=== PATIENT | female | born 1980 | race Caucasian/White ===

== ENCOUNTER 2016-10-08 21:29 | Emergency (ER) | payer BC ==
[~2016-10-08] VITALS: Ht 162.6 cm; Wt 142.9 kg
[~2016-10-08 21:29] MED LIST: ACET500C21 PO; ACHYD1T PO; ALPR.25T PO; AMIT10TA6 PO; AZIL1TAB2 PO; CEFD300C3 PO; CEPH500C PO; CLON0.253 PO; CLON0.5T60 PO; DCS100C PO; DIAZ5TAB PO; DULO60CA6 PO; ESCT10T PO; ESTR1TAB24 PO; ESTR42.52 VG; FRSM20T PO; FURO-124 PO; HCT25T PO; HYDR-3720 PO; HYDR-3730 PO; IBP800T PO; IBUP-30 PO; ISOM1CAP PO; KCL20TCR PO; LISI-552 PO; LISI10TA PO; LISI1TAB6 PO; LISI40TA PO; LORA1TAB PO; METH36TA4 PO; METO-270 PO; MTP100TCR PO; MTP25TSR PO; MTP50T PO; NAPR-243 PO; NITR-65 PO; NORT10CA PO; OMEP20CA12 PO; ONDA8TAB13 PO; ONDA8TAB9 PO; OXYC-197 PO; OXYC-202 PO; PHEN100T17 PO; PHEN100T26 PO; POTA20PA11 PO; PROP80TA3 PO; PRX20T PO; TIZA2CAP9 PO; VENL150C PO; VERA120T84 PO; ZLP10T PO; ZLP5T PO; ZONI100C11 PO
[2016-10-08] MEDS ORDERED: ACET500C21 PO (21:45)
[2016-10-08] MEDS ORDERED: OMEP40CA36 PO (21:45)
[2016-10-08] MEDS ORDERED: IBUP-1780 PO (21:45)
[2016-10-08] MEDS ORDERED: TOPI100T PO (21:45)
[2016-10-08] MEDS ORDERED: BUPR1FIL3 SL (21:45)
[2016-10-08 22:11] LABS: BASOPHILS % (AUTO) 1 % (0-10); EOSINOPHILS # (AUTO) 0.1 10^3/uL (0.0-0.3); EOSINOPHILS % (AUTO) 2 % (0-10); LYMPHOCYTES # (AUTO) 3.9 X 10^3 (1.0-4.0); LYMPHOCYTES % (AUTO) 53 % (12-44); MEAN CORPUSCULAR HEMOGLOBIN 30 PG (25-34); MEAN CORPUSCULAR HGB CONC 33 G/DL (32-36); MEAN CORPUSCULAR VOLUME 90 FL (80-99); MONOCYTES # (AUTO) 0.9 X 10^3 (0.0-1.0); MONOCYTES % (AUTO) 12 % (0-12); NEUTROPHILS # (AUTO) 2.5 X 10^3 (1.8-7.8); NEUTROPHILS % (AUTO) 33 % (42-75); PLATELET COUNT 351 10^3/uL (130-400); RED BLOOD COUNT 4.47 10^6/uL (4.35-5.85); RED CELL DISTRIBUTION WIDTH 13.5 % (10.0-14.5); WHITE BLOOD COUNT 7.4 10^3/uL (4.3-11.0)
[2016-10-08 22:14] LABS: INR 1.1 (0.8-1.4); PROTHROMBIN TIME PATIENT 13.7 SEC (12.2-14.7)
[2016-10-08 22:23] LABS: ALANINE AMINOTRANSFERASE 56 U/L (0-55); ALBUMIN 4.4 G/DL (3.2-4.5); ASPARTATE AMINO TRANSFERASE 38 U/L (5-34); BILIRUBIN,TOTAL 0.5 MG/DL (0.1-1.0); BLOOD UREA NITROGEN 10 MG/DL (7-18); BUN/CREATININE RATIO 11; CALCIUM 9.6 MG/DL (8.5-10.1); CARBON DIOXIDE 24 MMOL/L (21-32); CREATINE KINASE 394 U/L (29-168); CREATININE SERUM 0.93 MG/DL (0.60-1.30); GFR ESTIMATED > 60; GLUCOSE 116 MG/DL (70-105)
[2016-10-08 22:30] LABS: TROPONIN I < 0.30 NG/ML (<0.30)
[2016-10-08] MEDS ORDERED: methylPREDNISolone 125 MG (Solu-MEDROL) VIAL ONE (23:19)
[2016-10-08] MEDS ORDERED: cefTRIAXone 1 GM (ROCEPHIN) VIAL ONE (23:20)
[2016-10-08] MEDS ORDERED: BENZONATATE 100 MG (TESSALON) CAPSULE PO ONE (23:20)
--- NOTE | 2016-10-08 23:46 | ED General ---
General Chief Complaint: Neurological Problems Stated Complaint: LEFT SIDE NUMBNESS/BENIGN BRAIN TUMOR Nursing Triage Note: pt c/o right face numbness starting at 1000 today. she reports she saw dr chopra at [facility] today at 1600. no changes made by her pcp. she reports she feels swelling in her mouth et face, as if she has had dental work done. also c/o throat tightness. cough x 3 weeks. 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 reports posterior head pressure similar to symptoms before shunt placement. Nursing Sepsis Screen: No Definite Risk Source of Information: Patient, Old Records History of Present Illness Time Seen by Provider: 22:00 Initial Comments PT WITH MULTIPLE COMPLAINTS PT C/O PRODUCTIVE COUGH WITH GREEN SPUTUM X 3 -4 WEEKS TONIGHT SHE BECAME SHORT OF BREATH WHILE TAKING A SHOWER NO FEVER/SWEATS/CHILLS C/O FEELING VERY TIRED TONIGHT WHEN SHE WAS EATING A BURGER, HER THROAT FELT TIGHT AND SHE HAD TROUBLE SWALLOWING--NO SYMPTOMS WHEN SHE IS RESTING AND RELAXED AND NOT COUGHING --ABLE TO SWALLOW WATER WITHOUT DIFFICULTY, AND NO SYMPTOMS NOW. CHEST HURTS TO COUGH OR BREATHE HAS HISTORY OF FREQUENT BRONCHITIS / PNEUMONIA, PER PT PT WAS SEEN AT [facility] 2-3 WEEKS AGO AND GIVEN RX FOR AUGMENTIN, AND SYMPTOMS IMPROVED SOME, THEN RETURNED AND HAVE GOTTEN WORSE HAS NOT TAKEN ANYTHING FOR SYMPTOMS STATES YESTERDAY SHE HAD TO LEAVE WORK EARLY BECAUSE SHE "FELT BAD"--TIRED, HEADACHE--"JUST DIDN'T FEEL GOOD" PT ALSO STATES THAT AT 10 AM TODAY THE RIGHT SIDE OF HER FACE AND LIPS STARTED "FEELING FUNNY" --TINGLY, NUMB--"LIKE WHEN YOU HAVE DENTAL WORK" NO FACIAL DROOP NO NUMBNESS/TINGLING OR WEAKNESS ANYWHERE ELSE NO FACIAL PAIN NO DENTAL PAIN NO VISION CHANGES NO HEADACHE AT THIS TIME NO DIZZINESS NO NAUSEA/VOMITING STATES SHE HAS HISTORY OF PSEUDOTUMOR CEREBRI AND HAD A COST CONTROL SPECIALIST SHUNT PLACED 01/2016 AT STATES THESE SYMPTOMS ARE SIMILAR TO THOSE THAT SHE HAD BEFORE SHUNT WAS PLACED PT ALSO STATES SHE FEELS VERY ANXIOUS PCP: DR. CHOPRA AT [facility] Allergies and Home Medications Allergies Coded Allergies: promethazine (Verified Allergy, Mild, 01/28/16) Home Medications Acetazolamide 500 Mg Capsule.er, 1,000 MG PO DAILY, (Reported) Azithromycin 500 Mg Tablet, 500 MG PO DAILY, #5 FOR INFECTION Prescribed by: JOSE CARLOS NAYLOR on 10/08/168 Benzonatate 100 Mg Capsule, 1-2 TAB PO TID, #30 Prescribed by: JOSE CARLOS NAYLOR on 10/08/168 Buprenorphine HCl/Naloxone HCl 1 Each Film, 2 EACH SL DAILY, (Reported) Cefdinir 300 Mg Capsule, 300 MG PO BID, #20 Prescribed by: JOSE CARLOS NAYLOR on 10/08/168 Duloxetine HCl 60 Mg Capsule.dr, 60 MG PO BID, (Reported) Ibuprofen 800 Mg Tablet, 800 MG PO Q6H PRN for PAIN, (Reported) Lisinopril 40 Mg Tablet, 40 MG PO DAILY, (Reported) Methylprednisolone 4 Mg Tab.ds.pk, 4 MG PO UD, #1 Prescribed by: JOSE CARLOS NAYLOR on 10/08/162347 Omeprazole 40 Mg Capsule.dr, 40 MG PO DAILY, (Reported) Propranolol HCl 80 Mg Tablet, 80 MG PO BID, (Reported) Topiramate 100 Mg Tablet, 100 MG PO BID, (Reported) Constitutional: see HPI, No chills, No diaphoresis, No dizziness, No fever, malaise EENTM: see HPI, No blurred vision, No dental problems, No double vision, No ear discharge, No ear pain, No epistaxis, No eye pain, No hearing loss, No hoarseness, No mouth pain, No mouth swelling, No nose congestion, No nose pain, No throat pain, No throat swelling, No vision loss Respiratory: see HPI, cough, dyspnea on exertion, phlegm, short of breath, No wheezing Cardiovascular: see HPI, chest pain, edema, No palpitations, No syncope, No vascular heart diseas Gastrointestinal: see HPI, No abdominal pain, No diarrhea, No loss of appetite , No nausea, No vomiting Genitourinary: no symptoms reported : No (HYST) Musculoskeletal: no symptoms reported, No back pain, No neck pain Skin: no symptoms reported Psychiatric/Neurological: See HPI, Anxiety, Headache, Numbness, Paresthesia, Denies Seizure, Tingling, Denies Tremors, Denies Weakness Hematologic/Lymphatic: No Symptoms Reported Immunological/Allergic: no symptoms reported Past Sgbjpey-Vlbpjt-Vvlatg Hx Patient Social History Alcohol Use: Denies Use Recreational Drug Use: Yes (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) Smoking Status: Never a Smoker Recent Foreign Travel: No Contact w/Someone Who Travel: No Recent Infectious Disease Expo: No Recent Hopitalizations: No Immunizations Up To Date Tetanus Booster (TDap): Less than 5yrs PED Vaccines UTD: No Date of Influenza Vaccine: Feb 16, 2012 Surgeries HX Surgeries: Yes (COST CONTROL SPECIALIST shunt 01/2016, total hysterectomy 2005 with bladder tie up, A AND P REPAIR -12; EGD WITH LAP KATHE) Surgeries: Bladder Surgery, Gallbladder, Hysterectomy, Neurological, Oophorectomy Respiratory Hx Respiratory Disorders: Yes Respiratory Disorders: Asthma, Pneumonia, Chronic Bronchitis Cardiovascular Hx Cardiac Disorders: Yes Cardiac Disorders: Hypertension Neurological Hx Neurological Disorders: Yes (PSEUDO CEREBRI TUMOR, COST CONTROL SPECIALIST shunt 01/2016) Neurological Disorders: Headaches /Migraines Reproductive System Hx Reproductive Disorders: No 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 Genitourinary Hx Genitourinary Disorders: No Gastrointestinal Hx Gastrointestinal Disorders: Yes Gastrointestinal Disorders: Gastroesophageal Reflux, Esophagitis Musculoskeletal Hx Musculoskeletal Disorders: No Endocrine Hx Endocrine Disorders: No (MORBID OBESITY) HEENT HX ENT Disorders: No Cancer Hx Cancer: No Psychosocial Hx 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) Behavioral Health Disorders: Anxiety Integumentary HX Skin/Integumentary Disorder: No Blood Transfusions Hx Blood Disorders: No Adverse Reaction to a Blood Tr: No Family Medical History Significant Family History: No Pertinent Family Hx Family Medial History: Abdominal aortic aneurysm 03 FATHER Family history: Allergy 03 FATHER Family history: Arthritis 03 MOTHER 09 SISTER Family history: Hypertension 03 FATHER Physical Exam Vital Signs Vital Sign - Last 12Hours 10/08/16 10/09/16 21:37 00:05 Temp 100.3 Pulse 89 Resp 20 B/P (MAP) 151/107 Pulse Ox 98 Capillary Refill : Less Than 3 Seconds General Appearance: No Apparent Distress, WD/WN, Obese, Other (DOES NOT APPEAR TO BE IN ANY DISCOMFORT. OCCASIONAL HARSH COUGH) HEENT: PERRL/EOMI Neck: Full Range of Motion, Normal Inspection, Non Tender, Supple, No Carotid Bruit, No JVD Respiratory: Normal Breath Sounds, No Accessory Muscle Use, No Respiratory Distress Cardiovascular: Regular Rate, Rhythm, No JVD, No Murmur, Normal Peripheral Pulses Gastrointestinal: Normal Bowel Sounds, No Organomegaly, No Pulsatile Mass, Non Tender, Soft Back: Normal Inspection, No CVA Tenderness, No Vertebral Tenderness Extremity: Normal Capillary Refill, Normal Range of Motion, Non Tender, No Calf Tenderness, Pedal Edema (1+ BILATERALLY) Neurologic/Psychiatric: Alert, Oriented x3, Normal Mood/Affect, nut cracker II-XII Norm as Tested, No Abnormal Cerebellar Tests, No Abnormal Gait, No Aphasia, No EOM Palsy, No Facial Droop, No Motor Weakness, Other (SUBJECTIVE PARESTHESIAS TO RIGHT SIDE OF FACE INCLUDING FOREHEAD, BUT DOES HAVE SENSATION TO LIGHT TOUCH. ) Skin: Normal Color, Warm/Dry Focused Exam Lactic Acid Level Progress/Results/Core Measures Results/Orders Lab Results Laboratory Tests Test 10/08/16 21:50 10/08/16 22:00 10/08/16 22:15 10/08/16 22:59 Range/Units White Blood Count 7.4 4.3-11.0 10^3/uL Red Blood Count 4.47 4.35-5.85 10^6/uL Hemoglobin 13.3 11.5-16.0 G/DL Hematocrit 40 35-52 % Mean Corpuscular Volume 90 80-99 FL Mean Corpuscular Hemoglobin 30 25-34 PG Mean Corpuscular Hemoglobin Concent 33 32-36 G/DL Red Cell Distribution Width 13.5 10.0-14.5 % Platelet Count 351 130-400 10^3/uL Mean Platelet Volume 10.0 7.4-10.4 FL Neutrophils (%) (Auto) 33 L 42-75 % Lymphocytes (%) (Auto) 53 H 12-44 % Monocytes (%) (Auto) 12 0-12 % Eosinophils (%) (Auto) 2 0-10 % Basophils (%) (Auto) 1 0-10 % Neutrophils # (Auto) 2.5 1.8-7.8 X 10^3 Lymphocytes # (Auto) 3.9 1.0-4.0 X 10^3 Monocytes # (Auto) 0.9 0.0-1.0 X 10^3 Eosinophils # (Auto) 0.1 0.0-0.3 10^3/uL Basophils # (Auto) 0.0 0.0-0.1 10^3/uL Prothrombin Time 13.7 12.2-14.7 SEC INR Comment 1.1 0.8-1.4 Activated Partial Thromboplast Time 29 24-35 SEC Sodium Level 143 135-145 MMOL/L Potassium Level 3.7 3.6-5.0 MMOL/L Chloride Level 109 H 98-107 MMOL/L Carbon Dioxide Level 24 21-32 MMOL/L Anion Gap 10 5-14 MMOL/L Blood Urea Nitrogen 10 7-18 MG/DL Creatinine 0.93 0.60-1.30 MG/DL Estimat Glomerular Filtration Rate > 60 BUN/Creatinine Ratio 11 Glucose Level 116 H 70-105 MG/DL Calcium Level 9.6 8.5-10.1 MG/DL Magnesium Level 2.2 1.8-2.4 MG/DL Total Bilirubin 0.5 0.1-1.0 MG/DL Aspartate Amino Transf (AST/SGOT) 38 H 5-34 U/L Alanine Aminotransferase (ALT/SGPT) 56 H 0-55 U/L Alkaline Phosphatase 122 40-136 U/L Total Creatine Kinase 394 H 29-168 U/L Creatine Kinase MB 4.9 <6.6 NG/ML Troponin I < 0.30 <0.30 NG/ML Albumin 4.4 3.2-4.5 G/DL Serum Alcohol < 10 <10 MG/DL Lactic Acid Level 1.08 0.50-2.00 MMOL/L Urine Color YELLOW Urine Clarity CLEAR Urine pH 6 5-9 Urine Specific [place] 1.020 1.016-1.022 Urine Protein 2+ H NEGATIVE Urine Glucose (UA) NEGATIVE NEGATIVE Urine Ketones NEGATIVE NEGATIVE Urine Nitrite NEGATIVE NEGATIVE Urine Bilirubin NEGATIVE NEGATIVE Urine Urobilinogen 1 NORMAL MG/DL Urine Leukocyte Esterase 1+ H NEGATIVE Urine RBC (Auto) NEGATIVE NEGATIVE Urine RBC RARE /HPF Urine WBC 0-2 /HPF Urine Squamous Epithelial Cells 2-5 /HPF Urine Crystals NONE /LPF Urine Bacteria TRACE /HPF Urine Casts NONE /LPF Urine Mucus NEGATIVE /LPF Urine Culture Indicated NO Urine Opiates Screen NEGATIVE NEGATIVE Urine Oxycodone Screen NEGATIVE NEGATIVE Urine Methadone Screen NEGATIVE NEGATIVE Urine Propoxyphene Screen NEGATIVE NEGATIVE Urine Barbiturates Screen NEGATIVE NEGATIVE Ur Tricyclic Antidepressants Screen NEGATIVE NEGATIVE Urine Phencyclidine Screen NEGATIVE NEGATIVE Urine Amphetamines Screen NEGATIVE NEGATIVE Urine Methamphetamines Screen NEGATIVE NEGATIVE Urine Benzodiazepines Screen NEGATIVE NEGATIVE Urine Cocaine Screen NEGATIVE NEGATIVE Urine Cannabinoids Screen NEGATIVE NEGATIVE My Orders Orders - DAYDAYJOSE CARLOS K DO Saline Lock/Iv-Start (10/08/16 22:03) Ekg Tracing (10/08/16 22:03) Monitor-Rhythm Ecg Trace Only (10/08/16 22:03) Ct Head Wo-R/O Stroke (10/08/16 22:03) Cbc With Automated Diff (10/08/16 22:03) Comprehensive Metabolic Panel (10/08/16 22:03) Creatine Kinase (10/08/16 22:03) Creatine Kinase Mb (10/08/16 22:03) Magnesium (10/08/16 22:03) Protime With Inr (10/08/16 22:03) Partial Thromboplastin Time (10/08/16 22:03) Troponin I (10/08/16 22:03) Chest Pa/Lat (2 View) (10/08/16 22:03) Lactic Acid Analyzer (10/08/16 22:03) Blood Culture (10/08/16 22:03) Alcohol (10/08/16 22:16) Drug Screen Stat (Urine) (10/08/16 22:16) Ua Culture If Indicated (10/08/16 22:16) Methylprednisolone Sod Succ (Solu-Medrol (10/08/16 23:19) Ceftriaxone Injection (Rocephin Injectio (10/08/16 23:20) Benzonatate Capsule (Tessalon Perles) (10/08/16 23:20) Medications Given in ED Current Medications Medications Dose Ordered Sig/Kelly Route Start Time Stop Time Status Last Admin Dose Admin Benzonatate 100 mg STK-MED ONCE PO 10/08/16 23:20 10/08/16 23:25 DC 10/08/16 23:28 100 MG Ceftriaxone Sodium 1,000 mg STK-MED ONCE .ROUTE 10/08/16 23:20 10/08/16 23:25 DC 10/08/16 23:28 1,000 MG Methylprednisolone Sodium Succinate 125 mg STK-MED ONCE .ROUTE 10/08/16 23:19 10/08/16 23:25 DC 10/08/16 23:27 125 MG Vital Signs/I&O Vital Sign - Last 12Hours 10/08/16 10/09/16 10/09/16 21:37 00:05 00:05 Temp 100.3 99.7 Pulse 89 74 74 Resp 20 16 16 B/P (MAP) 151/107 113/75 Pulse Ox 98 Blood Pressure Mean: 122 Progress Note : Progress Note UNEVENTFUL ER STAY PER [facility], PT HAS RECEIVED MULTIPLE RX'S FOR PAIN MEDICATIONS FROM MULTIPLE PROVIDERS AND HAD FILLED AT MULTIPLE PHARMACIES, SINCE JULY --ALL WHILE CONTINUING TO FILL RX'S FOR SUBOXONE 09/04/16 FILLED RX FOR SUBOXONE #[address] BARBA, FILLED AT [facility] ALSO ON 09/04/16 FILLED RX FOR TRAMADOL #[address] BARBA [address] [facility] ALSO ON FILLED RX FOR TYLENOL # 3 FOR #[address] PALACIO [facility], FILLED AT [facility] ON 09/01/16 FILLED RX FOR SUBOXONE #[address] BARBA, FILLED AT [facility] 08/25/16 FILLED HYDROCODONE #[address] PALACIO, FILLED AT [facility] 08/20/16 FILLED TYLENOL #3 FOR #[address] PALACIO, FILLED AT [facility] 08/13/16 FILLED TRAMADOL #[address] BARBA, FILLED AT [facility] 08/07/16 FILLED SUBOXONE #[address] BARBA, FILLED AT [facility] 08/04/16 FILLED SUBOXONE #[address] BARBA, FILLED AT [facility] ECG Initial ECG Impression Time: 22:29 Initial ECG Rate: 79 Initial ECG Rhythm: Normal Sinus Initial ECG Impression: Normal Initial ECG Comparisson: Unchanged Diagnostic Imaging Comments CXR--NO ACUTE PROCESS, PENDING RADIOLOGIST REVIEW CT HEAD--NO ACUTE PROCESS, COST CONTROL SPECIALIST SHUNT IN PLACE AND APPEARS TO BE FUNCTIONING--NO HYDROCEPHALUS--PER [employer] RADIOLOGIST VIA PHONE AT [phone] AND VIA FAX AT [phone] Reviewed: Reviewed by Me Departure Impression Impression: Primary Impression: Acute bronchitis Additional Impression: RIGHT FACIAL PARESTHESIAS Disposition: 01 HOME, SELF-CARE Condition: Stable Departure-Patient Inst. Referrals: JESSE CHOPRA MD (PCP/Family) Primary Care Physician Patient Instructions: Acute Bronchitis, Adult (DC), Paresthesias (DC) Add. Discharge Instructions: TYLENOL AND MOTRIN NEEDED FOR PAIN OR FEVER ROBITUSSIN DM FOR COUGH LOTS OF CLEAR LIQUIDS FOLLOW UP WITH YOUR DR IN 2-3 DAYS IF NO BETTER, OR SOONER IF WORSE All discharge instructions reviewed with patient and/or family. Voiced understanding. Scripts Azithromycin (Zithromax) 500 Mg Tablet 500 MG PO DAILY, #5 TAB FOR INFECTION Prov: JOSE CARLOS NAYLOR DO 10/08/16 Benzonatate (Tessalon Perle) 100 Mg Capsule 1-2 TAB PO TID for Cough, #30 CAP Prov: JOSE CARLOS NAYLOR DO 10/08/16 Methylprednisolone (Medrol) 4 Mg Tab.ds.pk 4 MG PO UD, #1 PKG Prov: JOSE CARLOS NAYLOR DO 10/08/16 Cefdinir (Cefdinir) 300 Mg Capsule 300 MG PO BID for FOR INFECTION, #20 CAP Prov: JOSE CARLOS NAYLOR DO 10/08/16 JOSE CARLOS NAYLOR DO October 08, 2016 23:46
[2016-10-08] MEDS ORDERED: AZIT500T PO (23:48)
[2016-10-08] MEDS ORDERED: BENZ-13 PO (23:48)
[2016-10-08] MEDS ORDERED: METH4TAB PO (23:48)
[2016-10-08] MEDS ORDERED: CEFD300C3 PO (23:48)
[2016-10-08 23:59] LABS: PH,URINE 6 (5-9)
[2016-10-09] LABS: BILIRUBIN,URINE NEGATIVE (NEGATIVE); KETONES,URINE NEGATIVE (NEGATIVE); LEUKOCYTE ESTERASE ,URINE 1+ (NEGATIVE); NITRITE,URINE NEGATIVE (NEGATIVE); PROTEIN,URINE 2+ (NEGATIVE); UROBILINOGEN,URINE 1 MG/DL (NORMAL); WBC,URINE 0-2 /HPF
[2016-10-09 00:02] LABS: ANION GAP 10 MMOL/L (5-14); CHLORIDE 109 MMOL/L (98-107); MAGNESIUM 2.2 MG/DL (1.8-2.4); POTASSIUM 3.7 MMOL/L (3.6-5.0); SODIUM 143 MMOL/L (135-145)
[2016-10-09 00:05] VITALS: BP 113/75
[2016-10-09 03:19] LABS: TOTAL PROTEIN 6.9 G/DL (6.4-8.2)
--- NOTE | 2016-10-09 07:39 | Diagnostic Imaging Report ---
INDICATION: Left-sided numbness, history of shunt. COMPARISON: 03/08/2016. FINDINGS: Right frontal shunt tubing with tip at the midline unchanged. There is no dilatation of the ventricles. Asymmetric lateral ventricular caliber right smaller than left is an unchanged finding from prior. The midline structures did not appear displaced and there are no abnormal extra-axial fluid collections. No findings of focal or generalized edema. No sulcal effacement. No mass or mass effect. No intracerebral hemorrhage. IMPRESSION: Shunt tube unchanged. No hydrocephalus, edema or hemorrhage. Agree with preliminary. Dictated by: Dictated on workstation # [id number]
--- NOTE | 2016-10-09 08:02 | Diagnostic Imaging Report ---
INDICATION: Cough and congestion. COMPARISON: 04/15/2016. FINDINGS: Lungs are clear. The heart and vessels are normal. There is no effusion or pneumothorax. IMPRESSION: No acute appearing abnormality. Dictated by: Dictated on workstation # [id number]
== END 2016-10-09 00:05 | disposition home or self-care (01) ==
LOC: EDUNIT# 21:29 → ER 21:34
DX: J20.9 Acute bronchitis, unspecified (principal); R20.2 Paresthesia of skin; I10 Essential (primary) hypertension; E66.01 Morbid (severe) obesity due to excess calories; D33.2 Benign neoplasm of brain, unspecified; Z79.899 Other long term (current) drug therapy; Z98.2 Presence of cerebrospinal fluid drainage device
CPT/HCPCS: 36415; 70450; 71020; 80053; 80306; 80320; 81000; 82550; 82553; 83605; 83735; 84484; 85025; 85610; 85730; 87040; 93005; 93041

== ENCOUNTER → 2016-11-03 | Outpatient (CLI) | payer BC ==
[~2016-11-03] MED LIST changes: +AZIT500T PO; +BENZ-13 PO; +BUPR1FIL3 SL; +IBUP-1780 PO; +METH4TAB PO; +OMEP40CA36 PO; +TOPI100T PO
== END ==
LOC: CARD 14:00
PROVIDERS: ATTEND Internal Medicine Cardiovascular Disease
DX: I10 Essential (primary) hypertension (principal); R06.02 Shortness of breath; G93.2 Benign intracranial hypertension; R73.01 Impaired fasting glucose; E66.01 Morbid (severe) obesity due to excess calories

== ENCOUNTER → 2016-11-04 | Outpatient (CLI) | payer BC ==
[~2016-11-04] MED LIST changes: +CATHETER FLUSH 10 ML SYR IV PRN; +REGADENOSON 0.4 MG/5 ML SYR (LEXISCAN) IV ONE
[2016-11-04 13:44] VITALS: BP 135/88
--- NOTE | 2016-11-05 16:39 | STRESS TEST ---
DATE OF SERVICE: 11/04/2016 RESTING AND POST REGADENOSON TECHNETIUM-99M TETROFOSMIN SPECT CT IMAGING ORDERING PHYSICIAN: Dr. Carter. PRIMARY CARE PHYSICIAN: Dr. Boyce. CLINICAL DIAGNOSES: Shortness of breath, obesity, hypertension. Baseline images were carried out after injection of 10.48 mCi of technetium-99m tetrofosmin. This was followed by 0.4 mg regadenoson and 28.9 mCi of technetium-99m tetrofosmin. The electrocardiogram showed sinus rhythm throughout the study. The patient did not report symptoms. She tolerated the procedure well. Review of images at rest and following stress does not indicate any distinct perfusion defects consistent with significant myocardial ischemia or infarction. Gated images show normal global left ventricular systolic function with normal regional wall motion. Left ventricular ejection fraction is calculated to be 75%. Left ventricular end diastolic volume is 80 mL. TID is absent (0.99). CONCLUSIONS: 1. No evidence of any significant myocardial ischemia or infarction on this study. 2. Normal regional wall motion. 3. Normal global left ventricular systolic function with a calculated ejection fraction of 75%. 4. Normal left ventricular cavity size. Job ID: [id number] DocumentID: [id number] Dictated Date: 11/04/2016 18:21:11 Electronic Installer Date: 11/05/2016 01:06:10 Dictated By: JAZYLN CARTER MD, MA, FACP, FACC,
== END ==
LOC: CARD 11:25
PROVIDERS: ATTEND Internal Medicine Cardiovascular Disease
DX: I10 Essential (primary) hypertension (principal); G93.2 Benign intracranial hypertension; R06.02 Shortness of breath; R73.01 Impaired fasting glucose; E66.01 Morbid (severe) obesity due to excess calories
CPT/HCPCS: 78452; 93017

== ENCOUNTER 2016-12-02 22:47 | Observation (INO) | payer BC ==
[~2016-12-02] VITALS: Ht 162.6 cm; Wt 140.6 kg
[~2016-12-02 22:47] MED LIST changes: -CATHETER FLUSH 10 ML SYR IV PRN; -REGADENOSON 0.4 MG/5 ML SYR (LEXISCAN) IV ONE
[2016-12-02] MEDS ORDERED: CLIN300C11 PO (23:40)
[2016-12-02] MEDS ORDERED: NS IV 1000 ML 1,000 ML IV ONE (23:47)
--- NOTE | 2016-12-02 23:47 | ED Integumentary General ---
General Chief Complaint: Skin/Wound Problems Stated Complaint: STOMACH ABSCESS/FEVER Nursing Triage Note: Pt present with an abscess area on low abd that was opened by pt yesterday with purulent drainage and placed on Clindamycin at [facility]. Pt reveals a hollow cavity area on low abd. Pt began running temps 100.0-101.0 today. 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 She states this started last she had a red rash that looked like cellulitis and Thursday saw her doctor and was started on clindamycin 300 mg. She is taking the clindamycin but still having fevers with a MAXIMUM TEMPERATURE today of 102 Fahrenheit. She is not having any nausea but she feels very constipated and has felt weird gurgling sounds in her abdomen which she is not sure if it's from her bowels or from her shunt that was placed secondary her pseudotumor cerebri. She feels tired and weak with malaise. She has no shortness breath chest pain or diarrhea. Patient states that today the floor opened up and started draining yellow-white fluid. She had not been seen or had an I&D prior to today in the ER. Allergies and Home Medications Allergies Coded Allergies: promethazine (Verified Allergy, Mild, 01/28/16) Home Medications Buprenorphine HCl/Naloxone HCl 1 Each Film, 2 EACH SL DAILY, (Reported) Clindamycin HCl 300 Mg Capsule, 300 MG PO QID, #21 (Reported) Duloxetine HCl 60 Mg Capsule.dr, 60 MG PO BID, (Reported) Ibuprofen 800 Mg Tablet, 800 MG PO Q6H PRN for PAIN, (Reported) Lisinopril 40 Mg Tablet, 40 MG PO DAILY, (Reported) Omeprazole 40 Mg Capsule.dr, 40 MG PO DAILY, (Reported) Propranolol HCl 80 Mg Tablet, 80 MG PO BID, (Reported) Topiramate 100 Mg Tablet, 100 MG PO BID, (Reported) Constitutional: chills, fever, malaise Respiratory: No cough, No short of breath Cardiovascular: No chest pain, No edema Gastrointestinal: abdominal pain (suprapubic), No constipation, No diarrhea, nausea, No vomiting Genitourinary: No discharge, No dysuria : No (ovaries and uterus removed) Musculoskeletal: No back pain, No joint pain Skin: see HPI, rash Past Ifdrouy-Nqrafa-Zborca Hx Patient Social History Alcohol Use: Denies Use Recreational Drug Use: No Smoking Status: Never a Smoker 2nd Hand Smoke Exposure: No Recent Foreign Travel: No Contact w/Someone Who Travel: No Recent Infectious Disease Expo: No Recent Hopitalizations: No Immunizations Up To Date Tetanus Booster (TDap): Less than 5yrs PED Vaccines UTD: No Date of Influenza Vaccine: Feb 16, 2012 Seasonal Allergies Seasonal Allergies: No Surgeries HX Surgeries: Yes Surgeries: Bladder Surgery, Gallbladder, Hysterectomy, Neurological, Oophorectomy Respiratory Hx Respiratory Disorders: Yes Respiratory Disorders: Asthma, Pneumonia, Chronic Bronchitis Cardiovascular Hx Cardiac Disorders: Yes Cardiac Disorders: Hypertension Neurological Hx Neurological Disorders: Yes (PSEUDO CEREBRI TUMOR, 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) Neurological Disorders: Headaches /Migraines Reproductive System Hx Reproductive Disorders: No 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 Genitourinary Hx Genitourinary Disorders: No Gastrointestinal Hx Gastrointestinal Disorders: Yes Gastrointestinal Disorders: Gastroesophageal Reflux, Esophagitis Musculoskeletal Hx Musculoskeletal Disorders: No Endocrine Hx Endocrine Disorders: No (MORBID OBESITY) HEENT HX ENT Disorders: No Cancer Hx Cancer: No Psychosocial Hx 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) Behavioral Health Disorders: Anxiety Integumentary HX Skin/Integumentary Disorder: No Blood Transfusions Hx Blood Disorders: No Adverse Reaction to a Blood Tr: No Family Medical History Significant Family History: No Pertinent Family Hx Family Medial History: Abdominal aortic aneurysm 03 FATHER Family history: Allergy 03 FATHER Family history: Arthritis 03 MOTHER 09 SISTER Family history: Hypertension 03 FATHER Physical Exam Vital Signs Vital Sign - Last 12Hours 12/02/16 23:20 Temp 100.0 Pulse 72 Resp 20 B/P (MAP) 137/82 Pulse Ox 99 O2 Delivery Room Air Capillary Refill : Less Than 3 Seconds General Appearance: WD/WN, mild distress, obese Cardiovascular: normal peripheral pulses, regular rate, rhythm Respiratory: lungs clear, normal breath sounds Gastrointestinal: normal bowel sounds, soft, tenderness (over rash and poor on the suprapubic worsening of her abdomen and pannus) Extremities: non-tender, normal capillary refill Neurologic/Psychiatric: alert, oriented x 3 Skin: rash (erythematous rash approximately 1 foot wide by 8 inches tall suprapubic region. There is an open poor proximal a 1 cm diameter with necrotic tissue and purulence. Ultrasound bedside examination does not demonstrate any loculations or collections of fluid in the soft tissue under the skin. It does not drain any more purulence to expression.) Progress/Results/Core Measures Results/Orders Lab Results Laboratory Tests Test 12/02/16 23:55 12/03/16 00:25 Range/Units White Blood Count 6.4 4.3-11.0 10^3/uL Red Blood Count 4.40 4.35-5.85 10^6/uL Hemoglobin 13.1 11.5-16.0 G/DL Hematocrit 39 35-52 % Mean Corpuscular Volume 89 80-99 FL Mean Corpuscular Hemoglobin 30 25-34 PG Mean Corpuscular Hemoglobin Concent 34 32-36 G/DL Red Cell Distribution Width 12.7 10.0-14.5 % Platelet Count 275 130-400 10^3/uL Mean Platelet Volume 9.6 7.4-10.4 FL Neutrophils (%) (Auto) 45 42-75 % Lymphocytes (%) (Auto) 45 H 12-44 % Monocytes (%) (Auto) 7 0-12 % Eosinophils (%) (Auto) 2 0-10 % Basophils (%) (Auto) 0 0-10 % Neutrophils # (Auto) 2.9 1.8-7.8 X 10^3 Lymphocytes # (Auto) 2.9 1.0-4.0 X 10^3 Monocytes # (Auto) 0.5 0.0-1.0 X 10^3 Eosinophils # (Auto) 0.1 0.0-0.3 10^3/uL Basophils # (Auto) 0.0 0.0-0.1 10^3/uL Prothrombin Time 13.2 12.2-14.7 SEC INR Comment 1.0 0.8-1.4 Activated Partial Thromboplast Time 30 24-35 SEC Sodium Level 140 135-145 MMOL/L Potassium Level 3.8 3.6-5.0 MMOL/L Chloride Level 109 H 98-107 MMOL/L Carbon Dioxide Level 20 L 21-32 MMOL/L Anion Gap 11 5-14 MMOL/L Blood Urea Nitrogen 17 7-18 MG/DL Creatinine 0.95 0.60-1.30 MG/DL Estimat Glomerular Filtration Rate > 60 BUN/Creatinine Ratio 18 Glucose Level 98 70-105 MG/DL Lactic Acid Level 1.00 0.50-2.00 MMOL/L Calcium Level 9.1 8.5-10.1 MG/DL Total Bilirubin 0.5 0.1-1.0 MG/DL Aspartate Amino Transf (AST/SGOT) 26 5-34 U/L Alanine Aminotransferase (ALT/SGPT) 47 0-55 U/L Alkaline Phosphatase 106 40-136 U/L Total Protein 6.9 6.4-8.2 GM/DL Albumin 4.1 3.2-4.5 GM/DL Urine Color YELLOW Urine Clarity CLEAR Urine pH 6.5 5-9 Urine Specific [place] 1.020 1.016-1.022 Urine Protein 1+ H NEGATIVE Urine Glucose (UA) NEGATIVE NEGATIVE Urine Ketones 1+ H NEGATIVE Urine Nitrite NEGATIVE NEGATIVE Urine Bilirubin 1+ H NEGATIVE Urine Urobilinogen 4 H NORMAL MG/DL Urine Leukocyte Esterase 1+ H NEGATIVE Urine RBC (Auto) NEGATIVE NEGATIVE Urine RBC NONE /HPF Urine WBC RARE /HPF Urine Squamous Epithelial Cells 25-50 H /HPF Urine Crystals PRESENT H /LPF Urine Calcium Oxalate Crystals MODERATE H /LPF Urine Bacteria TRACE /HPF Urine Casts NONE /LPF Urine Mucus MODERATE H /LPF Urine Culture Indicated NO My Orders Orders - NAYA BRANTLEY Cbc With Automated Diff (12/02/16 23:47) Comprehensive Metabolic Panel (12/02/16 23:47) Lactic Acid Analyzer (12/02/16 23:47) Blood Culture (12/02/16 23:47) Sputum Culture (12/02/16 23:47) Ua Culture If Indicated (12/02/16 23:47) Protime With Inr (12/02/16 23:47) Partial Thromboplastin Time (12/02/16 23:47) O2 (12/02/16 23:47) Saline Lock/Iv-Start (12/02/16 23:47) Saline Lock/Iv-Start (12/02/16 23:47) Piperacillin Sodium/Tazobactam (Zosyn Vi (12/03/16 00:00) Vital Signs Adult Sepsis Patie Q1HR (12/02/16 23:47) Vancomycin Injection (Vancomycin Injecti (12/03/16 00:00) Remove Rings In Anticipation O (12/02/16 23:47) Saline Lock/Iv-Start (12/02/16 23:47) Ns Iv 1000 Ml (Sodium Chloride 0.9%) (12/02/16 23:47) Ct Abdomen/Pelvis Wo (12/03/16 00:08) Chest 1 View, Ap/Pa Only (12/03/16 00:08) Fentanyl Injection (Sublimaze Injection (12/03/16 00:30) Ondansetron Injection (Zofran Injectio (12/03/16 00:30) Medications Given in ED Current Medications Medications Dose Ordered Sig/Kelly Route Start Time Stop Time Status Last Admin Dose Admin Ondansetron HCl 4 mg ONCE ONCE IVP 12/03/16 00:30 12/03/16 00:31 DC 12/03/16 00:48 4 MG Piperacillin Sod/ Tazobactam Sod 4.5 gm/Sodium Chloride 100 ml @ 200 mls/hr ONCE ONCE IV 12/03/16 00:00 12/03/16 00:29 DC 12/03/16 00:47 200 MLS/HR Sodium Chloride 1,000 ml @ 0 mls/hr Q0M ONCE IV 12/02/16 23:47 12/02/16 23:50 DC 12/03/16 00:47 999 MLS/HR Vital Signs/I&O Vital Sign - Last 12Hours 12/02/16 12/03/16 23:20 00:48 Temp 100.0 100.0 Pulse 72 Resp 20 B/P (MAP) 137/82 Pulse Ox 99 O2 Delivery Room Air Blood Pressure Mean: 100 Progress Note : Time: 01:11 Progress Note Patient sitting IV pain meds and nausea meds to control her symptoms. She has cellulitis with at least some abscess that has opened and drained on its own. We have initiated IV antibiotics and will probably need to keep her overnight just observe her despite stable vitals. Having an abscess this close to an intra -abdominal peritoneal shunt is concerning enough that we should see some starting of resolution of the symptoms before we would let her go home Diagnostic Imaging Diagonstic Imaging: CT Plain Films/CT/US/NM/MRI: abdomen (pelvis without contrast) Comments Induration in the inferior anterior abdominal wall. No abnormal soft tissue gas. No discrete fluid collections. There is a peritoneal shunt catheter tip in the mid abdomen. No free intraperitoneal fluid or air. No bowel obstruction. Liver spleen pancreas and kidneys are unremarkable. Status post cholecystectomy. 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 Discussed the abscess and its findings and choice of antibiotics bank and Zosyn. Admitting doctor is okay with this and will accept her on observation status and see her in the morning. Impression Impression: Primary Impression: Abscess Additional Impression: Cellulitis Qualified Codes: L03.311 - Cellulitis of abdominal wall Disposition: ADMITTED INPATIENT (obs) Condition: Stable Decision to Admit Reason: Admit from ER (General) Decision to Admit/Date: Dec 03, 2016 Time/Decision to Admit Time: 01:17 Departure-Patient Inst. Referrals: JESSE CHOPRA MD (PCP/Family) Primary Care Physician Copy Copies To 1: TONEY BARBA TITUS J Dec 02, 2016 23:47
[2016-12-03] MEDS ORDERED: PIPERACILLIN SODIUM/TAZOBACTAM 4.5 GM in NS (IVPB) 100 ML IV ONE ×2
[2016-12-03] MEDS ORDERED: VANCOMYCIN INJECTION 1,000 MG in NS (IVPB) 250 ML IV ONE ×2
[2016-12-03 00:09] LABS: BASOPHILS % (AUTO) 0 % (0-10); EOSINOPHILS # (AUTO) 0.1 10^3/uL (0.0-0.3); EOSINOPHILS % (AUTO) 2 % (0-10); LYMPHOCYTES # (AUTO) 2.9 X 10^3 (1.0-4.0); LYMPHOCYTES % (AUTO) 45 % (12-44); MEAN CORPUSCULAR HEMOGLOBIN 30 PG (25-34); MEAN CORPUSCULAR HGB CONC 34 G/DL (32-36); MEAN CORPUSCULAR VOLUME 89 FL (80-99); MEAN PLATELET VOLUME 9.6 FL (7.4-10.4); MONOCYTES # (AUTO) 0.5 X 10^3 (0.0-1.0); MONOCYTES % (AUTO) 7 % (0-12); NEUTROPHILS # (AUTO) 2.9 X 10^3 (1.8-7.8); NEUTROPHILS % (AUTO) 45 % (42-75); PLATELET COUNT 275 10^3/uL (130-400); RED CELL DISTRIBUTION WIDTH 12.7 % (10.0-14.5); WHITE BLOOD COUNT 6.4 10^3/uL (4.3-11.0)
[2016-12-03 00:19] LABS: PROTHROMBIN TIME PATIENT 13.2 SEC (12.2-14.7)
[2016-12-03 00:27] LABS: ALANINE AMINOTRANSFERASE 47 U/L (0-55); ALBUMIN 4.1 GM/DL (3.2-4.5); ANION GAP 11 MMOL/L (5-14); ASPARTATE AMINO TRANSFERASE 26 U/L (5-34); BILIRUBIN,TOTAL 0.5 MG/DL (0.1-1.0); BLOOD UREA NITROGEN 17 MG/DL (7-18); BUN/CREATININE RATIO 18; CALCIUM 9.1 MG/DL (8.5-10.1); CARBON DIOXIDE 20 MMOL/L (21-32); CHLORIDE 109 MMOL/L (98-107); CREATININE SERUM 0.95 MG/DL (0.60-1.30); GFR ESTIMATED > 60; GLUCOSE 98 MG/DL (70-105); POTASSIUM 3.8 MMOL/L (3.6-5.0); SODIUM 140 MMOL/L (135-145); TOTAL PROTEIN 6.9 GM/DL (6.4-8.2)
[2016-12-03] MEDS ORDERED: fentaNYL INJECTION 100 MCG/2 ML AMP IVP STA (00:30)
[2016-12-03] MEDS ORDERED: ONDANSETRON 4 MG/2 ML (SDV) Z0FRAN IVP ONE ×2 (00:30→01:30)
[2016-12-03 00:43] LABS: KETONES,URINE 1+ (NEGATIVE); LEUKOCYTE ESTERASE ,URINE 1+ (NEGATIVE); NITRITE,URINE NEGATIVE (NEGATIVE); PH,URINE 6.5 (5-9); PROTEIN,URINE 1+ (NEGATIVE); UROBILINOGEN,URINE 4 MG/DL (NORMAL)
[2016-12-03 00:58] LABS: CALCIUM OXALATE CRYSTALS,UR MODERATE /LPF; SQUAMOUS EPITHELIAL CELL,UR 25-50 /HPF; WBC,URINE RARE /HPF
[2016-12-03 01:00] LABS: BILIRUBIN,URINE 1+ (NEGATIVE)
[2016-12-03] MEDS ORDERED: ACETAMINOPHEN 500 MG TAB (TYLENOL) PO ONE (01:30)
[2016-12-03] MEDS ORDERED: NS (IVPB) 250 ML ONE (03:03)
[2016-12-03] MEDS ORDERED: VANCOMYCIN 1000 MG/VIAL ONE (03:03)
[2016-12-03] MEDS ORDERED: ONDANSETRON 4 MG/2 ML (SDV) Z0FRAN ONE (03:34)
[2016-12-03] MEDS ORDERED: fentaNYL INJECTION 100 MCG/2 ML AMP ONE (03:34)
[2016-12-03] MEDS: fentaNYL INJECTION 100 MCG/2 ML AMP IV PRN ×2 (04:05→08:56)
[2016-12-03] MEDS: ONDANSETRON 4 MG/2 ML (SDV) Z0FRAN IV PRN ×2 (04:05→08:56)
[2016-12-03] MEDS ORDERED: VANCOMYCIN 1 GM/NS 250 ML IVPB IV ONE ×2 (04:15)
[2016-12-03 04:20] VITALS: BP 131/71
[2016-12-03 04:58] LABS: BASOPHILS % (AUTO) 0 % (0-10); EOSINOPHILS # (AUTO) 0.1 10^3/uL (0.0-0.3); EOSINOPHILS % (AUTO) 2 % (0-10); LYMPHOCYTES # (AUTO) 2.8 X 10^3 (1.0-4.0); LYMPHOCYTES % (AUTO) 49 % (12-44); MEAN CORPUSCULAR HEMOGLOBIN 30 PG (25-34); MEAN CORPUSCULAR HGB CONC 33 G/DL (32-36); MEAN CORPUSCULAR VOLUME 90 FL (80-99); MEAN PLATELET VOLUME 9.9 FL (7.4-10.4); MONOCYTES # (AUTO) 0.5 X 10^3 (0.0-1.0); MONOCYTES % (AUTO) 9 % (0-12); NEUTROPHILS # (AUTO) 2.3 X 10^3 (1.8-7.8); NEUTROPHILS % (AUTO) 40 % (42-75); PLATELET COUNT 255 10^3/uL (130-400); RED BLOOD COUNT 4.07 10^6/uL (4.35-5.85); RED CELL DISTRIBUTION WIDTH 12.6 % (10.0-14.5); WHITE BLOOD COUNT 5.7 10^3/uL (4.3-11.0)
[2016-12-03 05:18] LABS: ALANINE AMINOTRANSFERASE 45 U/L (0-55); ALBUMIN 3.7 GM/DL (3.2-4.5); ANION GAP 10 MMOL/L (5-14); ASPARTATE AMINO TRANSFERASE 26 U/L (5-34); BILIRUBIN,TOTAL 0.6 MG/DL (0.1-1.0); BLOOD UREA NITROGEN 17 MG/DL (7-18); BUN/CREATININE RATIO 20; CALCIUM 8.5 MG/DL (8.5-10.1); CARBON DIOXIDE 21 MMOL/L (21-32); CHLORIDE 110 MMOL/L (98-107); CREATININE SERUM 0.86 MG/DL (0.60-1.30); GFR ESTIMATED > 60; GLUCOSE 107 MG/DL (70-105); POTASSIUM 3.7 MMOL/L (3.6-5.0); SODIUM 141 MMOL/L (135-145); TOTAL PROTEIN 6.3 GM/DL (6.4-8.2)
[2016-12-03] MEDS: PIPERACILLIN/TAZOBACTAM 4.5 GM/NS100 ML IVPB IV SCH ×4 (05:39→13:40)
--- NOTE | 2016-12-03 06:33 | Diagnostic Imaging Report ---
PROCEDURE: CT abdomen and pelvis without contrast. TECHNIQUE: Multiple contiguous axial images were obtained through the abdomen and pelvis without the use of intravenous contrast. INDICATION: Abdominal wound. Exam compared to 04/25/2015. There is some mild subcutaneous infiltration of the fat eccentric to the right below the level of the umbilicus with overlying skin irregularity and skin thickening. Regional cellulitis could not be excluded. There is no abscess or drainable fluid collection and no soft tissue air. The abdominal wall itself appeared unremarkable. There is a peritoneal catheter present with no abdominal or pelvic free fluid or loculated collection. There is no free air. Unobstructed kidneys unremarkable. The gallbladder absent, mild hepatic steatosis suspected. Spleen, adrenals and pancreas unremarkable. There is no ileus or bowel obstruction. The appendix visualized and normal. There is no diverticulitis. No adnexal abnormality. The uterus appears absent. IMPRESSION: Mild subcutaneous induration and skin thickening infraumbilical may reflect regional cellulitis. However, no abscess or drainable fluid collection. Peritoneal catheter present without free fluid or loculated collection. Previous cholecystectomy which likely mild steatosis to the liver. No acute appearing intra-or retroperitoneal abnormality. Dictated by: Dictated on workstation # [id number]
--- NOTE | 2016-12-03 07:27 | Diagnostic Imaging Report ---
INDICATION: Abdominal wound COMPARISON: 10/08/2016 FINDINGS: Right IJ at the SVC stable. The lungs are clear. The heart and vascularity are normal. There is no effusion or pneumothorax. IMPRESSION: No acute appearing abnormality. Dictated by: Dictated on workstation # [id number]
[2016-12-03 08:00] VITALS: BP 96/69
[2016-12-03] MEDS ORDERED: VANCOMYCIN 2000 MG/NS 500 ML IVPB IV SCH ×2 (09:00)
[2016-12-03] MEDS ORDERED: MIRT30TA6 PO (09:07)
[2016-12-03] MEDS ORDERED: NAPR220T66 PO (09:07)
[2016-12-03] MEDS ORDERED: ISOM1CAP PO (09:07)
[2016-12-03] MEDS ORDERED: FLUT16SP22 NS (09:07)
[2016-12-03] MEDS ORDERED: BUPR1FIL3 SL (09:07)
[2016-12-03] MEDS ORDERED: KETOROLAC 30 MG/ML VIAL IVP PRN ×3 (11:30→17:30)
--- NOTE | 2016-12-03 11:51 | Short Stay Summary ---
HPI History of Present Illness: 36 yo F that presented to [facility] on thursday with cellulitis. She was started on Clindamycin at that time. Patient states that rash progressed and opened up last night and that is what brought her to the ER. She has a small amount of purulent drainage from wound. States that pain has been getting worse in the last 24 hrs. States that she had some fevers of 102 at home. + N w/o Vomiting. Never had anything like this in the past. Source: patient, RN/MD, old records Exam Limitations: no limitations Date seen by provider: Dec 03, 2016 Time Seen by Provider: 10:20 Attending Physician Amanda Hernandez MD PCP Jesse Chopra MD Consult Date of Admission Dec 03, 2016 at 01:30 Home Medications Home Medications Reviewed patient Home Medication Reconciliation Form Allergies Coded Allergies: promethazine (Verified Allergy, Mild, 01/28/16) GRC-Mhlgxz-Audnwh Hx Patient Social History Living Status: Lives at home Alcohol Use: Denies Use Recreational Drug Use: No Smoking Status: Never a Smoker 2nd Hand Smoke Exposure: No Recent Foreign Travel: No Contact w/other who traveled: No Recent Hopitalizations: No Recent Infectious Disease Expo: No Physical Abuse Screen: No Sexual Abuse: No Immunizations Up To Date Tetanus Booster (TDap): Less than 5yrs Date of Influenza Vaccine: Feb 16, 2012 Past Medical History HTN Migraines Fatty liver Surg: hysterectomy, bladder sling Family Medical History Significant Family History: No Pertinent Family Hx Family History: Abdominal aortic aneurysm 03 FATHER Family history: Allergy 03 FATHER Family history: Arthritis 03 MOTHER 09 SISTER Family history: Hypertension 03 FATHER Review of Systems ([facility]) Constitutional: fever, malaise EENTM: no symptoms reported, No blurred vision, No hearing loss, No vision loss Respiratory: no symptoms reported, No cough, No dyspnea on exertion, No hemoptysis, No short of breath Cardiovascular: no symptoms reported, No chest pain, No edema, No palpitations Gastrointestinal: abdominal pain (Pain at wound site), loss of appetite, nausea , No vomiting Genitourinary: no symptoms reported, No dysuria, No frequency, No hematuria : No Musculoskeletal: no symptoms reported, No back pain, No joint pain, No muscle pain Skin: other (wound inferior to umbilicus) Reviewed Test Results Reviewed Test Results Lab Laboratory Tests Test 12/02/16 23:55 12/03/16 00:25 12/03/16 04:20 Range/Units White Blood Count 6.4 5.7 4.3-11.0 10^3/uL Red Blood Count 4.40 4.07 L 4.35-5.85 10^6/uL Hemoglobin 13.1 12.1 11.5-16.0 G/DL Hematocrit 39 37 35-52 % Mean Corpuscular Volume 89 90 80-99 FL Mean Corpuscular Hemoglobin 30 30 25-34 PG Mean Corpuscular Hemoglobin Concent 34 33 32-36 G/DL Red Cell Distribution Width 12.7 12.6 10.0-14.5 % Platelet Count 275 255 130-400 10^3/uL Mean Platelet Volume 9.6 9.9 7.4-10.4 FL Neutrophils (%) (Auto) 45 40 L 42-75 % Lymphocytes (%) (Auto) 45 H 49 H 12-44 % Monocytes (%) (Auto) 7 9 0-12 % Eosinophils (%) (Auto) 2 2 0-10 % Basophils (%) (Auto) 0 0 0-10 % Neutrophils # (Auto) 2.9 2.3 1.8-7.8 X 10^3 Lymphocytes # (Auto) 2.9 2.8 1.0-4.0 X 10^3 Monocytes # (Auto) 0.5 0.5 0.0-1.0 X 10^3 Eosinophils # (Auto) 0.1 0.1 0.0-0.3 10^3/uL Basophils # (Auto) 0.0 0.0 0.0-0.1 10^3/uL Prothrombin Time 13.2 12.2-14.7 SEC INR Comment 1.0 0.8-1.4 Activated Partial Thromboplast Time 30 24-35 SEC Sodium Level 140 141 135-145 MMOL/L Potassium Level 3.8 3.7 3.6-5.0 MMOL/L Chloride Level 109 H 110 H 98-107 MMOL/L Carbon Dioxide Level 20 L 21 21-32 MMOL/L Anion Gap 11 10 5-14 MMOL/L Blood Urea Nitrogen 17 17 7-18 MG/DL Creatinine 0.95 0.86 0.60-1.30 MG/DL Estimat Glomerular Filtration Rate > 60 > 60 BUN/Creatinine Ratio 18 20 Glucose Level 98 107 H 70-105 MG/DL Lactic Acid Level 1.00 0.50-2.00 MMOL/L Calcium Level 9.1 8.5 8.5-10.1 MG/DL Total Bilirubin 0.5 0.6 0.1-1.0 MG/DL Aspartate Amino Transf (AST/SGOT) 26 26 5-34 U/L Alanine Aminotransferase (ALT/SGPT) 47 45 0-55 U/L Alkaline Phosphatase 106 95 40-136 U/L Total Protein 6.9 6.3 L 6.4-8.2 GM/DL Albumin 4.1 3.7 3.2-4.5 GM/DL Urine Color YELLOW Urine Clarity CLEAR Urine pH 6.5 5-9 Urine Specific [place] 1.020 1.016-1.022 Urine Protein 1+ H NEGATIVE Urine Glucose (UA) NEGATIVE NEGATIVE Urine Ketones 1+ H NEGATIVE Urine Nitrite NEGATIVE NEGATIVE Urine Bilirubin 1+ H NEGATIVE Urine Urobilinogen 4 H NORMAL MG/DL Urine Leukocyte Esterase 1+ H NEGATIVE Urine RBC (Auto) NEGATIVE NEGATIVE Urine RBC NONE /HPF Urine WBC RARE /HPF Urine Squamous Epithelial Cells 25-50 H /HPF Urine Crystals PRESENT H /LPF Urine Calcium Oxalate Crystals MODERATE H /LPF Urine Bacteria TRACE /HPF Urine Casts NONE /LPF Urine Mucus MODERATE H /LPF Urine Culture Indicated NO Radiology of Exam: 12/03/16 CT ABDOMEN/PELVIS WO PROCEDURE: CT abdomen and pelvis without contrast. TECHNIQUE: Multiple contiguous axial images were obtained through the abdomen and pelvis without the use of intravenous contrast. INDICATION: Abdominal wound. Exam compared to 04/25/2015. There is some mild subcutaneous infiltration of the fat eccentric to the right below the level of the umbilicus with overlying skin irregularity and skin thickening. Regional cellulitis could not be excluded. There is no abscess or drainable fluid collection and no soft tissue air. The abdominal wall itself appeared unremarkable. There is a peritoneal catheter present with no abdominal or pelvic free fluid or loculated collection. There is no free air. Unobstructed kidneys unremarkable. The gallbladder absent, mild hepatic steatosis suspected. Spleen, adrenals and pancreas unremarkable. There is no ileus or bowel obstruction. The appendix visualized and normal. There is no diverticulitis. No adnexal abnormality. The uterus appears absent. IMPRESSION: Mild subcutaneous induration and skin thickening infraumbilical may reflect regional cellulitis. However, no abscess or drainable fluid collection. Peritoneal catheter present without free fluid or loculated collection. Previous cholecystectomy which likely mild steatosis to the liver. No acute appearing intra-or retroperitoneal abnormality. Physical Exam-([facility]) Physical Exam Vital Signs VS - Last 72 Hours, by Label 12/02/16 12/03/16 12/03/16 12/03/16 23:20 00:48 02:25 02:25 Temp 100.0 100.0 99.0 99.0 Pulse 72 67 67 Resp 20 20 20 B/P (MAP) 137/82 114/72 Pulse Ox 99 97 97 O2 Delivery Room Air Room Air Room Air 12/03/16 12/03/16 12/03/16 12/03/16 03:25 04:20 08:00 09:10 Temp 96.5 96.9 Pulse 66 64 Resp 20 20 B/P (MAP) 131/71 96/69 Pulse Ox 97 98 O2 Delivery Room Air Room Air Room Air Room Air Capillary Refill : Less Than 3 Seconds General Appearance: WD/WN, no apparent distress HEENT: PERRL/EOMI Neck: non-tender, full range of motion, supple, normal inspection Respiratory: chest non-tender, lungs clear, normal breath sounds, no respiratory distress, no accessory muscle use Cardiovascular: normal peripheral pulses, regular rate, rhythm, no edema, no gallop, no JVD, no murmur Gastrointestinal: normal bowel sounds, non tender, soft, no organomegaly Extremities: normal range of motion, non-tender, normal inspection, no pedal edema, no calf tenderness, normal capillary refill Neurologic/Psychiatric: ore roaster II-XII nml as tested, no motor/sensory deficits, alert, normal mood/affect, oriented x 3 Skin: other (wound inferior to umbilicus that is open about 2 cm, cellulitis and induration present around wound) Lymphatic: no adenopathy Short Stay Diagnosis Discharge Diagnosis-Short Stay Admission Diagnosis Abscess with Cellulitis of abdominal Opioid addiction Final Discharge Diagnosis Abscess with Cellulitis of abdominal: Patient was started on IV antibiotics and cellulitis improved and receded from line drawn on abdomen. Will start on PO Bactrim at time of discharge. Dr Terry with wound care was consulted and will see patient in outpatient clinic. Opioid addiction: Spoke with PCP Dr Chopra and will start patient on tylenol and motrin for pain control as patient is on Suboxone Conclusion Plan See D/c Diag Patient will have close follow up at [facility] and wound care clinic Clinical Quality Measures DVT/VTE Risk/Contraindication: Risk Factor Score Per Nursin RFS Level Per Nursing on Admit: 3=High Copy Copies To 1: JESSE CHOPRA MD, HOLLY R MD Dec 03, 2016 11:51
[2016-12-03] MEDS ORDERED: SULF1TAB35 PO (11:55)
[2016-12-03 12:00] VITALS: BP 104/55
--- NOTE | 2016-12-03 12:02 | Discharge Instructions ---
Discharge Inst-[facility] Discharge Medications New, Converted or Re-Newed RX: Transmitted to Pharmacy Continued Medications: Buprenorphine HCl/Naloxone HCl (Suboxone 8 mg-2 mg Sl Film) 1 Each Film 2 FILM SL DAILY, FILM Duloxetine HCl (Cymbalta) 60 Mg Capsule.dr 60 MG PO BID, CAP Fluticasone Propionate (Fluticasone Propionate) 16 Gm [place].susp 1 SPRAY NS DAILY PRN for ALLERGIES, EA Isomethept/Dichlphn/Acetaminop (Fhecyfengd-Joqcfvbkap-Ypgprwte) 1 Each Capsule 1 CAP PO Q4H PRN for MIGRAINE, CAP Lisinopril (Lisinopril) 40 Mg Tablet 40 MG PO DAILY, TAB Mirtazapine (Mirtazapine) 30 Mg Tablet 30 MG PO HS PRN for SLEEP, TAB Naproxen Sodium (Aleve) 220 Mg Tablet 440 MG PO Q8H PRN for PAIN-MILD, TAB Omeprazole (Omeprazole) 40 Mg Capsule.dr 40 MG PO DAILY, CAP Propranolol HCl (Propranolol HCl) 80 Mg Tablet 80 MG PO TID, TAB Topiramate (Topamax) 100 Mg Tablet 100 MG PO BID, TAB Discontinued Medications: Clindamycin HCl (Clindamycin HCl) 300 Mg Capsule 300 MG PO Q8H for 7 Days, CAP 7 DAY THERAPY FILLED 12-01-16 Patient Instructions Goal/Follow Up Appt: ThursdayDecember 09 @ [address] Chopra Patient Instructions: - Make sure to keep wound clean with mild soap and water - Watch area for redness or increase in drainage - Warm compresses 2-3 times per day Return to The Hospital For: - Fever or chills - Unable to tolerate antibiotics - Chest pain - Shortness of breath Activity & Diet Discharge Diet: No Restrictions Activity as Tolerated: Yes Copy Copies To 1: JESSE CHOPRA MD, HOLLY R MD Dec 03, 2016 12:02
[2016-12-03] MEDS: KETOROLAC 30 MG/ML VIAL IVP PRN ×2 (13:23→18:33)
[2016-12-03 16:00] VITALS: BP 122/66
--- NOTE | 2016-12-03 18:11 | Wound Care Progress Note ---
Subjective Subjective Subjective/Events-last exam 36 year old female with furuncle of abdominal wall in a setting of status post ventriculoperitoneal shunt for hydrocephalus. Spontaneously drained. Improved on current antibiotic. Will follow closely as out-patient. Objective Exam Last Set of Vital Signs Vital Signs Date Time Temp Pulse Resp B/P (MAP) Pulse Ox O2 Delivery O2 Flow Rate FiO2 12/03/16 16:00 97.3 62 20 122/66 94 Room Air Capillary Refill : Less Than 3 Seconds Results Lab Laboratory Tests 12/02/16 23:55: White Blood Count 6.4, Red Blood Count 4.40, Hemoglobin 13.1, Hematocrit 39, Mean Corpuscular Volume 89, Mean Corpuscular Hemoglobin 30, Mean Corpuscular Hemoglobin Concent 34, Red Cell Distribution Width 12.7, Platelet Count 275, Mean Platelet Volume 9.6, Neutrophils (%) (Auto) 45, Lymphocytes (%) (Auto) 45H , Monocytes (%) (Auto) 7, Eosinophils (%) (Auto) 2, Basophils (%) (Auto) 0, Neutrophils # (Auto) 2.9, Lymphocytes # (Auto) 2.9, Monocytes # (Auto) 0.5, Eosinophils # (Auto) 0.1, Basophils # (Auto) 0.0, Prothrombin Time 13.2, INR Comment 1.0, Activated Partial Thromboplast Time 30, Sodium Level 140, Potassium Level 3.8, Chloride Level 109H, Carbon Dioxide Level 20L, Anion Gap 11 , Blood Urea Nitrogen 17, Creatinine 0.95, Estimat Glomerular Filtration Rate > 60, BUN/Creatinine Ratio 18, Glucose Level 98, Lactic Acid Level 1.00, Calcium Level 9.1, Total Bilirubin 0.5, Aspartate Amino Transf (AST/SGOT) 26, Alanine Aminotransferase (ALT/SGPT) 47, Alkaline Phosphatase 106, Total Protein 6.9, Albumin 4.1 12/03/16 00:25: Urine Color YELLOW, Urine Clarity CLEAR, Urine pH 6.5, Urine Specific [place] 1.020, Urine Protein 1+H, Urine Glucose (UA) NEGATIVE, Urine Ketones 1+H, Urine Nitrite NEGATIVE, Urine Bilirubin 1+H, Urine Urobilinogen 4H, Urine Leukocyte Esterase 1+H, Urine RBC (Auto) NEGATIVE, Urine RBC NONE, Urine WBC RARE, Urine Squamous Epithelial Cells 25-50H, Urine Crystals PRESENTH, Urine Calcium Oxalate Crystals MODERATEH, Urine Bacteria TRACE, Urine Casts NONE, Urine Mucus MODERATEH, Urine Culture Indicated NO 12/03/16 04:20: White Blood Count 5.7, Red Blood Count 4.07L, Hemoglobin 12.1, Hematocrit 37, Mean Corpuscular Volume 90, Mean Corpuscular Hemoglobin 30, Mean Corpuscular Hemoglobin Concent 33, Red Cell Distribution Width 12.6, Platelet Count 255, Mean Platelet Volume 9.9, Neutrophils (%) (Auto) 40L, Lymphocytes (%) (Auto) 49H , Monocytes (%) (Auto) 9, Eosinophils (%) (Auto) 2, Basophils (%) (Auto) 0, Neutrophils # (Auto) 2.3, Lymphocytes # (Auto) 2.8, Monocytes # (Auto) 0.5, Eosinophils # (Auto) 0.1, Basophils # (Auto) 0.0, Sodium Level 141, Potassium Level 3.7, Chloride Level 110H, Carbon Dioxide Level 21, Anion Gap 10, Blood Urea Nitrogen 17, Creatinine 0.86, Estimat Glomerular Filtration Rate > 60, BUN/ Creatinine Ratio 20, Glucose Level 107H, Calcium Level 8.5, Total Bilirubin 0.6 , Aspartate Amino Transf (AST/SGOT) 26, Alanine Aminotransferase (ALT/SGPT) 45, Alkaline Phosphatase 95, Total Protein 6.3L, Albumin 3.7 Microbiology 12/02/16 Blood Culture - Preliminary, Resulted No growth DWAINE CISNEROS MD Dec 03, 2016 18:11
[2016-12-03 18:35] VITALS: BP 122/66
[2016-12-04] MEDS ORDERED: TROUGH ORDER-PHARMACY XX NR (08:00)
== END 2016-12-03 11:55 | disposition home or self-care (01) ==
LOC: EDUNIT# 22:47 → ER 22:49 → UNDOADMOB 12-03 01:30 → 4TH 12-03 01:30 → UNDODISOB 12-03 18:35
PROVIDERS: ADMIT Family Medicine; ATTEND Family Medicine
DX: L02.211 Cutaneous abscess of abdominal wall (principal); L03.311 Cellulitis of abdominal wall; Z98.2 Presence of cerebrospinal fluid drainage device; I10 Essential (primary) hypertension; E66.01 Morbid (severe) obesity due to excess calories; Z79.899 Other long term (current) drug therapy; Z90.49 Acquired absence of other specified parts of digestive tract
CPT/HCPCS: 36415; 71010; 74176; 80053; 81000; 83605; 85025; 85610; 85730; 87040; 96361; 96365; 96375; 96376; G0378

== ENCOUNTER 2016-12-05 10:32 | Outpatient (RCR) | payer BC ==
[~2016-12-05 10:32] MED LIST changes: +CLIN300C11 PO; +FLUT16SP22 NS; +MIRT30TA6 PO; +NAPR220T66 PO; +SULF1TAB35 PO
== END 2016-12-15 16:00 | disposition home or self-care (01) ==
LOC: WOUNDCARE 10:32
PROVIDERS: ATTEND Surgery
DX: L02.211 Cutaneous abscess of abdominal wall (principal); L03.311 Cellulitis of abdominal wall; Z98.2 Presence of cerebrospinal fluid drainage device; I10 Essential (primary) hypertension; E66.01 Morbid (severe) obesity due to excess calories; Z79.899 Other long term (current) drug therapy; Z90.49 Acquired absence of other specified parts of digestive tract
CPT/HCPCS: 11042; 87070; 87075; 87077; 87186; 87205

== ENCOUNTER 2016-12-30 00:47 | Emergency (ER) | payer BC ==
[~2016-12-30] VITALS: Ht 162.6 cm; Wt 140.6 kg
--- OUTSIDE RECORDS SUMMARY | 2016-12-30 00:55 | XMS REPORT | Clinical Summary ---
Author Author [facility] Organization [facility] Address Unknown Phone Unavailable Care Team Providers Care House Builder Name Role Phone PCP Unavailable Source Comments Some departments are not documenting in the electronic medical record. If you do not see the information that you expected, contact Release of Information in the Health Information Management department at [phone] for further assistance in locating additional records.[facility] Allergies Active Allergy Reactions Severity Noted Date Comments Promethazine ITCHING, SEE COMMENTS Medium 08/07/2014 Muscle jerking and restlessness Current Medications Prescription Sig. Disp. Refills Start End Date Status Date methylphenidate CR Take 72 mg by mouth every Active (CONCERTA) 36 mg tablet morning diazePAM (VALIUM) 2 mg Take 4 mg by mouth twice Active tablet daily as needed. naproxen sodium(+) Take 2 Tabs by mouth Active (ALEVE) 220 mg tablet twice daily as needed. Take with food. omeprazole DR(+) Take 20 mg by mouth daily Active (PRILOSEC) 20 mg capsule as needed. nortriptyline (PAMELOR) Take 30 mg by mouth at Active 10 mg capsule bedtime daily. duloxetine DR (CYMBALTA) Take 60 mg by mouth at Active 60 mg capsule bedtime daily. senna/docusate Take 1 Tab by mouth twice 60 Tab 0 02/17/20 Active (SENOKOT-S) 8.6/50 mg daily. 16 tablet lisinopril (PRINIVIL, Take 40 mg by mouth Active ZESTRIL) 40 mg tablet daily. metoprolol XL (TOPROL XL) Take 25 mg by mouth Active 25 mg extended release daily. tablet cefdinir (OMNICEF) 300 mg Take 300 mg by mouth Active capsule every 12 hours. amoxicillin/K clavulanate Take 1 Tab by mouth every 28 Tab 0 03/25/20 Active (AUGMENTIN) 875/125 mg 12 hours. Take with food. 16 tablet propranolol (INDERAL) 40 Take 2 Tabs by mouth 120 Tab 3 09/11/19 Active mg tablet twice daily. 17 acetaZOLAMIDE (DIAMOX Take 1 Cap by mouth at 14 Cap 3 09/11/19 Active SEQUELS) 500 mg capsule bedtime daily. 17 Active Problems Problem Noted Date Pseudotumor cerebri 02/15/2016 IIH (idiopathic intracranial hypertension) 09/27/2014 Encounters Date Type Specialty Care Team Description 12/19/2016 Telephone Neurology Everett Shah MD Follow-up Phone Call 12/09/2016 Telephone Neurosurgery Indiana Neal MD Medical Question 10/30/2016 Telephone Neurology Everett Shah MD Paperwork 10/21/2016 Telephone Neurology Everett Shah MD Letter from Last 3 Months Family History Medical History Relation Name Comments Autoimmune Disease Brother Psoriasis Glaucoma Brother Autoimmune Disease Father Psoriasis Hypertension Father Stroke Maternal Grandfather Autoimmune Disease Maternal RA Grandmother Hypertension Mother Relation Name Status Comments Brother Father Maternal Grandfather Maternal Grandmother Mother Social History Tobacco Use Types Packs/Day Years Used Date Never Smoker Smokeless Tobacco: Never Used Alcohol Use Drinks/Week oz/Week Comments No 0 Standard 0.0 drinks or equivalent Sex Assigned at Date Recorded Not on file Last Filed Vital Signs Vital Sign Reading Time Taken Blood Pressure 124/85 03/25/2016 12:22 PM [employer] Pulse 80 03/25/2016 12:22 PM [employer] Temperature 36.9 C (98.4 F) 03/25/2016 12:22 PM [employer] Respiratory Rate 16 03/06/2016 10:19 AM CDT Oxygen Saturation 95% 02/17/2016 10:50 AM CDT Inhaled Oxygen - - Concentration Weight 133.8 kg (295 lb) 03/25/2016 12:22 PM [employer] Height 162.6 cm (5' 4") 03/25/2016 12:22 PM [employer] Body Mass Index 50.64 03/25/2016 12:22 PM [employer] Plan of Treatment Health Maintenance Due Date Last Done Comments PHYSICAL (COMPREHENSIVE) 1985 EXAM PERTUSSIS VACCINE 1989 TETANUS VACCINE 1995 CERVICAL CANCER SCREENING 2008 INFLUENZA VACCINE 01/16/2017 Implants Implanted Type Area Premium Card Cancellation Clerk Device Expiration Model / Identifier Date Serial / Lot Valve Shunt Certas Plus Siphonguard SAMMIE 07/15/2016 [id number] Inline Catheter / Implanted: Qty: 1 on 02/15/2016 by FREDA / Indiana Neal MD [id number] Results Not on filefrom Last 3 Months
--- OUTSIDE RECORDS SUMMARY | 2016-12-30 00:56 | XMS REPORT | Encounter Summary ---
Author Author [facility] Organization [facility] Address Unknown Phone Unavailable Care Team Providers Care Quantitative Associate Name Role Phone PCP Unavailable Reason for Visit * Reason Comments Medical Question Encounter Details Date Type Department Care Team Description 12/09/2016 Telephone [facility] Indiana Neal MD Medical Question Physicians - Neurosurgery [address] [place] [address] [place] [address] [address] [phone] [place] [address] [phone] Social History Tobacco Use Types Packs/Day Years Used Date Never Smoker Smokeless Tobacco: Never Used Alcohol Use Drinks/Week oz/Week Comments No 0 Standard 0.0 drinks or equivalent Sex Assigned at Date Recorded Not on file as of this encounter Functional Status Functional Status Response Date of Assessment Does the patient have a hearing impairment: No 03/06/2016 Does the patient have a visual impairment: Yes 03/06/2016 Does the patient have impaired ambulation: No 03/06/2016 Does the patient have an activity of daily living No 03/06/2016 (ADL) impairment: Does the patient have an instrumental activity of No 03/06/2016 daily living (IADL) impairment: Cognitive Status Response Date of Assessment Does the patient have a cognitive impairment: No 03/06/2016 as of this encounter Plan of Treatment Not on fileas of this encounter Visit Diagnoses Not on filein this encounter
--- OUTSIDE RECORDS SUMMARY | 2016-12-30 00:56 | XMS REPORT | Encounter Summary ---
Author Author [facility] Organization [facility] Address Unknown Phone Unavailable Care Team Providers Care Cornice Upholsterer Name Role Phone PCP Unavailable Reason for Visit * Reason Comments Follow-up Phone Call Encounter Details Date Type Department Care Team Description 12/19/2016 Telephone [facility] Everett Shah MD Follow- up Phone Call Physicians - Neurology [address] [facility] [address] [place] [address] [place], [place] [phone] Social History Tobacco Use Types Packs/Day Years [...]
--- OUTSIDE RECORDS SUMMARY | 2016-12-30 00:56 | XMS REPORT | Encounter Summary ---
Author Author [facility] Organization [facility] Address Unknown Phone Unavailable Care Team Providers Care Dog And Cat Food Cook Name Role Phone PCP Unavailable Reason for Visit * Reason Comments Letter Encounter Details Date Type Department Care Team Description 10/21/2016 Telephone [facility] Everett Shah MD Letter - Neurology [address] [place] [address] [place] [address] [phone] Social History Tobacco Use Types Packs/Day Years [...]
--- OUTSIDE RECORDS SUMMARY | 2016-12-30 00:56 | XMS REPORT | Encounter Summary ---
Author Author [facility] Organization [facility] Address Unknown Phone Unavailable Care Team Providers Care Inspector Water Pollution Control Name Role Phone PCP Unavailable Reason for Visit * Reason Comments Paperwork Encounter Details Date Type Department Care Team Description 10/30/2016 Telephone [facility] Everett Shah MD Paperwork - Neurology [address] [place] [address] [place] [address] [phone] Social History Tobacco Use Types Packs/Day Years [...]
[2016-12-30] MEDS ORDERED: NS IV 1000 ML 1,000 ML IV ONE (01:47)
[2016-12-30] MEDS ORDERED: CIPR500T4 (01:50)
--- NOTE | 2016-12-30 01:55 | ED GU-Female ---
General Chief Complaint: -Female Stated Complaint: POSS KIDNEY INFECTION,GOING ON 3 WKS Source: patient Exam Limitations: no limitations History of Present Illness Time seen by provider: 01:50 Initial Comments Patient presents to ER by private conveyance with a chief complaint of feeling like her urinary tract infection is not getting better she has had worsening abdominal pain and flank pain on the left side and a fever 102.8 which she took Tylenol thousand milligrams just prior to arrival to the ER. She says she has a history of multiple UTIs for which she is been followed by Dr. Quintana, urology, but has not come up with a solution for why she is having some urinary tract infections. She is been put on Macrobid prophylaxis in the past. More recently she said she has been treated with a 5 day course of Cipro which she was told the bug grew out of her urine culture I her primary care physician that it was sensitive. She says that she was still having pressure in her pelvis so she went back to her primary care physician and they put her on 10 more days of Cipro 500 mg twice a day. She is 8 days into that 10 day course and now having fevers, worsening pressure in her pelvis feels like her vagina is going to prolapse and left flank pain. She has a fever with nausea but no vomiting yet. She has no diarrhea however she has chronic constipation. She used to be on opiates years ago he cut she had pseudotumor cerebri with a EQUITY DIRECTOR shunt placed. She still has the shunt but is no longer on the opiates. Her last bowel movement was several days ago maybe a week or 2 she says. She has been using Pyridium for the past 2 weeks now. She does not feel that it has helped. Allergies and Home Medications Allergies Coded Allergies: promethazine (Verified Allergy, Mild, 01/28/16) Home Medications Buprenorphine HCl/Naloxone HCl 1 Each Film, 2 FILM SL DAILY, (Reported) Ciprofloxacin HCl 500 Mg Tablet, #20 (Reported) Duloxetine HCl 60 Mg Capsule.dr, 60 MG PO BID, (Reported) Fluticasone Propionate 16 [address]m [place].susp, 1 SPRAY NS DAILY PRN for ALLERGIES, ( Reported) Isomethept/Dichlphn/Acetaminop 1 Each Capsule, 1 CAP PO Q4H PRN for MIGRAINE, ( Reported) Lisinopril 40 Mg Tablet, 40 MG PO DAILY, (Reported) Mirtazapine 30 Mg Tablet, 30 MG PO HS PRN for SLEEP, (Reported) Naproxen Sodium 220 Mg Tablet, 440 MG PO Q8H PRN for PAIN-MILD, (Reported) Omeprazole 40 Mg Capsule.dr, 40 MG PO DAILY, (Reported) Propranolol HCl 80 Mg Tablet, 80 MG PO TID, (Reported) Topiramate 100 Mg Tablet, 100 MG PO BID, (Reported) Constitutional: see HPI, chills, No diaphoresis, fever (102.8 Fahrenheit), malaise EENTM: No ear discharge, No ear pain Respiratory: No cough, No short of breath Cardiovascular: No chest pain, No palpitations Gastrointestinal: see HPI (left flank pain), abdominal pain (suprapubic and left flank), constipation, No diarrhea, nausea, No vomiting Genitourinary: denies burning, denies discharge, dysuria : No (hysterectomy 4 years ago) Musculoskeletal: No back pain, No joint pain Skin: No pruritus, No rash Psychiatric/Neurological: Denies Headache, Denies Numbness, Denies Paresthesia Past Uujpukj-Lfftch-Tvwjlq Hx Patient Social History Alcohol Use: Denies Use Recreational Drug Use: No Smoking Status: Never a Smoker 2nd Hand Smoke Exposure: No Recent Foreign Travel: No Contact w/Someone Who Travel: No Recent Hopitalizations: No Immunizations Up To Date Tetanus Booster (TDap): Less than 5yrs PED Vaccines UTD: No Date of Influenza Vaccine: Feb 16, 2012 Seasonal Allergies Seasonal Allergies: No Surgeries HX Surgeries: Yes Surgeries: Bladder Surgery, Gallbladder, Hysterectomy, Neurological, Oophorectomy Respiratory Hx Respiratory Disorders: Yes Respiratory Disorders: Asthma, Pneumonia, Chronic Bronchitis Cardiovascular Hx Cardiac Disorders: Yes Cardiac Disorders: Hypertension Neurological Hx Neurological Disorders: Yes (PSEUDO CEREBRI TUMOR, EQUITY DIRECTOR shunt 01/2016) Neurological Disorders: Headaches /Migraines Reproductive System Hx Reproductive Disorders: No HEALTHCARE NETWORK CONSULTANT History: Hysterectomy Genitourinary Hx Genitourinary Disorders: No Gastrointestinal Hx Gastrointestinal Disorders: Yes Gastrointestinal Disorders: Gastroesophageal Reflux, Esophagitis Musculoskeletal Hx Musculoskeletal Disorders: No Endocrine Hx Endocrine Disorders: No (MORBID OBESITY) HEENT HX ENT Disorders: No Cancer Hx Cancer: No Psychosocial Hx 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) Behavioral Health Disorders: Anxiety Integumentary HX Skin/Integumentary Disorder: No Blood Transfusions Hx Blood Disorders: No Adverse Reaction to a Blood Tr: No Family Medical History Significant Family History: No Pertinent Family Hx Family Medial History: Abdominal aortic aneurysm 03 FATHER Family history: Allergy 03 FATHER Family history: Arthritis 03 MOTHER 09 SISTER Family history: Hypertension 03 FATHER Physical Exam Vital Signs Vital Sign - Last 12Hours 12/30/16 01:50 Temp 96.7 Pulse 85 Resp 16 B/P (MAP) 103/72 Pulse Ox 100 O2 Delivery Room Air Capillary Refill : Less than 3 seconds General Appearance: WD/WN, mild distress HEENT: PERRL/EOMI, pharynx normal Cardiovascular: normal peripheral pulses, regular rate, rhythm, no edema Respiratory: lungs clear, normal breath sounds Gastrointestinal: normal bowel sounds, soft, tenderness (suprapubic and left flank diffuse), other (corpulent) Back: normal inspection, No CVA tenderness (R), CVA tenderness (L) Extremities: non-tender, normal capillary refill Neurologic/Psychiatric: alert, oriented x 3 Skin: normal color, warm/dry Focused Exam Lactic Acid Level Laboratory Tests Test 12/30/16 02:00 Lactic Acid Level 0.89 MMOL/L (0.50-2.00) Progress/Results/Core Measures Results/Orders Lab Results Laboratory Tests Test 12/30/16 01:37 12/30/16 02:00 Range/Units Urine Color ORANGE Urine Clarity CLOUDY H Urine pH 5 5-9 Urine Specific [place] 1.030 H 1.016-1.022 Urine Protein 3+ H NEGATIVE Urine Glucose (UA) NEGATIVE NEGATIVE Urine Ketones NEGATIVE NEGATIVE Urine Nitrite POSITIVE H NEGATIVE Urine Bilirubin 3+ H NEGATIVE Urine Urobilinogen 4 H NORMAL MG/DL Urine Leukocyte Esterase NEGATIVE NEGATIVE Urine RBC (Auto) 1+ H NEGATIVE Urine RBC 2-5 H /HPF Urine WBC RARE /HPF Urine Squamous Epithelial Cells 25-50 H /HPF Urine Crystals PRESENT H /LPF Urine Calcium Oxalate Crystals LARGE H /LPF Urine Bacteria FEW H /HPF Urine Casts NONE /LPF Urine Mucus NEGATIVE /LPF Urine Culture Indicated YES Urine Opiates Screen POSITIVE H NEGATIVE Urine Oxycodone Screen NEGATIVE NEGATIVE Urine Methadone Screen NEGATIVE NEGATIVE Urine Propoxyphene Screen NEGATIVE NEGATIVE Urine Barbiturates Screen NEGATIVE NEGATIVE Ur Tricyclic Antidepressants Screen NEGATIVE NEGATIVE Urine Phencyclidine Screen NEGATIVE NEGATIVE Urine Amphetamines Screen NEGATIVE NEGATIVE Urine Methamphetamines Screen POSITIVE H NEGATIVE Urine Benzodiazepines Screen POSITIVE H NEGATIVE Urine Cocaine Screen NEGATIVE NEGATIVE Urine Cannabinoids Screen NEGATIVE NEGATIVE White Blood Count 7.9 4.3-11.0 10^3/uL Red Blood Count 4.50 4.35-5.85 10^6/uL Hemoglobin 13.3 11.5-16.0 G/DL Hematocrit 40 35-52 % Mean Corpuscular Volume 90 80-99 FL Mean Corpuscular Hemoglobin 30 25-34 PG Mean Corpuscular Hemoglobin Concent 33 32-36 G/DL Red Cell Distribution Width 12.9 10.0-14.5 % Platelet Count 319 130-400 10^3/uL Mean Platelet Volume 9.8 7.4-10.4 FL Neutrophils (%) (Auto) 33 L 42-75 % Lymphocytes (%) (Auto) 55 H 12-44 % Monocytes (%) (Auto) 10 0-12 % Eosinophils (%) (Auto) 2 0-10 % Basophils (%) (Auto) 0 0-10 % Neutrophils # (Auto) 2.6 1.8-7.8 X 10^3 Lymphocytes # (Auto) 4.4 H 1.0-4.0 X 10^3 Monocytes # (Auto) 0.8 0.0-1.0 X 10^3 Eosinophils # (Auto) 0.1 0.0-0.3 10^3/uL Basophils # (Auto) 0.0 0.0-0.1 10^3/uL Sodium Level 139 135-145 MMOL/L Potassium Level 4.7 3.6-5.0 MMOL/L Chloride Level 108 H 98-107 MMOL/L Carbon Dioxide Level 22 21-32 MMOL/L Anion Gap 9 5-14 MMOL/L Blood Urea Nitrogen 19 H 7-18 MG/DL Creatinine 1.64 H 0.60-1.30 MG/DL Estimat Glomerular Filtration Rate 35 BUN/Creatinine Ratio 12 Glucose Level 98 70-105 MG/DL Lactic Acid Level 0.89 0.50-2.00 MMOL/L Calcium Level 9.0 8.5-10.1 MG/DL Magnesium Level 2.1 1.8-2.4 MG/DL Total Bilirubin 0.4 0.1-1.0 MG/DL Aspartate Amino Transf (AST/SGOT) 21 5-34 U/L Alanine Aminotransferase (ALT/SGPT) 28 0-55 U/L Alkaline Phosphatase 102 40-136 U/L Total Protein 6.6 6.4-8.2 GM/DL Albumin 4.1 3.2-4.5 GM/DL My Orders Orders - NAYA BRANTLEY Cbc With Automated Diff (12/30/16 01:47) Comprehensive Metabolic Panel (12/30/16 01:47) Drug Screen Stat (Urine) (12/30/16 01:47) Lactic Acid Analyzer (12/30/16 01:47) Magnesium (12/30/16 01:47) Ua Culture If Indicated (12/30/16 01:47) Abdomen/Kub 1view (12/30/16 01:47) Saline Lock/Iv-Start (12/30/16 01:47) Ns Iv 1000 Ml (Sodium Chloride 0.9%) (12/30/16 01:47) Ondansetron Injection (Zofran Injectio (12/30/16 02:00) Ct Abd/Pelvis Wo(Kidney Stone) (12/30/16 01:56) Urine Culture (12/30/16 01:37) Rocephin 1 Gm Iv (1 X Dose) (12/30/16 03:30) Rx-Ondansetron Po (Rx-Zofran Po) (12/30/16 03:22) Medications Given in ED Current Medications Medications Dose Ordered Sig/Kelly Route Start Time Stop Time Status Last Admin Dose Admin Ondansetron HCl 4 mg ONCE ONCE IVP 12/30/16 02:00 12/30/16 02:01 DC 12/30/16 02:00 4 MG Sodium Chloride 1,000 ml @ 0 mls/hr Q0M ONCE IV 12/30/16 01:47 12/30/16 01:50 DC 12/30/16 02:00 0 MLS/HR Vital Signs/I&O Vital Sign - Last 12Hours 12/30/16 01:50 Temp 96.7 Pulse 85 Resp 16 B/P (MAP) 103/72 Pulse Ox 100 O2 Delivery Room Air Progress Note #1: Time: 01:54 Progress Note Was with a fever now she is with hypothermic presentation? She's been on extensive amount of antibiotics and still having symptoms of her UTI. Could be that her symptoms are brisk directed from another problem such as kidney stone, constipation, diverticulitis, pelvic organ prolapse, benign cysts etc. we'll go ahead and get some lab work to include a urine and lactate and get a CT of the abdomen. Progress Note #2: Time: 02:33 Progress Note She appears to have an acute kidney injury with a increase in her creatinine by 100% over her last 6 months lab values. Her BUN/creatinine ratio is 11. He is received a liter fluids here and is able to tolerate fluids. We'll give her Rocephin and another quarter liter and let her go home and drink as well as have some Zofran. We'll switch up the antibiotics based on the fact that she's been on Cipro now for nearly 2 weeks. Cipro is notoriously week against Escherichia coli and is possible that there was more than one bug that didn't necessarily grow out in the initial culture. Diagnostic Imaging Diagonstic Imaging: CT Plain Films/CT/US/NM/MRI: abdomen, pelvis (w/o) Reviewed: Reviewed Night Robbyk Study, Reviewed by Me Diagonstic Imaging: Xray Plain Films/CT/US/NM/MRI: abdomen Comments KUB shows a EQUITY DIRECTOR shunt in good position. Lazaro from a cholecystectomy. Lungs and heart without any acute processes. No soft tissue or osseous abnormalities acutely. Bowel gas pattern appears to be constipated. Reviewed: Reviewed by Me Departure Impression Impression: Primary Impression: Urinary tract infection Qualified Codes: N30.01 - Acute cystitis with hematuria Disposition: HOME, SELF-CARE Condition: Stable Departure-Patient Inst. Decision time for Depature: 03:25 Referrals: JESSE CHOPRA MD (PCP/Family) Primary Care Physician Patient Instructions: Urinary Tract Infection, Adult (DC) Add. Discharge Instructions: Drink lots of fluids and take the antibiotics as prescribed. You can discontinue taking the ciprofloxacin at this time. Take probiotics one capsule twice daily by mouth to prevent loose stools associated with all antibiotics. Follow-up in 2-3 days with your primary care physician to have them check on the results of the urine culture to make sure that the antibiotic choice is appropriate. Discontinue the use of Pyridium. You may return to the ER if you' re having intractable nausea vomiting, fevers above 102.5, malaise or worsening symptoms. Otherwise plan on following up with her primary care physician. All discharge instructions reviewed with patient and/or family. Voiced understanding. Scripts Ondansetron (Zofran Odt) 4 Mg Tab.rapdis 4 MG PO Q6H for 14 Days, #14 TAB 0 Refills Prov: NAYA BRANTLEY 12/30/16 Cephalexin (Keflex) 500 Mg Capsule 500 MG PO BID for 14 Days, #28 CAP 0 Refills Prov: NAYA BRANTLEY 12/30/16 Work/School Note: Work Release Form Date Seen in the Emergency Department: Dec 30, 2016 Return to Work: Dec 30, 2016 Restrictions: No Restrictions Copy Copies To 1: TONEY BARBA TITUS J Dec 30, 2016 01:55
[2016-12-30] MEDS ORDERED: ONDANSETRON 4 MG/2 ML (SDV) Z0FRAN IVP ONE (02:00)
[2016-12-30 02:08] LABS: BASOPHILS % (AUTO) 0 % (0-10); EOSINOPHILS # (AUTO) 0.1 10^3/uL (0.0-0.3); EOSINOPHILS % (AUTO) 2 % (0-10); LYMPHOCYTES # (AUTO) 4.4 X 10^3 (1.0-4.0); LYMPHOCYTES % (AUTO) 55 % (12-44); MEAN CORPUSCULAR HEMOGLOBIN 30 PG (25-34); MEAN CORPUSCULAR HGB CONC 33 G/DL (32-36); MEAN CORPUSCULAR VOLUME 90 FL (80-99); MEAN PLATELET VOLUME 9.8 FL (7.4-10.4); MONOCYTES # (AUTO) 0.8 X 10^3 (0.0-1.0); MONOCYTES % (AUTO) 10 % (0-12); NEUTROPHILS # (AUTO) 2.6 X 10^3 (1.8-7.8); NEUTROPHILS % (AUTO) 33 % (42-75); PLATELET COUNT 319 10^3/uL (130-400); RED CELL DISTRIBUTION WIDTH 12.9 % (10.0-14.5); WHITE BLOOD COUNT 7.9 10^3/uL (4.3-11.0)
[2016-12-30 02:28] LABS: ALBUMIN 4.1 GM/DL (3.2-4.5); BILIRUBIN,TOTAL 0.4 MG/DL (0.1-1.0); CREATININE SERUM 1.64 MG/DL (0.60-1.30); MAGNESIUM 2.1 MG/DL (1.8-2.4); POTASSIUM 4.7 MMOL/L (3.6-5.0); TOTAL PROTEIN 6.6 GM/DL (6.4-8.2)
[2016-12-30 02:41] LABS: KETONES,URINE NEGATIVE (NEGATIVE); LEUKOCYTE ESTERASE ,URINE NEGATIVE (NEGATIVE); NITRITE,URINE POSITIVE (NEGATIVE); PH,URINE 5 (5-9); PROTEIN,URINE 3+ (NEGATIVE); UROBILINOGEN,URINE 4 MG/DL (NORMAL)
[2016-12-30 02:43] LABS: CALCIUM OXALATE CRYSTALS,UR LARGE /LPF; SQUAMOUS EPITHELIAL CELL,UR 25-50 /HPF; WBC,URINE RARE /HPF
[2016-12-30 02:44] LABS: BILIRUBIN,URINE 3+ (NEGATIVE)
[2016-12-30] MEDS ORDERED: RX-ONDANSETRON 4 MG ODT (ZOFRAN) PPK #4 PO STA (03:22)
[2016-12-30] MEDS ORDERED: ONDA4TAB8 PO (03:29)
[2016-12-30] MEDS ORDERED: CEPH-507 PO (03:29)
[2016-12-30] MEDS ORDERED: cefTRIAXone INJECTION 1,000 MG in NS (IVPB) 50 ML IV ONE (03:30)
[2016-12-30 03:36] VITALS: BP 121/68
--- NOTE | 2016-12-30 08:16 | Diagnostic Imaging Report ---
PROCEDURE: CT urinary tract, rule out kidney stone. TECHNIQUE: Multiple contiguous axial images were obtained through the abdomen and pelvis without the use of intravenous contrast. INDICATION: Abdominal pain. CORRELATION STUDY: 12/03/2016. FINDINGS: LOWER THORAX: Clear. LIVER: Enlarged with likely at least mild severity hepatic steatosis. GALLBLADDER: Absent with clips in the gallbladder fossa. Biliary tree unremarkable. SPLEEN: Unremarkable. PANCREAS: Unremarkable. ADRENAL GLANDS: Unremarkable. KIDNEYS: Two small nonobstructing stones inferior pole left kidney measuring up to 3 mm. Right kidney as well as bilateral collecting systems unremarkable. ABDOMINAL AORTA: Unremarkable, nonaneurysmal. GASTROINTESTINAL TRACT: Mild severity fecal retention. Normal appendix. No obstruction. A few scattered mesenteric and central retroperitoneal lymph nodes. No abdominal ascites or free air. There is a shunt tubing coursing over the midline lower chest and entering into the mid abdominal peritoneal cavity. URINARY BLADDER: Decompressed. REPRODUCTIVE: Post hysterectomy changes. No significant free pelvic fluid or abnormal pelvic mass lesion. OSSEOUS STRUCTURES: Very mild leftward curvature lumbar spine. IMPRESSION: 1. Negative for acute abnormality of the abdomen or pelvis. 2. Hepatomegaly with likely some degree of hepatic steatosis. 3. Two nonobstructing left lower pole renal stones. Dictated by: Dictated on workstation # [id number]
--- NOTE | 2016-12-30 08:32 | Diagnostic Imaging Report ---
INDICATION: Abdominal pain FINDINGS: Catheter tubing is looped and projects over the mid upper abdomen. There is mildly elevated colonic stool load within the transverse and descending colon but no abnormal recto sigmoid stool and no air-containing dilated small bowel. No pneumatosis. Pelvic phleboliths noted. There are clips at the gallbladder fossa. IMPRESSION: Catheter tubing partially visualized. Mild mid colonic constipation, no alissa bowel obstruction or free air evident. Dictated by: Dictated on workstation # [id number]
== END 2016-12-30 03:35 | disposition home or self-care (01) ==
LOC: EDUNIT# 00:47 → ER 00:51
DX: N39.0 Urinary tract infection, site not specified (principal); J45.909 Unspecified asthma, uncomplicated; I10 Essential (primary) hypertension; G43.909 Migraine, unspecified, not intractable, without status migrainosus; K21.9 Gastro-esophageal reflux disease without esophagitis; E66.01 Morbid (severe) obesity due to excess calories; F41.9 Anxiety disorder, unspecified; F12.10 Cannabis abuse, uncomplicated; Z87.19 Personal history of other diseases of the digestive system; Z86.79 Personal history of other diseases of the circulatory system; Z98.2 Presence of cerebrospinal fluid drainage device; Z90.710 Acquired absence of both cervix and uterus; Z68.43 Body mass index [BMI] 50.0-59.9, adult
CPT/HCPCS: 36415; 74000; 74176; 80053; 80306; 81000; 83605; 83735; 85025; 87088; 96361; 96374; 96375

== ENCOUNTER 2018-07-10 22:24 | Emergency (ER) | payer BC ==
[~2018-07-10] VITALS: Ht 162.6 cm; Wt 140.6 kg
[~2018-07-10 22:24] MED LIST changes: -BENZ-13 PO; +BENZ100C18 PO; +CEPH-507 PO; +CIPR500T4; -METO-270 PO; +METO-387 PO; +ONDA4TAB8 PO; -OXYC-197 PO; -OXYC-202 PO; +OXYC1TAB12 PO; +OXYC1TAB87 PO
[2018-07-10] MEDS ORDERED: ASPIRIN 81 MG CHEW (CHILDREN'S ASA) PO ONE (22:45)
[2018-07-10] MEDS ORDERED: NITROGLYCERIN 0.4 MG SL TABS BTL 25'S SL PRN (22:45)
--- NOTE | 2018-07-10 22:45 | ED Chest Pain ---
General Source: patient, other Exam Limitations: no limitations History of Present Illness Date Seen by Provider: Jul 10, 2018 Time Seen by Provider: 22:30 Initial Comments Patient presents to ER by private conveyance with chief complaint of recent onset of chest pain tightness and pressure across the middle of her chest reading towards her left shoulder arm. No history of coronary disease or heart attacks or significant family coronary history. She does not smoke. She does have a history of fluid overload and pseudotumor cerebri. She was recent started by Dr. Carter outpatient on some Lasix because she had gained about 20 pounds in a couple weeks. No history of heart failure. She says she took the Lasix but it did not improve her symptoms this is the second day she has had it. 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 No nausea or sweats. She does have hypertension and hyperlipidemia. No thyroid or diabetes. Patient was seen by Dr. Carter because she was here in the ER a few weeks ago for SVT. At the time they started her on Cardizem 240 mg. In the past she's taken amlodipine and also does cause her to swell up again about 50 pounds of water weight. Allergies and Home Medications Allergies Coded Allergies: promethazine (Verified Allergy, Mild, 01/28/16) Home Medications Buprenorphine HCl/Naloxone HCl 1 Each Film, 2 FILM SL DAILY, (Reported) Cephalexin 500 Mg Capsule, 500 MG PO BID Prescribed by: NAYA BRANTLEY on 12/30/16 0329 Duloxetine HCl 60 Mg Capsule.dr, 60 MG PO BID, (Reported) Fluticasone Propionate 16 Gm [place].susp, 1 SPRAY NS DAILY PRN for ALLERGIES, ( Reported) Isomethept/Dichlphn/Acetaminop 1 Each Capsule, 1 CAP PO Q4H PRN for MIGRAINE, ( Reported) Lisinopril 40 Mg Tablet, 40 MG PO DAILY, (Reported) Mirtazapine 30 Mg Tablet, 30 MG PO HS PRN for SLEEP, (Reported) Naproxen Sodium 220 Mg Tablet, 440 MG PO Q8H PRN for PAIN-MILD, (Reported) Omeprazole 40 Mg Capsule.dr, 40 MG PO DAILY, (Reported) Ondansetron 4 Mg Tab.gabby, 4 MG PO Q6H Prescribed by: NAYA BRANTLEY on 12/30/16 0329 Propranolol HCl 80 Mg Tablet, 80 MG PO TID, (Reported) Topiramate 100 Mg Tablet, 100 MG PO BID, (Reported) Patient Home Medication List Home Medication List Reviewed: Yes Review of Systems Review of Systems Constitutional: No chills, No fever, No malaise EENTM: No Blurred Vision, No Double Vision Respiratory: Denies Cough; Shortness of Air; Denies Wheezing Cardiovascular: Chest Pain, Edema Gastrointestinal: Denies Abdomen Distended, Denies Abdominal Pain, Denies Nausea Genitourinary: Denies Burning, Denies Discharge Musculoskeletal: No back pain, No joint pain Past Rrjwwqm-Xasyyf-Mamjds Hx Patient Social History Alcohol Use: Denies Use Recreational Drug Use: No Smoking Status: Never a Smoker 2nd Hand Smoke Exposure: No Recent Foreign Travel: No Contact w/Someone Who Travel: No Recent Hopitalizations: No Immunizations Up To Date Tetanus Booster (TDap): Less than 5yrs PED Vaccines UTD: No Date of Influenza Vaccine: Feb 16, 2012 Seasonal Allergies Seasonal Allergies: No Past Medical History Surgeries: Yes (FIRMWARE ENGINEER shunt, total hysterectomy 2005 with bladder tie up, A AND P REPAIR 03-29) Bladder Surgery, Gallbladder, Hysterectomy, Neurological, Oophorectomy Respiratory: Yes Asthma, Pneumonia, Chronic Bronchitis Cardiac: Yes Hypertension Neurological: Yes (PSEUDO CEREBRI TUMOR, FIRMWARE ENGINEER shunt 01/2016) Headaches /Migraines Reproductive Disorders: No VAT SKIMMER History: Hysterectomy Genitourinary: No Gastrointestinal: Yes Gastroesophageal Reflux, Esophagitis Musculoskeletal: No Endocrine: No (MORBID OBESITY) HEENT: No Cancer: No Psychosocial: Yes (OPIATE AND BENZODIAZEPINE ABUSE) Anxiety Integumentary: No Blood Disorders: No Adverse Reaction/Blood Tranf: No Family Medical History Abdominal aortic aneurysm 03 FATHER Family history: Allergy 03 FATHER Family history: Arthritis 03 MOTHER 09 SISTER Family history: Hypertension 03 FATHER No Pertinent Family Hx Physical Exam Vital Signs Vital Signs - First Documented 07/10/18 22:25 Temp 98.6 Pulse 77 Resp 17 B/P (MAP) 149/95 (113) O2 Delivery Room Air Capillary Refill : Height, Weight, BMI Height: 5'4.00" Weight: 310lbs. 0.0oz. 140.167043bs; 53.2 BMI Method:Stated General Appearance: Anxious, Mild Distress, Obese HEENT: PERRL/EOMI, Normal ENT Inspection, Pharynx Normal, Moist Mucous Membranes Neck: Full Range of Motion, Normal Inspection, Non Tender, Supple Respiratory: No Accessory Muscle Use, No Respiratory Distress, Rales (faint, bibasilar), Other (left chest wall tenderness to palpation) Cardiovascular: Regular Rate, Rhythm, No Edema, Normal Peripheral Pulses Gastrointestinal: Normal Bowel Sounds, No Organomegaly, Non Tender, Soft Extremity: Normal Capillary Refill, Normal Range of Motion, No Calf Tenderness , Pedal Edema (2+ pitting edema bilateral lower extremity up to) Neurologic/Psychiatric: Alert, Oriented x3, No Motor/Sensory Deficits Skin: Normal Color, Warm/Dry Progress/Results/Core Measures Results/Orders Lab Results Laboratory Tests Test 07/10/18 22:42 07/11/18 00:43 Range/Units White Blood Count 6.8 4.3-11.0 10^3/uL Red Blood Count 4.33 L 4.35-5.85 10^6/uL Hemoglobin 13.1 11.5-16.0 G/DL Hematocrit 40 35-52 % Mean Corpuscular Volume 92 80-99 FL Mean Corpuscular Hemoglobin 30 25-34 PG Mean Corpuscular Hemoglobin Concent 33 32-36 G/DL Red Cell Distribution Width 12.7 10.0-14.5 % Platelet Count 279 130-400 10^3/uL Mean Platelet Volume 9.6 7.4-10.4 FL Neutrophils (%) (Auto) 46 42-75 % Lymphocytes (%) (Auto) 40 12-44 % Monocytes (%) (Auto) 11 0-12 % Eosinophils (%) (Auto) 3 0-10 % Basophils (%) (Auto) 0 0-10 % Neutrophils # (Auto) 3.1 1.8-7.8 X 10^3 Lymphocytes # (Auto) 2.7 1.0-4.0 X 10^3 Monocytes # (Auto) 0.7 0.0-1.0 X 10^3 Eosinophils # (Auto) 0.2 0.0-0.3 10^3/uL Basophils # (Auto) 0.0 0.0-0.1 10^3/uL Prothrombin Time 12.6 12.2-14.7 SEC INR Comment 0.9 0.8-1.4 Activated Partial Thromboplast Time 33 24-35 SEC Sodium Level 140 135-145 MMOL/L Potassium Level 4.3 3.6-5.0 MMOL/L Chloride Level 101 98-107 MMOL/L Carbon Dioxide Level 29 21-32 MMOL/L Anion Gap 10 5-14 MMOL/L Blood Urea Nitrogen 17 7-18 MG/DL Creatinine 1.07 0.60-1.30 MG/DL Estimat Glomerular Filtration Rate 57 BUN/Creatinine Ratio 16 Glucose Level 102 70-105 MG/DL Calcium Level 10.0 8.5-10.1 MG/DL Corrected Calcium 9.6 8.5-10.1 MG/DL Magnesium Level 2.7 H 1.8-2.4 MG/DL Total Bilirubin 0.4 0.1-1.0 MG/DL Aspartate Amino Transf (AST/SGOT) 24 5-34 U/L Alanine Aminotransferase (ALT/SGPT) 29 0-55 U/L Alkaline Phosphatase 75 40-136 U/L Myoglobin 31.4 10.0-92.0 NG/ML Troponin I < 0.028 < 0.028 <0.028 NG/ML B-Type Natriuretic Peptide 16.5 <100.0 PG/ML Total Protein 7.3 6.4-8.2 GM/DL Albumin 4.5 3.2-4.5 GM/DL My Orders Orders - NAYA BRANTLEY Continuous Ekg Monitoring (07/10/18 22:33) Ekg Tracing (07/10/18 22:33) Cbc With Automated Diff (07/10/18 22:39) Magnesium (07/10/18 22:39) Chest 1 View, Ap/Pa Only (07/10/18 22:39) Cardiac Profile 1 (07/10/18 22:39) Comprehensive Metabolic Panel (07/10/18 22:39) Myoglobin Serum (07/10/18 22:39) Protime With Inr (07/10/18 22:39) Partial Thromboplastin Time (07/10/18 22:39) O2 (07/10/18 22:39) Lipid Panel (07/11/18 06:00) Aspirin Chewable Tablet (Baby Aspirin Ch (07/10/18 22:45) Nitroglycerin 0.4 Mg Btl 25's (Nitrostat (07/10/18 22:45) Saline Lock/Iv-Start (07/10/18 22:39) BNP (07/10/18 22:39) Furosemide Injection (Lasix Injection) (07/11/18 00:00) Troponin I (07/11/18 00:45) Medications Given in ED Current Medications Medications Dose Ordered Sig/Kelly Route Start Time Stop Time Status Last Admin Dose Admin Aspirin 324 mg ONCE ONCE PO 07/10/18 22:45 07/10/18 22:46 DC 07/10/18 22:53 324 MG Furosemide 60 mg ONCE ONCE IVP 07/11/18 00:00 07/11/18 00:01 DC 07/11/18 00:09 60 MG Nitroglycerin 0.4 mg UD PRN SL 07/10/18 22:45 07/10/18 22:54 0.4 MG Vital Signs/I&O 07/10/18 07/10/18 22:25 22:25 Temp 98.6 Pulse 77 Resp 17 B/P (MAP) 149/95 (113) O2 Delivery Room Air Progress Progress Note #1: Time: 22:52 Progress Note Patient appears to be in fluid overload. Chest x-ray labs aspirin and nitroglycerin area blood pressures in the 140s systolic. IV Lasix would be indicated if her blood work and chest x-ray back up the hypothesis. Apparently this is happened before on calcium channel blockers. Dr. Carter, echocardiogram 2017 shows normal cavity and wall thickness size. EF of 60-65%. ED ACS -3 points. Low risk by the EDACS Score. If the patient also has: (1) EKG without new ischemic changes and (2) negative initial and 2-hour troponins, then this patient is safe for discharge to early outpatient follow-up investigation (or proceed to earlier inpatient testing). If EKG with ischemic changes or positive troponin, they are not low risk and require normal risk stratification. Progress Note #2: Time: 23:57 Progress Note Patient's clinical exam of increased edema related to a calcium channel deandre could just be a side effect. Could be causing some of her discomfort but there is no evidence of her being in heart failure. Since her oral Lasix is not helping was give her a single dose of IV Lasix repeat a troponin at 2 hours and then let her go home and follow up Thursday with primary care. We've encouraged her to discontinue the Cardizem unless she has racing heart rate. Initial ECG Impression Date: Jul 10, 2018 Initial ECG Impression Time: 22:28 Initial ECG Rate: 77 Initial ECG Rhythm: Normal Sinus Initial ECG Intervals: Normal Initial ECG Impression: Normal Comment No ST elevation or depression. Diagnostic Imaging Diagonstic Imaging: Xray Plain Films/CT/US/NM/MRI: chest (1v) Comments No acute cardiopulmonary process. Reviewed: Reviewed by Me Departure Impression Primary Impression: Chest pain Qualified Codes: R07.9 - Chest pain, unspecified Additional Impressions: Pedal edema Calcium channel deandre adverse reaction Qualified Codes: T46.1X5A - Adverse effect of calcium-channel blockers, initial encounter Disposition: 01 HOME, SELF-CARE Condition: Stable Departure-Patient Inst. Decision time for Depature: 01:59 Referrals: JESSE CHOPRA MD (PCP/Family) Primary Care Physician Patient Instructions: Chest Pain That Is Not Caused by the Heart (DC) Add. Discharge Instructions: Discontinue taking the Cardizem and follow-up with Dr. Cartre Thursday. If you start to have rapid heart rate you can take the Cardizem. Double up on your Lasix tomorrow. NAYA BRANTLEY Jul 10, 2018 22:45
[2018-07-10 22:52] LABS: BASOPHILS % (AUTO) 0 % (0-10); EOSINOPHILS # (AUTO) 0.2 10^3/uL (0.0-0.3); EOSINOPHILS % (AUTO) 3 % (0-10); HEMATOCRIT 40 % (35-52); HEMOGLOBIN 13.1 G/DL (11.5-16.0); LYMPHOCYTES # (AUTO) 2.7 X 10^3 (1.0-4.0); LYMPHOCYTES % (AUTO) 40 % (12-44); MEAN CORPUSCULAR HEMOGLOBIN 30 PG (25-34); MEAN CORPUSCULAR HGB CONC 33 G/DL (32-36); MEAN CORPUSCULAR VOLUME 92 FL (80-99); MEAN PLATELET VOLUME 9.6 FL (7.4-10.4); MONOCYTES # (AUTO) 0.7 X 10^3 (0.0-1.0); MONOCYTES % (AUTO) 11 % (0-12); NEUTROPHILS # (AUTO) 3.1 X 10^3 (1.8-7.8); NEUTROPHILS % (AUTO) 46 % (42-75); PLATELET COUNT 279 10^3/uL (130-400); RED CELL DISTRIBUTION WIDTH 12.7 % (10.0-14.5); WHITE BLOOD COUNT 6.8 10^3/uL (4.3-11.0)
[2018-07-10 23:02] LABS: INR 0.9 (0.8-1.4); PROTHROMBIN TIME PATIENT 12.6 SEC (12.2-14.7)
[2018-07-10 23:09] LABS: ALANINE AMINOTRANSFERASE 29 U/L (0-55); ALBUMIN 4.5 GM/DL (3.2-4.5); ALKALINE PHOSPHATASE 75 U/L (40-136); BILIRUBIN,TOTAL 0.4 MG/DL (0.1-1.0); BUN/CREATININE RATIO 16; CARBON DIOXIDE 29 MMOL/L (21-32); CHLORIDE 101 MMOL/L (98-107); CREATININE SERUM 1.07 MG/DL (0.60-1.30); GFR ESTIMATED 57; GLUCOSE 102 MG/DL (70-105); MAGNESIUM 2.7 MG/DL (1.8-2.4); POTASSIUM 4.3 MMOL/L (3.6-5.0); SODIUM 140 MMOL/L (135-145); TOTAL PROTEIN 7.3 GM/DL (6.4-8.2)
[2018-07-10 23:15] LABS: MYOGLOBIN SERUM 31.4 NG/ML (10.0-92.0)
[2018-07-11] MEDS ORDERED: FUROSEMIDE 40 MG/4 ML INJ (LASIX) IVP ONE
[2018-07-11 02:05] VITALS: BP 108/75
--- NOTE | 2018-07-11 06:40 | Diagnostic Imaging Report ---
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 Lungs are clear. The heart size is normal. There is no pneumothorax or effusion. No focal infiltrate. Osseous structures normal. IMPRESSION: No acute cardiopulmonary findings. Dictated by: Dictated on workstation # [id number]
== END 2018-07-11 02:07 | disposition home or self-care (01) ==
LOC: EDUNIT# 22:24 → ER 22:25
DX: R07.89 Other chest pain (principal); R60.0 Localized edema; T46.1X5A Adverse effect of calcium-channel blockers, initial encounter; J44.9 Chronic obstructive pulmonary disease, unspecified; G43.909 Migraine, unspecified, not intractable, without status migrainosus; K21.9 Gastro-esophageal reflux disease without esophagitis; I10 Essential (primary) hypertension; E66.01 Morbid (severe) obesity due to excess calories; F41.9 Anxiety disorder, unspecified; E78.5 Hyperlipidemia, unspecified; Z88.8 Allergy status to other drugs, medicaments and biological substances; Z87.19 Personal history of other diseases of the digestive system; Z79.51 Long term (current) use of inhaled steroids; Z68.43 Body mass index [BMI] 50.0-59.9, adult; Z90.710 Acquired absence of both cervix and uterus; Z98.890 Other specified postprocedural states; Z87.01 Personal history of pneumonia (recurrent)
CPT/HCPCS: 36415; 71045; 80053; 83735; 83874; 83880; 84484; 85025; 85610; 85730; 93005

== ENCOUNTER → 2018-10-18 | Outpatient (CLI) | payer BC ==
[~2018-10-18] MED LIST changes: +VERA120T10 PO; -VERA120T84 PO
[2018-10-18 09:58] LABS: BASOPHILS % (AUTO) 1 % (0-10); EOSINOPHILS # (AUTO) 0.1 10^3/uL (0.0-0.3); EOSINOPHILS % (AUTO) 2 % (0-10); HEMATOCRIT 40 % (35-52); HEMOGLOBIN 12.9 G/DL (11.5-16.0); LYMPHOCYTES # (AUTO) 2.9 X 10^3 (1.0-4.0); LYMPHOCYTES % (AUTO) 46 % (12-44); MEAN CORPUSCULAR HEMOGLOBIN 30 PG (25-34); MEAN CORPUSCULAR HGB CONC 33 G/DL (32-36); MEAN CORPUSCULAR VOLUME 93 FL (80-99); MEAN PLATELET VOLUME 10.3 FL (7.4-10.4); MONOCYTES # (AUTO) 0.8 X 10^3 (0.0-1.0); MONOCYTES % (AUTO) 13 % (0-12); NEUTROPHILS # (AUTO) 2.4 X 10^3 (1.8-7.8); NEUTROPHILS % (AUTO) 38 % (42-75); PLATELET COUNT 289 10^3/uL (130-400); RED CELL DISTRIBUTION WIDTH 13.5 % (10.0-14.5); WHITE BLOOD COUNT 6.3 10^3/uL (4.3-11.0)
[2018-10-18 10:24] LABS: ALANINE AMINOTRANSFERASE 39 U/L (0-55); ALBUMIN 4.4 GM/DL (3.2-4.5); ALKALINE PHOSPHATASE 77 U/L (40-136); BILIRUBIN,TOTAL 0.4 MG/DL (0.1-1.0); BUN/CREATININE RATIO 16; CALCIUM 9.7 MG/DL (8.5-10.1); CARBON DIOXIDE 23 MMOL/L (21-32); CHLORIDE 104 MMOL/L (98-107); CREATININE SERUM 0.86 MG/DL (0.60-1.30); GFR ESTIMATED > 60; GLUCOSE 102 MG/DL (70-105); POTASSIUM 4.7 MMOL/L (3.6-5.0); SODIUM 135 MMOL/L (135-145); TOTAL PROTEIN 7.2 GM/DL (6.4-8.2)
[2018-10-18 10:29] LABS: VANCOMYCIN,TROUGH 20.3 UG/ML (10.0-20.0)
== END ==
LOC: LABNPT 09:46
PROVIDERS: ATTEND Internal Medicine Infectious Disease
DX: T85.730A Infection and inflammatory reaction due to ventricular intracranial (communicating) shunt, initial encounter (principal); B95.7 Other staphylococcus as the cause of diseases classified elsewhere
CPT/HCPCS: 80053; 80202; 85025

== ENCOUNTER 2018-10-21 17:17 | Emergency (ER) | payer BC ==
[~2018-10-21] VITALS: Ht 165.1 cm; Wt 133.8 kg
[2018-10-21] MEDS ORDERED: LACTATED RINGERS 1,000 ML IV ONE (18:12)
[2018-10-21 18:19] LABS: BASOPHILS % (AUTO) 0 % (0-10); EOSINOPHILS # (AUTO) 0.2 10^3/uL (0.0-0.3); EOSINOPHILS % (AUTO) 1 % (0-10); HEMATOCRIT 41 % (35-52); HEMOGLOBIN 13.8 G/DL (11.5-16.0); LYMPHOCYTES # (AUTO) 3.1 X 10^3 (1.0-4.0); LYMPHOCYTES % (AUTO) 24 % (12-44); MEAN CORPUSCULAR HEMOGLOBIN 30 PG (25-34); MEAN CORPUSCULAR HGB CONC 33 G/DL (32-36); MEAN CORPUSCULAR VOLUME 90 FL (80-99); MEAN PLATELET VOLUME 10.2 FL (7.4-10.4); MONOCYTES # (AUTO) 0.9 X 10^3 (0.0-1.0); MONOCYTES % (AUTO) 7 % (0-12); NEUTROPHILS # (AUTO) 8.8 X 10^3 (1.8-7.8); NEUTROPHILS % (AUTO) 68 % (42-75); PLATELET COUNT 300 10^3/uL (130-400); RED CELL DISTRIBUTION WIDTH 13.8 % (10.0-14.5); WHITE BLOOD COUNT 13.1 10^3/uL (4.3-11.0)
[2018-10-21 18:27] LABS: INR 0.9 (0.8-1.4); PROTHROMBIN TIME PATIENT 12.8 SEC (12.2-14.7)
[2018-10-21] MEDS ORDERED: ONDANSETRON 4 MG/2 ML (SDV) Z0FRAN IVP ONE (18:30)
[2018-10-21] MEDS ORDERED: methylPREDNISolone 125 MG (Solu-MEDROL) VIAL IVP ONE (18:30)
[2018-10-21 18:34] LABS: ALANINE AMINOTRANSFERASE 29 U/L (0-55); ALBUMIN 4.6 GM/DL (3.2-4.5); ALKALINE PHOSPHATASE 74 U/L (40-136); BILIRUBIN,TOTAL 0.3 MG/DL (0.1-1.0); CALCIUM 9.9 MG/DL (8.5-10.1); CARBON DIOXIDE 23 MMOL/L (21-32); CHLORIDE 103 MMOL/L (98-107); GLUCOSE 121 MG/DL (70-105); MAGNESIUM 1.9 MG/DL (1.8-2.4); POTASSIUM 4.1 MMOL/L (3.6-5.0); SODIUM 137 MMOL/L (135-145); TOTAL PROTEIN 7.7 GM/DL (6.4-8.2)
--- NOTE | 2018-10-21 18:41 | ED Headache ---
General Chief Complaint: Head/Cervical Problems Stated Complaint: HEADACHE Nursing Triage Note: Pt to ED with complaint of headache and neck stiffness. 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 Pt reports having multiple head surgeries recently that have become infected. Pt reports then having meningitis. Pt has PICC line in R arm and reports receiving vancomycin home infusions. Pt reports temperature at home of 99.5. Pt also c/o chills. Pt reports being treated by Dr. Neal and Dr. Roper. Pt reports Dr. Roper wants pt seen in ED and then transfered to . Nursing Sepsis Screen: No Definite Risk Source: patient History of Present Illness Date Seen by Provider: Oct 21, 2018 Time Seen by Provider: 18:00 Initial Comments PT ARRIVES VIA POV FROM [facility] C/O GENERALIZED HEADACHE HAS CHRONIC HEADACHES ALL OF LIFE WAS DX WITH PSEUDOTUMOR CERBRI IN 2014 AT [facility] ACCOUNTING ADVISORY SERVICES MANAGER SHUNT WAS PLACED ON THE RIGHT AT IN 2015 THAT SHUNT QUIT WORKING IN JULY OF THIS YEAR, AND HAD IT REVISED 07/20/18 AND THEN IT GOT INFECTED, AND WAS LATER REMOVED WAS REPLACED 6 WEEKS LATER ON THE LEFT SIDE. SURGICAL WOUND DEHISCED AND GOT INFECTED THE END OF SEPTEMBER. GREW OUT ENTEROCOCCUS FAECALIS AND STAPH EPIDERMIDIS IN WOUND AND IN CSF, AND WAS DX WITH MENINGITIS, PER PT. THAT SHUNT WAS REMOVED ON 10/07/18, NOT REPLACED PT HAS BEEN FOLLOWED BY INFECTIOUS DISEASE AT AND STATES THAT SHE WAS TREATED WITH IV VANCOMYCIN FOR 8 DAYS WHILE IN THE HOSPITAL. HAD A PICC LINE PLACED IN RIGHT UPPER ARM ON Thursday10/15/18 AND WAS DISMISSED HOME ON THAT DAY PT HAS BEEN RECEIVING VANCOMYCIN BID AT HOME VIA HOME HEALTH. LAST DOSE WAS AT 0900 THIS AM. STATES HER WBC ON Thursday10/18/18 WAS 6.3 PT STATES SHE HAS HAD INCREASED HEADACHE AND HAS BEEN RUNNING FEVER SINCE YESTERDAY TEMP WAS 99 YESTERDAY, AND WAS 100.5 TODAY TOOK A TYLENOL AT 1630 TODAY PT STATES SHE TOOK HER REGULAR PAIN MEDICATION AND IT'S NOT HELPING STATES HER NECK IS STARTING TO FEEL A LITTLE STIFF AND SORE + NAUSEA, NO VOMITING VISION IS BLURRY AT TIMES AND OCCASIONALLY HAS DOUBLE VISION, IS SENSITIVE TO LIGHT. NOT HAVING VISION CHANGES AT THIS TIME. 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 PT STATES SHE WILL BE GETTING A PCP AT , BUT HAS NOT MADE ANY APPOINTMENTS WITH ANYONE YET. Allergies and Home Medications Allergies Coded Allergies: promethazine (Verified Allergy, Mild, 01/28/16) Uncoded Allergies: CALCIUM CHANNEL BLOCKERS (Adverse Reaction, Unknown, weight gain, 10/21/18) Home Medications Buprenorphine HCl/Naloxone HCl 1 Each Film, 2 FILM SL DAILY, (Reported) Cephalexin 500 Mg Capsule, 500 MG PO BID Prescribed by: NAYA BRANTLEY on 12/30/16 0329 Duloxetine HCl 60 Mg Capsule.dr, 60 MG PO BID, (Reported) Fluticasone Propionate 16 Gm [place].susp, 1 SPRAY NS DAILY PRN for ALLERGIES, (Reported) Isomethept/Dichlphn/Acetaminop 1 Each Capsule, 1 CAP PO Q4H PRN for MIGRAINE, (Reported) Lisinopril 40 Mg Tablet, 40 MG PO DAILY, (Reported) Mirtazapine 30 Mg Tablet, 30 MG PO HS PRN for SLEEP, (Reported) Naproxen Sodium 220 Mg Tablet, 440 MG PO Q8H PRN for PAIN-MILD, (Reported) Omeprazole 40 Mg Capsule.dr, 40 MG PO DAILY, (Reported) Ondansetron 4 Mg Tab.rapdis, 4 MG PO Q6H Prescribed by: NAYA BRANTLYE on 12/30/16 0329 Propranolol HCl 80 Mg Tablet, 80 MG PO TID, (Reported) Topiramate 100 Mg Tablet, 100 MG PO BID, (Reported) Patient Home Medication List Home Medication List Reviewed: Yes Review of Systems Review of Systems Constitutional: fever Eyes: See HPI, Blurred Vision, Decreased Acuity, Photophobia, Vision Changes Ears, Nose, Mouth, Throat: no symptoms reported Respiratory: no symptoms reported Cardiovascular: no symptoms reported Gastrointestinal: see HPI, nausea; No vomiting Genitourinary: no symptoms reported Musculoskeletal: see HPI, neck pain Skin: no symptoms reported Psychiatric/Neurological: See HPI, Headache; Denies Numbness, Denies Paresthes ia, Denies Seizure Past Maxfvsk-Vxjtsh-Ssccds Hx Patient Social History Alcohol Use: Denies Use Recreational Drug Use: Yes (OPIATE AND BENZODIAZEPINE ABUSE--ON SUBOXONE IN PAST, NOW ON MULTIPLE RX OPIATES OF 10/21/2018) 2nd Hand Smoke Exposure: No Recent Foreign Travel: No Contact w/Someone Who Travel: No Recent Infectious Disease Expo: No Recent Hopitalizations: Yes Immunizations Up To Date Tetanus Booster (TDap): Less than 5yrs PED Vaccines UTD: No Date of Influenza Vaccine: Feb 16, 2012 Seasonal Allergies Seasonal Allergies: No Past Medical History Surgeries: Yes (RIGHT ACCOUNTING ADVISORY SERVICES MANAGER shunt 01/2016, WITH REVISION THEN REMOVAL, THEN REPLACEMENT ON LEFT THEN REMOVAL 07/2018-09/2018--ALL AT [facility]; HYST/BSO/BLADDER SUSPENSION 2015; A & P REPAIR 03/2012; EGD WITH [facility]) Bladder Surgery, Gallbladder, Hysterectomy, Neurological, Oophorectomy Respiratory: Yes Asthma, Pneumonia, Chronic Bronchitis Cardiac: Yes Hypertension Neurological: Yes (PSEUDOTUMOR CEREBR; RIGHT ACCOUNTING ADVISORY SERVICES MANAGER shunt 01/2016 WITH REVISON/REMOVAL, REPLACEMENT ON LEFT/REMOVAL--07/2018-09/2018; MENINGITIS FROM WOUND INFECTION/INFECTED SHUNT 09/2018) Headaches /Migraines, Meningitis Reproductive Disorders: No 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 Genitourinary: No Gastrointestinal: Yes Gastroesophageal Reflux, Esophagitis Musculoskeletal: No Endocrine: No (MORBID OBESITY) HEENT: No Cancer: No Psychosocial: Yes (OPIATE AND BENZODIAZEPINE ABUSE) Anxiety Integumentary: Yes (ABSCESSES; SURGICAL WOUND INFECTION) Blood Disorders: No Adverse Reaction/Blood Tranf: No Family Medical History Abdominal aortic aneurysm 03 FATHER Family history: Allergy 03 FATHER Family history: Arthritis 03 MOTHER 09 SISTER Family history: Hypertension 03 FATHER Physical Exam Vital Signs Vital Signs - First Documented 10/21/18 17:25 Temp 98.9 Pulse 108 Resp 10 B/P (MAP) 129/103 (112) Pulse Ox 98 O2 Delivery Room Air Capillary Refill : Less Than 3 Seconds Height, Weight, BMI Height: 5'5.00" Weight: 295lbs. 0.0oz. 133.575970by; 53.2 BMI Method:Stated General Appearance: no apparent distress, obese, other (NO PHOTOPHOBIA ON EXAM. PT IS SITTING IN FULLY LIT ROOM WITHOUT COVERING EYES. DOES NOT APPEAR TO BE IN ANY DISCOMFORT OR DISTRESS) HEENT: PERRL/EOMI, normal ENT inspection, TMs normal, pharynx normal Neck: tender lateral, tender midline, other (SOME DISCOMFORT ON FLEXION AND EXTENSION OF NECK, BUT NO ACTUAL RIGIDITY OR SIGNIFICANT MENINGISMUS) Cardiovascular: regular rate, rhythm, no murmur Respiratory: normal breath sounds, no respiratory distress, no accessory muscle use Gastrointestinal: soft Extremities: normal inspection, no pedal edema, no calf tenderness, normal capillary refill, other (PICC LINE IN RIGHT UPPER ARM.) Psychiatric: alert, oriented x 3 Crainal Nerves: normal hearing, normal speech, PERRL Coordination/Gait: normal gait (AMBULATED INTO ER ON OWN WITHOUT DIFFICULTY) Motor/Sensory: no motor deficit, no sensory deficit Skin: normal color, warm/dry, other (SURGICAL WOUND TO LEFT FRONTAL SCALP WITH SUTURES INTACT, WOUND INTACT WITH NO GROSS EVIDENCE OF INFECTION, NO SWELLING. NO DRAINAGE, NO SIGNIFICANT ERYTHEMA--IMMEDIATE WOUND EDGES VERY SLIGHTLY PINK. ) Progress/Results/Core Measures Results/Orders Lab Results Laboratory Tests Test 10/21/18 17:45 10/21/18 18:20 Range/Units White Blood Count 13.1 H 4.3-11.0 10^3/uL Red Blood Count 4.58 4.35-5.85 10^6/uL Hemoglobin 13.8 11.5-16.0 G/DL Hematocrit 41 35-52 % Mean Corpuscular Volume 90 80-99 FL Mean Corpuscular Hemoglobin 30 25-34 PG Mean Corpuscular Hemoglobin Concent 33 32-36 G/DL Red Cell Distribution Width 13.8 10.0-14.5 % Platelet Count 300 130-400 10^3/uL Mean Platelet Volume 10.2 7.4-10.4 FL Neutrophils (%) (Auto) 68 42-75 % Lymphocytes (%) (Auto) 24 12-44 % Monocytes (%) (Auto) 7 0-12 % Eosinophils (%) (Auto) 1 0-10 % Basophils (%) (Auto) 0 0-10 % Neutrophils # (Auto) 8.8 H 1.8-7.8 X 10^3 Lymphocytes # (Auto) 3.1 1.0-4.0 X 10^3 Monocytes # (Auto) 0.9 0.0-1.0 X 10^3 Eosinophils # (Auto) 0.2 0.0-0.3 10^3/uL Basophils # (Auto) 0.0 0.0-0.1 10^3/uL Erythrocyte Sedimentation Rate 15 0-20 MM/HR Prothrombin Time 12.8 12.2-14.7 SEC INR Comment 0.9 0.8-1.4 Activated Partial Thromboplast Time 32 24-35 SEC Sodium Level 137 135-145 MMOL/L Potassium Level 4.1 3.6-5.0 MMOL/L Chloride Level 103 98-107 MMOL/L Carbon Dioxide Level 23 21-32 MMOL/L Anion Gap 11 5-14 MMOL/L Blood Urea Nitrogen 19 H 7-18 MG/DL Creatinine 1.02 0.60-1.30 MG/DL Estimat Glomerular Filtration Rate 60 BUN/Creatinine Ratio 19 Glucose Level 121 H 70-105 MG/DL Calcium Level 9.9 8.5-10.1 MG/DL Corrected Calcium 8.5-10.1 MG/DL Magnesium Level 1.9 1.8-2.4 MG/DL Total Bilirubin 0.3 0.1-1.0 MG/DL Aspartate Amino Transf (AST/SGOT) 15 5-34 U/L Alanine Aminotransferase (ALT/SGPT) 29 0-55 U/L Alkaline Phosphatase 74 40-136 U/L C-Reactive Protein High Sensitivity 0.21 0.00-0.50 MG/DL Total Protein 7.7 6.4-8.2 GM/DL Albumin 4.6 H 3.2-4.5 GM/DL Lactic Acid Level 1.04 0.50-2.00 MMOL/L My Orders Orders - JOSE CARLOS NAYLOR DO Ed Iv/Invasive Line Start (10/21/18 18:12) Monitor-Rhythm Ecg Trace Only (10/21/18 18:12) Cbc With Automated Diff (10/21/18 18:12) Comprehensive Metabolic Panel (10/21/18 18:12) Hs C Reactive Protein (10/21/18 18:12) Erythrocyte Sedimentation Rate (10/21/18 18:12) Lactic Acid Analyzer (10/21/18 18:12) Magnesium (10/21/18 18:12) Protime With Inr (10/21/18 18:12) Partial Thromboplastin Time (10/21/18 18:12) Blood Culture (10/21/18 18:12) Ed Iv/Invasive Line Start (10/21/18 18:12) Lactated Ringers (Lr 1000 Ml Iv Solution (10/21/18 18:12) Methylprednisolone Sod Succ (Solu-Medrol (10/21/18 18:30) Ondansetron Injection (Zofran Injectio (10/21/18 18:30) Vancomycin Injection (Vancomycin Injecti (10/21/18 20:15) Medications Given in ED Current Medications Medications Dose Ordered Sig/Kelly Route Start Time Stop Time Status Last Admin Dose Admin Lactated Ringer's 1,000 ml @ 0 mls/hr Q0M ONCE IV 10/21/18 18:12 10/21/18 18:14 DC 10/21/18 18:28 1,000 MLS/HR Methylprednisolone Sodium Succinate 125 mg ONCE ONCE IVP 10/21/18 18:30 10/21/18 18:31 DC 10/21/18 18:35 125 MG Ondansetron HCl 4 mg ONCE ONCE IVP 10/21/18 18:30 10/21/18 18:31 DC 10/21/18 18:33 4 MG Vital Signs/I&O 10/21/18 17:25 Temp 98.9 Pulse 108 Resp 10 B/P (MAP) 129/103 (112) Pulse Ox 98 O2 Delivery Room Air Blood Pressure Mean: 112 Progress Progress Note : Progress Note UNEVENTFUL ER STAY Departure Communication (Admissions) 1909--CALLED [facility], INFORMATION GIVEN TO [employer], WILL CALL BACK. 2014--[facility] CALLED BACK, DR. LEELA VALENZUELA, NEUROLOGIST, HAS ACCEPTED PT FOR TRANSFER AND DIRECT ADMIT. 2199--EMS HERE FOR TRANSPORT Impression Primary Impression: Headache Additional Impressions: RECENT DX OF MENINGITIS DUE TO INFECTION OF ACCOUNTING ADVISORY SERVICES MANAGER SHUNT SURGICAL SITE Chronic headaches HX OF PSEUDOTUMOR CEREBRI Disposition: 02 XFER SHT-TRM HOSP Condition: Stable Transfer Transfer Facility: Method of Transfer: EMS Departure-Patient Inst. Referrals: NO,LOCAL PHYSICIAN (PCP/Family) Primary Care Physician JOSE CARLOS NAYLOR DO Oct 21, 2018 18:41
[2018-10-21 18:44] LABS: ERYTHROCYTE SEDIMENTATION RATE 15 MM/HR (0-20)
[2018-10-21 18:54] LABS: BUN/CREATININE RATIO 19; CREATININE SERUM 1.02 MG/DL (0.60-1.30); GFR ESTIMATED 60
--- NOTE | 2018-10-21 19:12 | NUR ---
report given to RAMONE Chun
[2018-10-21] MEDS ORDERED: VANCOMYCIN INJECTION 1,000 MG in NS (IVPB) 250 ML IV SCH (20:15)
[2018-10-21 22:16] VITALS: BP 129/103
== END 2018-10-21 22:15 | disposition short-term general hospital (02) ==
LOC: EDUNIT# 17:17 → ER 17:18
DX: R51 Headache (principal); G89.29 Other chronic pain; J44.9 Chronic obstructive pulmonary disease, unspecified; I10 Essential (primary) hypertension; K21.0 Gastro-esophageal reflux disease with esophagitis; E66.01 Morbid (severe) obesity due to excess calories; F41.9 Anxiety disorder, unspecified; F11.10 Opioid abuse, uncomplicated; F19.10 Other psychoactive substance abuse, uncomplicated; F12.10 Cannabis abuse, uncomplicated; Z86.69 Personal history of other diseases of the nervous system and sense organs; Z90.710 Acquired absence of both cervix and uterus; Z82.49 Family history of ischemic heart disease and other diseases of the circulatory system; Z68.43 Body mass index [BMI] 50.0-59.9, adult; Z98.890 Other specified postprocedural states; Z86.61 Personal history of infections of the central nervous system; Z87.01 Personal history of pneumonia (recurrent); Z88.8 Allergy status to other drugs, medicaments and biological substances; Z79.51 Long term (current) use of inhaled steroids
CPT/HCPCS: 36415; 80053; 83605; 83735; 85025; 85610; 85652; 85730; 86141; 87040; 93041; 96374; 96375

== ENCOUNTER → 2018-10-21 | Outpatient (CLI) | payer BC | LOC: HH 08:00 | PROVIDERS: ATTEND Internal Medicine Infectious Disease | DX: T85.730A Infection and inflammatory reaction due to ventricular intracranial (communicating) shunt, initial encounter (principal); B95.7 Other staphylococcus as the cause of diseases classified elsewhere | CPT/HCPCS: 80202 ==

== ENCOUNTER → 2018-10-25 | Outpatient (CLI) | payer BC ==
[2018-10-25 13:11] LABS: VANCOMYCIN,TROUGH 15.2 UG/ML (10.0-20.0)
[2018-10-25 13:12] LABS: BASOPHILS % (AUTO) 0 % (0-10); EOSINOPHILS # (AUTO) 0.1 10^3/uL (0.0-0.3); EOSINOPHILS % (AUTO) 2 % (0-10); HEMATOCRIT 34 % (35-52); HEMOGLOBIN 11.3 G/DL (11.5-16.0); LYMPHOCYTES # (AUTO) 2.1 X 10^3 (1.0-4.0); LYMPHOCYTES % (AUTO) 35 % (12-44); MEAN CORPUSCULAR HEMOGLOBIN 30 PG (25-34); MEAN CORPUSCULAR HGB CONC 33 G/DL (32-36); MEAN CORPUSCULAR VOLUME 91 FL (80-99); MEAN PLATELET VOLUME 10.2 FL (7.4-10.4); MONOCYTES # (AUTO) 0.6 X 10^3 (0.0-1.0); MONOCYTES % (AUTO) 10 % (0-12); NEUTROPHILS # (AUTO) 3.2 X 10^3 (1.8-7.8); NEUTROPHILS % (AUTO) 53 % (42-75); PLATELET COUNT 253 10^3/uL (130-400); RED CELL DISTRIBUTION WIDTH 13.8 % (10.0-14.5); WHITE BLOOD COUNT 5.9 10^3/uL (4.3-11.0)
[2018-10-25 13:27] LABS: ALANINE AMINOTRANSFERASE 23 U/L (0-55); ALBUMIN 3.9 GM/DL (3.2-4.5); ALKALINE PHOSPHATASE 51 U/L (40-136); BILIRUBIN,TOTAL 0.3 MG/DL (0.1-1.0); BUN/CREATININE RATIO 14; CARBON DIOXIDE 25 MMOL/L (21-32); CHLORIDE 106 MMOL/L (98-107); CREATININE SERUM 0.83 MG/DL (0.60-1.30); GFR ESTIMATED > 60; GLUCOSE 95 MG/DL (70-105); POTASSIUM 3.7 MMOL/L (3.6-5.0); SODIUM 140 MMOL/L (135-145); TOTAL PROTEIN 6.2 GM/DL (6.4-8.2)
== END ==
LOC: HH 13:07
PROVIDERS: ATTEND Internal Medicine Infectious Disease
DX: R32 Unspecified urinary incontinence (principal); B95.7 Other staphylococcus as the cause of diseases classified elsewhere; B95.2 Enterococcus as the cause of diseases classified elsewhere
CPT/HCPCS: 80053; 80202; 85025

== ENCOUNTER 2018-11-06 23:41 | Emergency (ER) | payer BC ==
--- NOTE | 2018-11-07 00:07 | NUR ---
PT NAME CALLED AND NO ONE PRESENTED TO STAFF. PT DID NOT TELL NARRATIVE WRITER SHE WAS LEAVING.
== END 2018-11-07 00:07 | disposition left against medical advice (07) ==
LOC: EDUNIT# 23:41 → ER 23:43
DX: R00.2 Palpitations (principal); R06.00 Dyspnea, unspecified

== ENCOUNTER 2019-08-23 09:17 | Outpatient (CLI) | payer BC ==
[~2019-08-23] VITALS: Wt 121.5 kg
[~2019-08-23 09:17] MED LIST changes: -METO-387 PO; -NORT10CA PO; +NRT10C PO; +OMEP40CA27 PO; -OMEP40CA36 PO
--- NOTE | 2019-08-23 10:32 | Anesthesia-Procedure Note ---
Procedures/Interventions Procedure Start/Stop/Diagnosis Date of Procedure: Aug 23, 2019 Start Time: 09:55 Referring Physician: Dr Neal Preprocedural Diagnosis: Idiopathic Intracranial Hypertension Brief History Pt is known to us and recent history obtained. She had her previous LP for CSF drainage on 08-03-19 at [facility]. She said recently she has required an LP approximately every 2 weeks for CSF drainage. Discussed with patient that we typically do a CT head and CBC prior, but with her frequency of studies I was willing to bypass this and she agreed to proceed. She tolerated the procedure well and will follow up with Dr Neal, possibly via telemedicine if necessary. She states that she is most likely in need of another shunt, but is awaiting consultation with either [facility] or [facility]. We will be available if needed for PDPH symptoms or another LP if symptoms persist/return. Stop Time: 10:15 Postprocedural Diagnosis: Same Lumbar Puncture Discussed Risk,Benefits: Yes Patient Consents: Yes Position: L3-4, Left Sterile Technique: Yes (ChloraPrep) Opening Pressure: 30 cm CSF Fluid Color: Clear (slightly blood-tinged on first vial but cleared) Spinal Needle Used: Other (22 G Quinke) Procedure Notes Pt ID,S/E. See above for procedure details. + CSF after needle redirect times 2. An opening fluid of 24 cm CSF was noted after 10 mL of CSF was removed. After ~ 15 mL CSF was removed, pt stated that her visual symptoms were much improved and the CSF was very slowly draining back. Needle was removed and a sterile bandage was applied. Pt tolerated the procedure well. I explained the symptoms of a PDPH, which she was familiar with, and she agreed to contact us with questions/concerns. SHEEBA MARY DO Aug 23, 2019 10:32
[2019-08-23] MEDS ORDERED: ONDA4TAB11 PO (11:25)
[2019-08-23] MEDS ORDERED: DULO30CA3 PO (11:25)
[2019-08-23] MEDS ORDERED: DIVA500T PO (11:29)
[2019-08-23] MEDS ORDERED: OXYC1TAB12 PO (11:29)
[2019-08-23] MEDS ORDERED: DIPH25CA79 PO (11:29)
[2019-08-23] MEDS ORDERED: ACET-2267 PO (11:29)
[2019-08-23 11:35] VITALS: BP 120/75
== END 2019-08-23 11:35 | disposition home or self-care (01) ==
LOC: SDC 09:17
PROVIDERS: ATTEND Neurological Surgery
DX: G93.2 Benign intracranial hypertension (principal)

== ENCOUNTER 2019-09-22 13:27 | Outpatient (CLI) | payer BC ==
[~2019-09-22] VITALS: Ht 165.1 cm; Wt 121.5 kg
[~2019-09-22 13:27] MED LIST changes: +ACET-2267 PO; +DIPH25CA79 PO; +DIVA500T PO; +DULO30CA3 PO; +ONDA4TAB11 PO
--- NOTE | 2019-09-22 14:41 | Anesthesia-Procedure Note ---
Procedures/Interventions Procedure Start/Stop/Diagnosis Date of Procedure: September 22, 2019 Start Time: 14:10 Referring Physician: Dr Neal Preprocedural Diagnosis: Headache, double vision Brief History Anesthesia Note Pt is well known to us. I performed a lumbar puncture approximately one month ago and removed 15 mL CSF. She had done reasonably well, although her symptoms have returned. She was seen in [facility] at [facility], but they were unable to do an LP due to the COVID situation up there. We received an order from Dr Neal for lumbar puncture. Stop Time: 14:20 Postprocedural Diagnosis: Same Lumbar Puncture Discussed Risk,Benefits: Yes Patient Consents: Yes Position: L3-4, Left Sterile Technique: Yes (ChloraPrep) Opening Pressure: 36 cm CSF Fluid Color: Clear Spinal Needle Used: 22g Mena 3 1/2 inch Procedure Notes See above for details. + CSF on first pass without difficulty. Opening pressure of 36 noted, so 15 mL was removed. Pressure was rechecked and it was found to be 23. An additional 5 mL of CSF was removed for a total of 25 mL. Pt tolerated the procedure well and a sterile bandage was applied. She is awaiting a consultation with the [facility] to discuss her options since she is currently faced with a lumbar puncture every 3-4 weeks. We will be available if needed. SHEEBA MARY DO September 22, 2019 14:41
[2019-09-22 14:59] VITALS: BP 141/85
== END 2019-09-22 15:05 | disposition home or self-care (01) ==
LOC: SDC 13:27
PROVIDERS: ATTEND Neurological Surgery
DX: G93.2 Benign intracranial hypertension (principal)

== ENCOUNTER → 2019-10-28 | Outpatient (CLI) | payer BC ==
--- NOTE | 2019-10-28 18:05 | Diagnostic Imaging Report ---
PROCEDURE: MR imaging of the brain without contrast. TECHNIQUE: Multiplanar, multisequence MR imaging of the brain was performed without contrast. INDICATION: Idiopathic intracranial hypertension. FINDINGS: There are no MRI brain examinations available for comparison. The CT head exam performed on 10/08/2016 failed to show any sign of an acute abnormality. There was a shunt in place coursing through the right frontal lobe with the tip of the shunt in the left frontal horn. On this exam, the right frontoparietal lobe is partially obscured by artifact related to the shunt apparatus. The shunt tip seems to be similar in position to the prior study. The ventricles are not abnormally dilated and in fact are quite small. There is no mass, shift of the midline, or hemorrhage to suggest an acute intracranial abnormality. There is no abnormal signal arising from the visualized portions of the brain on the diffusion series to indicate an area of acute ischemia either. There is no abnormal signal arising from the periventricular white matter on the FLAIR series to suggest demyelinating disease either. The sella is not enlarged and the expected carotid flow voids are evident bilaterally. The orbits are symmetrical and within normal limits. The sinuses are generally clear. The seventh and eighth nerve complexes are unremarkable. IMPRESSION: 1. This study is limited due to the artifact related to the right-sided shunt. The shunt seems similar in position to the prior exam and the ventricles are not abnormally dilated. In fact, the ventricles are small. 2. There is no acute intracranial abnormality noted. Dictated by: Dictated on workstation # [id number]
== END ==
LOC: RAD 14:08
PROVIDERS: ATTEND Psychiatry & Neurology Neurology
DX: G93.2 Benign intracranial hypertension (principal)
CPT/HCPCS: 70551

== ENCOUNTER 2019-11-06 20:28 | Emergency (ER) | payer BC ==
[~2019-11-06] VITALS: Ht 162 cm; Wt 121.5 kg
[2019-11-06 20:50] LABS: BASOPHILS % (AUTO) 1 % (0-10); EOSINOPHILS # (AUTO) 0.1 10^3/uL (0.0-0.3); EOSINOPHILS % (AUTO) 1 % (0-10); HEMATOCRIT 42 % (35-52); LYMPHOCYTES # (AUTO) 1.9 X 10^3 (1.0-4.0); LYMPHOCYTES % (AUTO) 28 % (12-44); MEAN CORPUSCULAR HEMOGLOBIN 31 PG (25-34); MEAN CORPUSCULAR HGB CONC 33 G/DL (32-36); MEAN CORPUSCULAR VOLUME 92 FL (80-99); MEAN PLATELET VOLUME 10.3 FL (7.4-10.4); MONOCYTES # (AUTO) 0.5 X 10^3 (0.0-1.0); MONOCYTES % (AUTO) 7 % (0-12); NEUTROPHILS # (AUTO) 4.3 X 10^3 (1.8-7.8); NEUTROPHILS % (AUTO) 64 % (42-75); PLATELET COUNT 283 10^3/uL (130-400); RED CELL DISTRIBUTION WIDTH 12.7 % (10.0-14.5); WHITE BLOOD COUNT 6.7 10^3/uL (4.3-11.0)
[2019-11-06 20:57] LABS: ALBUMIN 4.6 GM/DL (3.2-4.5); CHLORIDE 106 MMOL/L (98-107); POTASSIUM 4.5 MMOL/L (3.6-5.0); SODIUM 141 MMOL/L (135-145)
[2019-11-06 20:59] LABS: CALCIUM 9.5 MG/DL (8.5-10.1)
[2019-11-06 21:00] LABS: GLUCOSE 108 MG/DL (70-105); TOTAL PROTEIN 7.3 GM/DL (6.4-8.2)
[2019-11-06] MEDS ORDERED: LORazepam INJ 2 MG/ML (ATIVAN) VIAL ONE (21:00)
[2019-11-06 21:01] LABS: CARBON DIOXIDE 24 MMOL/L (21-32)
--- NOTE | 2019-11-06 21:01 | NUR ---
O2 SATS NOTED TO BE 75% ON MONITOR, UPON ASSESSMENT PT FOUND TO BE HAVING TONIC CLONIC SEIZURE THAT LASTED APPROX 1 MIN FROM TIME PT SEEN UNTIL END. PT SUCTIONED AND 02 APPLIED AT 6L VIA OXYMASK. [address] MEYER NOTIFIED AND AT BEDSIDE.
[2019-11-06 21:02] LABS: BILIRUBIN,TOTAL 0.3 MG/DL (0.1-1.0)
[2019-11-06 21:03] LABS: ALKALINE PHOSPHATASE 88 U/L (40-136); CREATININE SERUM 0.94 MG/DL (0.60-1.30); GFR ESTIMATED > 60
[2019-11-06] MEDS ORDERED: LEVETIRACETAM 500 MG/5 ML (KEPPRA) VIAL IV ONE (21:03)
[2019-11-06 21:04] LABS: BUN/CREATININE RATIO 15
[2019-11-06 21:06] LABS: ALANINE AMINOTRANSFERASE 19 U/L (0-55); MAGNESIUM 2.2 MG/DL (1.6-2.4)
[2019-11-06] MEDS ORDERED: NS (IVPB) 100 ML ONE (21:06)
[2019-11-06] MEDS ORDERED: LEVETIRACETAM INJECTION 1,000 MG in NS (IVPB) 100 ML IV ONE (21:15)
[2019-11-06 21:24] LABS: VALPROIC ACID < 2.0 UG/ML (50.0-100.0)
--- NOTE | 2019-11-06 22:01 | ED Neurological Problem ---
General Chief Complaint: Neurological Problems Stated Complaint: SEIZURE Nursing Triage Note: TO ED ROOM 5 VIA [facility] FROM HOME. PER EMS PT HAD WITNESS SEIZURE THAT LASTED 7 MINUTES. Nursing Sepsis Screen: No Definite Risk Source: patient, EMS, old records Exam Limitations: clinical condition History of Present Illness Date Seen by Provider: Nov 06, 2019 Time Seen by Provider: 20:29 Initial Comments This 39-year-old woman presents to the emergency room via EMS after having a seizure lasting an estimated 7 minutes at home. The seizure was generalized in nature. It was witnessed by family and no trauma was reported. Patient was postictal for EMS with clearing mentation during transport. Fingerstick blood sugar was 110. Patient does have a known history of pseudotumor cerebri. She reports having a therapeutic LP performed at [facility] last Thursday during which her opening pressure was found to be 38 and 40 mL of CSF was drained. She reports her shunt is not working properly which necessitated the therapeutic LP. She states the last time a shunt revision was attempted she developed meningitis. She reports her team at [facility] is planning to send her to [facility] for zaki ryan consultation. She reports feeling tired recently but denies any symptoms of acute infectious illness. She has a chronic headache and chronic diplopia which has not changed. She denies stopping any medications that she may be withdrawing from. She takes Depakote but that is for headache, not for treatment of seizure disorder. She has had only one prior seizure in her lif etime and is not currently medicated for seizure disorder. Allergies and Home Medications Allergies Coded Allergies: promethazine (Verified Allergy, Mild, 01/28/16) NSAIDS (Non-Steroidal Anti-Inflamma (Verified Allergy, Unknown, 11/06/19) HAD GASTRIC BYPASS prednisone (Verified Allergy, Unknown, 11/06/19) HAD GASTRIC BYPASS Uncoded Allergies: CALCIUM CHANNEL BLOCKERS (Adverse Reaction, Unknown, weight gain, 10/21/18) Home Medications Acetaminophen 500 Mg Tablet, 1,000 MG PO Q6H, (Reported) Diphenhydramine HCl 25 Mg Capsule, 25-50 MG PO Q4H, (Reported) TAKES WITH TYLENOL PRN HEADACHE Divalproex Sodium 500 Mg Tablet.dr, 500 MG PO DAILY, (Reported) Duloxetine HCl 30 Mg Capsule.dr, 90 MG PO DAILY, (Reported) Ondansetron 4 Mg Tab.rapdis, 4 MG PO Q6H, (Reported) Oxycodone HCl/Acetaminophen 1 Each Tablet, 1 TAB PO [id number] PRN for PAIN- MODERATE, (Reported) Propranolol HCl 80 Mg Tablet, 80 MG PO TID, (Reported) Patient Home Medication List Home Medication List Reviewed: Yes Review of Systems Review of Systems Constitutional: no symptoms reported Eyes: See HPI Ears, Nose, Mouth, Throat: no symptoms reported Respiratory: no symptoms reported Cardiovascular: no symptoms reported Gastrointestinal: no symptoms reported Genitourinary: no symptoms reported : No Musculoskeletal: no symptoms reported Skin: no symptoms reported Psychiatric/Neurological: See HPI Endocrine: No Symptoms Reported Hematologic/Lymphatic: No Symptoms Reported Past Kjqcbxz-Jyefrh-Gzamrw Hx Past Med/Social Hx: Reviewed Nursing Past Med/Soc Hx Patient Social History Alcohol Use: Denies Use Recreational Drug Use: No Smoking Status: Never a Smoker 2nd Hand Smoke Exposure: No Recent Foreign Travel: No Contact w/Someone Who Travel: No Recent Infectious Disease Expo: No Recent Hopitalizations: Yes Physical Abuse: No Sexual Abuse: No Mistreated: No Fear: No Immunizations Up To Date Tetanus Booster (TDap): Less than 5yrs PED Vaccines UTD: No Date of Influenza Vaccine: Feb 16, 2012 Seasonal Allergies Seasonal Allergies: No Past Medical History Surgeries: Yes (GASTRIC BYPASS) Bladder Surgery, Gallbladder, Hysterectomy, Neurological (shunt), Oophorectomy Respiratory: Yes Asthma, Pneumonia, Chronic Bronchitis Cardiac: Yes Hypertension Neurological: Yes (IDIOPATHIC INTRACRANIAL HYPERTENSION) Headaches /Migraines, Meningitis, Seizure Disorder (history of seizure x 1) : No Reproductive Disorders: No 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 Genitourinary: No Gastrointestinal: Yes Gastroesophageal Reflux, Esophagitis Musculoskeletal: No Endocrine: No (MORBID OBESITY) HEENT: No Cancer: No Psychosocial: Yes (OPIATE AND BENZODIAZEPINE ABUSE) Anxiety Integumentary: Yes (ABSCESSES; SURGICAL WOUND INFECTION) Blood Disorders: No Adverse Reaction/Blood Tranf: No Family Medical History Reviewed Nursing Family Hx Abdominal aortic aneurysm 03 FATHER Family history: Allergy 03 FATHER Family history: Arthritis 03 MOTHER 09 SISTER Family history: Hypertension 03 FATHER Physical Exam Vital Signs Vital Signs - First Documented 11/06/19 11/06/19 11/07/19 20:28 21:01 00:51 Temp 36.8 Pulse 77 Resp 16 B/P (MAP) 173/106 (128) Pulse Ox 96 O2 Delivery Room Air O2 Flow Rate 6.00 Capillary Refill : Less Than 3 Seconds Height, Weight, BMI Height: 5'5.00" Weight: 295lbs. 0.0oz. [id number]; 46.00 BMI Method:Stated General Appearance: WD/WN, no apparent distress HEENT: PERRL/EOMI, normal ENT inspection, pharynx normal Neck: normal inspection Respiratory: lungs clear, normal breath sounds, no respiratory distress, no accessory muscle use Cardiovascular: regular rate, rhythm, no edema, no murmur Gastrointestinal: normal bowel sounds, non tender, soft Extremities: non-tender, normal inspection, no pedal edema Neurologic/Psychiatric: mining detail draftsperson II-XII nml as tested, no motor/sensory deficits, alert, normal mood/affect, other (disoriented to month) Crainal Nerves: normal hearing, normal speech, PERRL Coordination/Gait: normal finger to nose Motor/Sensory: no motor deficit, no sensory deficit Skin: normal color, warm/dry Progress/Results/Core Measures Results/Orders Lab Results Laboratory Tests Test 11/06/19 20:37 11/07/19 00:50 Range/Units White Blood Count 6.7 4.3-11.0 10^3/uL Red Blood Count 4.58 4.35-5.85 10^6/uL Hemoglobin 14.0 11.5-16.0 G/DL Hematocrit 42 35-52 % Mean Corpuscular Volume 92 80-99 FL Mean Corpuscular Hemoglobin 31 25-34 PG Mean Corpuscular Hemoglobin Concent 33 32-36 G/DL Red Cell Distribution Width 12.7 10.0-14.5 % Platelet Count 283 130-400 10^3/uL Mean Platelet Volume 10.3 7.4-10.4 FL Neutrophils (%) (Auto) 64 42-75 % Lymphocytes (%) (Auto) 28 12-44 % Monocytes (%) (Auto) 7 0-12 % Eosinophils (%) (Auto) 1 0-10 % Basophils (%) (Auto) 1 0-10 % Neutrophils # (Auto) 4.3 1.8-7.8 X 10^3 Lymphocytes # (Auto) 1.9 1.0-4.0 X 10^3 Monocytes # (Auto) 0.5 0.0-1.0 X 10^3 Eosinophils # (Auto) 0.1 0.0-0.3 10^3/uL Basophils # (Auto) 0.0 0.0-0.1 10^3/uL Sodium Level 141 135-145 MMOL/L Potassium Level 4.5 3.6-5.0 MMOL/L Chloride Level 106 98-107 MMOL/L Carbon Dioxide Level 24 21-32 MMOL/L Anion Gap 11 5-14 MMOL/L Blood Urea Nitrogen 14 7-18 MG/DL Creatinine 0.94 0.60-1.30 MG/DL Estimat Glomerular Filtration Rate > 60 BUN/Creatinine Ratio 15 Glucose Level 108 H 70-105 MG/DL Calcium Level 9.5 8.5-10.1 MG/DL Corrected Calcium 8.5-10.1 MG/DL Magnesium Level 2.2 1.6-2.4 MG/DL Total Bilirubin 0.3 0.1-1.0 MG/DL Aspartate Amino Transf (AST/SGOT) 18 5-34 U/L Alanine Aminotransferase (ALT/SGPT) 19 0-55 U/L Alkaline Phosphatase 88 40-136 U/L C-Reactive Protein High Sensitivity 0.05 0.00-0.50 MG/DL Total Protein 7.3 6.4-8.2 GM/DL Albumin 4.6 H 3.2-4.5 GM/DL Valproic Acid (Depakene) Level < 2.0 L 50.0-100.0 UG/ML Urine Color YELLOW Urine Clarity CLEAR Urine pH 7.5 5-9 Urine Specific Gordon 1.020 1.016-1.022 Urine Protein NEGATIVE NEGATIVE Urine Glucose (UA) NEGATIVE NEGATIVE Urine Ketones NEGATIVE NEGATIVE Urine Nitrite NEGATIVE NEGATIVE Urine Bilirubin NEGATIVE NEGATIVE Urine Urobilinogen 0.2 < = 1.0 MG/DL Urine Leukocyte Esterase TRACE H NEGATIVE Urine RBC (Auto) NEGATIVE NEGATIVE Urine RBC NONE /HPF Urine WBC 0-2 /HPF Urine Squamous Epithelial Cells 0-2 /HPF Urine Crystals NONE /LPF Urine Bacteria TRACE /HPF Urine Casts NONE /LPF Urine Mucus NEGATIVE /LPF Urine Culture Indicated NO My Orders Orders - MARVIN MEYER MD Cbc With Automated Diff (11/06/19 20:38) Comprehensive Metabolic Panel (11/06/19 20:38) Hs C Reactive Protein (11/06/19 20:38) Magnesium (11/06/19 20:38) Ed Iv/Invasive Line Start (11/06/19 20:38) Valproic Acid (11/06/19 20:39) Lorazepam Injection (Ativan Injection) (11/06/19 21:00) Levetiracetam Injection (Keppra Injectio (11/06/19 21:15) Levetiracetam Injection (Keppra Injectio (11/06/19 21:03) Ns (Ivpb) (Sodium Chloride 0.9% Ivpb Bag (11/06/19 21:06) Ct Head Wo (11/06/19 21:11) Fentanyl Injection (Sublimaze Injection (11/06/19 22:15) O2 (11/06/19 21:01) Ua Culture If Indicated (11/06/19 22:33) Morphine Injection (Morphine Injection (11/06/19 22:54) Lactated Ringers (Lr 1000 Ml Iv Solution (11/06/19 23:48) Fentanyl Injection (Sublimaze Injection (11/07/19 00:15) Medications Given in ED Vital Signs/I&O 11/06/19 11/06/19 11/06/19 11/07/19 20:28 21:01 22:00 00:51 Temp 36.8 36.8 Pulse 77 73 Resp 16 18 B/P (MAP) 173/106 (128) 115/78 (128) Pulse Ox 96 O2 Delivery Room Air OxyMask Nasal Cannula Room Air O2 Flow Rate 6.00 2.00 11/07/19 00:00 Intake Total 110 ml Balance 110 ml Blood Pressure Mean: 128 Progress Progress Note #1: Time: 22:24 Progress Note Patient experienced another seizure not long after assessment. Seizure lasted about one minute. Ativan 2 mg and Keppra 1000 mg were administered. She has had no further seizures. She had a significant post ictal stage but is now alert and conversational. Vital signs are stable. Labs were unremarkable. CT of the head showed no acute changes. I have consulted [facility] for a consultation and am awaiting a response. Patient was given fentanyl for headache. Progress Note #2: Time: 00:09 Progress Note Case was discussed with Dr. Rasmussen at [facility]. He did not recommend discharging the patient to home. However, he would defer to local staff regarding transfer versus admission in [place]. I discussed the case with Dr. Morse, hospitalist on-call. She did not feel comfortable admitting in [place]. Due to complete lack of neurology and neurosurgical services. Patient and Dr. Rasmussen were agreeable with transfer. Patient had no further seizure activity. Patient received additional doses of morphine and fentanyl for her headache. She reports having strict instructions to avoid NSAIDs by either IV or oral route. Diagnostic Imaging Diagonstic Imaging: CT Plain Films/CT/US/NM/MRI: head Comments CT head viewed by me and report reviewed. See report below: NAME: JOEY PARSONS [facility] REC#: [id number] PT STATUS: REG ER : 1980 PHYSICIAN: MARVIN MEYER MD ADMIT DATE: 11/06/19/ER Draft Date of Exam:11/06/19 CT HEAD WO INDICATION: Witnessed seizure. EXAMINATION: CT brain without contrast, 11/06/2019. FINDINGS: Axial imaging of the brain demonstrates MARKET RESEARCH ANALYST shunt entering the right anterior frontal calvarium. Tip ends in the midline. No acute hemorrhage or infarct is seen. No mass, mass effect or midline shift appreciated. Craniotomy changes are seen throughout the frontal aspects of the calvarium. Paranasal sinuses and mastoid air cells demonstrate no acute changes. IMPRESSION: Chronic findings. No acute intracranial process. Very inferior aspects of the brain not completely included. Dictated on workstation # [id number] Dict: 11/06/197 Trans: 11/06/191 [facility] [id number] Interpreted by: DEJAN JAMES MD Departure Impression Primary Impression: Seizure Additional Impressions: Pseudotumor cerebri Chronic headache Qualified Codes: R51 - Headache Disposition: 09 ADMITTED INPATIENT Condition: Improved Transfer Transfer Reason: Exceeds level of care Time Spoke to Accepting Phy: 22:13 Transfer Progress Notes Transfer accepted by Dr. Rasmussen, neurologist, at [facility]. Transfer Time: 00:51 Transfer Facility: [facility] Method of Transfer: EMS Departure-Patient Inst. Referrals: NO,LOCAL PHYSICIAN (PCP/Family) Primary Care Physician MARVIN MEYER MD Nov 06, 2019 22:01
--- NOTE | 2019-11-06 22:01 | Diagnostic Imaging Report ---
INDICATION: Witnessed seizure. EXAMINATION: CT brain without contrast, 11/06/2019. All CT scans use one or more of the following dose optimizing techniques: automated exposure control, MA and/or KvP adjustment based on patient size and exam type or iterative reconstruction. FINDINGS: Axial imaging of the brain demonstrates ELECTRONIC WARFARE TECHNICIAN shunt entering the right anterior frontal calvarium. Tip ends in the midline. No acute hemorrhage or infarct is seen. No mass, mass effect or midline shift appreciated. Craniotomy changes are seen throughout the frontal aspects of the calvarium. Paranasal sinuses and mastoid air cells demonstrate no acute changes. IMPRESSION: Chronic findings. No acute intracranial process. Very inferior aspects of the brain not completely included. Dictated by: Dictated on workstation # [id number]
[2019-11-06] MEDS ORDERED: fentaNYL INJECTION 100 MCG/2 ML AMP IVP ONE (22:15)
[2019-11-06] MEDS ORDERED: morphine INJ 10 MG/ML 1ML (SYR OR VIAL) IVP STA (22:54)
[2019-11-06] MEDS ORDERED: LACTATED RINGERS 1,000 ML IV ONE (23:48)
[2019-11-07] MEDS ORDERED: fentaNYL INJECTION 100 MCG/2 ML AMP IVP ONE (00:15)
[2019-11-07 00:51] VITALS: BP 115/78
[2019-11-07 01:08] LABS: BILIRUBIN,URINE NEGATIVE (NEGATIVE); CLARITY,URINE CLEAR; COLOR,URINE YELLOW; GLUCOSE, URINE (UA) NEGATIVE (NEGATIVE); KETONES,URINE NEGATIVE (NEGATIVE); LEUKOCYTE ESTERASE ,URINE TRACE (NEGATIVE); NITRITE,URINE NEGATIVE (NEGATIVE); PH,URINE 7.5 (5-9); PROTEIN,URINE NEGATIVE (NEGATIVE)
[2019-11-07 01:17] LABS: BACTERIA,URINE TRACE /HPF; SQUAMOUS EPITHELIAL CELL,UR 0-2 /HPF; WBC,URINE 0-2 /HPF
== END 2019-11-07 00:51 | disposition short-term general hospital (02) ==
LOC: EDUNIT# 20:28 → ER 20:29
DX: G40.909 Epilepsy, unspecified, not intractable, without status epilepticus (principal); G93.2 Benign intracranial hypertension; R51 Headache; G89.29 Other chronic pain; I10 Essential (primary) hypertension; F41.9 Anxiety disorder, unspecified; E66.01 Morbid (severe) obesity due to excess calories; Z88.6 Allergy status to analgesic agent; Z88.8 Allergy status to other drugs, medicaments and biological substances; Z98.84 Bariatric surgery status; Z82.49 Family history of ischemic heart disease and other diseases of the circulatory system; Z68.42 Body mass index [BMI] 45.0-49.9, adult
CPT/HCPCS: 36415; 70450; 80053; 80164; 81000; 83735; 85025; 86141

== ENCOUNTER 2019-11-13 17:07 | Emergency (ER) | payer BC ==
--- NOTE | 2019-11-13 17:09 | ED General ---
General Stated Complaint: TWO SYNCOPE EPISODES TODAY Source of Information: Patient History of Present Illness Date Seen by Provider: Nov 13, 2019 Time Seen by Provider: 17:09 Initial Comments Patient is a 39-year-old female with complex medical history who presents to the ER today after a syncopal episode. Patient states she was kneeling over today and was witnessed to have syncopal episode her mother. The patient does not recall the incident. She denies any symptoms prior to the episode. She has been recovering today from a recent hospitalization. She was discharged from [facility] yesterday where she had been admitted over the last 5 days after having had some sort of seizure-like activity. Patient states her EEG was negative at . She does have a known history of idiopathic intracranial hypertension for which she is followed at . She undergoes CSF drainage every other week. She has an resting at home since discharge which was yesterday. She states she did not eat food today. She currently does not have shortness of breath or chest pain. No focal neurologic complaints. Allergies and Home Medications Allergies Coded Allergies: promethazine (Verified Allergy, Mild, 01/28/16) NSAIDS (Non-Steroidal Anti-Inflamma (Verified Allergy, Unknown, 11/06/19) HAD GASTRIC BYPASS prednisone (Verified Allergy, Unknown, 11/06/19) HAD GASTRIC BYPASS Uncoded Allergies: CALCIUM CHANNEL BLOCKERS (Adverse Reaction, Unknown, weight gain, 10/21/18) Home Medications Acetaminophen 500 Mg Tablet, 1,000 MG PO Q6H, (Reported) Diphenhydramine HCl 25 Mg Capsule, 25-50 MG PO Q4H, (Reported) TAKES WITH TYLENOL PRN HEADACHE Divalproex Sodium 500 Mg Tablet.dr, 500 MG PO DAILY, (Reported) Duloxetine HCl 30 Mg Capsule.dr, 90 MG PO DAILY, (Reported) Ondansetron 4 Mg Tab.rapdis, 4 MG PO Q6H, (Reported) Oxycodone HCl/Acetaminophen 1 Each Tablet, 1 TAB PO [id number] PRN for PAIN- MODERATE, (Reported) Propranolol HCl 80 Mg Tablet, 80 MG PO TID, (Reported) Patient Home Medication List Home Medication List Reviewed: Yes Review of Systems Review of Systems Constitutional: no symptoms reported EENTM: no symptoms reported Respiratory: no symptoms reported Cardiovascular: no symptoms reported Gastrointestinal: no symptoms reported Musculoskeletal: no symptoms reported Skin: no symptoms reported Psychiatric/Neurological: See HPI All Other Systems Reviewed Negative Unless Noted: Yes Physical Exam Vital Signs Vital Signs - First Documented 11/13/19 17:13 Temp 36.9 Pulse 71 Resp 18 B/P (MAP) 121/70 (87) Pulse Ox 96 Capillary Refill : Height, Weight, BMI Height: '" Weight: lbs. oz. 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 Norm as Tested Skin: Normal Color Progress/Results/Core Measures Suspected Sepsis SIRS Temperature: Pulse: Respiratory Rate: Laboratory Tests 11/13/19 17:20: White Blood Count 9.7 Blood Pressure / Mean: Laboratory Tests 11/13/19 17:20: Creatinine 1.27, Platelet Count 277 Results/Orders Lab Results Laboratory Tests Test 11/13/19 17:20 Range/Units White Blood Count 9.7 4.3-11.0 10^3/uL Red Blood Count 4.54 4.35-5.85 10^6/uL Hemoglobin 13.8 11.5-16.0 G/DL Hematocrit 43 35-52 % Mean Corpuscular Volume 94 80-99 FL Mean Corpuscular Hemoglobin 30 25-34 PG Mean Corpuscular Hemoglobin Concent 32 32-36 G/DL Red Cell Distribution Width 12.2 10.0-14.5 % Platelet Count 277 130-400 10^3/uL Mean Platelet Volume 10.7 H 7.4-10.4 FL Neutrophils (%) (Auto) 42 42-75 % Lymphocytes (%) (Auto) 47 H 12-44 % Monocytes (%) (Auto) 8 0-12 % Eosinophils (%) (Auto) 2 0-10 % Basophils (%) (Auto) 1 0-10 % Neutrophils # (Auto) 4.1 1.8-7.8 X 10^3 Lymphocytes # (Auto) 4.6 H 1.0-4.0 X 10^3 Monocytes # (Auto) 0.8 0.0-1.0 X 10^3 Eosinophils # (Auto) 0.2 0.0-0.3 10^3/uL Basophils # (Auto) 0.1 0.0-0.1 10^3/uL Sodium Level 141 135-145 MMOL/L Potassium Level 4.7 3.6-5.0 MMOL/L Chloride Level 100 98-107 MMOL/L Carbon Dioxide Level 28 21-32 MMOL/L Anion Gap 13 5-14 MMOL/L Blood Urea Nitrogen 27 H 7-18 MG/DL Creatinine 1.27 0.60-1.30 MG/DL Estimat Glomerular Filtration Rate 46 BUN/Creatinine Ratio 21 Glucose Level 119 H 70-105 MG/DL Calcium Level 9.9 8.5-10.1 MG/DL Troponin I < 0.30 <0.30 NG/ML My Orders Orders - QUINCY GALLOWAY DO Ed Iv/Invasive Line Start (11/13/19 17:21) Cbc With Automated Diff (11/13/19 17:21) Troponin I Fs (11/13/19 17:21) Basic Metabolic Panel (11/13/19 17:21) Ekg Tracing (11/13/19 17:21) Ns Iv 1000 Ml (Sodium Chloride 0.9%) (11/13/19 17:30) Vital Signs/I&O 11/13/19 17:13 Temp 36.9 Pulse 71 Resp 18 B/P (MAP) 121/70 (87) Pulse Ox 96 Capillary Refill : Progress Note : Time: 17:15 Progress Note Patient is seen and examined. No fever. Vital signs are normal. EKG is normal. Normal neurologic exam. Will give IV fluids and check labs. 18:15: All labs are reviewed and discussed with the patient and all her questions are answered. She is currently status post 1 L of normal saline. She subjectively feels much improved and also appears better. She has good skin color about the face and cheeks now which was absent on arrival. She is speaking with normal tone and is requesting discharge home. I think she is stable for discharge. She has close follow-up with neurology already scheduled. She just underwent CSF drainage 2 days earlier. Patient is discharged home and recommended to come back to the ER for any new or worsening symptoms. She is not driving. She is accompanied by her mother who will drive her home today. ECG Initial ECG Impression Date: Nov 13, 2019 Initial ECG Impression Time: 17:25 Initial ECG Rate: 67 Departure Impression Primary Impression: Syncope Disposition: 01 HOME, SELF-CARE Condition: Improved QUINCY GALLOWAY DO Nov 13, 2019 17:08
[2019-11-13] MEDS ORDERED: NS IV 1000 ML 1,000 ML IV SCH (17:30)
[2019-11-13 17:31] LABS: HEMATOCRIT 43 % (35-52); HEMOGLOBIN 13.8 G/DL (11.5-16.0); LYMPHOCYTES % (AUTO) 47 % (12-44); MEAN CORPUSCULAR HEMOGLOBIN 30 PG (25-34); MEAN CORPUSCULAR HGB CONC 32 G/DL (32-36); MEAN CORPUSCULAR VOLUME 94 FL (80-99); MEAN PLATELET VOLUME 10.7 FL (7.4-10.4); NEUTROPHILS % (AUTO) 42 % (42-75); PLATELET COUNT 277 10^3/uL (130-400); RED CELL DISTRIBUTION WIDTH 12.2 % (10.0-14.5); WHITE BLOOD COUNT 9.7 10^3/uL (4.3-11.0)
[2019-11-13 17:32] LABS: BASOPHILS # (AUTO) 0.1 10^3/uL (0.0-0.1); BASOPHILS % (AUTO) 1 % (0-10); EOSINOPHILS # (AUTO) 0.2 10^3/uL (0.0-0.3); EOSINOPHILS % (AUTO) 2 % (0-10); LYMPHOCYTES # (AUTO) 4.6 X 10^3 (1.0-4.0); MONOCYTES # (AUTO) 0.8 X 10^3 (0.0-1.0); MONOCYTES % (AUTO) 8 % (0-12); NEUTROPHILS # (AUTO) 4.1 X 10^3 (1.8-7.8)
[2019-11-13 17:55] LABS: BUN/CREATININE RATIO 21; CALCIUM 9.9 MG/DL (8.5-10.1); CARBON DIOXIDE 28 MMOL/L (21-32); CHLORIDE 100 MMOL/L (98-107); CREATININE SERUM 1.27 MG/DL (0.60-1.30); GFR ESTIMATED 46; GLUCOSE 119 MG/DL (70-105); POTASSIUM 4.7 MMOL/L (3.6-5.0); SODIUM 141 MMOL/L (135-145)
[2019-11-13 18:15] VITALS: BP 102/41
== END 2019-11-13 18:16 | disposition home or self-care (01) ==
LOC: EDUNIT# 17:07 → ER FS 17:09
DX: R55 Syncope and collapse (principal); G93.2 Benign intracranial hypertension
CPT/HCPCS: 36415; 80048; 84484; 85025; 93005

== ENCOUNTER 2019-11-18 08:57 | Emergency (ER) | payer BC ==
[~2019-11-18] VITALS: Ht 162.5 cm; Wt 111.1 kg
[2019-11-18] MEDS ORDERED: NS IV 1000 ML 1,000 ML IV ONE (09:29)
[2019-11-18] MEDS ORDERED: ASPIRIN 81 MG CHEW (CHILDREN'S ASA) PO ONE (09:30)
--- NOTE | 2019-11-18 09:37 | ED Neurological Problem ---
General Chief Complaint: General Problems/Pain Stated Complaint: HYPOTENSIVE, DOUBLE VISION,CP, LIGHTHEADED Nursing Triage Note: PT AMB TO [facility] WITH COMPLAINTS OF HYPOTENSION, DOUBLE VISION, AND SHAKINESS. STATES SHE FEELS "BOTTOMED OUT". WAS RECENTLY ADMITTED AT FOR SEIZURES. STATES THEY DECREASED HER PROPRANOLOL TO 80MG TID FROM 160 TID. STATES WHEN WAKING THIS MORNING, HER BP WAS "80s/40s". VSS ON ARRIVAL. [facility] ATTEMPTED TO CALL , BUT HAS NOT RECEIVED PHONE CALL BACK. Nursing Sepsis Screen: No Definite Risk Source: patient Exam Limitations: no limitations History of Present Illness Date Seen by Provider: Nov 18, 2019 Time Seen by Provider: 09:12 Initial Comments Patient presents ER by private conveyance from home with her significant other and chief complaint this morning she is having worsening symptoms of near- syncope, low blood pressure 70-90 systolic and double vision. When she first arrived she started to have a little pressure and tightness across her chest which lasted for just a few minutes. She doesn't have a history of heart disease but does have a strong family history with her dad having had stents and heart attacks in his early 50s. She does however have a history of pseudotumor cerebri and she notices that her double vision tends to come on whenever her pressure builds up. She typically has to have a spinal tap every 2 weeks because her shunt failed. She is followed at and her last spinal tap was one week ago at . She's been a few days there and went home on Thursday. Thursday, 5 days ago she had a couple falls related low blood pressure and went to the ER at [facility] where they thought she was low on her fluids so they decreased her propranolol to 80 3 times a day and she felt better until the last day or so. She's had no fevers chills cough shortness of air nausea vomiting diarrhea or constipation. She did put a call into the on-call resident at but has not heard back so her insists that she come to the ER. Allergies and Home Medications Allergies Coded Allergies: promethazine (Verified Allergy, Mild, 01/28/16) NSAIDS (Non-Steroidal Anti-Inflamma (Verified Allergy, Unknown, 11/06/19) HAD GASTRIC BYPASS prednisone (Verified Allergy, Unknown, 11/06/19) HAD GASTRIC BYPASS Uncoded Allergies: CALCIUM CHANNEL BLOCKERS (Adverse Reaction, Unknown, weight gain, 10/21/18) Home Medications Acetaminophen 500 Mg Tablet, 1,000 MG PO Q6H, (Reported) Diphenhydramine HCl 25 Mg Capsule, 25-50 MG PO Q4H, (Reported) TAKES WITH TYLENOL PRN HEADACHE Divalproex Sodium 500 Mg Tablet.dr, 500 MG PO DAILY, (Reported) Duloxetine HCl 30 Mg Capsule.dr, 90 MG PO DAILY, (Reported) Ondansetron 4 Mg Tab.rapdis, 4 MG PO Q6H, (Reported) Oxycodone HCl/Acetaminophen 1 Each Tablet, 1 TAB PO [id number] PRN for PAIN- MODERATE, (Reported) Propranolol HCl 80 Mg Tablet, 80 MG PO TID, (Reported) Patient Home Medication List Home Medication List Reviewed: Yes Review of Systems Review of Systems Constitutional: No chills, No diaphoresis, No fever, No malaise; weakness Eyes: Denies Blindness, Denies Inflammation, Denies Pain Ears, Nose, Mouth, Throat: denies ear pain, denies nose pain Respiratory: No cough, No short of breath, No wheezing Cardiovascular: see HPI, chest pain; No edema, No Hx of Intervention Gastrointestinal: No abdominal pain, No constipation, No nausea Genitourinary: No discharge, No dysuria All Other Systems Reviewed Negative Unless Noted: Yes Past Frzyvll-Gtedyx-Qhhclf Hx Patient Social History Alcohol Use: Denies Use Recreational Drug Use: No Smoking Status: Never a Smoker 2nd Hand Smoke Exposure: No Recent Foreign Travel: No Contact w/Someone Who Travel: No Recent Infectious Disease Expo: No Recent Hopitalizations: Yes Immunizations Up To Date Tetanus Booster (TDap): Less than 5yrs PED Vaccines UTD: No Date of Influenza Vaccine: Feb 16, 2012 Seasonal Allergies Seasonal Allergies: No Past Medical History Surgeries: Yes (GASTRIC BYPASS) Bladder Surgery, Gallbladder, Hysterectomy, Neurological, Oophorectomy Respiratory: Yes Asthma, Pneumonia, Chronic Bronchitis Cardiac: Yes Hypertension Neurological: Yes (IDIOPATHIC INTRACRANIAL HYPERTENSION) Headaches /Migraines, Meningitis, Seizure Disorder Reproductive Disorders: No 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 Genitourinary: No Gastrointestinal: Yes Gastroesophageal Reflux, Esophagitis Musculoskeletal: No Endocrine: No (MORBID OBESITY) HEENT: No Cancer: No Psychosocial: Yes (OPIATE AND BENZODIAZEPINE ABUSE) Anxiety Integumentary: Yes (ABSCESSES; SURGICAL WOUND INFECTION) Blood Disorders: No Adverse Reaction/Blood Tranf: No Family Medical History Abdominal aortic aneurysm 03 FATHER Family history: Allergy 03 FATHER Family history: Arthritis 03 MOTHER 09 SISTER Family history: Hypertension 03 FATHER Physical Exam Vital Signs Vital Signs - First Documented 11/18/19 09:03 Temp 36.7 Pulse 76 Resp 11 B/P (MAP) 114/56 (75) Pulse Ox 98 O2 Delivery Room Air Capillary Refill : Less Than 3 Seconds Height, Weight, BMI Height: 5'5.00" Weight: 295lbs. 0.0oz. [id number]; 42.00 BMI Method:Stated General Appearance: WD/WN, mild distress HEENT: PERRL/EOMI, normal ENT inspection, TMs normal, pharynx normal Neck: full range of motion, supple, normal inspection Respiratory: lungs clear, normal breath sounds, no respiratory distress, no accessory muscle use Cardiovascular: normal peripheral pulses, regular rate, rhythm, no edema Peripheral Pulses: 2+ Radial Pulses (R), 2+ Radial Pulses (L) Gastrointestinal: normal bowel sounds, non tender, soft Extremities: normal range of motion, non-tender, normal capillary refill Neurologic/Psychiatric: alert, normal mood/affect, oriented x 3 Crainal Nerves: normal hearing, normal speech, PERRL Coordination/Gait: normal finger to nose Motor/Sensory: no motor deficit, no sensory deficit, no pronator drift Skin: normal color, warm/dry Progress/Results/Core Measures Results/Orders Lab Results Laboratory Tests Test 11/18/19 09:47 Range/Units White Blood Count 6.8 4.3-11.0 10^3/uL Red Blood Count 4.20 L 4.35-5.85 10^6/uL Hemoglobin 12.9 11.5-16.0 G/DL Hematocrit 39 35-52 % Mean Corpuscular Volume 93 80-99 FL Mean Corpuscular Hemoglobin 31 25-34 PG Mean Corpuscular Hemoglobin Concent 33 32-36 G/DL Red Cell Distribution Width 12.6 10.0-14.5 % Platelet Count 217 130-400 10^3/uL Mean Platelet Volume 10.4 7.4-10.4 FL Neutrophils (%) (Auto) 41 L 42-75 % Lymphocytes (%) (Auto) 45 H 12-44 % Monocytes (%) (Auto) 12 0-12 % Eosinophils (%) (Auto) 2 0-10 % Basophils (%) (Auto) 0 0-10 % Neutrophils # (Auto) 2.8 1.8-7.8 X 10^3 Lymphocytes # (Auto) 3.0 1.0-4.0 X 10^3 Monocytes # (Auto) 0.8 0.0-1.0 X 10^3 Eosinophils # (Auto) 0.1 0.0-0.3 10^3/uL Basophils # (Auto) 0.0 0.0-0.1 10^3/uL Prothrombin Time 13.6 12.2-14.7 SEC INR Comment 1.0 0.8-1.4 Activated Partial Thromboplast Time 33 24-35 SEC Sodium Level 141 135-145 MMOL/L Potassium Level 4.2 3.6-5.0 MMOL/L Chloride Level 104 98-107 MMOL/L Carbon Dioxide Level 26 21-32 MMOL/L Anion Gap 11 5-14 MMOL/L Blood Urea Nitrogen 29 H 7-18 MG/DL Creatinine 1.85 H 0.60-1.30 MG/DL Estimat Glomerular Filtration Rate 30 BUN/Creatinine Ratio 16 Glucose Level 91 70-105 MG/DL Calcium Level 9.0 8.5-10.1 MG/DL Corrected Calcium 8.8 8.5-10.1 MG/DL Magnesium Level 2.2 1.6-2.4 MG/DL Total Bilirubin 0.4 0.1-1.0 MG/DL Aspartate Amino Transf (AST/SGOT) 29 5-34 U/L Alanine Aminotransferase (ALT/SGPT) 28 0-55 U/L Alkaline Phosphatase 78 40-136 U/L Myoglobin 52.9 10.0-92.0 NG/ML Troponin I < 0.028 <0.028 NG/ML Total Protein 6.8 6.4-8.2 GM/DL Albumin 4.3 3.2-4.5 GM/DL My Orders Orders - NAYA BRANTLEY Continuous Ekg Monitoring (11/18/19 09:15) Ekg Tracing (11/18/19 09:15) Ct Head Wo (11/18/19:29) Cbc With Automated Diff (11/18/19:29) Magnesium (11/18/19:29) Chest 1 View, Ap/Pa Only (7/3/20 09:29) Comprehensive Metabolic Panel (11/18/19 09:29) Myoglobin Serum (11/18/19 09:29) Protime With Inr (11/18/19 09:29) Partial Thromboplastin Time (11/18/19 09:29) O2 (11/18/19 09:29) Ed Iv/Invasive Line Start (11/18/19 09:29) Aspirin Chewable Tablet (Baby Aspirin Ch (11/18/19 09:30) Ed Iv/Invasive Line Start (11/18/19 09:29) Ns Iv 1000 Ml (Sodium Chloride 0.9%) (11/18/19 09:29) Troponin I (11/18/19 09:47) Acetaminophen Tablet (Tylenol Tablet) (11/18/19 11:45) Ed Iv/Invasive Line Start (11/18/19 11:31) Ns Iv 1000 Ml (Sodium Chloride 0.9%) (11/18/19 11:31) Fentanyl Injection (Sublimaze Injection (11/18/19 12:30) Ondansetron Injection (Zofran Injectio (11/18/19 12:30) Hydromorphone Injection (Dilaudid Inject (11/18/19 13:45) Hydromorphone Injection (Dilaudid Inject (11/18/19 13:40) Medications Given in ED Current Medications Medications Dose Ordered Sig/Kelly Route Start Time Stop Time Status Last Admin Dose Admin Acetaminophen 1,000 mg ONCE ONCE PO 11/18/19 11:45 11/18/19 11:46 DC 11/18/19 11:37 1,000 MG Aspirin 324 mg ONCE ONCE PO 11/18/19 09:30 11/18/19 09:32 DC 11/18/19 09:56 324 MG Fentanyl Citrate 50 mcg ONCE ONCE IVP 11/18/19 12:30 11/18/19 12:31 DC 11/18/19 12:44 50 MCG Hydromorphone HCl 0.5 mg ONCE ONCE IV 11/18/19 13:45 11/18/19 13:46 DC 11/18/19 13:44 0.5 MG Ondansetron HCl 4 mg ONCE ONCE IVP 11/18/19 12:30 11/18/19 12:31 DC 11/18/19 12:44 4 MG Sodium Chloride 1,000 ml @ 0 mls/hr Q0M ONCE IV 11/18/19 09:29 11/18/19 09:32 DC 11/18/19 09:56 0 MLS/HR Vital Signs/I&O 11/18/19 11/18/19 09:03 14:57 Temp 36.7 Pulse 76 65 Resp 11 11 B/P (MAP) 114/56 (75) 115/63 Pulse Ox 98 98 O2 Delivery Room Air Room Air Blood Pressure Mean: 75 Progress Progress Note #1: Time: 09:35 Progress Note Her stated allergy to NSAIDs because she had a Charmaine-en-Y gastric bypass. Plan to give her aspirin. She's not having any chest pain now. Her chest pain lasted a few minutes and she feels is likely more related to anxiety. Her blood pressure presently is in the 90s systolicto 110 systolic. EKG unremarkable. Plan to get a chest x-ray. Plan to workup her pseudotumor see if she has excessive fluid with a CT and labs. She may benefit from therapeutic spinal tap. She says the last few time she's had to have it done by interventional radiology because of the amount of scar tissue but locally anesthesia has been able to perform lumbar puncture. Progress Note #2: Time: 11:30 Progress Note Patient still having some mild headache. Plan to Give her a gram of Tylenol whic h she has accepted. We discussed sending her to [facility] for management of her IH H and hypertension and she is in agreement with this plan. Another liter of saline was ordered. Initial ECG Impression Date: Nov 18, 2019 Initial ECG Impression Time: 09:18 Initial ECG Rate: 67 Initial ECG Rhythm: Normal Sinus Initial ECG Intervals: Normal Initial ECG Impression: Normal Comment Normal sinus rhythm without clinically relevant ST elevation or depression. Diagnostic Imaging Diagonstic Imaging: Xray Plain Films/CT/US/NM/MRI: chest (1v) Comments [facility] [place], [place] NAME: JOEY PARSONS MED REC#: [id number] PT STATUS: REG ER : 1980 PHYSICIAN: NAYA BRANTLEY MD ADMIT DATE: 11/18/19/ER Signed Date of Exam:11/18/19 CHEST 1 VIEW, AP/PA ONLY INDICATION: Hypertension and double vision. TIME OF EXAM: 10:01 AM Correlation is made with prior chest from 07/10/2018. FINDINGS: Heart size is stable. Tubing overlies right hemithorax. The lungs are clear. The pulmonary vascularity is normal. No infiltrate, effusion or pneumothorax is detected. IMPRESSION: No acute cardiopulmonary process is detected. Dictated by: Dictated on workstation # [id number] Dict: 11/18/19 1007 Trans: 11/18/19 1119 Interpreted by: PHILL ANGEL MD Electronically signed by: PHILL ANGEL MD 11/18/19 1119 Reviewed: Reviewed by Me Diagonstic Imaging: CT (without IV contrast) Plain Films/CT/US/NM/MRI: head Comments NAME: JOEY PARSONS [facility] REC#: [id number] PT STATUS: REG ER : 1980 PHYSICIAN: NAYA BRANTLEY MD ADMIT DATE: 11/18/19/ER Signed Date of Exam:11/18/19 CT HEAD WO PROCEDURE: CT head without contrast. TECHNIQUE: Multiple contiguous axial images were obtained through the brain without the use of intravenous contrast. Auto Exposure Controls were utilized during the CT exam to meet ALARA standards for radiation dose reduction. INDICATION: Hypotension, diplopia, headache Patient has a ventriculostomy tube entering the frontal horn of the right lateral ventricle with the tip near the foramen of David. The ventricles are decompressed. There are no masses or hemorrhages. There are no extra-axial fluid collections. IMPRESSION: Postsurgical changes from ventricular decompression. No acute abnormalities. No change compared to 11/06/2019. Dictated by: Dictated on workstation # [id number] Dict: 11/18/19 1012 Trans: 11/18/19 1013 Interpreted by: ISIS WILSON MD Electronically signed by: ISIS WILSON MD 11/18/19 1013 Reviewed: Reviewed by Me Departure Impression Primary Impression: Pseudotumor cerebri Additional Impressions: Hypotension Qualified Codes: I95.9 - Hypotension, unspecified Diplopia Disposition: XF SHT-TRM HOSP Condition: Stable Transfer Transfer Reason: Exceeds level of care (Neurology) Time Spoke to Accepting [facility]: 12:25 Transfer Progress Notes 1140: [facility] called Dr. ramirez. Dr Christina Guillen accepting at [facility]. Transfer Facility: [facility] Method of Transfer: EMS Departure-Patient Inst. Referrals: NO,LOCAL PHYSICIAN (PCP/Family) Primary Care Physician NAYA BRANTLEY Nov 18, 2019 09:37
[2019-11-18 10:01] LABS: BASOPHILS % (AUTO) 0 % (0-10); EOSINOPHILS # (AUTO) 0.1 10^3/uL (0.0-0.3); EOSINOPHILS % (AUTO) 2 % (0-10); HEMATOCRIT 39 % (35-52); HEMOGLOBIN 12.9 G/DL (11.5-16.0); LYMPHOCYTES % (AUTO) 45 % (12-44); MEAN CORPUSCULAR HEMOGLOBIN 31 PG (25-34); MEAN CORPUSCULAR HGB CONC 33 G/DL (32-36); MEAN CORPUSCULAR VOLUME 93 FL (80-99); MEAN PLATELET VOLUME 10.4 FL (7.4-10.4); MONOCYTES # (AUTO) 0.8 X 10^3 (0.0-1.0); MONOCYTES % (AUTO) 12 % (0-12); NEUTROPHILS # (AUTO) 2.8 X 10^3 (1.8-7.8); NEUTROPHILS % (AUTO) 41 % (42-75); PLATELET COUNT 217 10^3/uL (130-400); RED CELL DISTRIBUTION WIDTH 12.6 % (10.0-14.5); WHITE BLOOD COUNT 6.8 10^3/uL (4.3-11.0)
[2019-11-18 10:09] LABS: ALBUMIN 4.3 GM/DL (3.2-4.5)
--- NOTE | 2019-11-18 10:09 | Diagnostic Imaging Report ---
INDICATION: Hypertension and double vision. TIME OF EXAM: 10:01 AM Correlation is made with prior chest from 07/10/2018. FINDINGS: Heart size is stable. Tubing overlies right hemithorax. The lungs are clear. The pulmonary vascularity is normal. No infiltrate, effusion or pneumothorax is detected. IMPRESSION: No acute cardiopulmonary process is detected. Dictated by: Dictated on workstation # [id number]
[2019-11-18 10:10] LABS: CHLORIDE 104 MMOL/L (98-107); POTASSIUM 4.2 MMOL/L (3.6-5.0); SODIUM 141 MMOL/L (135-145)
[2019-11-18 10:12] LABS: GLUCOSE 91 MG/DL (70-105); TOTAL PROTEIN 6.8 GM/DL (6.4-8.2)
[2019-11-18 10:13] LABS: CARBON DIOXIDE 26 MMOL/L (21-32); PROTHROMBIN TIME PATIENT 13.6 SEC (12.2-14.7)
[2019-11-18 10:14] LABS: BILIRUBIN,TOTAL 0.4 MG/DL (0.1-1.0)
[2019-11-18 10:15] LABS: ALKALINE PHOSPHATASE 78 U/L (40-136)
--- NOTE | 2019-11-18 10:15 | Diagnostic Imaging Report ---
PROCEDURE: CT head without contrast. TECHNIQUE: Multiple contiguous axial images were obtained through the brain without the use of intravenous contrast. Auto Exposure Controls were utilized during the CT exam to meet ALARA standards for radiation dose reduction. INDICATION: Hypotension, diplopia, headache Patient has a ventriculostomy tube entering the frontal horn of the right lateral ventricle with the tip near the foramen of David. The ventricles are decompressed. There are no masses or hemorrhages. There are no extra-axial fluid collections. IMPRESSION: Postsurgical changes from ventricular decompression. No acute abnormalities. No change compared to 11/06/2019. Dictated by: Dictated on workstation # [id number]
[2019-11-18 10:16] LABS: CREATININE SERUM 1.85 MG/DL (0.60-1.30); GFR ESTIMATED 30
[2019-11-18 10:17] LABS: BUN/CREATININE RATIO 16
[2019-11-18 10:18] LABS: ALANINE AMINOTRANSFERASE 28 U/L (0-55)
[2019-11-18 10:19] LABS: MAGNESIUM 2.2 MG/DL (1.6-2.4)
[2019-11-18] MEDS ORDERED: NS IV 1000 ML 1,000 ML IV SCH (11:31)
[2019-11-18] MEDS ORDERED: ACETAMINOPHEN 500 MG TAB (TYLENOL) PO ONE (11:45)
[2019-11-18] MEDS ORDERED: fentaNYL INJECTION 100 MCG/2 ML AMP IVP ONE (12:30)
[2019-11-18] MEDS ORDERED: ONDANSETRON 4 MG/2 ML (SDV) Z0FRAN IVP ONE (12:30)
[2019-11-18] MEDS ORDERED: HYDROmorphone 2 MG/ML VIAL (DILAUDID) ONE (13:40)
--- NOTE | 2019-11-18 13:44 | NUR ---
DILAUDID GIVEN FOR PAIN 11/24
[2019-11-18] MEDS ORDERED: HYDROmorphone 2 MG/ML VIAL (DILAUDID) IV ONE (13:45)
[2019-11-18 14:57] VITALS: BP 115/63
== END 2019-11-18 14:58 | disposition short-term general hospital (02) ==
LOC: EDUNIT# 08:57 → ER 08:59
DX: G93.2 Benign intracranial hypertension (principal); J45.909 Unspecified asthma, uncomplicated; I10 Essential (primary) hypertension; G40.909 Epilepsy, unspecified, not intractable, without status epilepticus; K21.0 Gastro-esophageal reflux disease with esophagitis; F41.9 Anxiety disorder, unspecified; E66.01 Morbid (severe) obesity due to excess calories; I95.9 Hypotension, unspecified; H53.2 Diplopia; Z98.84 Bariatric surgery status; Z79.899 Other long term (current) drug therapy; Z88.8 Allergy status to other drugs, medicaments and biological substances; Z68.41 Body mass index [BMI] 40.0-44.9, adult
CPT/HCPCS: 36415; 70450; 71045; 80053; 83735; 83874; 84484; 85025; 85610; 85730; 93005; 96361; 96374; 96375

== ENCOUNTER 2020-01-11 16:31 | Emergency (ER) | payer BC ==
[~2020-01-11] VITALS: Ht 167.7 cm; Wt 111.1 kg
[2020-01-11 16:49] LABS: BASOPHILS % (AUTO) 0 % (0-10); EOSINOPHILS # (AUTO) 0.2 10^3/uL (0.0-0.3); EOSINOPHILS % (AUTO) 2 % (0-10); HEMATOCRIT 42 % (35-52); LYMPHOCYTES # (AUTO) 2.4 X 10^3 (1.0-4.0); LYMPHOCYTES % (AUTO) 25 % (12-44); MEAN CORPUSCULAR HEMOGLOBIN 30 PG (25-34); MEAN CORPUSCULAR HGB CONC 33 G/DL (32-36); MEAN CORPUSCULAR VOLUME 90 FL (80-99); MEAN PLATELET VOLUME 10.1 FL (7.4-10.4); MONOCYTES # (AUTO) 0.6 X 10^3 (0.0-1.0); MONOCYTES % (AUTO) 7 % (0-12); NEUTROPHILS # (AUTO) 6.5 X 10^3 (1.8-7.8); NEUTROPHILS % (AUTO) 67 % (42-75); PLATELET COUNT 263 10^3/uL (130-400); RED CELL DISTRIBUTION WIDTH 12.7 % (10.0-14.5); WHITE BLOOD COUNT 9.8 10^3/uL (4.3-11.0)
--- NOTE | 2020-01-11 16:50 | NUR ---
Spoke with pt's regarding plan of care. Pt on phone with at this time.
[2020-01-11 16:54] LABS: ALBUMIN 4.4 GM/DL (3.2-4.5); CHLORIDE 105 MMOL/L (98-107); POTASSIUM 4.5 MMOL/L (3.6-5.0); SODIUM 140 MMOL/L (135-145)
[2020-01-11 16:55] LABS: BILIRUBIN,URINE NEGATIVE (NEGATIVE); CLARITY,URINE CLEAR; COLOR,URINE YELLOW; GLUCOSE, URINE (UA) NEGATIVE (NEGATIVE); KETONES,URINE NEGATIVE (NEGATIVE); LEUKOCYTE ESTERASE ,URINE TRACE (NEGATIVE); NITRITE,URINE NEGATIVE (NEGATIVE); PROTEIN,URINE 2+ (NEGATIVE)
[2020-01-11 16:55] LABS: CALCIUM 9.1 MG/DL (8.5-10.1)
[2020-01-11 16:56] LABS: GLUCOSE 97 MG/DL (70-105)
[2020-01-11 16:57] LABS: TOTAL PROTEIN 7.2 GM/DL (6.4-8.2)
[2020-01-11 16:58] LABS: BILIRUBIN,TOTAL 0.5 MG/DL (0.1-1.0); CARBON DIOXIDE 22 MMOL/L (21-32)
[2020-01-11 17:00] LABS: ALKALINE PHOSPHATASE 88 U/L (40-136); CREATININE SERUM 1.15 MG/DL (0.60-1.30); GFR ESTIMATED 52
[2020-01-11 17:01] LABS: BUN/CREATININE RATIO 13
[2020-01-11 17:03] LABS: ALANINE AMINOTRANSFERASE 33 U/L (0-55)
[2020-01-11 17:06] LABS: BACTERIA,URINE FEW /HPF; HYALINE CASTS, URINE RARE /LPF
[2020-01-11 17:09] LABS: AMPHETAMINE SCREEN, URINE NEGATIVE (NEGATIVE); BARBITURATE SCREEN URINE NEGATIVE (NEGATIVE); BENZODIAZEPINES SCREEN URINE NEGATIVE (NEGATIVE); CANNABINOID SCREEN, URINE NEGATIVE (NEGATIVE); COCAINE SCREEN URINE NEGATIVE (NEGATIVE); METHADONE STAT NEGATIVE (NEGATIVE); METHAMPHETAMINE SCREEN URINE S NEGATIVE (NEGATIVE); OPIATE SCREEN URINE POSITIVE (NEGATIVE); OXYCODONE STAT NEGATIVE (NEGATIVE); PROPOXYPHENE STAT NEGATIVE (NEGATIVE); TRICYCLIC ANTIDEPRESSANTS SCRE NEGATIVE (NEGATIVE)
[2020-01-11 17:24] LABS: TSH (THYROID ANALYZER) 1.91 UIU/ML (0.35-4.94)
--- NOTE | 2020-01-11 17:57 | ED Neurological Problem ---
General Chief Complaint: Neurological Problems Stated Complaint: SEIZURES Nursing Triage Note: Pt to ED via EMS for seizure. EMS reports pt was at eye doctor appt and had a seizure lasting 3-4 minutes. Pt was lowered to the floor and then had another seizure lasting approximately 3 minutes. Pt very tearful at time of assessment which pt reports is normal after a seizure. Nursing Sepsis Screen: No Definite Risk Source: patient Exam Limitations: no limitations History of Present Illness Date Seen by Provider: Jan 11, 2020 Time Seen by Provider: 16:35 Initial Comments This 39-year-old woman presents to the emergency room via EMS from [facility] where she was being seen for a routine appointment and had 2 seizures lasting 3-5 minutes each. Nursing staff there states the seizures are generalized in nature. She was not alert during the seizure activity and exhibited a post ictal state with confusion. Patient reports she was feeling well prior to the seizure and had no prodrome. She denies any symptoms of acute illness such as fever, cough, vomiting, urinary changes, etc. She has a history of pseudotumor cerebri. Her neurology and neurosurgical services are at [facility] where she sees Dr. Neal and Dr. Shah. She was transferred to [facility] November 17 after being seen in the emergency room for hypotension, near syncope, and diplopia. She reports her last seizure was a few months ago. She is currently not taking any antiepileptic medications. She had been taking Keppra which upset her stomach. She reports EEG studies at [facility] demonstrated no epileptic activity. She reports that the neurology clinic therefore took her off of Keppra and has not started anything else yet. She has upcoming appointment at the epilepsy clinic March 05. She has slightly postictal and tearful upon arrival. Vital signs are stable. Patient previously had been taking diuretics and also required frequent therapeutic lumbar punctures. Allergies and Home Medications Allergies Coded Allergies: promethazine (Verified Allergy, Mild, 01/28/16) NSAIDS (Non-Steroidal Anti-Inflamma (Verified Allergy, Unknown, 11/06/19) HAD GASTRIC BYPASS prednisone (Verified Allergy, Unknown, 11/06/19) HAD GASTRIC BYPASS Uncoded Allergies: CALCIUM CHANNEL BLOCKERS (Adverse Reaction, Unknown, weight gain, 10/21/18) Home Medications Acetaminophen 500 Mg Tablet, 1,000 MG PO Q6H, (Reported) Diphenhydramine HCl 25 Mg Capsule, 25-50 MG PO Q4H, (Reported) TAKES WITH TYLENOL PRN HEADACHE Divalproex Sodium 500 Mg Tablet.dr, 500 MG PO DAILY, (Reported) Duloxetine HCl 30 Mg Capsule.dr, 90 MG PO DAILY, (Reported) Ondansetron 4 Mg Tab.rapdis, 4 MG PO Q6H, (Reported) Oxycodone HCl/Acetaminophen 1 Each Tablet, 1 TAB PO [id number] PRN for PAIN- MODERATE, (Reported) Propranolol HCl 80 Mg Tablet, 80 MG PO TID, (Reported) Patient Home Medication List Home Medication List Reviewed: Yes Review of Systems Review of Systems Constitutional: no symptoms reported Eyes: No Symptoms Reported Ears, Nose, Mouth, Throat: no symptoms reported Respiratory: no symptoms reported Cardiovascular: no symptoms reported Gastrointestinal: no symptoms reported Genitourinary: no symptoms reported : No Musculoskeletal: no symptoms reported Skin: no symptoms reported Psychiatric/Neurological: See HPI Endocrine: No Symptoms Reported Hematologic/Lymphatic: No Symptoms Reported Past [id number] Hx Past Med/Social Hx: Reviewed Nursing Past Med/Soc Hx Patient Social History Alcohol Use: Denies Use Recreational Drug Use: No 2nd Hand Smoke Exposure: No Recent Foreign Travel: No Contact w/Someone Who Travel: No Recent Infectious Disease Expo: No Recent Hopitalizations: Yes Physical Abuse: No Sexual Abuse: No Mistreated: No Fear: No Immunizations Up To Date Tetanus Booster (TDap): Less than 5yrs PED Vaccines UTD: No Date of Influenza Vaccine: Feb 16, 2012 Seasonal Allergies Seasonal Allergies: No Past Medical History Surgeries: Yes (GASTRIC BYPASS) Bladder Surgery, Gallbladder, Hysterectomy, Neurological, Oophorectomy Respiratory: Yes Asthma, Pneumonia, Chronic Bronchitis Cardiac: Yes Hypertension Neurological: Yes (IDIOPATHIC INTRACRANIAL HYPERTENSION) Headaches /Migraines, Meningitis, Seizure Disorder Reproductive Disorders: No 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 Genitourinary: No Gastrointestinal: Yes Gastroesophageal Reflux, Esophagitis Musculoskeletal: No Endocrine: No (MORBID OBESITY) HEENT: No Cancer: No Psychosocial: Yes (OPIATE AND BENZODIAZEPINE ABUSE) Anxiety Integumentary: Yes (ABSCESSES; SURGICAL WOUND INFECTION) Blood Disorders: No Adverse Reaction/Blood Tranf: No Family Medical History Reviewed Nursing Family Hx Abdominal aortic aneurysm 03 FATHER Family history: Allergy 03 FATHER Family history: Arthritis 03 MOTHER 09 SISTER Family history: Hypertension 03 FATHER Physical Exam Vital Signs Vital Signs - First Documented 01/11/20 16:31 Temp 36.8 Pulse 82 Resp 22 B/P (MAP) 153/103 (120) Pulse Ox 93 O2 Delivery Room Air Capillary Refill : Less Than 3 Seconds Height, Weight, BMI Height: 5'5.00" Weight: 295lbs. 0.0oz. [id number]; 39.00 BMI Method:Stated General Appearance: WD/WN, mild distress (tearful), obese HEENT: PERRL/EOMI, normal ENT inspection, TMs normal, pharynx normal Neck: normal inspection Respiratory: lungs clear, normal breath sounds, no respiratory distress, no accessory muscle use Cardiovascular: regular rate, rhythm, no edema, no murmur Gastrointestinal: non tender, soft Extremities: normal inspection, no pedal edema Neurologic/Psychiatric: labor arbitrator II-XII nml as tested, no motor/sensory deficits, alert, normal mood/affect, other (disoriented to month and age) Crainal Nerves: normal hearing, normal speech, PERRL Coordination/Gait: normal finger to nose (normal heel to vee) Motor/Sensory: no motor deficit, no sensory deficit, no pronator drift Skin: normal color, warm/dry Progress/Results/Core Measures Results/Orders Lab Results Laboratory Tests Test 01/11/20 16:35 01/11/20 16:45 Range/Units White Blood Count 9.8 4.3-11.0 10^3/uL Red Blood Count 4.68 4.35-5.85 10^6/uL Hemoglobin 14.0 11.5-16.0 G/DL Hematocrit 42 35-52 % Mean Corpuscular Volume 90 80-99 FL Mean Corpuscular Hemoglobin 30 25-34 PG Mean Corpuscular Hemoglobin Concent 33 32-36 G/DL Red Cell Distribution Width 12.7 10.0-14.5 % Platelet Count 263 130-400 10^3/uL Mean Platelet Volume 10.1 7.4-10.4 FL Neutrophils (%) (Auto) 67 42-75 % Lymphocytes (%) (Auto) 25 12-44 % Monocytes (%) (Auto) 7 0-12 % Eosinophils (%) (Auto) 2 0-10 % Basophils (%) (Auto) 0 0-10 % Neutrophils # (Auto) 6.5 1.8-7.8 X 10^3 Lymphocytes # (Auto) 2.4 1.0-4.0 X 10^3 Monocytes # (Auto) 0.6 0.0-1.0 X 10^3 Eosinophils # (Auto) 0.2 0.0-0.3 10^3/uL Basophils # (Auto) 0.0 0.0-0.1 10^3/uL Sodium Level 140 135-145 MMOL/L Potassium Level 4.5 3.6-5.0 MMOL/L Chloride Level 105 98-107 MMOL/L Carbon Dioxide Level 22 21-32 MMOL/L Anion Gap 13 5-14 MMOL/L Blood Urea Nitrogen 15 7-18 MG/DL Creatinine 1.15 0.60-1.30 MG/DL Estimat Glomerular Filtration Rate 52 BUN/Creatinine Ratio 13 Glucose Level 97 70-105 MG/DL Calcium Level 9.1 8.5-10.1 MG/DL Corrected Calcium 8.8 8.5-10.1 MG/DL Magnesium Level 2.0 1.6-2.4 MG/DL Total Bilirubin 0.5 0.1-1.0 MG/DL Aspartate Amino Transf (AST/SGOT) 22 5-34 U/L Alanine Aminotransferase (ALT/SGPT) 33 0-55 U/L Alkaline Phosphatase 88 40-136 U/L C-Reactive Protein High Sensitivity 0.10 0.00-0.50 MG/DL Total Protein 7.2 6.4-8.2 GM/DL Albumin 4.4 3.2-4.5 GM/DL TSH Carter Testing 1.91 0.35-4.94 UIU/ML Serum Alcohol < 10 <10 MG/DL Urine Color YELLOW Urine Clarity CLEAR Urine pH 6.0 5-9 Urine Specific [place] >=1.030 1.016-1.022 Urine Protein 2+ H NEGATIVE Urine Glucose (UA) NEGATIVE NEGATIVE Urine Ketones NEGATIVE NEGATIVE Urine Nitrite NEGATIVE NEGATIVE Urine Bilirubin NEGATIVE NEGATIVE Urine Urobilinogen 0.2 < = 1.0 MG/DL Urine Leukocyte Esterase TRACE H NEGATIVE Urine RBC (Auto) NEGATIVE NEGATIVE Urine RBC NONE /HPF Urine WBC 10-25 H /HPF Urine Squamous Epithelial Cells 2-5 /HPF Urine Crystals NONE /LPF Urine Bacteria FEW H /HPF Urine Casts PRESENT /LPF Urine Hyaline Casts RARE /LPF Urine Mucus SMALL H /LPF Urine Culture Indicated YES Urine Opiates Screen POSITIVE H NEGATIVE Urine Oxycodone Screen NEGATIVE NEGATIVE Urine Methadone Screen NEGATIVE NEGATIVE Urine Propoxyphene Screen NEGATIVE NEGATIVE Urine Barbiturates Screen NEGATIVE NEGATIVE Ur Tricyclic Antidepressants Screen NEGATIVE NEGATIVE Urine Phencyclidine Screen NEGATIVE NEGATIVE Urine Amphetamines Screen NEGATIVE NEGATIVE Urine Methamphetamines Screen NEGATIVE NEGATIVE Urine Benzodiazepines Screen NEGATIVE NEGATIVE Urine Cocaine Screen NEGATIVE NEGATIVE Urine Cannabinoids Screen NEGATIVE NEGATIVE My Orders Orders - MARVIN MEYER MD Alcohol (01/11/20 16:43) Cbc With Automated Diff (01/11/20 16:43) Comprehensive Metabolic Panel (01/11/20 16:43) Hs C Reactive Protein (01/11/20 16:43) Drug Screen Stat (Urine) (01/11/20 16:43) Magnesium (01/11/20 16:43) Thyroid Analyzer (01/11/20 16:43) Ua Culture If Indicated (01/11/20 16:43) Ed Iv/Invasive Line Start (01/11/20 16:43) Monitor-Rhythm Ecg Trace Only (01/11/20 16:43) Urine Culture (01/11/20 16:45) Acetazolamide Tablet (Diamox Tablet) (01/11/20 18:45) Cephalexin Capsule (Keflex Capsule) (01/11/20 18:45) Vital Signs/I&O 01/11/20 16:31 Temp 36.8 Pulse 82 Resp 22 B/P (MAP) 153/103 (120) Pulse Ox 93 O2 Delivery Room Air Blood Pressure Mean: 120 Progress Progress Note #1: Time: 17:59 Progress Note Patient was seen and evaluated. Her post ictal state has improved. However, now she is complaining of horizontal diplopia. She had similar symptoms prior to her transfer to during her ER visit in November. I have placed a call to the [facility] transfer center. I am awaiting a call back from the neurology team. Progress Note #2: Time: 18:41 Progress Note Labs were reviewed. They were relatively unremarkable except for minor urinary tract infection. I consulted Dr. Arrieta, neurologist production illustrator at [facility] at 18:25. He recommended deferring seizure treatment to the epilepsy clinic tomorrow. In regard to the diplopia and pseudotumor cerebri, he recommended restarting Diamox. Patient has a supply of Diamox at home. We will give the initial doses of antibiotic for urinary tract infection and Diamox here in the emergency room before discharge to ensure she gets today's doses in. Patient is comfortable with this plan. Dr. Arrieta do not believe anything was to be gained by repeating imaging in the ER tonight. Departure Impression Primary Impression: Seizures Additional Impressions: Urinary tract infection Qualified Codes: N39.0 - Urinary tract infection, site not specified Pseudotumor cerebri Diplopia Disposition: 01 HOME, SELF-CARE Condition: Stable Departure-Patient Inst. Decision time for Depature: 18:44 Referrals: NO,LOCAL PHYSICIAN (PCP/Family) Primary Care Physician Patient Instructions: Idiopathic Intracranial Hypertension (Pseudotumor Cerebri), Seizures Add. Discharge Instructions: Restart Diamox 500 mg twice daily. Please call the epilepsy clinic at [facility] promptly tomorrow morning for further guidance. Review your symptoms of double vision and seizures with them when you call. Avoid any activity that would put you in danger should you have any more seizure activity. This includes swimming, operating any motor vehicles or machinery, using heights such as ladders, etc. Return to care if you have worsening or recurrent symptoms. Follow-up with your primary care provider soon as possible. All discharge instructions reviewed with patient and/or family. Voiced understanding. MARVIN MEYER MD Jan 11, 2020 17:57
--- NOTE | 2020-01-11 18:02 | NUR ---
Pt now complaining of double vision. Dr. Rodriguez to consult with [facility].
--- NOTE | 2020-01-11 18:06 | NUR ---
Called with update on pt.
[2020-01-11] MEDS ORDERED: CEPHALEXIN 250 MG (KEFLEX) CAP PO ONE (18:45)
[2020-01-11] MEDS ORDERED: acetaZOLAMIDE 250 MG (DIAMOX) TAB PO ONE (18:45)
[2020-01-11 19:13] VITALS: BP 119/100
== END 2020-01-11 19:13 | disposition home or self-care (01) ==
LOC: EDUNIT# 16:31 → ER 16:35
DX: R56.9 Unspecified convulsions (principal); N39.0 Urinary tract infection, site not specified; G93.2 Benign intracranial hypertension; H53.2 Diplopia; E66.01 Morbid (severe) obesity due to excess calories; F41.9 Anxiety disorder, unspecified; I10 Essential (primary) hypertension; G43.909 Migraine, unspecified, not intractable, without status migrainosus; Z68.39 Body mass index [BMI] 39.0-39.9, adult; Z88.6 Allergy status to analgesic agent; Z88.8 Allergy status to other drugs, medicaments and biological substances; Z82.49 Family history of ischemic heart disease and other diseases of the circulatory system
CPT/HCPCS: 80053; 80306; 81000; 83735; 84443; 85025; 86141; 87088; 93041; G0480; 36415; 80320

== ENCOUNTER 2020-01-23 18:33 | Emergency (ER) | payer BC ==
[~2020-01-23] VITALS: Ht 167.7 cm; Wt 111.3 kg
[2020-01-23] MEDS ORDERED: fentaNYL INJECTION 100 MCG/2 ML AMP IVP ONE (18:45)
[2020-01-23 18:57] LABS: HEMOGLOBIN 11.8 G/DL (11.5-16.0); MEAN PLATELET VOLUME 10.3 FL (7.4-10.4); WHITE BLOOD COUNT 5.4 10^3/uL (4.3-11.0)
[2020-01-23] MEDS ORDERED: CATHETER FLUSH 10 ML SYR IV PRN (19:00)
[2020-01-23] MEDS ORDERED: NS 100 ML (IVPB) BAG IV ONE (19:00)
[2020-01-23] MEDS ORDERED: HOLD METFORMIN - RECEIVED CONTRAST 20 ML VIAL IV SCH (19:00)
[2020-01-23] MEDS ORDERED: IOHEXOL 350 MG/ML 100 ML (OMNIPAQUE 350) VIAL IV ONE (19:00)
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
[2020-01-23 19:18] LABS: BUN/CREATININE RATIO 15; CARBON DIOXIDE 24 MMOL/L (21-32); CHLORIDE 109 MMOL/L (98-107); CREATININE SERUM 0.97 MG/DL (0.60-1.30); GFR ESTIMATED > 60; POTASSIUM 4.3 MMOL/L (3.6-5.0); PROTHROMBIN TIME PATIENT 13.1 SEC (12.2-14.7); SODIUM 143 MMOL/L (135-145)
[2020-01-23 19:19] LABS: ALANINE AMINOTRANSFERASE 14 U/L (0-55); ALBUMIN 3.5 GM/DL (3.2-4.5); ALKALINE PHOSPHATASE 71 U/L (40-136); BILIRUBIN,DIRECT 0.2 MG/DL (0.0-0.3); BILIRUBIN,TOTAL 0.2 MG/DL (0.1-1.0); CALCIUM 7.8 MG/DL (8.5-10.1); GLUCOSE 83 MG/DL (70-105); TOTAL PROTEIN 5.2 GM/DL (6.4-8.2)
[2020-01-23 19:23] LABS: BILIRUBIN,URINE NEGATIVE (NEGATIVE); CLARITY,URINE CLEAR; COLOR,URINE DARK YELLOW; GLUCOSE, URINE (UA) NEGATIVE (NEGATIVE); KETONES,URINE 1+ (NEGATIVE); LEUKOCYTE ESTERASE ,URINE NEGATIVE (NEGATIVE); NITRITE,URINE NEGATIVE (NEGATIVE); PH,URINE 6.5 (5-9); PROTEIN,URINE TRACE (NEGATIVE)
[2020-01-23 19:24] LABS: BACTERIA,URINE NEGATIVE /HPF; RBC,URINE 0-2 /HPF
[2020-01-23] MEDS ORDERED: HYOSCYAMINE 0.125 MG (LEVSIN) TAB PO ONE (19:30)
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
--- NOTE | 2020-01-23 20:19 | NUR ---
PT'S MOM CALLED FOR UPDATE. PT GAVE PERMISSION TO SPEAK TO HER MOM. PT FAMILY IS OUTSIDE WAITING AND PT MOM GIVEN UPDATE.
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
--- NOTE | 2020-01-23 20:52 | NUR ---
C COLLAR REMOVED BY PROVIDER.
[2020-01-23] MEDS ORDERED: lidoderm 5% patch TD (21:01)
[2020-01-23] MEDS ORDERED: OXYC1TAB87 PO (21:01)
[2020-01-23 21:12] VITALS: BP 115/77
[2020-01-23] MEDS ORDERED: oxyCODONE/APAP 5/325MG (PERCOCET 5) TABLET PO ONE (21:15)
== END 2020-01-23 21:12 | disposition home or self-care (01) ==
LOC: EDUNIT# 18:33 → ER FS 18:33
DX: S80.211A Abrasion, right knee, initial encounter (principal); M54.5 Low back pain; G40.909 Epilepsy, unspecified, not intractable, without status epilepticus; F41.9 Anxiety disorder, unspecified; I10 Essential (primary) hypertension; E66.01 Morbid (severe) obesity due to excess calories; Z68.39 Body mass index [BMI] 39.0-39.9, adult; Z82.49 Family history of ischemic heart disease and other diseases of the circulatory system; Z88.6 Allergy status to analgesic agent; Z88.8 Allergy status to other drugs, medicaments and biological substances; V59.9XXA Occupant (driver) (passenger) of pick-up truck or van injured in unspecified traffic accident, initial encounter
CPT/HCPCS: 36415; 70450; 71045; 71260; 72125; 73562; 74177; 80048; 80076; 81000; 84703; 85027; 85610; 85730; 86850; 86900; 86901; 93041; 99284; G0480; 80320

== ENCOUNTER 2020-06-14 15:15 | Outpatient (CLI) | payer BC ==
[~2020-06-14] VITALS: Ht 160 cm; Wt 111.3 kg
[~2020-06-14 15:15] MED LIST changes: -CIPR500T4; +CIPR500T5; -CLIN300C11 PO; +CLIN300C12 PO; -LISI-552 PO; +LISI20TA26 PO; -LISI40TA PO; +LISI40TA9 PO; +lidoderm 5% patch TD
--- NOTE | 2020-06-14 15:29 | Diagnostic Imaging Report ---
EXAMINATION: CT head without contrast. TECHNIQUE: Multiple contiguous axial images were obtained through the brain without the use of intravenous contrast. All CT scans use one or more of the following dose optimizing techniques: automated exposure control, MA and/or KvP adjustment based on a patient size and exam type, or iterative reconstruction. HISTORY: Idiopathic intracranial hypertension. COMPARISON: 01/23/2020. FINDINGS: There is stable configuration of the right frontal approach STEAM BONE PRESS TENDER shunt with the tip near the 3rd ventricle. The ventricles are decompressed. No evidence of intra-axial or extra-axial hemorrhage. No mass effect or midline shift. Caudal ectopia of the cerebellar tonsils is again noted. No evidence of large acute territorial ischemia. The basilar cisterns are patent. The orbits are normal. Paranasal sinuses are normal. Mastoid air cells are clear. No soft tissue abnormality is seen. No osseus lesions or fractures are seen. IMPRESSION: 1. Stable configuration of the right ventricular STEAM BONE PRESS TENDER shunt with stable appearance of the ventricles. No evidence of acute hydrocephalus. No intraaxial or extraaxial hemorrhage. 2. Caudal ectopia of the cerebellar tonsils, which can be seen with Chiari malformation. 3. No acute ischemia or mass effect. Dictated by: Dictated on workstation # [id number]
[2020-06-14 15:57] LABS: BASOPHILS % (AUTO) 1 % (0-10); EOSINOPHILS # (AUTO) 0.2 10^3/uL (0.0-0.3); EOSINOPHILS % (AUTO) 3 % (0-10); HEMATOCRIT 37 % (35-52); LYMPHOCYTES # (AUTO) 2.5 10^3/uL (1.0-4.0); LYMPHOCYTES % (AUTO) 41 % (12-44); MEAN CORPUSCULAR HEMOGLOBIN 30 pg (25-34); MEAN CORPUSCULAR HGB CONC 33 g/dL (32-36); MEAN CORPUSCULAR VOLUME 91 fL (80-99); MEAN PLATELET VOLUME 10.2 fL (9.0-12.2); MONOCYTES # (AUTO) 0.4 10^3/uL (0.0-1.0); MONOCYTES % (AUTO) 7 % (0-12); NEUTROPHILS % (AUTO) 48 % (42-75); PLATELET COUNT 263 10^3/uL (130-400); WHITE BLOOD COUNT 6.2 10^3/uL (4.3-11.0)
[2020-06-14 16:59] VITALS: BP 143/90
--- NOTE | 2020-06-14 17:07 | Anesthesia-Procedure Note ---
Procedures/Interventions Procedure Start/Stop/Diagnosis Date of Procedure: Jun 14, 2020 Start Time: 16:40 Referring Physician: Dr. Neal Preprocedural Diagnosis: Idiopathic Intracranial Hypertension Brief History Pt with increasing headaches and blurry vision, more so than normal over the past 2-3 days. She has a history of IIH with frequent lumbar puncture needed to alleviate her symptoms. She has a AB INITIO ETL DEVELOPER shunt currently which has been revised. CBC showed a normal plt count and CT Head showed no contraindication to lumbar puncture. I spoke with Dr Awad who read the CT re: chiari malformation in the report summary. He said it was less than 3 mm and unchanged from previous studies. With her history of multiple LP's and a AB INITIO ETL DEVELOPER shunt he thought it was reasonable to proceed with the LP. I spoke to the patient about these findings, and she understood the slight increased risk of herniation and wished to proceed. Stop Time: 16:55 Postprocedural Diagnosis: Same Lumbar Puncture Discussed Risk,Benefits: Yes Patient Consents: Yes Position: L3-4, Left Sterile Technique: Yes (ChloraPrep and drape) Opening Pressure: 29 cm CSF Fluid Color: clear Spinal Needle Used: 22g Mena 3 1/2 inch Procedure Notes + CSF after redirect times 2. Neg heme/paresthesias. After ~ 15 mL of CSF was withdrawn, the pressure was noted to be 19 cm CSF. She said the pressure behind her eyes was noticeably improved. Needle was withdrawn and a sterile bandage applied. Pt tolerated the procedure well and will follow up with her PCP and neurosurgeon as needed. SHEEBA MARY DO Jun 14, 2020 17:07
[2020-06-14 17:10] VITALS: BP 127/83
== END 2020-06-14 17:15 ==
LOC: RAD 17:15
PROVIDERS: ATTEND Internal Medicine
DX: G93.2 Benign intracranial hypertension (principal); G93.5 Compression of brain
CPT/HCPCS: 36415; 70450; 85025

== ENCOUNTER → 2020-07-06 | Outpatient (CLI) | payer BC ==
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
== END ==
LOC: RAD 14:45
PROVIDERS: ATTEND Neurological Surgery
DX: M50.21 Other cervical disc displacement, high cervical region (principal); G93.5 Compression of brain
CPT/HCPCS: 72141

== ENCOUNTER 2020-09-01 22:21 | Emergency (ER) | payer BC ==
[~2020-09-01] VITALS: Ht 168 cm; Wt 108.8 kg
[2020-09-01 22:58] LABS: BILIRUBIN,URINE NEGATIVE (NEGATIVE); CLARITY,URINE CLEAR; COLOR,URINE YELLOW; GLUCOSE, URINE (UA) NEGATIVE (NEGATIVE); KETONES,URINE NEGATIVE (NEGATIVE); LEUKOCYTE ESTERASE ,URINE NEGATIVE (NEGATIVE); NITRITE,URINE NEGATIVE (NEGATIVE); PH,URINE 5.5 (5-9); PROTEIN,URINE TRACE (NEGATIVE)
[2020-09-01 23:11] LABS: BACTERIA,URINE TRACE /HPF
[2020-09-01] MEDS ORDERED: NS IV 1000 ML 1,000 ML IV SCH (23:30)
[2020-09-01] MEDS ORDERED: fentaNYL INJ 100 MCG/2 ML AMP IVP ONE (23:30)
--- NOTE | 2020-09-01 23:31 | ED Abdominal Pain ---
General Chief Complaint: - Urinary Stated Complaint: DX: KIDNEY INFECTION / URINATING BLOOD Nursing Triage Note: C/O BILATERAL LOWER BACK PAIN. BLOOD/PUSS IN URINE. CURRENTLY BEING TREATED FOR UTI. Sepsis Screen: No Definite Risk (BERLIN LAFLEUR MED STUDENT) History of Present Illness Date Seen by Provider: Sep 01, 2020 Time Seen by Provider: 23:26 Initial Comments Patient is a 40-year-old female who presents to the ED with the chief complaint of flank pain and blood in her urine. She states she went to urgent care 1 week ago with bladder pains and pressure, was diagnosed with a UTI and treated with a 3-day course of ciprofloxacin. She states she felt better by end of this course. She contacted her PCP at , who then switched her to a 5-day course of macrobid. night she developed bilateral flank pain, and returned to urgent care where she was started on a 7-day course of ciprofloxacin. She presents to the ED 2 hours after having an episode of moderate right flank pain with urination and noted "blood and pus" in her urine. The flank pain is nonradiating, worse on the right than left, and is agitated with sitting. She took 1g of Tylenol at the time and states it has helped dull her pain. She also some nausea with the episode and took some zofran which helped. She denies fever, chills. 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 Denies recent trauma to the area or other illness. All other review of systems reviewed and negative except as stated above. Timing/Duration: 1-3 Hours (blood in urine), 3-4 Days (flank pain, bilateral) Severity/Quality: Moderate, Cramping Location: Flank (bilateral, right worse than left) Radiation: No Radiation Activities at Onset: None, Other (blood with urination) Modifying Factors: Improves With Analgesics (Tylenol improved pain), Improves With Resting (Sitting worsens pain) Associated Symptoms: Nausea/Vomiting (BERLIN LAFLEUR MED STUDENT) Allergies and Home Medications Allergies Coded Allergies: promethazine (Verified Allergy, Mild, 01/28/16) NSAIDS (Non-Steroidal Anti-Inflamma (Verified Allergy, Unknown, 11/06/19) HAD GASTRIC BYPASS prednisone (Verified Allergy, Unknown, 11/06/19) HAD GASTRIC BYPASS Uncoded Allergies: CALCIUM CHANNEL BLOCKERS (Adverse Reaction, Unknown, weight gain, 10/21/18) Home Medications Acetaminophen 500 Mg Tablet, 1,000 MG PO Q6H, (Reported) Diphenhydramine HCl 25 Mg Capsule, 25-50 MG PO Q4H, (Reported) TAKES WITH TYLENOL PRN HEADACHE Divalproex Sodium 500 Mg Tablet.dr, 500 MG PO DAILY, (Reported) Duloxetine HCl 30 Mg Capsule.dr, 90 MG PO DAILY, (Reported) Ondansetron 4 Mg Tab.rapdis, 4 MG PO Q6H, (Reported) Oxycodone HCl/Acetaminophen 1 Each Tablet, 1 TAB PO [id number] PRN for PAIN- MODERATE, (Reported) Oxycodone HCl/Acetaminophen 1 Each Tablet, 1 TAB PO Q6H Prescribed by: SARA DIAZ on 01/23/202100 Propranolol HCl 80 Mg Tablet, 80 MG PO TID, (Reported) [lidoderm 5% patch] , 1 PATCH TD DAILY APPLY 1 PATCH TO BACK DAILY; LEAVE IN PLACE FOR 12 HOURS, THEN REMOVE. Prescribed by: SARA DIAZ on 01/23/202100 Patient Home Medication List Home Medication List Reviewed: Yes (FABIO BELLA MD) Review of Systems Review of Systems Constitutional: see HPI; No chills, No fever Respiratory: No Symptoms Reported Cardiovascular: No Symptoms Reported Gastrointestinal: See HPI; Denies Diarrhea; Nausea; Denies Vomiting Genitourinary: See HPI, Flank Pain, Hematuria, Pain (BERLIN LAFLEUR STUDENT) All Other Systems Reviewed Negative Unless Noted: Yes (Negative excepted noted.) (BERLIN LAFLEUR STUDENT) Past Ihsalmz-[id number]-[id number] Hx Patient Social History Alcohol Use: Denies Use Smoking Status: Never a Smoker 2nd Hand Smoke Exposure: No Recent Infectious Disease Expo: No Recent Hopitalizations: No (BERLIN LAFLEUR STUDENT) Immunizations Up To Date Tetanus Booster (TDap): Less than 5yrs PED Vaccines UTD: No Date of Influenza Vaccine: Feb 16, 2012 (BERLIN LAFLEUR STUDENT) Seasonal Allergies Seasonal Allergies: No (BERLIN LAFLEUR STUDENT) Past Medical History Surgeries: Yes (GASTRIC BYPASS, VIBRATING SCREEN OPERATOR Shunt) Bladder Surgery, Brain Shunt, Gallbladder, Hysterectomy, Neurological, Oophorectomy Respiratory: Yes Asthma, Pneumonia, Chronic Bronchitis Cardiac: Yes Hypertension Neurological: Yes (IDIOPATHIC INTRACRANIAL HYPERTENSION) Headaches /Migraines, Meningitis, Seizure Disorder : No 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 Genitourinary: No Gastrointestinal: Yes Gastroesophageal Reflux, Esophagitis Musculoskeletal: No Endocrine: No HEENT: No Cancer: No Psychosocial: Yes Anxiety Integumentary: Yes (ABSCESSES; SURGICAL WOUND INFECTION) Blood Disorders: No Adverse Reaction/Blood Tranf: No (BERLIN LAFLEUR STUDENT) Family Medical History Abdominal aortic aneurysm 03 FATHER Family history: Allergy 03 FATHER Family history: Arthritis 03 MOTHER 09 SISTER Family history: Hypertension 03 FATHER Physical Exam Vital Signs Vital Signs - First Documented 09/01/20 22:32 Temp 36.1 Pulse 68 Resp 18 B/P (MAP) 138/82 (100) Pulse Ox 97 O2 Delivery Room Air (FABIO BELLA MD) Vital Signs Capillary Refill : Less Than 3 Seconds (BERLIN LAFLEUR STUDENT) Height/Weight/BMI Height: 5'5.00" Weight: 295lbs. 0.0oz. [id number]; 38.00 BMI Method:Stated General Appearance: moderate distress Respiratory: lungs clear, normal breath sounds, no respiratory distress, no accessory muscle use Cardiovascular: normal peripheral pulses, regular rate, rhythm, no edema, no gallop, no JVD, no murmur Gastrointestinal: normal bowel sounds, non tender, soft, no organomegaly, no pulsatile mass Extremities: normal range of motion Back: normal inspection, no vertebral tenderness, CVA tenderness (R) (moderately tender to palpation bilaterally, right worse than left), CVA tenderness (L) Skin: normal color, warm/dry (BERLIN LAFLEUR STUDENT) Progress/Results/Core Measures Results/Orders Lab Results Laboratory Tests Test 09/01/20 22:51 09/01/20 23:45 Range/Units Urine Color YELLOW Urine Clarity CLEAR Urine pH 5.5 5-9 Urine Specific Elmer >=1.030 1.016-1.022 Urine Protein TRACE H NEGATIVE Urine Glucose (UA) NEGATIVE NEGATIVE Urine Ketones NEGATIVE NEGATIVE Urine Nitrite NEGATIVE NEGATIVE Urine Bilirubin NEGATIVE NEGATIVE Urine Urobilinogen 1.0 < = 1.0 MG/DL Urine Leukocyte Esterase NEGATIVE NEGATIVE Urine RBC (Auto) NEGATIVE NEGATIVE Urine RBC NONE /HPF Urine WBC 2-5 /HPF Urine Squamous Epithelial Cells 2-5 /HPF Urine Crystals NONE /LPF Urine Bacteria TRACE /HPF Urine Casts NONE /LPF Urine Mucus MODERATE H /LPF Urine Culture Indicated YES Sodium Level 141 135-145 MMOL/L Potassium Level 3.8 3.6-5.0 MMOL/L Chloride Level 107 98-107 MMOL/L Carbon Dioxide Level 22 21-32 MMOL/L Anion Gap 12 5-14 MMOL/L Blood Urea Nitrogen 24 H 7-18 MG/DL Creatinine 0.80 0.60-1.30 MG/DL Estimat Glomerular Filtration Rate > 60 BUN/Creatinine Ratio 30 Glucose Level 91 70-105 MG/DL Calcium Level 8.9 8.5-10.1 MG/DL (FABIO BELLA MD) My Orders Orders - FABIO BELLA MD Ua Culture If Indicated (09/01/20 22:45) Urine Culture (09/01/20 22:51) Ct Abd/Pelvis Wo(Kidney Stone) (09/01/20 23:11) Ed Iv/Invasive Line Start (09/01/20 23:12) Basic Metabolic Panel (09/01/20 23:13) Fentanyl Inj (Sublimaze Injection) (09/01/20 23:30) Ns Iv 1000 Ml (Sodium Chloride 0.9%) (09/01/20 23:30) (FABIO BELLA MD) Medications Given in ED (FABIO BELLA MD) Vital Signs/I&O 09/01/20 09/02/20 22:32 00:35 Temp 36.1 36.0 Pulse 68 58 Resp 18 16 B/P (MAP) 138/82 (100) 110/60 (100) Pulse Ox 97 95 O2 Delivery Room Air Room Air (FABIO BELLA MD) Blood Pressure Mean: 100 Progress Progress Note : Time: 00:30 Progress Note Patient states she is feeling much better rates her discomfort at a "dull 2". Patient has been informed of the results of her CAT scan which include no obstructive uropathy, no bowel obstruction or ileus, no abnormal fluid collections. Her urine is clean. Her renal function is normal. At this point I do not have a solid diagnosis as to the etiology of her right flank pain. I have advised that she drink plenty of fluids at home and take Tylenol and/or ibuprofen and follow-up with her physician at . She verbalizes understanding and is comfortable with this plan of care. All questions have been sought and answered. Patient is stable for discharge. (FABIO BELLA MD) Diagnostic Imaging Diagonstic Imaging: CT Plain Films/CT/US/NM/MRI: abdomen, pelvis Comments Stat rad reading shows #1 no obstructive uropathy. Punctate nonobstructing calcifications in the lower pole of the left kidney. Contracted urinary bladder. #2 peritoneal shunt catheter tip within the pelvis with mild lower free pelvic fluid. No abnormal fluid collection associated with the catheter tip. #3 upper changes to the stomach and small bowel consistent with prior surg haylee. No bowel obstruction or ileus. #4 status post cholecystectomy. (FABIO BELLA MD) Departure Impression Primary Impression: Abdominal pain Qualified Codes: R10.31 - Right lower quadrant pain Disposition: HOME, SELF-CARE Condition: Stable Departure-Patient Inst. Decision time for Depature: 00:31 (FABIO BELLA MD) Referrals: NO,LOCAL PHYSICIAN (PCP/Family) Primary Care Physician Patient Instructions: Abdominal Pain, Adult ED Add. Discharge Instructions: Drink plenty of fluids to stay well-hydrated. Alternate Tylenol and ibuprofen as needed for pain. Follow-up with your primary care physician this week. Come back to the emergency room for return of pain especially with nausea, vomiting fever or any other emergent concerning symptoms. I have seen and examined the patient obtained a history and physical examination. I agree with the med student's documentation. Medical decision making as well as history and physical were also done by me. (FABIO BELLA MD) BERLIN LAFLEUR MED STUDENT Sep 01, 2020 23:31 FABIO BELLA MD Sep 02, 2020 00:33
[2020-09-02 00:03] LABS: CHLORIDE 107 MMOL/L (98-107); POTASSIUM 3.8 MMOL/L (3.6-5.0); SODIUM 141 MMOL/L (135-145)
[2020-09-02 00:04] LABS: CALCIUM 8.9 MG/DL (8.5-10.1)
[2020-09-02 00:05] LABS: GLUCOSE 91 MG/DL (70-105)
[2020-09-02 00:06] LABS: CARBON DIOXIDE 22 MMOL/L (21-32)
[2020-09-02 00:09] LABS: BUN/CREATININE RATIO 30; GFR ESTIMATED > 60
[2020-09-02 00:35] VITALS: BP 110/60
--- NOTE | 2020-09-02 06:12 | Diagnostic Imaging Report ---
PROCEDURE: CT urinary tract, rule out kidney stone. TECHNIQUE: Multiple contiguous axial images were obtained through the abdomen and pelvis without the use of intravenous contrast. Auto Exposure Controls were utilized during the CT exam to meet ALARA standards for radiation dose reduction. INDICATION: Right flank pain, hematuria The previous CT chest, abdomen, and pelvis exam of 01/23/2020 failed to show any sign of an acute abnormality. On this study, there is a small 5 mm nonobstructive calculus in the inferior pole of the left kidney. This finding is also present on the prior exam and has not changed. There is no sign of nephrolithiasis on the right and there is no evidence for urolithiasis of either collecting system. The kidneys do not appear to be enlarged and there is no distortion of the perinephric fat to suggest obstruction. The bladder is only partially filled and consequently not well evaluated. There is no obvious bladder abnormality evident. There is no acute abnormality of the abdomen or pelvis noted otherwise. As seen on the prior exam, there are postsurgical changes involving the stomach and the gallbladder and uterus are surgically absent. The ventriculoperitoneal shunt seen previously is also again evident. The shunt, where visualized, seems to be intact. There is a small amount of free fluid low in the pelvis. This is nonspecific. The liver, spleen, pancreas, adrenals, aorta and inferior vena cava show no sign of an acute abnormality. The lung bases are clear. There is no obvious breast mass. The bone windows are unremarkable for a fracture or for destructive lesion. IMPRESSION: 1. There is a small nonobstructive calculus in the inferior pole of the left kidney. There is no evidence for obstruction of either collecting system and no other acute abnormality of the kidneys is noted. 2. There is no acute abnormality of the abdomen or pelvis noted. 3. There are postsurgical changes involving the stomach and the gallbladder and uterus are surgically absent. 4. I agree with the [facility] interpretation of this exam. Dictated by: Dictated on workstation # [id number]
== END 2020-09-02 00:38 | disposition home or self-care (01) ==
LOC: EDUNIT# 22:21 → ER 22:23
DX: R10.31 Right lower quadrant pain (principal); N28.89 Other specified disorders of kidney and ureter; I10 Essential (primary) hypertension; F41.9 Anxiety disorder, unspecified; G40.909 Epilepsy, unspecified, not intractable, without status epilepticus; G43.909 Migraine, unspecified, not intractable, without status migrainosus; K21.00 Gastro-esophageal reflux disease with esophagitis, without bleeding; J45.909 Unspecified asthma, uncomplicated; Z96.0 Presence of urogenital implants; Z95.1 Presence of aortocoronary bypass graft; Z98.2 Presence of cerebrospinal fluid drainage device; Z79.2 Long term (current) use of antibiotics; Z88.6 Allergy status to analgesic agent; Z88.8 Allergy status to other drugs, medicaments and biological substances
CPT/HCPCS: 36415; 74176; 80048; 81000; 87088

== ENCOUNTER 2021-01-25 11:57 | Outpatient (CLI) | payer BC, MEDICARE ==
[~2021-01-25 11:57] MED LIST changes: +MIRT-69 PO; -MIRT30TA6 PO; -OMEP40CA27 PO; +OMEP40CA6 PO; -SULF1TAB35 PO; +SULF1TAB38 PO
[2021-01-25 11:58] VITALS: BP 127/54
[2021-01-25] MEDS ORDERED: diphenhydrAMINE 50 MG/ML INJ (BENADRYL) IV PRN (12:15)
[2021-01-25] MEDS ORDERED: CASIRIVIMAB/IMDEVIMAB 1,200 MG in NS (IVPB) 250 ML IV ONE (12:15)
[2021-01-25] MEDS ORDERED: EPINEPHrine INJECTION 1 MG/ML AMP IM PRN (12:15)
[2021-01-25] MEDS ORDERED: ACETAMINOPHEN 500 MG TAB (TYLENOL) PO PRN (12:15)
[2021-01-25] MEDS ORDERED: ONDANSETRON 4 MG/2 ML (SDV) Z0FRAN IV PRN (12:15)
[2021-01-25 13:30] VITALS: BP 114/68
== END 2021-01-25 13:53 | disposition home or self-care (01) ==
LOC: INFUSION 11:57
PROVIDERS: ATTEND Nurse Practitioner Family
DX: Z23 Encounter for immunization (principal); U07.1 COVID-19

== ENCOUNTER 2021-02-01 20:59 | Emergency (ER) | payer BC, MEDICARE ==
[~2021-02-01] VITALS: Ht 167.7 cm; Wt 100.0 kg
[2021-02-01 21:16] VITALS: BP 129/67
[2021-02-01 22:09] LABS: BASOPHILS % (AUTO) 0 % (0-10); EOSINOPHILS # (AUTO) 0.2 10^3/uL (0.0-0.3); EOSINOPHILS % (AUTO) 2 % (0-10); HEMATOCRIT 38 % (35-52); HEMOGLOBIN 12.7 g/dL (11.5-16.0); LYMPHOCYTES # (AUTO) 3.6 10^3/uL (1.0-4.0); LYMPHOCYTES % (AUTO) 47 % (12-44); MEAN CORPUSCULAR HEMOGLOBIN 31 pg (25-34); MEAN CORPUSCULAR HGB CONC 34 g/dL (32-36); MEAN CORPUSCULAR VOLUME 92 fL (80-99); MEAN PLATELET VOLUME 9.6 fL (9.0-12.2); MONOCYTES # (AUTO) 0.6 10^3/uL (0.0-1.0); MONOCYTES % (AUTO) 8 % (0-12); NEUTROPHILS # (AUTO) 3.2 10^3/uL (1.8-7.8); NEUTROPHILS % (AUTO) 42 % (42-75); PLATELET COUNT 346 10^3/uL (130-400); WHITE BLOOD COUNT 7.6 10^3/uL (4.3-11.0)
--- NOTE | 2021-02-01 22:12 | ED Neurological Problem ---
General Chief Complaint: Neurological Problems Stated Complaint: CAMP,DOUBLE VISION,FELL Nursing Triage Note: Pt arrival to ER with daughter with complaint of CAMP/Unstable Gait/Vision Changes since this afternoon. Pt and daughter states that these are normal symptoms for her when her FINANCIAL AGENT shunt is blocked and needs tapped. Pt usually gets tapped ever 1-2 months. Due to recent covid diagnosis patient wasn't able to get procedure done. Pt has history of Idiopathic Intracranial Hypertension. Headache Pain at a 02/24. Source: patient History of Present Illness Date Seen by Provider: Feb 01, 2021 Time Seen by Provider: 21:53 Initial Comments PT ARRIVES VIA POV FROM HOME STATES SHE NEEDS TO BE TRANSFERRED TO FOR SPINAL TAP PT WITH LONGSTANDING HISTORY OF PSEUDOTUMOR CEREBRI AND IDIOPATHIC INTRACRANIAL HYPERTENSION PT HAS HAD MULTIPLE FINANCIAL AGENT SHUNTS--CURRENTLY HAS RIGHT FINANCIAL AGENT SHUNT PLACED 10/2019 WAS LAST CHECKED ABOUT 2 MONTHS AGO AT AND WAS FUNCTIONING NORMALLY STATES "I GET TAPPED EVERY 1-2 MONTHS" STATES SHE MISSED HER APPOINTMENT TO GET IT DONE THIS MONTH, BECAUSE SHE AND HER DAUGHTER BOTH HAD COVID--PT BEGAN HAVING SYMPTOMS ON 01/21/21, TESTED + ON 01/24/21 AND HAD BAM INFUSION 02/24/21--PT STATES SHE "JUST GOT OFF 10 DAY QUARANTINE FROM THE HEALTH DEPARTMENT" PT DENIES FEVER DENIES COUGH DENIES SHORTNESS OF BREATH PT HAS CHRONIC HEADACHES--"HAVE HAD THEM ALL OF MY LIFE" STATES SHE HAS CHRONIC NAUSEA--HAS COMPAZINE AT HOME STATES HEADACHE IS RIGHT FRONTAL AREA AND IS TYPICAL "WHEN MY SHUNT GETS BLOCKED" STATES HER VISION IS BLURRY STATES SHE HAS AN UNSTEADY GAIT, AND TODAY SHE STARTED TO STEP OVER AN OBJECT AND LOST HER BALANCE AND FELL, LANDING ON BOTH KNEES--DENIES ANY INJURY FROM THE FALL AND DID NOT HIT HER HEAD SYMPTOMS ARE NO DIFFERENT TONIGHT TAKES FIORCET ON REGULAR BASIS--TOOK 1 A COUPLE OF HOURS AGO ALSO TAKES COMPAZINE ON A REGULAR BASIS STATES THESE HAVE NOT HELPED STATES "THE ONLY THING THAT HELPS IS A SPINAL TAP" STATES "I NEED ANOTHER SHUNT BUT THEY CAN'T SAFELY DO IT" STATES " ALWAYS PUTS ME IN THE HOSPITAL AND THEY DO IR SPINAL TAPS BECAUSE I ALWAYS HAVE LEAKS" LAST ONE WAS 2 MONTHS AGO STATES SHE SAW HER "EPILEPSY DR" ON 12/20/20--SHUNT WAS WORKING FINE THEN, PER PT PT HAS 3 APPOINTMENTS AT NEXT WEEK, INCLUDING ENT STATES "I LEAK CSF OUT OF MY RIGHT EAR AND THE RIGHT SIDE OF MY NOSE WHEN MY PRESSURE GETS TOO HIGH" --NOT LEAKING NOW PCP: [facility] AT Allergies and Home Medications Allergies Coded Allergies: promethazine (Verified Allergy, Mild, 01/28/16) NSAIDS (Non-Steroidal Anti-Inflamma (Verified Allergy, Unknown, 11/06/19) HAD GASTRIC BYPASS prednisone (Verified Allergy, Unknown, 11/06/19) HAD GASTRIC BYPASS Uncoded Allergies: CALCIUM CHANNEL BLOCKERS (Adverse Reaction, Unknown, weight gain, 10/21/18) Patient Home Medication List Home Medication List Reviewed: Yes Acetaminophen (Tylenol Extra Strength) 500 Mg Tablet, 1,000 MG PO Q6H, (Reported) Entered as Reported by: BHAVIK TORRES on 08/23/19 1129 Diphenhydramine HCl (Benadryl) 25 Mg Capsule, 25-50 MG PO Q4H, (Reported) Entered as Reported by: BHAVIK TORRES on 08/23/19 1129 Divalproex Sodium (Depakote) 500 Mg Tablet.dr, 500 MG PO DAILY, (Reported) Entered as Reported by: BHAVIK TORRES on 08/23/19 1129 Duloxetine HCl (Cymbalta) 30 Mg Capsule.dr, 90 MG PO DAILY, (Reported) Entered as Reported by: BHAVIK TORRES on 08/23/19 1125 Ondansetron (Ondansetron Odt) 4 Mg Tab.rapdis, 4 MG PO Q6H, (Reported) Entered as Reported by: BHAVIK TORRES on 08/23/19 1125 Oxycodone HCl/Acetaminophen (Percocet 10-325 mg Tablet) 1 Each Tablet, 1 TAB PO [id number] PRN for PAIN-MODERATE, (Reported) Entered as Reported by: BHAVIK TORRES on 08/23/19 1129 Oxycodone HCl/Acetaminophen (Percocet 5-325 mg Tablet) 1 Each Tablet, 1 TAB PO Q6H Prescribed by: SARA DIAZ on 01/23/20 2101 Propranolol HCl (Propranolol HCl) 80 Mg Tablet, 80 MG PO TID, (Reported) Entered as Reported by: JOSS LYLES on 03/08/16 1052 [lidoderm 5% patch] , 1 PATCH TD DAILY Prescribed by: SARA DIAZ on 01/23/202100 Review of Systems Review of Systems Constitutional: no symptoms reported Eyes: See HPI, Blurred Vision Ears, Nose, Mouth, Throat: see HPI Respiratory: no symptoms reported Cardiovascular: no symptoms reported Gastrointestinal: see HPI, nausea; No vomiting Genitourinary: no symptoms reported Musculoskeletal: no symptoms reported; No back pain, No neck pain Skin: no symptoms reported Psychiatric/Neurological: See HPI; Denies Cognitive Dysfunction; Headache; Denies Numbness, Denies Tingling, Denies Tonic Clonic Seizures, Denies Weakness Endocrine: No Symptoms Reported Hematologic/Lymphatic: No Symptoms Reported Past [id number]-Mahgbf-Syikwy Hx Patient Social History Tobacco Use?: No Use of E-Cig and/or Vaping dev: No Substance use?: Yes Substance type: Opiates/Opioids Additional substance use comme: 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 SHUNT PLACED ON LEFT 6 WEEKS LATER. SURGICAL WOUND DEHISCED AND GOT INFECTED--GREW OUT ENTEROCOCCUS FAECALIS AND STAPH EPIDERMIDIS IN WOUND AND IN CSF AND WAS DX WITH MENINGITIS--PER PT. THAT SHUNT WAS REMOVED 10/07/18 AND PT RECEIVED IV VANCOMYCIN VIA A PICC LINE AFTER THAT. ALL THESE WERE DONE AT . 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 Genitourinary: No Gastrointestinal: Yes (GASTRIC BYPASS) Gastroesophageal Reflux, Esophagitis Musculoskeletal: No Endocrine: Yes (MORBID OBESITY) HEENT: No Cancer: No Psychosocial: Yes Anxiety Integumentary: Yes (ABSCESSES; SURGICAL WOUND INFECTION) Blood Disorders: No Adverse Reaction/Blood Tranf: No Family Medical History Abdominal aortic aneurysm 03 FATHER Family history: Allergy 03 FATHER Family history: Arthritis 03 MOTHER 09 SISTER Family history: Hypertension 03 FATHER PT HAD BOTH MODERNA COVID-19 VACCINES -SECOND ONE 08/2020 PT HAD COVID--SYMPTOMS BEGAN ON 01/21/21, TESTED + ON 10/24/20, HAD BAM INFUSION 01/25/21 DAUGHTER ALSO TESTED + FOR COVID AROUND THAT SAME TIME, AND DAUGHTER ALSO HAD BAM INFUSION Physical Exam Vital Signs Vital Signs - First Documented 02/01/21 21:16 Temp 35.9 Pulse 67 Resp 16 B/P (MAP) 129/67 (87) Pulse Ox 98 O2 Delivery Room Air Capillary Refill : Less Than 3 Seconds Height, Weight, BMI Height: 5'5.00" Weight: 295lbs. 0.0oz. 133.271556ln; 35.00 BMI Method:Stated General Appearance: WD/WN, no apparent distress, obese HEENT: PERRL/EOMI, normal ENT inspection, TMs normal, pharynx normal Neck: non-tender, full range of motion, supple, normal inspection Respiratory: normal breath sounds, no respiratory distress, no accessory muscle use Cardiovascular: regular rate, rhythm, no murmur Gastrointestinal: non tender, soft Extremities: normal inspection Neurologic/Psychiatric: photovoltaic technician II-XII nml as tested, no motor/sensory deficits, alert, normal mood/affect, oriented x 3; No abnormal cerebellar tests Crainal Nerves: normal hearing, normal speech, PERRL Coordination/Gait: normal gait Motor/Sensory: no motor deficit, no sensory deficit, no pronator drift Skin: normal color, warm/dry Progress/Results/Core Measures Results/Orders Lab Results Laboratory Tests Test 02/01/21 22:02 Range/Units White Blood Count 7.6 4.3-11.0 10^3/uL Red Blood Count 4.13 3.80-5.11 10^6/uL Hemoglobin 12.7 11.5-16.0 g/dL Hematocrit 38 35-52 % Mean Corpuscular Volume 92 80-99 fL Mean Corpuscular Hemoglobin 31 25-34 pg Mean Corpuscular Hemoglobin Concent 34 32-36 g/dL Red Cell Distribution Width 13.0 10.0-14.5 % Platelet Count 346 130-400 10^3/uL Mean Platelet Volume 9.6 9.0-12.2 fL Immature Granulocyte % (Auto) 0 % Neutrophils (%) (Auto) 42 42-75 % Lymphocytes (%) (Auto) 47 H 12-44 % Monocytes (%) (Auto) 8 0-12 % Eosinophils (%) (Auto) 2 0-10 % Basophils (%) (Auto) 0 0-10 % Neutrophils # (Auto) 3.2 1.8-7.8 10^3/uL Lymphocytes # (Auto) 3.6 1.0-4.0 10^3/uL Monocytes # (Auto) 0.6 0.0-1.0 10^3/uL Eosinophils # (Auto) 0.2 0.0-0.3 10^3/uL Basophils # (Auto) 0.0 0.0-0.1 10^3/uL Immature Granulocyte # (Auto) 0.0 0.0-0.1 10^3/uL Prothrombin Time 13.1 12.2-14.7 SEC INR Comment 1.0 0.8-1.4 Activated Partial Thromboplast Time 28 24-35 SEC Sodium Level 141 135-145 MMOL/L Potassium Level 4.5 3.6-5.0 MMOL/L Chloride Level 108 H 98-107 MMOL/L Carbon Dioxide Level 20 L 21-32 MMOL/L Anion Gap 13 5-14 MMOL/L Blood Urea Nitrogen 21 H 7-18 MG/DL Creatinine 0.85 0.60-1.30 MG/DL Estimat Glomerular Filtration Rate 73 BUN/Creatinine Ratio 25 Glucose Level 96 70-105 MG/DL Calcium Level 9.0 8.5-10.1 MG/DL Corrected Calcium 8.9 8.5-10.1 MG/DL Magnesium Level 2.4 1.6-2.4 MG/DL Total Bilirubin 0.2 0.1-1.0 MG/DL Aspartate Amino Transf (AST/SGOT) 18 5-34 U/L Alanine Aminotransferase (ALT/SGPT) 24 0-55 U/L Alkaline Phosphatase 94 40-136 U/L Total Protein 6.8 6.4-8.2 GM/DL Albumin 4.1 3.2-4.5 GM/DL Serum Test, Qualitative NEGATIVE NEGATIVE My Orders Orders - JOSE CARLOS NAYLOR DO Ed Iv/Invasive Line Start (02/01/21 21:53) Cbc With Automated Diff (02/01/21 21:53) Comprehensive Metabolic Panel (02/01/21 21:53) Hcg,Qualitative Serum (02/01/21 21:53) Protime With Inr (02/01/21 21:53) Partial Thromboplastin Time (02/01/21 21:53) Ct Head Wo (02/01/21 21:53) Magnesium (02/01/21 22:01) Ed Iv/Invasive Line Start (02/01/21 23:08) Lactated Ringers (Lr 1000 Ml Iv Solution (02/01/21 23:15) Fentanyl Inj (Sublimaze Injection) (02/01/21 23:08) Prochlorperazine Injection (Compazine In (02/01/21 23:15) Diphenhydramine Injection (Benadryl Inje (02/01/21 23:15) Medications Given in ED Current Medications Medications Dose Ordered Sig/Kelly Route Start Time Stop Time Status Last Admin Dose Admin Lactated Ringer's 1,000 ml @ 0 mls/hr Q0M ONCE IV 02/01/21 23:15 02/01/21 23:16 DC 02/01/21 23:20 1,000 MLS/HR Prochlorperazine Edisylate 10 mg ONCE ONCE IV 02/01/21 23:15 02/01/21 23:16 DC 02/01/21 23:20 10 MG Vital Signs/I&O 02/01/21 21:16 Temp 35.9 Pulse 67 Resp 16 B/P (MAP) 129/67 (87) Pulse Ox 98 O2 Delivery Room Air Blood Pressure Mean: 87 Progress Progress Note : Progress Note GIVEN IV FENTANYL, COMPAZINE, BENADRYL--REFUSED IV FLUIDS AND WALKED OUT LITERALLY SOON SHE GOT HER MEDICATIONS--LEFT WITHOUT DISCHARGE INSTRUCTIONS PT WALKED OUT OF ER ON HER OWN NO DETERIORATION IN PT'S CONDITION DURING ER STAY Diagnostic Imaging Comments CT HEAD---PER RADIOLOGIST REPORT AT 2242 FINDINGS: No intracranial hyperdense hemorrhage or space-occupying mass. Stable right frontal approach ventriculostomy catheter with tip terminating near the midline. The ventricles remain slitlike in nature, stable since prior exam. Basilar cisterns are patent. Kellogg-white matter differentiation is preserved. No skull fracture. Paranasal sinuses and mastoid air cells are clear. IMPRESSION: 1. No acute intracranial process by CT. 2. Stable appearance of AP shunt catheter without hydronephrosis. Reviewed: Reviewed by Me Departure Communication (Admissions) 2244--CALLED [facility]. PAGING NEUROLOGIST ADMINISTRATIVE OFFICER 2302--DR. GARZA, NEUROLOGIST ADMINISTRATIVE OFFICER. HE DOES NOT ADVISE NEED FOR SPINAL TAP AT THIS TIME. ADVISES TO GIVE PAIN AND NAUSEA MEDICATIONS HERE AND HAVE PT FOLLOW UP IN CLINIC NEXT WEEK. Impression Primary Impression: Chronic headache disorder Additional Impressions: HX OF PSEUDOTUMOR CEREBRI History of idiopathic intracranial hypertension Disposition: HOME, SELF-CARE Condition: Stable Departure-Patient Inst. Decision time for Depature: 23:10 Referrals: NO,LOCAL PHYSICIAN (PCP/Family) Primary Care Physician Patient Instructions: Headache, Adult ED, Idiopathic Intracranial Hypertension (DC) Add. Discharge Instructions: CONTINUE YOUR REGULAR MEDICATIONS PRESCRIBED FOLLOW UP WITH [facility] NEXT WEEK SCHEDULED, INCLUDING FOLLOW UP WITH YOUR NEUROLOGIST GO TO [facility] IF YOUR SYMPTOMS WORSEN All discharge instructions reviewed with patient and/or family. Voiced understanding. JOSE CARLOS NAYLOR DO Feb 01, 2021 22:12
[2021-02-01 22:18] LABS: ALBUMIN 4.1 GM/DL (3.2-4.5); POTASSIUM 4.5 MMOL/L (3.6-5.0)
[2021-02-01 22:21] LABS: PROTHROMBIN TIME PATIENT 13.1 SEC (12.2-14.7); TOTAL PROTEIN 6.8 GM/DL (6.4-8.2)
[2021-02-01 22:22] LABS: BILIRUBIN,TOTAL 0.2 MG/DL (0.1-1.0)
[2021-02-01 22:24] LABS: CREATININE SERUM 0.85 MG/DL (0.60-1.30)
--- NOTE | 2021-02-01 22:26 | Diagnostic Imaging Report ---
PROCEDURE: CT head without contrast. TECHNIQUE: Multiple contiguous axial images were obtained through the brain without the use of intravenous contrast. Auto Exposure Controls were utilized during the CT exam to meet ALARA standards for radiation dose reduction. INDICATION: Headache. History of intracranial hemorrhage. COMPARISON: CT head of 06/14/2020. FINDINGS: No intracranial hyperdense hemorrhage or space-occupying mass. Stable right frontal approach ventriculostomy catheter with tip terminating near the midline. The ventricles remain slitlike in nature, stable since prior exam. Basilar cisterns are patent. Kelolgg-white matter differentiation is preserved. No skull fracture. Paranasal sinuses and mastoid air cells are clear. IMPRESSION: 1. No acute intracranial process by CT. 2. Stable appearance of AP shunt catheter without hydronephrosis. Dictated by: Dictated on workstation # [id number]
[2021-02-01 22:27] LABS: MAGNESIUM 2.4 MG/DL (1.6-2.4)
[2021-02-01] MEDS ORDERED: fentaNYL INJ 100 MCG/2 ML AMP IVP STA (23:08)
[2021-02-01] MEDS ORDERED: LACTATED RINGERS 1,000 ML IV ONE (23:15)
[2021-02-01] MEDS ORDERED: PROCHLORPERAZINE 10 MG/2ML INJ (COMPAZINE) IV ONE (23:15)
[2021-02-01] MEDS: diphenhydrAMINE 50 MG/ML INJ (BENADRYL) IVP ONE ×2 (23:20→23:27)
== END 2021-02-01 23:36 | disposition home or self-care (01) ==
LOC: EDUNIT# 20:59 → ER 21:01
DX: R51.9 Headache, unspecified (principal); I10 Essential (primary) hypertension; J45.909 Unspecified asthma, uncomplicated; G40.909 Epilepsy, unspecified, not intractable, without status epilepticus; F41.9 Anxiety disorder, unspecified; E66.01 Morbid (severe) obesity due to excess calories; Z86.011 Personal history of benign neoplasm of the brain; Z86.69 Personal history of other diseases of the nervous system and sense organs; Z32.02 Encounter for pregnancy test, result negative; Z68.35 Body mass index [BMI] 35.0-35.9, adult; Z86.61 Personal history of infections of the central nervous system; Z98.2 Presence of cerebrospinal fluid drainage device; Z79.899 Other long term (current) drug therapy
CPT/HCPCS: 36415; 70450; 80053; 83735; 84703; 85025; 85610; 85730; 96374; 96375

== ENCOUNTER 2022-03-20 10:01 | Emergency (ER) | payer MEDICARE, BC ==
[~2022-03-20] VITALS: Ht 162 cm; Wt 100.0 kg
[~2022-03-20 10:01] MED LIST changes: +CLIN-144 PO; -CLIN300C12 PO; -DULO60CA6 PO; +DULO60CA7 PO; -VERA120T10 PO; +VERA120T74 PO
[2022-03-20] MEDS ORDERED: morphine INJ 10 MG/ML 1ML (SYR OR VIAL) IVP STA ×2 (10:20→14:00)
[2022-03-20] MEDS ORDERED: NS IV 1000 ML 1,000 ML IV STA (10:20)
--- NOTE | 2022-03-20 10:28 | ED Back Pain ---
General Chief Complaint: Back Problems Stated Complaint: TASH FLANK PAIN Nursing Triage Note: PT REPORTS BILATERAL BACK PAIN SINCE THURSDAY. SHE WAS CHANGED TO [facility] FOR A UTI ON THURSDAY BUT DID NOT GET HER PRESCRIPTION UNTIL THURSDAY. Source of Information: Patient, RN/MD Exam Limitations: No Limitations History of Present Illness Date Seen by Provider: Mar 20, 2022 Time Seen by Provider: 10:02 Initial Comments 41-year-old female with past medical history of IIH with shunt and chronic UTIs coming in as referral from [facility] due to concerns for left flank pain with known UTI. Started having flank pain on Thursday, went to [facility] on Thursday. Labs there were essentially unremarkable other than nitrites in her urine (has been on pyridium) urine culture grew out staph epidermidis and they have her on nitrofurantoin which she has been taking. It is sensitive to that on the culture. Her flank pain has been persistent so she has been taking ibuprofen at home as well as her hydrocodone. Went to [facility], and was referred here for further evaluation and management. She believes she could have had a fever yesterday. Denies any chest pain, shortness of breath, new headaches, neck stiffness, diarrhea, weakness, numbness, vision changes, or any other concerns. Allergies and Home Medications Allergies Coded Allergies: promethazine (Verified Allergy, Mild, 01/28/16) NSAIDS (Non-Steroidal Anti-Inflamma (Verified Allergy, Unknown, 11/06/19) HAD GASTRIC BYPASS prednisone (Verified Allergy, Unknown, 11/06/19) HAD GASTRIC BYPASS Uncoded Allergies: CALCIUM CHANNEL BLOCKERS (Adverse Reaction, Unknown, weight gain, 10/21/18) Patient Home Medication List Home Medication List Reviewed: Yes Acetaminophen (Tylenol Extra Strength) 500 Mg Tablet, 1,000 MG PO Q6H, (Reported) Entered as Reported by: BHAVIK TORRES on 08/23/19 1129 Diphenhydramine HCl (Benadryl) 25 Mg Capsule, 25-50 MG PO Q4H, (Reported) Entered as Reported by: BHAVIK TORRES on 08/23/19 1129 Divalproex Sodium (Depakote) 500 Mg Tablet.dr, 500 MG PO DAILY, (Reported) Entered as Reported by: BHAVIK TORRES on 08/23/19 1129 Duloxetine HCl (Cymbalta) 30 Mg Capsule.dr, 90 MG PO DAILY, (Reported) Entered as Reported by: BHAVIK TORRES on 08/23/19 112 Ondansetron (Ondansetron Odt) 4 Mg Tab.rapdis, 4 MG PO Q6H, (Reported) Entered as Reported by: BHAVIK TORRES on 08/23/19 1125 Oxycodone HCl/Acetaminophen (Percocet 10-325 mg Tablet) 1 Each Tablet, 1 TAB PO [id number] PRN for PAIN-MODERATE, (Reported) Entered as Reported by: BHAVIK TORRES on 08/23/19 1129 Oxycodone HCl/Acetaminophen (Percocet 5-325 mg Tablet) 1 Each Tablet, 1 TAB PO Q6H Prescribed by: SARA DIAZ on 01/23/202100 Propranolol HCl (Propranolol HCl) 80 Mg Tablet, 80 MG PO TID, (Reported) Entered as Reported by: JOSS LYLES on 03/08/16 1052 [lidoderm 5% patch] , 1 PATCH TD DAILY Prescribed by: SARA DIAZ on 01/23/202100 Review of Systems Constitutional: fever, malaise EENTM: No blurred vision Respiratory: No cough Cardiovascular: No chest pain Gastrointestinal: No diarrhea Genitourinary: see HPI Musculoskeletal: no symptoms reported Skin: no symptoms reported Psychiatric/Neurological: No Symptoms Reported All Other Systems Reviewed Negative Unless Noted: Yes Past Mopfboh-Zhxpex-Bdccdm Hx Patient Social History Tobacco Use?: No Use of E-Cig and/or Vaping dev: No Substance use?: No Alcohol Use?: No Pt feels they are or have been: No Immunizations Up To Date Tetanus Booster (TDap): Less than 5yrs PED Vaccines UTD: No First/Initial COVID19 Vaccinat: 10/05 Second COVID19 Vaccination Richi: 10/05 Third COVID19 Vaccination Date: 10/05 Seasonal Allergies Seasonal Allergies: No Past Medical History Surgery/Hospitalization HX: DX PSEUDOTUMOR CEREBRI AT [facility] 2014 RIGHT PERCH MENDER SHUNT PLACED AT 201507/20/2018--RIGHT SHUNT QUIT WORKING AND WAS REMOVED AND REVISED AT , IT GOT INFECTED AND RIGHT SHUNT WAS REPLACED, THEN LATER REMOVED. SHUNT PLACED ON LEFT 6 WEEKS LATER. SURGICAL WOUND DEHISCED AND GOT INFECTED--GREW OUT ENTEROCOCCUS FAECALIS AND STAPH EPIDERMIDIS IN WOUND AND IN CSF AND WAS DX WITH MENINGITIS--PER PT. THAT SHUNT WAS REMOVED 10/07/18 AND PT RECEIVED IV VANCOMYCIN VIA A PICC LINE AFTER THAT. ALL THESE WERE DONE AT . 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 Genitourinary: No Gastrointestinal: Yes (GASTRIC BYPASS) Gastroesophageal Reflux, Esophagitis Musculoskeletal: No Endocrine: Yes (MORBID OBESITY) HEENT: No Cancer: No Psychosocial: Yes Anxiety Integumentary: Yes (ABSCESSES; SURGICAL WOUND INFECTION) Blood Disorders: No Adverse Reaction/Blood Tranf: No Family Medical History Abdominal aortic aneurysm 03 FATHER Family history: Allergy 03 FATHER Family history: Arthritis 03 MOTHER 09 SISTER Family history: Hypertension 03 FATHER PT HAD BOTH MODERNA COVID-19 VACCINES -SECOND ONE 08/2020 PT HAD COVID--SYMPTOMS BEGAN ON 01/21/21, TESTED + ON 10/24/20, HAD BAM INFUSION 01/25/21 DAUGHTER ALSO TESTED + FOR COVID AROUND THAT SAME TIME, AND DAUGHTER ALSO HAD BAM INFUSION Physical Exam Vital Signs Vital Signs - First Documented 03/20/22 10:01 Temp 36.4 Pulse 76 Resp 16 B/P (MAP) 149/94 (112) Pulse Ox 96 O2 Delivery Room Air Capillary Refill : Less Than 3 Seconds Height, Weight, BMI Height: 5'5.00" Weight: 295lbs. 0.0oz. [id number]; 38.00 BMI Method:Stated General Appearance: WD/WN, Anxious HEENT: PERRL/EOMI, Normal ENT Inspection, Pharynx Normal Neck: Full Range of Motion, Normal Inspection, Non Tender, Supple Cardiovascular: Regular Rate, Rhythm, No Edema, Normal Peripheral Pulses Respiratory: Chest Non Tender, Lungs Clear, Normal Breath Sounds, No Accessory Muscle Use, No Respiratory Distress Gastrointestinal: Normal Bowel Sounds, Non Tender, Soft; No Distended, No Guarding Back: Normal Inspection, No Vertebral Tenderness, CVA Tenderness (L), CVA Tenderness (R) Extremity: Normal Capillary Refill, Normal Inspection, Normal Range of Motion, Non Tender, No Calf Tenderness, No Pedal Edema Neurologic/Psychiatric: Alert, No Motor/Sensory Deficits, Normal Mood/Affect Skin: Normal Color, Warm/Dry Lymphatic: No Adenopathy Progress/Results/Core Measures Results/Orders Lab Results Laboratory Tests Test 03/20/22 10:20 03/20/22 13:27 Range/Units White Blood Count 7.1 4.3-11.0 10^3/uL Red Blood Count 4.01 3.80-5.11 10^6/uL Hemoglobin 12.3 11.5-16.0 g/dL Hematocrit 37 35-52 % Mean Corpuscular Volume 93 80-99 fL Mean Corpuscular Hemoglobin 31 25-34 pg Mean Corpuscular Hemoglobin Concent 33 32-36 g/dL Red Cell Distribution Width 12.3 10.0-14.5 % Platelet Count 305 130-400 10^3/uL Mean Platelet Volume 10.3 9.0-12.2 fL Immature Granulocyte % (Auto) 0 % Neutrophils (%) (Auto) 61 42-75 % Lymphocytes (%) (Auto) 25 12-44 % Monocytes (%) (Auto) 6 0-12 % Eosinophils (%) (Auto) 7 0-10 % Basophils (%) (Auto) 1 0-10 % Neutrophils # (Auto) 4.3 1.8-7.8 10^3/uL Lymphocytes # (Auto) 1.8 1.0-4.0 10^3/uL Monocytes # (Auto) 0.4 0.0-1.0 10^3/uL Eosinophils # (Auto) 0.5 H 0.0-0.3 10^3/uL Basophils # (Auto) 0.1 0.0-0.1 10^3/uL Immature Granulocyte # (Auto) 0.0 0.0-0.1 10^3/uL Urine Color ORANGE Urine Clarity CLEAR Urine pH 7.0 5-9 Urine Specific [place] 1.010 L 1.016-1.022 Urine Protein TRACE H NEGATIVE Urine Glucose (UA) TRACE H NEGATIVE Urine Ketones NEGATIVE NEGATIVE Urine Nitrite NEGATIVE Urine Bilirubin NEGATIVE NEGATIVE Urine Urobilinogen 4.0 < = 1.0 MG/DL Urine Leukocyte Esterase NEGATIVE NEGATIVE Urine RBC (Auto) NEGATIVE NEGATIVE Urine RBC NONE /HPF Urine WBC NONE /HPF Urine Squamous Epithelial Cells RARE /HPF Urine Crystals NONE /LPF Urine Bacteria NEGATIVE /HPF Urine Casts NONE /LPF Urine Mucus NEGATIVE /LPF Urine Culture Indicated NO Sodium Level 140 135-145 MMOL/L Potassium Level 4.9 3.6-5.0 MMOL/L Chloride Level 103 98-107 MMOL/L Carbon Dioxide Level 27 21-32 MMOL/L Anion Gap 10 5-14 MMOL/L Blood Urea Nitrogen 13 7-18 MG/DL Creatinine 0.83 0.60-1.30 MG/DL Estimat Glomerular Filtration Rate 90 BUN/Creatinine Ratio 16 Glucose Level 98 70-105 MG/DL Calcium Level 9.5 8.5-10.1 MG/DL Corrected Calcium 9.2 8.5-10.1 MG/DL Magnesium Level 2.0 1.6-2.4 MG/DL Total Bilirubin 0.3 0.1-1.0 MG/DL Aspartate Amino Transf (AST/SGOT) 18 5-34 U/L Alanine Aminotransferase (ALT/SGPT) 15 0-55 U/L Alkaline Phosphatase 100 40-136 U/L C-Reactive Protein < 0.30 <0.50 MG/DL Total Protein 6.8 6.4-8.2 GM/DL Albumin 4.4 3.2-4.5 GM/DL Lipase 21 8-78 U/L My Orders Orders - KIMBERLY METZGER MD Cbc With Automated Diff (03/20/22 10:20) Comprehensive Metabolic Panel (03/20/22 10:20) Lipase (03/20/22 10:20) Magnesium (03/20/22 10:20) Ua Culture If Indicated (03/20/22 10:20) Crp Fs (03/20/22 10:20) Ct Abdomen/Pelvis W (03/20/22 10:20) Ketorolac Injection (Toradol Injection) (03/20/22 10:30) Morphine Injection (Morphine Injection (03/20/22 10:20) Ondansetron Injection (Zofran Injectio (03/20/22 10:30) Ns Iv 1000 Ml (Sodium Chloride 0.9%) (03/20/22 10:20) Iohexol Injection (Omnipaque 350 Mg/Ml 1 (03/20/22 11:15) Received Contrast (Hold Metformin- Contr (03/20/22 11:15) Sodium Chloride Flush (Catheter Flush Sy (03/20/22 11:15) Ns (Ivpb) (Sodium Chloride 0.9% Ivpb Bag (03/20/22 11:15) Lactic Acid Analyzer (03/20/22 13:23) Medications Given in ED Current Medications Medications Dose Ordered Sig/Kelly Route Start Time Stop Time Status Last Admin Dose Admin Iohexol 100 ml ONCE ONCE IV 03/20/22 11:15 03/20/22 11:16 DC 03/20/22 12:09 80 ML Ketorolac Tromethamine 15 mg ONCE ONCE IVP 03/20/22 10:30 03/20/22 10:31 DC 03/20/22 10:32 15 MG Ondansetron HCl 4 mg ONCE ONCE IVP 03/20/22 10:30 03/20/22 10:31 DC 03/20/22 10:32 4 MG Sodium Chloride 10 ml NEEDED PRN IV 03/20/22 11:15 03/20/22 12:10 10 ML Sodium Chloride 100 ml ONCE ONCE IV 03/20/22 11:15 03/20/22 11:16 DC 03/20/22 12:09 100 ML Vital Signs/I&O 03/20/22 10:01 Temp 36.4 Pulse 76 Resp 16 B/P (MAP) 149/94 (112) Pulse Ox 96 O2 Delivery Room Air Blood Pressure Mean: 112 Progress Progress Note : Progress Note 41-year-old female with above history coming in due to flank pain with abdominal discomfort and nausea. ABCs were intact and vitals were stable on presentation. Physical exam with bilateral flank tenderness and also abdominal discomfort. An IV was placed and basic labs were obtained and significant for normal white blood cell count, and normal CRP. CT abdomen pelvis with contrast ordered and concerning for swirl sign with possible internal hernia with her Charmaine-en-Y gastric bypass. I contacted [facility] to discuss the case with her bariatric surgeon since that is where she has been in the past. They recommend transfer for diagnostic laparoscopy. They were okay with her going private vehicle since she is comfortable at this time. Patient did receive morphine twice for pain control while here. Diagnostic Imaging Diagonstic Imaging: CT (abd/pelvis) Comments [facility] [place], [place] NAME: JOEY [facility]S [facility] REC#: [id number] PT STATUS: REG ER : 1980 PHYSICIAN: KIMBERLY METZGER MD ADMIT DATE: 03/20/22/ER FS Draft Date of Exam:03/20/22 CT ABDOMEN/PELVIS W CT ABDOMEN/PELVIS W TECHNIQUE: Multiple contiguous axial images were obtained through the abdomen and pelvis after administration of intravenous contrast. All CT scans use one or more of the following dose optimizing techniques: Automated exposure control, MA and/or KvP adjustment based on patient size and exam type or iterative reconstruction. INDICATION: Left flank pain. COMPARISON: 09/01/2020. FINDINGS: Lower chest: The lung bases are clear. No pericardial or pleural effusion. Peritoneum: PERCH MENDER shunt catheter enters the right upper quadrant of the peritoneal cavity and terminates in the pelvis. A trace amount of fluid is present in the pelvis, but there is no loculated fluid around the tip of the catheter to indicate CSF pseudocyst. No free intraperitoneal air. Liver and biliary system: The liver is normal. Cholecystectomy. No biliary duct dilatation. Spleen and Pancreas: Spleen is normal. The pancreas enhances normally without mass lesion or peripancreatic inflammatory changes. Adrenals: Normal. tract: The kidneys enhance normally without suspicious mass or obstruction. Urinary bladder is distended without wall thickening. Nonobstructing 3 mm stone in the mid left kidney is present. No ureteral stones. Hysterectomy. No adnexal mass. GI tract: Charmaine-en-Y gastric bypass. New since prior examination, there is now twisting of the mesenteric root with SMV making a 360-degree turn around the SMA, and there is narrowing of the SMV at its cranial aspect. No bowel obstruction. There is no hypoenhancement of the bowel wall to confirm ischemia. There is mild engorgement of the vasa recta and a few small lymph nodes in the mesentery. No pericolonic inflammatory changes. Normal appendix. Vasculature and Lymph nodes: Normal caliber aorta. No abdominal or pelvic lymphadenopathy. Musculoskeletal: No concerning osseous lesion. IMPRESSION: 1. Status post Charmaine-en-Y gastric bypass. A change since prior examination is there is now swirling of the mesenteric root with marked narrowing of the superior mesenteric vein at its cranial aspect. While there are no features of bowel ischemia, there is mesenteric congestion. Overall features are likely due to an internal hernia (transmesenteric postoperative hernia) that is frequently seen after Charmaine-en-Y gastric bypass. Surgical consultation is suggested. 2. Nonobstructing 3 mm left renal stone. Dictated on workstation # [id number] Dict: 03/20/22 1223 Trans: 03/20/22 1311 [id number] Interpreted by: [facility] YARBROUGH MD Electronically signed by: Departure Impression Primary Impression: Internal hernia Additional Impression: History of Charmaine-en-Y gastric bypass Disposition: XFER SHT-TRM HOSP Condition: Stable Admissions Decision to Admit/Date: Mar 20, 2022 Time/Decision to Admit Time: 13:40 Transfer Transfer Reason: Exceeds level of care Time Spoke to Accepting Phy: 13:45 Transfer Progress Notes Accepted by Dr. Merritt in bariatric surgery Transfer Facility: [facility] Method of Transfer: Private Vehicle Departure-Patient Inst. Referrals: BERYL HICKMAN APRN (PCP) Primary Care Physician [facility] (Family) Primary Care Physician KIMBERLY METZGER MD Mar 20, 2022 10:28
[2022-03-20 10:30] LABS: BASOPHILS # (AUTO) 0.1 10^3/uL (0.0-0.1); BASOPHILS % (AUTO) 1 % (0-10); EOSINOPHILS # (AUTO) 0.5 10^3/uL (0.0-0.3); EOSINOPHILS % (AUTO) 7 % (0-10); HEMATOCRIT 37 % (35-52); HEMOGLOBIN 12.3 g/dL (11.5-16.0); LYMPHOCYTES # (AUTO) 1.8 10^3/uL (1.0-4.0); LYMPHOCYTES % (AUTO) 25 % (12-44); MEAN CORPUSCULAR HEMOGLOBIN 31 pg (25-34); MEAN CORPUSCULAR HGB CONC 33 g/dL (32-36); MEAN CORPUSCULAR VOLUME 93 fL (80-99); MEAN PLATELET VOLUME 10.3 fL (9.0-12.2); MONOCYTES # (AUTO) 0.4 10^3/uL (0.0-1.0); MONOCYTES % (AUTO) 6 % (0-12); NEUTROPHILS # (AUTO) 4.3 10^3/uL (1.8-7.8); NEUTROPHILS % (AUTO) 61 % (42-75); PLATELET COUNT 305 10^3/uL (130-400); WHITE BLOOD COUNT 7.1 10^3/uL (4.3-11.0)
[2022-03-20] MEDS ORDERED: ONDANSETRON 4 MG/2 ML (SDV) Z0FRAN IVP ONE (10:30)
[2022-03-20] MEDS ORDERED: KETOROLAC 30 MG/ML VIAL IVP ONE (10:30)
[2022-03-20 10:52] LABS: ALANINE AMINOTRANSFERASE 15 U/L (0-55); ALBUMIN 4.4 GM/DL (3.2-4.5); ALKALINE PHOSPHATASE 100 U/L (40-136); BILIRUBIN,TOTAL 0.3 MG/DL (0.1-1.0); BUN/CREATININE RATIO 16; CALCIUM 9.5 MG/DL (8.5-10.1); CARBON DIOXIDE 27 MMOL/L (21-32); CHLORIDE 103 MMOL/L (98-107); CREATININE SERUM 0.83 MG/DL (0.60-1.30); GFR ESTIMATED 90; GLUCOSE 98 MG/DL (70-105); LIPASE 21 U/L (8-78); POTASSIUM 4.9 MMOL/L (3.6-5.0); SODIUM 140 MMOL/L (135-145); TOTAL PROTEIN 6.8 GM/DL (6.4-8.2)
[2022-03-20] MEDS ORDERED: NS 100 ML (IVPB) BAG IV ONE (11:15)
[2022-03-20] MEDS ORDERED: CATHETER FLUSH 10 ML SYR IV PRN (11:15)
[2022-03-20] MEDS ORDERED: HOLD METFORMIN - RECEIVED CONTRAST 20 ML VIAL IV SCH (11:15)
[2022-03-20] MEDS ORDERED: IOHEXOL 350 MG/ML 100 ML (OMNIPAQUE 350) VIAL IV ONE (11:15)
[2022-03-20 11:52] LABS: BILIRUBIN,URINE NEGATIVE (NEGATIVE); COLOR,URINE ORANGE; GLUCOSE, URINE (UA) TRACE (NEGATIVE); KETONES,URINE NEGATIVE (NEGATIVE); LEUKOCYTE ESTERASE ,URINE NEGATIVE (NEGATIVE); PROTEIN,URINE TRACE (NEGATIVE)
[2022-03-20 11:59] LABS: BACTERIA,URINE NEGATIVE /HPF; CLARITY,URINE CLEAR; SQUAMOUS EPITHELIAL CELL,UR RARE /HPF
--- NOTE | 2022-03-20 13:11 | Diagnostic Imaging Report ---
CT ABDOMEN/PELVIS W TECHNIQUE: Multiple contiguous axial images were obtained through the abdomen and pelvis after administration of intravenous contrast. All CT scans use one or more of the following dose optimizing techniques: Automated exposure control, MA and/or KvP adjustment based on patient size and exam type or iterative reconstruction. INDICATION: Left flank pain. COMPARISON: 09/01/2020. FINDINGS: Lower chest: The lung bases are clear. No pericardial or pleural effusion. 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 A trace amount of fluid is present in the pelvis, but there is no loculated fluid around the tip of the catheter to indicate CSF pseudocyst. No free intraperitoneal air. Liver and biliary system: The liver is normal. Cholecystectomy. No biliary duct dilatation. Spleen and Pancreas: Spleen is normal. The pancreas enhances normally without mass lesion or peripancreatic inflammatory changes. Adrenals: Normal. tract: The kidneys enhance normally without suspicious mass or obstruction. Urinary bladder is distended without wall thickening. Nonobstructing 3 mm stone in the mid left kidney is present. No ureteral stones. Hysterectomy. No adnexal mass. GI tract: Charmaine-en-Y gastric bypass. New since prior examination, there is now twisting of the mesenteric root with SMV making a 360-degree turn around the SMA, and there is narrowing of the SMV at its cranial aspect. No bowel obstruction. There is no hypoenhancement of the bowel wall to confirm ischemia. There is mild engorgement of the vasa recta and a few small lymph nodes in the mesentery. No pericolonic inflammatory changes. Normal appendix. Vasculature and Lymph nodes: Normal caliber aorta. No abdominal or pelvic lymphadenopathy. Musculoskeletal: No concerning osseous lesion. IMPRESSION: 1. Status post Charmaine-en-Y gastric bypass. A change since prior examination is there is now swirling of the mesenteric root with marked narrowing of the superior mesenteric vein at its cranial aspect. While there are no features of bowel ischemia, there is mesenteric congestion. Overall features are likely due to an internal hernia (transmesenteric postoperative hernia) that is frequently seen after Charmaine-en-Y gastric bypass. Surgical consultation is suggested. 2. Nonobstructing 3 mm left renal stone. Dictated by: Dictated on workstation # [id number]
[2022-03-20 14:02] VITALS: BP 161/81
== END 2022-03-20 14:21 | disposition short-term general hospital (02) ==
LOC: EDUNIT# 10:01 → ER FS 10:02
DX: K46.9 Unspecified abdominal hernia without obstruction or gangrene (principal); Z98.84 Bariatric surgery status; E66.01 Morbid (severe) obesity due to excess calories; Z68.38 Body mass index [BMI] 38.0-38.9, adult; Z88.6 Allergy status to analgesic agent; Z87.19 Personal history of other diseases of the digestive system; Z90.49 Acquired absence of other specified parts of digestive tract
CPT/HCPCS: 36415; 74177; 80053; 81000; 83605; 83690; 83735; 85025; 86141; Q9967

== ENCOUNTER 2022-03-23 13:46 | Emergency (ER) | payer MEDICARE, BC ==
--- NOTE | 2022-03-23 14:23 | ED Neurological Problem ---
General Chief Complaint: Neurological Problems Stated Complaint: SEIZURE Source: family Exam Limitations: clinical condition History of Present Illness Date Seen by Provider: Mar 23, 2022 Time Seen by Provider: 14:10 Initial Comments Patient is a 41-year-old female with a history of idiopathic intracranial hypertension, longstanding for at least the last 10 years. She has had ventriculoperitoneal shunt placed with 6 revisions. Recent hospitalization a week ago at for "twisted intestine" per her daughter who is at the bedside. Patient has had "grand mal" seizures in the past, twice. Her daughter states they usually come".". This afternoon at approximately 1230 she was sitting in a recliner chair and had an episode that lasted approximately 90 seconds. She did not fall out of the chair or injure herself. EMS was called to assess. Approximately 20 minutes after EMS left she had a subsequent seizure that daughter states lasted maybe a minute and 45 seconds. At that point she did bite her tongue. She presents about 45 minutes after the second seizure. She takes Keppra for her seizures, daughter questions whether or not she is really had her seizure medicines routinely over the last couple of weeks due to her recent abdominal complaints and subsequent surgery. No COVID concerns that daughter is aware of. No cough, shortness of breath. She has had decreased appetite. She has not had a bowel movement since her abdominal surgery last week. No complaints of burning with urination. No rashes joint pain or swelling. No significant headaches or altered mental status prior to the sei zures. All of her neurologic care is done at . On arrival the patient is alert to voice. She answers questions appropriately. She does have a small laceration, apparently from tongue biting on the right side of her tongue with a little intraoral blood. Otherwise she really has no complaints other than a mild headache. Vital signs are stable. All other review of systems reviewed and negative except as stated. Timing/Duration: 1-3 hours Severity: moderate, severe Associated Symptoms: other (Mild headache) Allergies and Home Medications Allergies Coded Allergies: promethazine (Verified Allergy, Mild, 01/28/16) NSAIDS (Non-Steroidal Anti-Inflamma (Verified Allergy, Unknown, 11/06/19) HAD GASTRIC BYPASS prednisone (Verified Allergy, Unknown, 11/06/19) HAD GASTRIC BYPASS Uncoded Allergies: CALCIUM CHANNEL BLOCKERS (Adverse Reaction, Unknown, weight gain, 10/21/18) Patient Home Medication List Home Medication List Reviewed: Yes Acetaminophen (Tylenol Extra Strength) 500 Mg Tablet, 1,000 MG PO Q6H, (Reported) Entered as Reported by: BHAVIK TORRES on 08/23/19 112 Diphenhydramine HCl (Benadryl) 25 Mg Capsule, 25-50 MG PO Q4H, (Reported) Entered as Reported by: BHAVIK TORRES on 08/23/19 112 Divalproex Sodium (Depakote) 500 Mg Tablet.dr, 500 MG PO DAILY, (Reported) Entered as Reported by: BHAVIK TORRES on 08/23/19 112 Duloxetine HCl (Cymbalta) 30 Mg Capsule.dr, 90 MG PO DAILY, (Reported) Entered as Reported by: BHAVIK TORRES on 08/23/19 112 Ondansetron (Ondansetron Odt) 4 Mg Tab.rapdis, 4 MG PO Q6H, (Reported) Entered as Reported by: BHAVIK TORRES on 08/23/19 112 Oxycodone HCl/Acetaminophen (Percocet 10-325 mg Tablet) 1 Each Tablet, 1 TAB PO [id number] PRN for PAIN-MODERATE, (Reported) Entered as Reported by: BHAVIK TORRES on 08/23/19 112 Oxycodone HCl/Acetaminophen (Percocet 5-325 mg Tablet) 1 Each Tablet, 1 TAB PO Q6H Prescribed by: SARA DIAZ on 01/23/202100 Propranolol HCl (Propranolol HCl) 80 Mg Tablet, 80 MG PO TID, (Reported) Entered as Reported by: JOSS LYLES on 03/08/16 1052 [lidoderm 5% patch] , 1 PATCH TD DAILY Prescribed by: SARA DIAZ on 01/23/202100 Review of Systems Review of Systems Constitutional: see HPI Eyes: No Symptoms Reported Ears, Nose, Mouth, Throat: mouth pain (Bedtime) Respiratory: no symptoms reported Cardiovascular: no symptoms reported Gastrointestinal: other (Mild postoperative abdominal discomfort) Genitourinary: no symptoms reported : No Musculoskeletal: no symptoms reported Skin: no symptoms reported Psychiatric/Neurological: Headache (Mild) All Other Systems Reviewed Negative Unless Noted: Yes Past Xxhpncq-Rczyfq-Afbvra Hx Patient Social History Tobacco Use?: No Use of E-Cig and/or Vaping dev: No Substance use?: No Alcohol Use?: No Pt feels they are or have been: No Immunizations Up To Date Tetanus Booster (TDap): Less than 5yrs PED Vaccines UTD: No First/Initial COVID19 Vaccinat: 10/05 Second COVID19 Vaccination Richi: 10/05 Third COVID19 Vaccination Date: 10/05 Seasonal Allergies Seasonal Allergies: No Past Medical History Surgery/Hospitalization HX: DX PSEUDOTUMOR CEREBRI AT [facility] 2014 RIGHT BUILDING STONECUTTER SHUNT PLACED AT 201507/20/2018--RIGHT SHUNT QUIT WORKING AND WAS REMOVED AND REVISED AT , IT GOT INFECTED AND RIGHT SHUNT WAS REPLACED, THEN LATER REMOVED. SHUNT PLACED ON LEFT 6 WEEKS LATER. SURGICAL WOUND DEHISCED AND GOT INFECTED--GREW OUT ENTEROCOCCUS FAECALIS AND STAPH EPIDERMIDIS IN WOUND AND IN CSF AND WAS DX WITH MENINGITIS--PER PT. THAT SHUNT WAS REMOVED 10/07/18 AND PT RECEIVED IV VANCOMYCIN VIA A PICC LINE AFTER THAT. ALL THESE WERE DONE AT . 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 History: Hysterectomy Genitourinary: No Gastrointestinal: Yes (GASTRIC BYPASS) Gastroesophageal Reflux, Esophagitis Musculoskeletal: No Endocrine: Yes (MORBID OBESITY) HEENT: No Cancer: No Psychosocial: Yes Anxiety Integumentary: Yes (ABSCESSES; SURGICAL WOUND INFECTION) Blood Disorders: No Adverse Reaction/Blood Tranf: No Family Medical History Abdominal aortic aneurysm 03 FATHER Family history: Allergy 03 FATHER Family history: Arthritis 03 MOTHER 09 SISTER Family history: Hypertension 03 FATHER PT HAD BOTH MODERNA COVID-19 VACCINES -SECOND ONE 08/2020 PT HAD COVID--SYMPTOMS BEGAN ON 01/21/21, TESTED + ON 10/24/20, HAD BAM INFUSION 01/25/21 DAUGHTER ALSO TESTED + FOR COVID AROUND THAT SAME TIME, AND DAUGHTER ALSO HAD BAM INFUSION Physical Exam Vital Signs Vital Signs - First Documented 03/23/22 13:47 Temp 37.6 Pulse 82 Resp 12 B/P (MAP) 122/62 (82) Pulse Ox 98 O2 Delivery Nasal Cannula Capillary Refill : Height, Weight, BMI Height: 5'5.00" Weight: 295lbs. 0.0oz. 133.403108ui; 38.00 BMI Method:Stated General Appearance: WD/WN, no apparent distress HEENT: PERRL/EOMI, pharynx normal, other (Small laceration 2 to 3 mm right anterior tongue, no active bleeding) Neck: non-tender, full range of motion Respiratory: lungs clear, normal breath sounds, no respiratory distress, no accessory muscle use Cardiovascular: regular rate, rhythm Gastrointestinal: normal bowel sounds (Quiet bowel sounds), soft, tenderness (Mild tenderness in the upper abdomen; patient relates this to postsurgical tenderness) Extremities: normal range of motion, normal inspection Neurologic/Psychiatric: no motor/sensory deficits, alert, normal mood/affect, oriented x 3 Crainal Nerves: normal hearing, normal speech, PERRL Motor/Sensory: no motor deficit, no sensory deficit Skin: normal color, warm/dry Focused Exam Lactate Level 03/23/22 14:38: Lactic Acid Level 2.79*H Lactic Acid Level Laboratory Tests Test 03/23/22 14:38 Lactic Acid Level 2.79 MMOL/L (0.50-2.00) *H Progress/Results/Core Measures Results/Orders Lab Results Laboratory Tests Test 03/23/22 14:36 03/23/22 14:38 03/23/22 14:53 Range/Units White Blood Count 7.6 4.3-11.0 10^3/uL Red Blood Count 3.95 3.80-5.11 10^6/uL Hemoglobin 11.9 11.5-16.0 g/dL Hematocrit 39 35-52 % Mean Corpuscular Volume 98 80-99 fL Mean Corpuscular Hemoglobin 30 25-34 pg Mean Corpuscular Hemoglobin Concent 31 L 32-36 g/dL Red Cell Distribution Width 12.1 10.0-14.5 % Platelet Count 361 130-400 10^3/uL Mean Platelet Volume 10.0 9.0-12.2 fL Immature Granulocyte % (Auto) 0 % Neutrophils (%) (Auto) 53 42-75 % Lymphocytes (%) (Auto) 33 12-44 % Monocytes (%) (Auto) 7 0-12 % Eosinophils (%) (Auto) 6 0-10 % Basophils (%) (Auto) 1 0-10 % Neutrophils # (Auto) 4.0 1.8-7.8 10^3/uL Lymphocytes # (Auto) 2.5 1.0-4.0 10^3/uL Monocytes # (Auto) 0.6 0.0-1.0 10^3/uL Eosinophils # (Auto) 0.4 H 0.0-0.3 10^3/uL Basophils # (Auto) 0.1 0.0-0.1 10^3/uL Immature Granulocyte # (Auto) 0.0 0.0-0.1 10^3/uL Sodium Level 138 135-145 MMOL/L Potassium Level 4.2 3.6-5.0 MMOL/L Chloride Level 111 H 98-107 MMOL/L Carbon Dioxide Level 13 L 21-32 MMOL/L Anion Gap 14 5-14 MMOL/L Blood Urea Nitrogen 18 7-18 MG/DL Creatinine 1.16 0.60-1.30 MG/DL Estimat Glomerular Filtration Rate 60 BUN/Creatinine Ratio 16 Glucose Level 110 H 70-105 MG/DL Calcium Level 9.1 8.5-10.1 MG/DL Corrected Calcium 9.1 8.5-10.1 MG/DL Total Bilirubin 0.3 0.1-1.0 MG/DL Aspartate Amino Transf (AST/SGOT) 18 5-34 U/L Alanine Aminotransferase (ALT/SGPT) 16 0-55 U/L Alkaline Phosphatase 83 40-136 U/L Total Protein 6.7 6.4-8.2 GM/DL Albumin 4.0 3.2-4.5 GM/DL Smear Scan YES Lactic Acid Level 2.79 *H 0.50-2.00 MMOL/L Urine Color YELLOW Urine Clarity CLOUDY Urine pH 5.5 5-9 Urine Specific [place] >=1.030 1.016-1.022 Urine Protein TRACE H NEGATIVE Urine Glucose (UA) NEGATIVE NEGATIVE Urine Ketones NEGATIVE NEGATIVE Urine Nitrite NEGATIVE NEGATIVE Urine Bilirubin NEGATIVE NEGATIVE Urine Urobilinogen 0.2 < = 1.0 MG/DL Urine Leukocyte Esterase NEGATIVE NEGATIVE Urine RBC (Auto) NEGATIVE NEGATIVE Urine RBC NONE /HPF Urine WBC 0-2 /HPF Urine Squamous Epithelial Cells 25-50 H /HPF Urine Crystals PRESENT H /LPF Urine Calcium Oxalate Crystals FEW H /LPF Urine Bacteria TRACE /HPF Urine Casts PRESENT /LPF Urine Hyaline Casts 10-25 H /LPF Urine Mucus MODERATE H /LPF Urine Culture Indicated NO My Orders Orders - FABIO BELLA MD Ed Iv/Invasive Line Start (03/23/22 14:33) Cbc With Automated Diff (03/23/22 14:33) Comprehensive Metabolic Panel (03/23/22 14:33) Ua Culture If Indicated (03/23/22 14:33) Chest 1 View, Ap/Pa Only (03/23/22 14:33) Lactic Acid Analyzer (03/23/22 14:33) Ns Iv 1000 Ml (Sodium Chloride 0.9%) (03/23/22 15:15) Vital Signs/I&O 03/23/22 13:47 Temp 37.6 Pulse 82 Resp 12 B/P (MAP) 122/62 (82) Pulse Ox 98 O2 Delivery Nasal Cannula Progress Progress Note : Time: 15:21 Progress Note Patient seen and evaluated, post seizure. Not significantly postictal. Evaluation today includes a physical exam, CBC, chemistry, lactic acid, urinalysis and chest x-ray. Her vital signs are stable. Her lactic acid is slightly elevated at 2.79, consistent with seizure. She is neurologically normal. No significant complaints. Does have evidence of tongue laceration from the seizure this does not require any type of repair. No ongoing active bleeding. I discussed all of the findings with her daughter who is at the bedside and has been very integral in her care in recent years. She is comfortable with discharged home. We did talk about adding a dose of Keppra at this time because the patient is not sure if she actually took her Keppra this morning. She is much more awake and alert. Very dry oral mucosa, having a little bit of a hard time talking. She is getting her liter of fluids. She feels pretty fatigued. Some cervical muscle discomfort. No midline tenderness. Return precautions discussed. All questions are sought and answered. Diagnostic Imaging Diagonstic Imaging: Xray Plain Films/CT/US/NM/MRI: chest Comments [facility] [place], [place] NAME: JOEY PARSONS [facility] REC#: [id number] PT STATUS: REG ER : 1980 PHYSICIAN: FABIO BELLA MD ADMIT DATE: 03/23/22/ER Signed Date of Exam:03/23/22 CHEST 1 VIEW, AP/PA ONLY HISTORY: Seizure COMPARISON: 01/23/2020 TECHNIQUE: Frontal view the chest FINDINGS: Lung volumes are normal. There is linear opacity in the left midlung, likely atelectasis. There is no pleural effusion or pneumothorax. The cardiac silhouette is normal in size. Right-sided BUILDING STONECUTTER shunt is noted. Surgical clips are noted in the upper abdomen. IMPRESSION: 1. Linear opacity in the left midlung, likely atelectasis. Dictated by: Dictated on workstation # [id number] Dict: 03/23/22 1450 Trans: 03/23/22 1454 [facility] [id number] Interpreted by: TC ADAMS MD Electronically signed by: TC ADAMS MD 03/23/22 1454 Departure Impression Primary Impression: Seizure Additional Impression: Idiopathic intracranial hypertension Disposition: HOME, SELF-CARE Condition: Improved Departure-Patient Inst. Decision time for Depature: 15:31 Referrals: BERYL HICKMAN APRN (PCP) Primary Care Physician [facility] (Family) Primary Care Physician Add. Discharge Instructions: Follow-up with a message through the patient portal at or with a phone call to your neurologist tomorrow morning. Continue your Keppra as scheduled. As well as all of your daily medications. Return to the emergency department for any new, concerning or emergent complaints. We have given you an extra dose of 1 g of Keppra here in the emergency department this afternoon. Copy Copies To 1: TONEY BARBA KATHRYN M MD Mar 23, 2022 14:23
[2022-03-23 14:42] LABS: BASOPHILS # (AUTO) 0.1 10^3/uL (0.0-0.1); BASOPHILS % (AUTO) 1 % (0-10); EOSINOPHILS # (AUTO) 0.4 10^3/uL (0.0-0.3); EOSINOPHILS % (AUTO) 6 % (0-10); HEMATOCRIT 39 % (35-52); HEMOGLOBIN 11.9 g/dL (11.5-16.0); LYMPHOCYTES # (AUTO) 2.5 10^3/uL (1.0-4.0); LYMPHOCYTES % (AUTO) 33 % (12-44); MEAN CORPUSCULAR HEMOGLOBIN 30 pg (25-34); MEAN CORPUSCULAR HGB CONC 31 g/dL (32-36); MEAN CORPUSCULAR VOLUME 98 fL (80-99); MONOCYTES # (AUTO) 0.6 10^3/uL (0.0-1.0); MONOCYTES % (AUTO) 7 % (0-12); NEUTROPHILS % (AUTO) 53 % (42-75); PLATELET COUNT 361 10^3/uL (130-400); POTASSIUM 4.2 MMOL/L (3.6-5.0); WHITE BLOOD COUNT 7.6 10^3/uL (4.3-11.0)
[2022-03-23 14:44] LABS: CALCIUM 9.1 MG/DL (8.5-10.1)
[2022-03-23 14:45] LABS: TOTAL PROTEIN 6.7 GM/DL (6.4-8.2)
[2022-03-23 14:47] LABS: BILIRUBIN,TOTAL 0.3 MG/DL (0.1-1.0)
[2022-03-23 14:48] LABS: CREATININE SERUM 1.16 MG/DL (0.60-1.30); SMEAR SCAN COMMENT YES
--- NOTE | 2022-03-23 14:53 | Diagnostic Imaging Report ---
HISTORY: Seizure COMPARISON: 01/23/2020 TECHNIQUE: Frontal view the chest FINDINGS: Lung volumes are normal. There is linear opacity in the left midlung, likely atelectasis. There is no pleural effusion or pneumothorax. The cardiac silhouette is normal in size. Right-sided BANANA EXPERT shunt is noted. Surgical clips are noted in the upper abdomen. IMPRESSION: 1. Linear opacity in the left midlung, likely atelectasis. Dictated by: Dictated on workstation # [id number]
[2022-03-23 14:58] LABS: BILIRUBIN,URINE NEGATIVE (NEGATIVE); CLARITY,URINE CLOUDY; COLOR,URINE YELLOW; GLUCOSE, URINE (UA) NEGATIVE (NEGATIVE); KETONES,URINE NEGATIVE (NEGATIVE); LEUKOCYTE ESTERASE ,URINE NEGATIVE (NEGATIVE); NITRITE,URINE NEGATIVE (NEGATIVE); PH,URINE 5.5 (5-9); PROTEIN,URINE TRACE (NEGATIVE)
[2022-03-23] MEDS ORDERED: NS IV 1000 ML 1,000 ML IV SCH (15:15)
[2022-03-23 15:17] LABS: BACTERIA,URINE TRACE /HPF; CALCIUM OXALATE CRYSTALS,UR FEW /LPF; SQUAMOUS EPITHELIAL CELL,UR 25-50 /HPF; WBC,URINE 0-2 /HPF
[2022-03-23 16:25] VITALS: BP 111/65
== END 2022-03-23 16:29 | disposition home or self-care (01) ==
LOC: EDUNIT# 13:46 → ER 13:48
DX: G40.409 Other generalized epilepsy and epileptic syndromes, not intractable, without status epilepticus (principal); G93.2 Benign intracranial hypertension; M54.2 Cervicalgia; E66.01 Morbid (severe) obesity due to excess calories; Z68.38 Body mass index [BMI] 38.0-38.9, adult
CPT/HCPCS: 36415; 71045; 80053; 81000; 83605; 85025

== ENCOUNTER 2022-04-14 11:06 | Emergency (ER) | payer BC, MEDICARE ==
[~2022-04-14] VITALS: Ht 162.6 cm; Wt 97.5 kg
[2022-04-14 11:30] LABS: BASOPHILS # (AUTO) 0.1 10^3/uL (0.0-0.1); BASOPHILS % (AUTO) 1 % (0-10); EOSINOPHILS # (AUTO) 0.2 10^3/uL (0.0-0.3); EOSINOPHILS % (AUTO) 3 % (0-10); HEMATOCRIT 38 % (35-52); HEMOGLOBIN 12.2 g/dL (11.5-16.0); LYMPHOCYTES # (AUTO) 1.6 10^3/uL (1.0-4.0); LYMPHOCYTES % (AUTO) 23 % (12-44); MEAN CORPUSCULAR HEMOGLOBIN 30 pg (25-34); MEAN CORPUSCULAR HGB CONC 32 g/dL (32-36); MEAN CORPUSCULAR VOLUME 93 fL (80-99); MEAN PLATELET VOLUME 10.4 fL (9.0-12.2); MONOCYTES # (AUTO) 0.7 10^3/uL (0.0-1.0); MONOCYTES % (AUTO) 9 % (0-12); NEUTROPHILS # (AUTO) 4.5 10^3/uL (1.8-7.8); NEUTROPHILS % (AUTO) 64 % (42-75); PLATELET COUNT 269 10^3/uL (130-400); WHITE BLOOD COUNT 7.1 10^3/uL (4.3-11.0)
--- NOTE | 2022-04-14 11:54 | ED General ---
General Chief Complaint: Glucose Problems Stated Complaint: SEIZURE Nursing Triage Note: PT TO ED BY EMS WITH C/O CAMP AND DIZZINESS. EMS REPORTS PT SON CALLED THEM BECAUSE HE BELIEVED PT HAD A SEIZURE. PT HAS HX OF SEIZURES AND HAS A SHUNT. EMS REPORTS PT WAS LEANED AGAINST THE WASHING MACHINE IN HER LAUNDRY ROOM UPON THEIR ARRIVAL. INITIAL BLOOD SUGAR FOR EMS WAS 41, THEY GAVE PT 250ML OF D10 AND PT BECAME MORE RESPONSIVE. PT REPORTS SHE HAD A BAD HEADACHE, WAS VERY DIZZY AND CALLED HER SON BECAUSE SHE WAS NOT SURE SHE COULD MAKE IT UP THE STAIRS BACK INTO HER HOUSE AND WAS BABYSITTING HER GRANDSON. PT STILL C/O CAMP AND SOME DIZZINESS. Source of Information: Patient Exam Limitations: No Limitations History of Present Illness Date Seen by Provider: Apr 14, 2022 Time Seen by Provider: 11:43 Initial Comments This is a 42-year-old female who presented to the ER via [facility] with concerns of feeling faint, diaphoretic, upon arrival EMS found her to have a blood glucose of 41. They gave 250 mils of D10 and patient became unresponsive. Allergies and Home Medications Allergies Coded Allergies: promethazine (Verified Allergy, Mild, 01/28/16) NSAIDS (Non-Steroidal Anti-Inflamma (Verified Allergy, Unknown, 11/06/19) HAD GASTRIC BYPASS prednisone (Verified Allergy, Unknown, 11/06/19) HAD GASTRIC BYPASS Uncoded Allergies: CALCIUM CHANNEL BLOCKERS (Adverse Reaction, Unknown, weight gain, 10/21/18) Patient Home Medication List Acetaminophen (Tylenol Extra Strength) 500 Mg Tablet, 1,000 MG PO Q6H, (Reported) Entered as Reported by: BHAVIK TORRES on 08/23/19 1129 Diphenhydramine HCl (Benadryl) 25 Mg Capsule, 25-50 MG PO Q4H, (Reported) Entered as Reported by: BHAVIK TORRES on 08/23/19 1129 Divalproex Sodium (Depakote) 500 Mg Tablet.dr, 500 MG PO DAILY, (Reported) Entered as Reported by: BHAVIK TORRES on 08/23/19 1129 Duloxetine HCl (Cymbalta) 30 Mg Capsule.dr, 90 MG PO DAILY, (Reported) Entered as Reported by: BHAVIK TORRES on 08/23/19 1125 Ondansetron (Ondansetron Odt) 4 Mg Tab.rapdis, 4 MG PO Q6H, (Reported) Entered as Reported by: BHAVIK TORRES on 08/23/19 1125 Oxycodone HCl/Acetaminophen (Percocet 10-325 mg Tablet) 1 Each Tablet, 1 TAB PO [id number] PRN for PAIN-MODERATE, (Reported) Entered as Reported by: BHAVIK TORRES on 08/23/19 1129 Oxycodone HCl/Acetaminophen (Percocet 5-325 mg Tablet) 1 Each Tablet, 1 TAB PO Q6H Prescribed by: SARA DIAZ on 01/23/202100 Propranolol HCl (Propranolol HCl) 80 Mg Tablet, 80 MG PO TID, (Reported) Entered as Reported by: JOSS LYLES on 03/08/16 1052 [lidoderm 5% patch] , 1 PATCH TD DAILY Prescribed by: SARA DIAZ on 01/23/202100 Past Yzczqnb-Rykvvn-Wunsww Hx Patient Social History Tobacco Use?: No Use of E-Cig and/or Vaping dev: No Substance use?: No Alcohol Use?: No Pt feels they are or have been: No Immunizations Up To Date Tetanus Booster (TDap): Less than 5yrs PED Vaccines UTD: No Influenza Vaccine Up-to-Date: Yes; Up-to-Date First/Initial COVID19 Vaccinat: 10/05 Second COVID19 Vaccination Richi: 10/05 Third COVID19 Vaccination Date: 10/05 Seasonal Allergies Seasonal Allergies: No Past Medical History Surgery/Hospitalization HX: SEIZURE DISORDERS, HTN GASTRIC BYPASS, SHUNT Surgeries: Yes (GASTRIC BYPASS, TRAILER ASSEMBLER Shunt) Abdominal, Bladder Surgery, Brain Shunt, Gallbladder, Hysterectomy, Neurological, Oophorectomy Respiratory: Yes Asthma, Pneumonia, Chronic Bronchitis Cardiac: Yes Hypertension Neurological: Yes (IDIOPATHIC INTRACRANIAL HYPERTENSION;PSEUDOTUMOR CEREBRI) Headaches /Migraines, Meningitis, Seizure Disorder Reproductive Disorders: 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 Genitourinary: No Gastrointestinal: Yes (GASTRIC BYPASS) Gastroesophageal Reflux, Esophagitis Musculoskeletal: No Endocrine: Yes (MORBID OBESITY) HEENT: No Cancer: No Psychosocial: Yes Anxiety Integumentary: Yes (ABSCESSES; SURGICAL WOUND INFECTION) Blood Disorders: No Adverse Reaction/Blood Tranf: No Family Medical History Abdominal aortic aneurysm 03 FATHER Family history: Allergy 03 FATHER Family history: Arthritis 03 MOTHER 09 SISTER Family history: Hypertension 03 FATHER PT HAD BOTH MODERNA COVID-19 VACCINES -SECOND ONE 08/2020 PT HAD COVID--SYMPTOMS BEGAN ON 01/21/21, TESTED + ON 10/24/20, HAD BAM INFUSION 01/25/21 DAUGHTER ALSO TESTED + FOR COVID AROUND THAT SAME TIME, AND DAUGHTER ALSO HAD BAM INFUSION Physical Exam Vital Signs Vital Signs - First Documented 04/14/22 11:11 Temp 36.4 Pulse 54 Resp 14 B/P (MAP) 129/80 (96) Pulse Ox 97 O2 Delivery Room Air Capillary Refill : Less Than 3 Seconds Height, Weight, BMI Height: 5'5.00" Weight: 295lbs. 0.0oz. 133.082867hg; 36.00 BMI Method:Stated Progress/Results/Core Measures Suspected Sepsis SIRS Temperature: Pulse: 54 Respiratory Rate: 14 Laboratory Tests 04/14/22 11:13: White Blood Count 7.1 Blood Pressure 129 /80 Mean: 96 Laboratory Tests 04/14/22 11:13: Platelet Count 269 04/14/22 11:49: Creatinine 0.76, Total Bilirubin 0.3 Results/Orders Lab Results Laboratory Tests Test 04/14/22 11:13 04/14/22 11:49 Range/Units White Blood Count 7.1 4.3-11.0 10^3/uL Red Blood Count 4.10 3.80-5.11 10^6/uL Hemoglobin 12.2 11.5-16.0 g/dL Hematocrit 38 35-52 % Mean Corpuscular Volume 93 80-99 fL Mean Corpuscular Hemoglobin 30 25-34 pg Mean Corpuscular Hemoglobin Concent 32 32-36 g/dL Red Cell Distribution Width 12.5 10.0-14.5 % Platelet Count 269 130-400 10^3/uL Mean Platelet Volume 10.4 9.0-12.2 fL Immature Granulocyte % (Auto) 0 % Neutrophils (%) (Auto) 64 42-75 % Lymphocytes (%) (Auto) 23 12-44 % Monocytes (%) (Auto) 9 0-12 % Eosinophils (%) (Auto) 3 0-10 % Basophils (%) (Auto) 1 0-10 % Neutrophils # (Auto) 4.5 1.8-7.8 10^3/uL Lymphocytes # (Auto) 1.6 1.0-4.0 10^3/uL Monocytes # (Auto) 0.7 0.0-1.0 10^3/uL Eosinophils # (Auto) 0.2 0.0-0.3 10^3/uL Basophils # (Auto) 0.1 0.0-0.1 10^3/uL Immature Granulocyte # (Auto) 0.0 0.0-0.1 10^3/uL Sodium Level 142 135-145 MMOL/L Potassium Level 4.3 3.6-5.0 MMOL/L Chloride Level 109 H 98-107 MMOL/L Carbon Dioxide Level 26 21-32 MMOL/L Anion Gap 7 5-14 MMOL/L Blood Urea Nitrogen 15 7-18 MG/DL Creatinine 0.76 0.60-1.30 MG/DL Estimat Glomerular Filtration Rate 99 BUN/Creatinine Ratio 20 Glucose Level 61 L 70-105 MG/DL Calcium Level 9.0 8.5-10.1 MG/DL Corrected Calcium 9.2 8.5-10.1 MG/DL Magnesium Level 2.0 1.6-2.4 MG/DL Total Bilirubin 0.3 0.1-1.0 MG/DL Aspartate Amino Transf (AST/SGOT) 20 5-34 U/L Alanine Aminotransferase (ALT/SGPT) 18 0-55 U/L Alkaline Phosphatase 83 40-136 U/L Total Creatine Kinase 54 29-168 U/L C-Reactive Protein High Sensitivity 0.05 0.00-0.50 MG/DL Total Protein 6.0 L 6.4-8.2 GM/DL Albumin 3.8 3.2-4.5 GM/DL My Orders Orders - JEVON LOUISE METAL FLOW COORDINATOR Creatine Kinase (04/14/22 11:49) Hs C Reactive Protein (04/14/22 11:49) Ct Abdomen/Pelvis W (04/14/22 11:49) Iohexol Injection (Omnipaque 350 Mg/Ml 1 (04/14/22 12:00) Ns (Ivpb) (Sodium Chloride 0.9% Ivpb Bag (04/14/22 12:00) Acetaminophen Tablet (Tylenol Tablet) (04/14/22 12:30) Medications Given in ED Current Medications Medications Dose Ordered Sig/Kelly Route Start Time Stop Time Status Last Admin Dose Admin Acetaminophen 1,000 mg ONCE ONCE PO 04/14/22 12:30 04/14/22 12:31 DC 04/14/22 12:37 1,000 MG Iohexol 100 ml ONCE ONCE IV 04/14/22 12:00 04/14/22 12:01 DC 04/14/22 12:22 80 ML Sodium Chloride 100 ml ONCE ONCE IV 04/14/22 12:00 04/14/22 12:01 DC 04/14/22 12:22 80 ML Vital Signs/I&O 04/14/22 11:11 Temp 36.4 Pulse 54 Resp 14 B/P (MAP) 129/80 (96) Pulse Ox 97 O2 Delivery Room Air Capillary Refill : Less Than 3 Seconds Blood Pressure Mean: 96 Departure Impression Primary Impression: Hypoglycemia Additional Impression: Decreased appetite Disposition: HOME, SELF-CARE Condition: Improved Departure-Patient Inst. Decision time for Depature: 13:07 Referrals: BERYL HICKMAN APRN (PCP) Primary Care Physician [facility] (Family) Primary Care Physician Patient Instructions: Low Blood Sugar, Adult ED Add. Discharge Instructions: Plan: 1. Follow-up with your primary care provider next week. 2. Make sure you are drinking plenty of fluids you can try Gatorade, el ectrolyte drinks, protein or Ensure drinks will also help you gain strength while you are working to accommodate large volumes of food after your procedure. 3. Continue to take your Zofran as previously directed. 4. Return to the ER for any new, concerning, worsening symptoms. 5. If you feel like you are becoming dizzy, diaphoretic you can always try to drink a can of regular soda or juice as this will help bring up your blood sugar as these are symptoms of hypoglycemia. All discharge instructions reviewed with patient and/or family. Voiced understanding. JEVON LOUISE METAL FLOW COORDINATOR Apr 14, 2022 11:54
[2022-04-14] MEDS ORDERED: IOHEXOL 350 MG/ML 100 ML (OMNIPAQUE 350) VIAL IV ONE (12:00)
[2022-04-14] MEDS ORDERED: NS 100 ML (IVPB) BAG IV ONE (12:00)
[2022-04-14 12:16] LABS: ALBUMIN 3.8 GM/DL (3.2-4.5); BILIRUBIN,TOTAL 0.3 MG/DL (0.1-1.0); CREATININE SERUM 0.76 MG/DL (0.60-1.30); POTASSIUM 4.3 MMOL/L (3.6-5.0)
[2022-04-14] MEDS ORDERED: ACETAMINOPHEN 500 MG TAB (TYLENOL) PO ONE (12:30)
--- NOTE | 2022-04-14 12:52 | Diagnostic Imaging Report ---
PROCEDURE: CT abdomen and pelvis with contrast. TECHNIQUE: Multiple contiguous axial images were obtained through the abdomen and pelvis after administration of intravenous contrast. Auto Exposure Controls were utilized during the CT exam to meet ALARA standards for radiation dose reduction. All CT scans use one or more of the following dose optimizing techniques: automated exposure control, MA and/or KvP adjustment based on patient size and exam type or iterative reconstruction. INDICATION: Abdominal pain, bloating, recent bowel resection, head pain, dizziness and hypoglycemia. COMPARED: 03/20/2022 FINDINGS: There is right upper quadrant catheter tubing coiled adjacent to the undersurface of the liver, no adjacent fluid collection, gastric bypass. Gallbladder absent, liver, spleen, adrenals and pancreas nonacute. The kidneys unobstructed. The appendix normal. There are some scattered gonadal vein phleboliths in the abdominal retroperitoneum as well as pelvic phleboliths. No radiopaque urinary calculi are found. There is a minute amount of pelvic free fluid in the left adnexa and cul-de-sac. No loculated fluid collection. Urinary bladder appeared unremarkable. No pneumatosis. No free air. No acute-appearing vascular pathology. IMPRESSION: 1. Trace pelvic free fluid without loculation, unobstructed urinary tracts, no biliary dilatation, normal appendix. Peritoneal catheters with no loculated fluid collection. Dictated by: Dictated on workstation # [id number]
[2022-04-14] MEDS ORDERED: diphenhydrAMINE 25 MG TAB (BENADRYL) PO ONE (13:15)
[2022-04-14 13:36] VITALS: BP 135/89
== END 2022-04-14 13:36 | disposition home or self-care (01) ==
LOC: EDUNIT# 11:06 → ER 11:07
DX: E16.2 Hypoglycemia, unspecified (principal); R63.0 Anorexia; E66.01 Morbid (severe) obesity due to excess calories; Z68.36 Body mass index [BMI] 36.0-36.9, adult; Z88.6 Allergy status to analgesic agent
CPT/HCPCS: 36415; 74177; 80053; 82550; 82947; 83735; 85025; 86141; 93005

== ENCOUNTER 2022-05-06 22:58 | Emergency (ER) | payer BC, MEDICARE ==
[~2022-05-06] VITALS: Ht 165.1 cm; Wt 98.0 kg
--- NOTE | 2022-05-06 23:06 | ED General ---
General Stated Complaint: SEIZURE Source of Information: EMS, Family Exam Limitations: No Limitations History of Present Illness Date Seen by Provider: May 06, 2022 Time Seen by Provider: 23:00 Initial Comments 42-year-old female presents via EMS with active seizure activity. Symptoms reportedly started around 2144 intermittently have been gone ongoing since that time. She does have a history of seizure disorder. Has HAND RIGGER shunt. Reportedly has not missed any doses of her seizure medications. Mother states initial seizure lasted around 12 min and second around 20-25 minutes prompting her to call EMS. She has reportedly been crying non stop for the last 2 days according to her mother. Her family gave her intranasal Versed. In route via EMS she received 3 mg of Ativan total. On arrival C has active seizure-like activity but is looking around a bit. She has cessation of this activity about 5 minutes into her arrival. Allergies and Home Medications Allergies Coded Allergies: promethazine (Verified Allergy, Mild, 01/28/16) NSAIDS (Non-Steroidal Anti-Inflamma (Verified Allergy, Unknown, 11/06/19) HAD GASTRIC BYPASS prednisone (Verified Allergy, Unknown, 11/06/19) HAD GASTRIC BYPASS Uncoded Allergies: CALCIUM CHANNEL BLOCKERS (Adverse Reaction, Unknown, weight gain, 10/21/18) Patient Home Medication List Home Medication List Reviewed: Yes Acetaminophen (Tylenol Extra Strength) 500 Mg Tablet, 1,000 MG PO Q6H, (Reported) Entered as Reported by: BHAVIK TORRES on 08/23/19 112 Diphenhydramine HCl (Benadryl) 25 Mg Capsule, 25-50 MG PO Q4H, (Reported) Entered as Reported by: BHAVIK TORRES on 08/23/19 112 Divalproex Sodium (Depakote) 500 Mg Tablet.dr, 500 MG PO DAILY, (Reported) Entered as Reported by: BHAVIK TORRES on 08/23/19 1129 Duloxetine HCl (Cymbalta) 30 Mg Capsule.dr, 90 MG PO DAILY, (Reported) Entered as Reported by: BHAVIK TORRES on 08/23/19 112 Ondansetron (Ondansetron Odt) 4 Mg Tab.rapdis, 4 MG PO Q6H, (Reported) Entered as Reported by: BHAVIK TORRES on 08/23/19 1125 Oxycodone HCl/Acetaminophen (Percocet 10-325 mg Tablet) 1 Each Tablet, 1 TAB PO [id number] PRN for PAIN-MODERATE, (Reported) Entered as Reported by: BHAVIK TORRES on 08/23/19 1129 Oxycodone HCl/Acetaminophen (Percocet 5-325 mg Tablet) 1 Each Tablet, 1 TAB PO Q6H Prescribed by: SARA DIAZ on 01/23/202100 Propranolol HCl (Propranolol HCl) 80 Mg Tablet, 80 MG PO TID, (Reported) Entered as Reported by: JOSS LYLES on 03/08/16 1052 [lidoderm 5% patch] , 1 PATCH TD DAILY Prescribed by: SARA DIAZ on 01/23/202100 Review of Systems Review of Systems Constitutional: no symptoms reported EENTM: no symptoms reported Respiratory: no symptoms reported Cardiovascular: no symptoms reported Gastrointestinal: no symptoms reported Genitourinary: no symptoms reported Musculoskeletal: no symptoms reported Skin: no symptoms reported Psychiatric/Neurological: Seizure Hematologic/Lymphatic: No Symptoms Reported Immunological/Allergic: no symptoms reported Past Cneslpp-Tkicho-Futzez Hx Immunizations Up To Date Tetanus Booster (TDap): Less than 5yrs PED Vaccines UTD: No First/Initial COVID19 Vaccinat: 10/05 Second COVID19 Vaccination Richi: 10/05 Third COVID19 Vaccination Date: 10/05 Seasonal Allergies Seasonal Allergies: No Past Medical History Surgery/Hospitalization HX: SEIZURE DISORDERS, HTN GASTRIC BYPASS, HAND RIGGER SHUNT Surgeries: Yes (GASTRIC BYPASS, HAND RIGGER Shunt) Abdominal, Bladder Surgery, Brain Shunt, Gallbladder, Hysterectomy, Neurological, Oophorectomy Respiratory: Yes Asthma, Pneumonia, Chronic Bronchitis Cardiac: Yes Hypertension Neurological: Yes (IDIOPATHIC INTRACRANIAL HYPERTENSION;PSEUDOTUMOR CEREBRI) Headaches /Migraines, Meningitis, Seizure Disorder Reproductive Disorders: 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 Genitourinary: No Gastrointestinal: Yes (GASTRIC BYPASS) Gastroesophageal Reflux, Esophagitis Musculoskeletal: No Endocrine: Yes (MORBID OBESITY) HEENT: No Cancer: No Psychosocial: Yes Anxiety Integumentary: Yes (ABSCESSES; SURGICAL WOUND INFECTION) Blood Disorders: No Adverse Reaction/Blood Tranf: No Family Medical History Reviewed Nursing Family Hx Abdominal aortic aneurysm 03 FATHER Family history: Allergy 03 FATHER Family history: Arthritis 03 MOTHER 09 SISTER Family history: Hypertension 03 FATHER No Pertinent Family Hx PT HAD BOTH MODERNA COVID-19 VACCINES -SECOND ONE 08/2020 PT HAD COVID--SYMPTOMS BEGAN ON 01/21/21, TESTED + ON 10/24/20, HAD BAM INFUSION 01/25/21 DAUGHTER ALSO TESTED + FOR COVID AROUND THAT SAME TIME, AND DAUGHTER ALSO HAD BAM INFUSION Physical Exam Vital Signs Vital Signs - First Documented 05/06/22 05/07/22 23:02 00:04 Temp 36.8 Pulse 72 Resp 24 B/P (MAP) 126/90 (102) Pulse Ox 97 O2 Delivery Room Air Capillary Refill : Height, Weight, BMI Height: 5'5.00" Weight: 295lbs. 0.0oz. [id number]; 36.00 BMI Method:Stated General Appearance: Other (Active seizure-like activity with flexion of her legs and arms bilaterally. She does intermittently look around.) HEENT: PERRL/EOMI, Normal ENT Inspection, Pharynx Normal Neck: Full Range of Motion, Normal Inspection, Non Tender, Supple Respiratory: Chest Non Tender, Lungs Clear, Normal Breath Sounds, No Accessory Muscle Use, No Respiratory Distress Cardiovascular: Regular Rate, Rhythm, No Edema, No Gallop, No JVD, No Murmur, Normal Peripheral Pulses Gastrointestinal: Normal Bowel Sounds, No Organomegaly, No Pulsatile Mass, Non Tender, Soft Extremity: Normal Capillary Refill, Normal Inspection, Normal Range of Motion, Non Tender Focused Exam Lactate Level 05/06/22 23:10: Lactic Acid Level 1.05 Lactic Acid Level Laboratory Tests Test 05/06/22 23:10 Lactic Acid Level 1.05 MMOL/L (0.50-2.00) Progress/Results/Core Measures Suspected Sepsis SIRS Temperature: Pulse: Respiratory Rate: Laboratory Tests 05/06/22 23:10: White Blood Count 9.0 Blood Pressure / Mean: 05/06/22 23:10: Lactic Acid Level 1.05 Laboratory Tests 05/06/22 23:10: Creatinine 0.88, Platelet Count 336, Total Bilirubin < 0.2 Results/Orders Lab Results Laboratory Tests Test 05/06/22 23:04 05/06/22 23:10 Range/Units Glucometer 81 70-110 MG/DL White Blood Count 9.0 4.3-11.0 10^3/uL Red Blood Count 3.85 3.80-5.11 10^6/uL Hemoglobin 11.6 11.5-16.0 g/dL Hematocrit 35 35-52 % Mean Corpuscular Volume 91 80-99 fL Mean Corpuscular Hemoglobin 30 25-34 pg Mean Corpuscular Hemoglobin Concent 33 32-36 g/dL Red Cell Distribution Width 13.2 10.0-14.5 % Platelet Count 336 130-400 10^3/uL Mean Platelet Volume 9.5 9.0-12.2 fL Immature Granulocyte % (Auto) 0 % Neutrophils (%) (Auto) 51 42-75 % Lymphocytes (%) (Auto) 37 12-44 % Monocytes (%) (Auto) 8 0-12 % Eosinophils (%) (Auto) 4 0-10 % Basophils (%) (Auto) 1 0-10 % Neutrophils # (Auto) 4.6 1.8-7.8 10^3/uL Lymphocytes # (Auto) 3.4 1.0-4.0 10^3/uL Monocytes # (Auto) 0.7 0.0-1.0 10^3/uL Eosinophils # (Auto) 0.3 0.0-0.3 10^3/uL Basophils # (Auto) 0.1 0.0-0.1 10^3/uL Immature Granulocyte # (Auto) 0.0 0.0-0.1 10^3/uL Sodium Level 142 135-145 MMOL/L Potassium Level 4.1 3.6-5.0 MMOL/L Chloride Level 108 H 98-107 MMOL/L Carbon Dioxide Level 25 21-32 MMOL/L Anion Gap 9 5-14 MMOL/L Blood Urea Nitrogen 14 7-18 MG/DL Creatinine 0.88 0.60-1.30 MG/DL Estimat Glomerular Filtration Rate 83 BUN/Creatinine Ratio 16 Glucose Level 94 70-105 MG/DL Lactic Acid Level 1.05 0.50-2.00 MMOL/L Calcium Level 8.5 8.5-10.1 MG/DL Corrected Calcium 8.5 8.5-10.1 MG/DL Total Bilirubin < 0.2 0.1-1.0 MG/DL Aspartate Amino Transf (AST/SGOT) 13 5-34 U/L Alanine Aminotransferase (ALT/SGPT) 15 0-55 U/L Alkaline Phosphatase 88 40-136 U/L Total Protein 6.2 L 6.4-8.2 GM/DL Albumin 4.0 3.2-4.5 GM/DL My Orders Orders - KWESI GAGE DO Cbc With Automated Diff (05/06/22 23:04) Comprehensive Metabolic Panel (05/06/22 23:04) Ekg Tracing (05/06/22 23:04) Lactic Acid Analyzer (05/06/22 23:06) Ct Head/Neck Wo (05/06/22 23:04) Ct Chest/Abdomen/Pelvis Wo (05/06/22 23:12) Fentanyl Inj (Sublimaze Injection) (05/06/22 23:45) Ekg Tracing (05/06/22 23:37) Levetiracetam Injection (Keppra Injectio (05/07/22 00:17) Medications Given in ED Vital Signs/I&O 05/06/22 05/07/22 05/07/22 05/07/22 23:02 00:04 00:51 01:31 Temp 36.8 36.5 Pulse 72 61 66 80 Resp 24 14 15 16 B/P (MAP) 126/90 (102) 116/67 (83) 115/64 (81) 120/72 Pulse Ox 97 93 97 O2 Delivery Room Air Room Air Room Air Capillary Refill : ECG EKG : Comment Sinus rhythm with a rate of 65 beats. Normal intervals. Normal axis. No ST or T wave abnormalities. No ectopy. No STEMI. Departure Communication (Admissions) Patient initially with seizure-like activity however she would track with her eyes and withdrawal to pain, question whether this is pseudoseizure, conversion disorder or true seizure activity. Her lactate is negative and I would think with a 12 and 24-minute seizure that this would be elevated if true seizure-like activity. Regardless this activity does stop and we got her the CT scanner shows negative shunt series, normal decompressed ventricles and no other evidence of acute anomaly. EKG is nonischemic labs are reassuring. 0010: Spoke to transfer center, pending call back. 0015: [facility] at capacity. Called [facility], pending callback 0018: [facility] at capacity[facility] 0022: [facility] at [facility]. Called [facility], pending callback 0023: [place] [facility], called [facility], pending call back. 0040: Spoke to Dr Eduardo at [facility], accepts patient in transfer. Patient has continued to be alert, oriented with normal vital signs. No further seizure-like activity. She has been loaded with Keppra. Impression Primary Impression: Seizure-like activity Disposition: XFER SHT-TRM HOSP Condition: Stable Admissions Decision to Admit Reason: Admit from ER (General) Departure-Patient Inst. Referrals: [facility] [place] Primary Care Physician BERYL HICKMAN APRN (Family) Primary Care Physician KWESI GAGE DO May 06, 2022 23:06
[2022-05-06 23:23] LABS: BASOPHILS # (AUTO) 0.1 10^3/uL (0.0-0.1); BASOPHILS % (AUTO) 1 % (0-10); EOSINOPHILS # (AUTO) 0.3 10^3/uL (0.0-0.3); EOSINOPHILS % (AUTO) 4 % (0-10); HEMATOCRIT 35 % (35-52); HEMOGLOBIN 11.6 g/dL (11.5-16.0); LYMPHOCYTES # (AUTO) 3.4 10^3/uL (1.0-4.0); LYMPHOCYTES % (AUTO) 37 % (12-44); MEAN CORPUSCULAR HEMOGLOBIN 30 pg (25-34); MEAN CORPUSCULAR HGB CONC 33 g/dL (32-36); MEAN CORPUSCULAR VOLUME 91 fL (80-99); MEAN PLATELET VOLUME 9.5 fL (9.0-12.2); MONOCYTES # (AUTO) 0.7 10^3/uL (0.0-1.0); MONOCYTES % (AUTO) 8 % (0-12); NEUTROPHILS # (AUTO) 4.6 10^3/uL (1.8-7.8); NEUTROPHILS % (AUTO) 51 % (42-75); PLATELET COUNT 336 10^3/uL (130-400)
[2022-05-06] MEDS ORDERED: fentaNYL INJ 100 MCG/2 ML AMP IVP ONE (23:45)
[2022-05-06 23:53] LABS: ALANINE AMINOTRANSFERASE 15 U/L (0-55); ALKALINE PHOSPHATASE 88 U/L (40-136); BILIRUBIN,TOTAL < 0.2 MG/DL (0.1-1.0); BUN/CREATININE RATIO 16; CALCIUM 8.5 MG/DL (8.5-10.1); CARBON DIOXIDE 25 MMOL/L (21-32); CHLORIDE 108 MMOL/L (98-107); CREATININE SERUM 0.88 MG/DL (0.60-1.30); GFR ESTIMATED 83; GLUCOSE 94 MG/DL (70-105); POTASSIUM 4.1 MMOL/L (3.6-5.0); SODIUM 142 MMOL/L (135-145); TOTAL PROTEIN 6.2 GM/DL (6.4-8.2)
[2022-05-07 01:31] VITALS: BP 120/72
--- NOTE | 2022-05-07 07:45 | Diagnostic Imaging Report ---
PROCEDURE: CT chest, abdomen, and pelvis without contrast. TECHNIQUE: Multiple contiguous axial images were obtained through the chest, abdomen, and pelvis without the use of intravenous contrast. Auto Exposure Controls were utilized during the CT exam to meet ALARA standards for radiation dose reduction. INDICATION: Seizure. Altered mental status. Indwelling STARCH AND PROSIZE MIXER shunt. COMPARISON: 04/14/2022 FINDINGS: CT chest: Heart is mildly enlarged. There is no large pericardial effusion. No pathologically enlarged or morphologically abnormal adenopathy is seen within the mediastinum, carmelo, nor axilla. Lungs show low inspiratory volumes with scattered areas of geographic lucency interspersed with areas of geographic groundglass density. Findings are likely on the basis of atelectasis and air trapping. There is no large effusion or pneumothorax. Pulmonary nodule may be obscured, but no large pulmonary parenchymal mass is identified. Osseous structures show no acute abnormalities. No lytic or blastic bony lesions are seen. Radiopaque tubing is noted within the subcutaneous fat of the lower right neck extending over the anterior chest, midline. CT ABDOMEN: Radiopaque tubing extends into the intraperitoneal space of the upper abdomen, midline. There is mild image degradation/evaluation of the tubing due to motion artifact. Tubing terminates in the lower pelvis anteriorly and midline. There is no evidence of pseudocyst. No other unexpected radio opaque foreign bodies are seen. Multiple punctate nonobstructive bilateral renal calculi are identified. No ureteral calculi are seen on either side. Additionally, there is no hydroureteronephrosis or other evidence of obstruction. The adrenal glands, spleen, pancreas, and liver have an unremarkable noncontrast CT appearance. Small bowel loops are nondistended. Normal appendix is identified. There is moderate colonic air and stool. There is no loculated fluid collection, free fluid or free air. No abnormal adenopathy is seen. Osseous structures show no acute abnormalities. CT PELVIS: Urinary bladder is unopacified. No calculi are seen within urinary bladder. There is no loculated fluid collection, free fluid or free air. No abnormal adenopathy is identified. Osseous structures show no acute abnormalities. IMPRESSION: 1. No acute abnormalities seen within the chest, abdomen, or pelvis. 2. Indwelling ventriculoperitoneal shunt tubing is identified extending into the lower pelvis. There is no evidence of pseudocyst formation. 3. Bilateral nonobstructive renal calculi. 4. Moderate colonic air and stool. Please correlate for constipation. Dictated by: Dictated on workstation # [id number]
--- NOTE | 2022-05-07 07:46 | Diagnostic Imaging Report ---
PROCEDURE: CT head and neck without contrast. TECHNIQUE: Contiguous axial images were obtained from the skull base through the vertex. Noncontrast axial images were then obtained of the soft tissue of the neck. Auto Exposure Controls were utilized during the CT exam to meet ALARA standards for radiation dose reduction. INDICATION: Seizure. Altered mental status. Evaluate indwelling ventricular peritoneal shunt. COMPARISON: 02/01/2021 FINDINGS: CT head: Indwelling right-sided ventriculoperitoneal shunt is identified. Shunt enters via a right frontal convexity approach. Intracranial and extracranial portions of the tubing are patent. Ventricles and cortical sulci are within normal limits. There is no evidence of hydronephrosis. There is no midline shift or mass effect. No intra or extra axial intracranial hemorrhage is seen. There is no large area of diminished attenuation to suggest cerebral edema or evolving acute infarct. 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 Bony calvarium is otherwise intact. Paranasal sinuses and mastoid air cells are clear. CT NECK: Ventricular peritoneal shunt tubing extends inferiorly within the subcutaneous fat of the lateral right neck before it eventually extends over the anterior midline chest. Tubing is intact. There is no focal kink or discontinuity. Remainder of the soft tissues of the neck show no additional acute abnormalities. The parotid and submandibular glands are symmetric. Left thyroid lobe is somewhat diminutive, but thyroid gland is otherwise unremarkable on this exam. No suspicious masses are seen. No loculated fluid collection identified. No unexpected radiopaque foreign bodies are seen. Deep spaces of the neck are clear. There is no compromise of the airway. IMPRESSION: 1. Indwelling right-sided ventriculoperitoneal shunt catheter as above. 2. No acute intracranial abnormality. No CT evidence acute infarct, mass, nor hemorrhage. 3. Otherwise unremarkable CT of the neck as well. Dictated by: Dictated on workstation # [id number]
== END 2022-05-07 01:30 | disposition short-term general hospital (02) ==
LOC: EDUNIT# 22:58 → ER FS 22:59
DX: G40.909 Epilepsy, unspecified, not intractable, without status epilepticus (principal); Z86.16 Personal history of COVID-19; E66.01 Morbid (severe) obesity due to excess calories; Z68.36 Body mass index [BMI] 36.0-36.9, adult
CPT/HCPCS: 36415; 70450; 70490; 71250; 74176; 80053; 82947; 83605; 85025; 93005

== ENCOUNTER 2022-06-08 19:18 | Emergency (ER) | payer BC, MEDICARE ==
[~2022-06-08] VITALS: Ht 162.6 cm; Wt 98.0 kg
[2022-06-08 19:45] LABS: BASOPHILS % (AUTO) 1 % (0-10); EOSINOPHILS # (AUTO) 0.1 10^3/uL (0.0-0.3); EOSINOPHILS % (AUTO) 2 % (0-10); HEMATOCRIT 34 % (35-52); HEMOGLOBIN 10.9 g/dL (11.5-16.0); LYMPHOCYTES # (AUTO) 2.1 10^3/uL (1.0-4.0); LYMPHOCYTES % (AUTO) 46 % (12-44); MEAN CORPUSCULAR HEMOGLOBIN 30 pg (25-34); MEAN CORPUSCULAR HGB CONC 32 g/dL (32-36); MEAN CORPUSCULAR VOLUME 91 fL (80-99); MEAN PLATELET VOLUME 10.2 fL (9.0-12.2); MONOCYTES # (AUTO) 0.4 10^3/uL (0.0-1.0); MONOCYTES % (AUTO) 9 % (0-12); NEUTROPHILS # (AUTO) 1.8 10^3/uL (1.8-7.8); NEUTROPHILS % (AUTO) 41 % (42-75); PLATELET COUNT 225 10^3/uL (130-400); WHITE BLOOD COUNT 4.4 10^3/uL (4.3-11.0)
[2022-06-08] MEDS ORDERED: ONDANSETRON 4 MG/2 ML (SDV) Z0FRAN IVP ONE (19:45)
[2022-06-08 19:55] LABS: CLARITY,URINE CLEAR; COLOR,URINE RED; GLUCOSE, URINE (UA) TRACE (NEGATIVE); KETONES,URINE TRACE (NEGATIVE); LEUKOCYTE ESTERASE ,URINE TRACE (NEGATIVE); NITRITE,URINE POSITIVE (NEGATIVE); PROTEIN,URINE 1+ (NEGATIVE)
--- NOTE | 2022-06-08 19:57 | ED Neurological Problem ---
General Chief Complaint: Neurological Problems Stated Complaint: SEIZURE Nursing Triage Note: Pt to ED 7 per EMS. Per report, pt had a seizure at home, family gave 10 mg Versed intranasally, then EMS gave 5 mg IV Versed since pt was still having seizure, then another 5 mg IV Versed en route. Original seizure lasted approx 8 min, another 2 min seizure en route. Source: patient, EMS, old records Exam Limitations: no limitations History of Present Illness Date Seen by Provider: Jun 08, 2022 Time Seen by Provider: 19:19 Initial Comments This 42-year-old woman presents to the emergency room via EMS from her home where she experienced approximately 15 minutes of seizure-like activity. EMS d escribed this as low amplitude convulsions and diffuse tense musculature. She was not responsive during the episode. Vital signs are relatively unremarkable and stable. Patient has a history of seizures and/or pseudoseizures and has had thorough evaluation at tertiary care centers in the past. On May 06 she was seen in the emergency room and transferred to [facility]. She reports having a prolonged stay at [facility] after that as well. She reports that both true seizures and pseudoseizures were noted during her neurologic evaluations. She presently takes Keppra 500 mg twice daily and reports compliance with her morning dose. She denies any recent acute illness or drug or alcohol use. She is alert and oriented to person, situation, and place upon arrival. She received 10 mg of nasal Versed by family at home and a total of 10 mg of Versed IV by EMS. Speech and motor function are sluggish but she is alert and functional. Patient also has a history of pseudotumor cerebri and HOUSING PROPERTY MANAGER shunt. HOUSING PROPERTY MANAGER shunt was evaluated by CT imaging on her last ER visit and was found to appear normal. Patient states she is being referred to a neurosurgeon with HOUSING PROPERTY MANAGER shunt expertise on the [facility] to further evaluate her shunt situation. Patient complains of headache since this morning which she treated with hydrocodone. Historians for this interview include the patient herself, patient's daughter, and EMS. Portions of the chart were also reviewed including medication filling record and prior ER visit notes. Allergies and Home Medications Allergies Coded Allergies: promethazine (Verified Allergy, Mild, 01/28/16) NSAIDS (Non-Steroidal Anti-Inflamma (Verified Allergy, Unknown, 11/06/19) HAD GASTRIC BYPASS prednisone (Verified Allergy, Unknown, 11/06/19) HAD GASTRIC BYPASS Uncoded Allergies: CALCIUM CHANNEL BLOCKERS (Adverse Reaction, Unknown, weight gain, 10/21/18) Patient Home Medication List Home Medication List Reviewed: Yes Acetaminophen (Tylenol Extra Strength) 500 Mg Tablet, 1,000 MG PO Q6H, (Reported) Entered as Reported by: BHAVIK TORRES on 08/23/19 112 Diphenhydramine HCl (Benadryl) 25 Mg Capsule, 25-50 MG PO Q4H, (Reported) Entered as Reported by: BHAVIK TORRES on 08/23/19 112 Divalproex Sodium (Depakote) 500 Mg Tablet.dr, 500 MG PO DAILY, (Reported) Entered as Reported by: BHAVIK TORRES on 08/23/19 112 Duloxetine HCl (Cymbalta) 30 Mg Capsule.dr, 90 MG PO DAILY, (Reported) Entered as Reported by: BHAVIK TORRES on 08/23/19 112 Ondansetron (Ondansetron Odt) 4 Mg Tab.rapdis, 4 MG PO Q6H, (Reported) Entered as Reported by: BHAVIK TORRES on 08/23/19 112 Oxycodone HCl/Acetaminophen (Percocet 10-325 mg Tablet) 1 Each Tablet, 1 TAB PO [id number] PRN for PAIN-MODERATE, (Reported) Entered as Reported by: BHAVIK TORRES on 08/23/19 112 Oxycodone HCl/Acetaminophen (Percocet 5-325 mg Tablet) 1 Each Tablet, 1 TAB PO Q6H Prescribed by: SARA DIAZ on 01/23/202100 Propranolol HCl (Propranolol HCl) 80 Mg Tablet, 80 MG PO TID, (Reported) Entered as Reported by: JOSS LYLES on 03/08/16 1052 [lidoderm 5% patch] , 1 PATCH TD DAILY Prescribed by: SARA DIAZ on 01/23/202100 Review of Systems Review of Systems Constitutional: no symptoms reported Eyes: No Symptoms Reported Ears, Nose, Mouth, Throat: no symptoms reported Respiratory: no symptoms reported Cardiovascular: no symptoms reported Gastrointestinal: no symptoms reported Genitourinary: no symptoms reported : No Musculoskeletal: no symptoms reported Skin: no symptoms reported Psychiatric/Neurological: See HPI Endocrine: No Symptoms Reported Hematologic/Lymphatic: No Symptoms Reported Past Bsjnqst-Yczoxq-Dyvwxu Hx Patient Social History Tobacco Use?: No Use of E-Cig and/or Vaping dev: No Substance use?: No Alcohol Use?: No Immunizations Up To Date Tetanus Booster (TDap): Less than 5yrs PED Vaccines UTD: No First/Initial COVID19 Vaccinat: 10/05 Second COVID19 Vaccination Richi: 10/05 Third COVID19 Vaccination Date: 10/05 Seasonal Allergies Seasonal Allergies: No Past Medical History Surgery/Hospitalization HX: SEIZURE DISORDERS, HTN GASTRIC BYPASS, HOUSING PROPERTY MANAGER SHUNT Surgeries: Yes (GASTRIC BYPASS, HOUSING PROPERTY MANAGER Shunt) Abdominal, Bladder Surgery, Brain Shunt, Gallbladder, Hysterectomy, Neurological, Oophorectomy Respiratory: Yes Asthma, Pneumonia, Chronic Bronchitis Cardiac: Yes Hypertension Neurological: Yes (IDIOPATHIC INTRACRANIAL HYPERTENSION;PSEUDOTUMOR CEREBRI) Headaches /Migraines, Meningitis, Seizure Disorder (Epileptic seizures and pseudoseizures) : No Reproductive Disorders: No 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 Genitourinary: No Gastrointestinal: Yes (GASTRIC BYPASS) Gastroesophageal Reflux, Esophagitis Musculoskeletal: No Endocrine: Yes (MORBID OBESITY) HEENT: No Cancer: No Psychosocial: Yes Anxiety Integumentary: Yes (ABSCESSES; SURGICAL WOUND INFECTION) Blood Disorders: No Adverse Reaction/Blood Tranf: No Family Medical History Abdominal aortic aneurysm 03 FATHER Family history: Allergy 03 FATHER Family history: Arthritis 03 MOTHER 09 SISTER Family history: Hypertension 03 FATHER No Pertinent Family Hx PT HAD BOTH MODERNA COVID-19 VACCINES -SECOND ONE 08/2020 PT HAD COVID--SYMPTOMS BEGAN ON 01/21/21, TESTED + ON 10/24/20, HAD BAM INFUSION 01/25/21 DAUGHTER ALSO TESTED + FOR COVID AROUND THAT SAME TIME, AND DAUGHTER ALSO HAD BAM INFUSION Physical Exam Vital Signs Vital Signs - First Documented 06/08/22 19:22 Temp 35.4 Pulse 64 Resp 18 B/P (MAP) 113/60 (77) Pulse Ox 98 O2 Delivery Room Air Capillary Refill : Height, Weight, BMI Height: 5'5.00" Weight: 295lbs. 0.0oz. 133.706267uj; 37.00 BMI Method:Stated General Appearance: WD/WN, mild distress HEENT: PERRL/EOMI, normal ENT inspection Neck: normal inspection Respiratory: lungs clear, normal breath sounds, no respiratory distress Cardiovascular: regular rate, rhythm, no edema, no murmur Gastrointestinal: non tender, soft Extremities: normal inspection, no pedal edema Neurologic/Psychiatric: clip on sunglasses assembler II-XII nml as tested, no motor/sensory deficits, alert, normal mood/affect, oriented x 3, other (No focal deficits. She has grossly sluggish neurologic function due to Versed administration and possible postictal state) Crainal Nerves: normal hearing Skin: normal color, warm/dry Focused Exam Lactate Level 06/08/22 20:00: Lactic Acid Level 0.70 Lactic Acid Level Laboratory Tests Test 06/08/22 20:00 Lactic Acid Level 0.70 MMOL/L (0.50-2.00) Progress/Results/Core Measures Results/Orders Lab Results Laboratory Tests Test 06/08/22 19:23 06/08/22 19:46 06/08/22 19:53 06/08/22 20:00 Range/Units White Blood Count 4.4 4.3-11.0 10^3/uL Red Blood Count 3.69 L 3.80-5.11 10^6/uL Hemoglobin 10.9 L 11.5-16.0 g/dL Hematocrit 34 L 35-52 % Mean Corpuscular Volume 91 80-99 fL Mean Corpuscular Hemoglobin 30 25-34 pg Mean Corpuscular Hemoglobin Concent 32 32-36 g/dL Red Cell Distribution Width 13.2 10.0-14.5 % Platelet Count 225 130-400 10^3/uL Mean Platelet Volume 10.2 9.0-12.2 fL Immature Granulocyte % (Auto) 0 % Neutrophils (%) (Auto) 41 L 42-75 % Lymphocytes (%) (Auto) 46 H 12-44 % Monocytes (%) (Auto) 9 0-12 % Eosinophils (%) (Auto) 2 0-10 % Basophils (%) (Auto) 1 0-10 % Neutrophils # (Auto) 1.8 1.8-7.8 10^3/uL Lymphocytes # (Auto) 2.1 1.0-4.0 10^3/uL Monocytes # (Auto) 0.4 0.0-1.0 10^3/uL Eosinophils # (Auto) 0.1 0.0-0.3 10^3/uL Basophils # (Auto) 0.0 0.0-0.1 10^3/uL Immature Granulocyte # (Auto) 0.0 0.0-0.1 10^3/uL Sodium Level 140 135-145 MMOL/L Potassium Level 3.9 3.6-5.0 MMOL/L Chloride Level 110 H 98-107 MMOL/L Carbon Dioxide Level 23 21-32 MMOL/L Anion Gap 7 5-14 MMOL/L Blood Urea Nitrogen 16 7-18 MG/DL Creatinine 0.77 0.60-1.30 MG/DL Estimat Glomerular Filtration Rate 97 BUN/Creatinine Ratio 21 Glucose Level 78 70-105 MG/DL Calcium Level 8.6 8.5-10.1 MG/DL Corrected Calcium 8.8 8.5-10.1 MG/DL Magnesium Level 2.2 1.6-2.4 MG/DL Total Bilirubin 0.2 0.1-1.0 MG/DL Aspartate Amino Transf (AST/SGOT) 15 5-34 U/L Alanine Aminotransferase (ALT/SGPT) 17 0-55 U/L Alkaline Phosphatase 74 40-136 U/L Total Creatine Kinase 126 29-168 U/L Myoglobin 46.8 10.0-92.0 NG/ML Total Protein 5.7 L 6.4-8.2 GM/DL Albumin 3.8 3.2-4.5 GM/DL Serum Test, Qualitative NEGATIVE NEGATIVE Serum Alcohol < 10 <10 MG/DL Urine Color RED H Urine Clarity CLEAR Urine pH 5.0 5-9 Urine Specific [place] 1.025 H 1.016-1.022 Urine Protein 1+ H NEGATIVE Urine Glucose (UA) TRACE H NEGATIVE Urine Ketones TRACE H NEGATIVE Urine Nitrite POSITIVE H NEGATIVE Urine Bilirubin 1+ H NEGATIVE Urine Urobilinogen 4.0 < = 1.0 MG/DL Urine Leukocyte Esterase TRACE H NEGATIVE Urine RBC (Auto) NEGATIVE NEGATIVE Urine RBC 0-2 /HPF Urine WBC 0-2 /HPF Urine Squamous Epithelial Cells 0-2 /HPF Urine Crystals NONE /LPF Urine Bacteria TRACE /HPF Urine Casts PRESENT /LPF Urine Hyaline Casts 0-2 H /LPF Urine Mucus SMALL H /LPF Urine Culture Indicated YES Urine Opiates Screen POSITIVE H NEGATIVE Urine Oxycodone Screen NEGATIVE NEGATIVE Urine Methadone Screen NEGATIVE NEGATIVE Urine Propoxyphene Screen NEGATIVE NEGATIVE Urine Barbiturates Screen POSITIVE H NEGATIVE Ur Tricyclic Antidepressants Screen NEGATIVE NEGATIVE Urine Phencyclidine Screen NEGATIVE NEGATIVE Urine Amphetamines Screen POSITIVE H NEGATIVE Urine Methamphetamines Screen NEGATIVE NEGATIVE Urine Benzodiazepines Screen NEGATIVE NEGATIVE Urine Cocaine Screen NEGATIVE NEGATIVE Urine Cannabinoids Screen NEGATIVE NEGATIVE TSH [place] Testing 0.48 0.35-4.94 UIU/ML Lactic Acid Level 0.70 0.50-2.00 MMOL/L My Orders Orders - MARVIN MEYER MD Alcohol (06/08/22 19:31) Cbc With Automated Diff (06/08/22 19:31) Comprehensive Metabolic Panel (06/08/22 19:31) Creatine Kinase (06/08/22 19:31) Drug Screen Stat (Urine) (06/08/22 19:31) Hcg,Qualitative Serum (06/08/22 19:31) Lactic Acid Analyzer (06/08/22 19:31) Magnesium (06/08/22 19:31) Ua Culture If Indicated (06/08/22 19:31) Myoglobin Serum (06/08/22 19:31) Ondansetron Injection (Zofran Injectio (06/08/22 19:45) Levetiracetam Injection (Keppra Injectio (06/08/22 19:33) Thyroid Analyzer (06/08/22 19:58) Urine Culture (06/08/22 19:46) Ct Head/Neck Wo (06/08/22 19:33) Ceftriaxone 1 Gm Pre-Mix (Rocephin 1 Gm (06/08/22 20:32) Lactated Ringers (Lr 1000 Ml Iv Solution (06/08/22 20:45) Medications Given in ED Current Medications Medications Dose Ordered Sig/Kelly Route Start Time Stop Time Status Last Admin Dose Admin Lactated Ringer's 1,000 ml @ 0 mls/hr Q0M ONCE IV 06/08/22 20:45 06/08/22 20:46 DC 06/08/22 20:50 999 MLS/HR Ondansetron HCl 8 mg ONCE ONCE IVP 06/08/22 19:45 06/08/22 19:46 DC 06/08/22 19:54 8 MG Vital Signs/I&O 06/08/22 06/09/22 19:22 00:11 Temp 35.4 35.7 Pulse 64 48 Resp 18 16 B/P (MAP) 113/60 (77) 110/72 Pulse Ox 98 98 O2 Delivery Room Air Room Air 06/09/22 00:00 Intake Total 1160 ml Balance 1160 ml Blood Pressure Mean: 77 Progress Progress Note : Time: 22:46 Progress Note Patient was interviewed and examined immediately upon arrival. Daughter was also interviewed and provided significant history regarding her recent admissions at outside facilities. Patient received Keppra 1000 mg IV. Work-up including CBC, CMP, urinalysis, toxicology screen, thyroid cascade, lactic acid, myoglobin, and CK was pursued. All of these labs were reviewed. There was some subtle suggestion of urinary tract infection on urinalysis. This was treated with Rocephin by IV route. The remainder of the work-up was essentially unremarkable. CT of the head and neck was also obtained. This was viewed by me and no acute abnormalities were appreciated. HOUSING PROPERTY MANAGER shunt appeared intact and in good position without any disruption of the tubing. Ventricles showed no dilation. There was no evidence of hemorrhage or mass. Radiologist's report was reviewed and likewise showed no acute changes from prior. Patient and daughter stated that her epilepsy clinic and her epilepsy provider, Dr. Andi Puri, recommended contacting neurology anytime she is seen in the ER or hospitalized with seizure. I sought consultation with [facility] and discussed the case with epilepsy neurologist Dr. Parson. She recommended increasing Keppra to 750 mg twice daily. She did not recommend increasing all the way to 1000 mg twice daily because there was some question of adverse effects with that dosing during her most recent admission. She had also been started on Abilify at that time, so there was question about which medication was causing the adverse effects. She would rather increase incrementally by stepping up to 750 mg twice daily at this time. She also recommended that family video any further convulsive episodes. There has been some question about presence of epilepsy ve rsus pseudoseizures. Dr. Parson reported that no true epileptic activity had been captured on EEG monitoring at [facility]. She also advised that the patient be admitted overnight for observation, but stated that this is not mandatory, just her preferred practice. Patient is stable at this time and neurologically back to baseline. I discussed all of these recommendations with patient and her daughter. We discussed admission to the hospital for observation versus a longer ER stay with a shorter observation. Patient states her son is having surgery tomorrow and she really needs to be home in preparation for that event. At her request we have settled on an observation until midnight in the emergency room. Patient and daughter feel most comfortable with this plan, and I am agreeable. Diagnostic Imaging Diagonstic Imaging: CT Plain Films/CT/US/NM/MRI: c-spine, head Comments CT head and neck viewed by me and report reviewed. See report below: NAME: JOEY PARSONS [facility] REC#: [id number] PT STATUS: REG ER : 1980 PHYSICIAN: MARVIN MEYER MD ADMIT DATE: 06/08/22/ER Signed Date of Exam:06/08/22 CT HEAD/NECK WO INDICATION: History of HOUSING PROPERTY MANAGER shunt. Seizure. EXAMINATION: CT of the head and neck without contrast, 06/08/2022. All CT scans use one or more of the following dose optimizing techniques: automated exposure control, MA and/or KvP adjustment based on patient size and exam type or iterative reconstruction. COMPARISON: 05/06/2022. FINDINGS: CT BRAIN: Again noted is a HOUSING PROPERTY MANAGER shunt on the right entering through the anterior right lateral frontal convexity. Tip of the HOUSING PROPERTY MANAGER shunt ends along the midline near the 3rd ventricle similar to previous. There is no hydrocephalus. There is a dc hole abnormality along the right anterior and left anterior frontal calvarium with remaining calvarium intact. Paranasal sinuses and mastoid air cells clear. There is no hemorrhage or infarct. No mass, mass effect or midline shift. No hydrocephalus. IMPRESSION: 1. Postoperative changes similar to previous imaging with HOUSING PROPERTY MANAGER shunt unchanged. No hydrocephalus. 2. No acute hemorrhage or infarct. CT CERVICAL SPINE: There is normal height and alignment of the vertebral bodies. No fracture or subluxation appreciated. There is slight straightening of the curvature, likely positional or due to muscle spasm. Lung apices clear. Prevertebral soft tissues unremarkable. IMPRESSION: No acute process in the cervical spine. Dictated by: Dictated on workstation # [id number] Dict: 06/08/222040 Trans: 06/08/222204 [facility] [id number] Interpreted by: DEJAN JAMES MD Electronically signed by: DEJAN JAMES MD 06/08/222204 Departure Impression Primary Impression: Convulsions Qualified Codes: R56.9 - Unspecified convulsions Disposition: HOME, SELF-CARE Condition: Improved Departure-Patient Inst. Decision time for Depature: 22:42 Referrals: [facility] (PCP) Primary Care Physician BERYL HICKMAN APRN (Family) Primary Care Physician Patient Instructions: Epilepsy in Adults Add. Discharge Instructions: Keep your appointment with Dr. Puri. Discuss Keppra dosing at that visit. In the meantime, increase your Keppra dosing to 750 mg twice daily. Drink plenty of clear liquids to stay well-hydrated and eat a healthy well- balanced diet. Avoid any known triggers of convulsions. If you have any further convulsive or seizure-like episodes, please have family members video those episodes and present them to your neurology and epilepsy p hysicians. Return to the emergency room if you have any further episodes of recurrent seizure, seizure not responsive to nasal Versed, injury related to convulsions, etc. Also return to the ER based on any other instructions you received from your specialists. You had a subtle suggestion of urinary tract infection on urinalysis in the ER. You were treated for this in the ER. Follow-up with your primary care clinic on Thursday or Thursday to review urine culture results. This may be done by phone. Urine culture results will help determine if you need further treatment for UTI. All discharge instructions reviewed with patient and/or family. Voiced understanding. Copy Copies To 1: [facility]/MARVIN NORTON MD Jun 08, 2022 19:57
[2022-06-08 19:59] LABS: ALANINE AMINOTRANSFERASE 17 U/L (0-55); ALBUMIN 3.8 GM/DL (3.2-4.5); ALKALINE PHOSPHATASE 74 U/L (40-136); BILIRUBIN,TOTAL 0.2 MG/DL (0.1-1.0); BUN/CREATININE RATIO 21; CALCIUM 8.6 MG/DL (8.5-10.1); CARBON DIOXIDE 23 MMOL/L (21-32); CHLORIDE 110 MMOL/L (98-107); CREATINE KINASE 126 U/L (29-168); CREATININE SERUM 0.77 MG/DL (0.60-1.30); GFR ESTIMATED 97; GLUCOSE 78 MG/DL (70-105); MAGNESIUM 2.2 MG/DL (1.6-2.4); POTASSIUM 3.9 MMOL/L (3.6-5.0); SODIUM 140 MMOL/L (135-145); TOTAL PROTEIN 5.7 GM/DL (6.4-8.2)
[2022-06-08 20:06] LABS: BACTERIA,URINE TRACE /HPF; BILIRUBIN,URINE 1+ (NEGATIVE); HYALINE CASTS, URINE 0-2 /LPF; RBC,URINE 0-2 /HPF; SQUAMOUS EPITHELIAL CELL,UR 0-2 /HPF; WBC,URINE 0-2 /HPF
[2022-06-08 20:09] LABS: AMPHETAMINE SCREEN, URINE POSITIVE (NEGATIVE); BARBITURATE SCREEN URINE POSITIVE (NEGATIVE); OPIATE SCREEN URINE POSITIVE (NEGATIVE)
[2022-06-08 20:10] LABS: BENZODIAZEPINES SCREEN URINE NEGATIVE (NEGATIVE); CANNABINOID SCREEN, URINE NEGATIVE (NEGATIVE); COCAINE SCREEN URINE NEGATIVE (NEGATIVE); METHADONE STAT NEGATIVE (NEGATIVE); OXYCODONE STAT NEGATIVE (NEGATIVE); PROPOXYPHENE STAT NEGATIVE (NEGATIVE); TRICYCLIC ANTIDEPRESSANTS SCRE NEGATIVE (NEGATIVE)
[2022-06-08] MEDS ORDERED: cefTRIAXone 1 GM PRE-MIX 50 ML IV STA (20:32)
[2022-06-08] MEDS ORDERED: LACTATED RINGERS 1,000 ML IV ONE (20:45)
--- NOTE | 2022-06-08 20:54 | Diagnostic Imaging Report ---
INDICATION: History of DRILLER AND REAMER shunt. Seizure. EXAMINATION: CT of the head and neck without contrast, 06/08/2022. All CT scans use one or more of the following dose optimizing techniques: automated exposure control, MA and/or KvP adjustment based on patient size and exam type or iterative reconstruction. COMPARISON: 05/06/2022. FINDINGS: CT BRAIN: Again noted is a DRILLER AND REAMER shunt on the right entering through the anterior right lateral frontal convexity. Tip of the DRILLER AND REAMER shunt ends along the midline near the 3rd ventricle similar to previous. There is no hydrocephalus. There is a dc hole abnormality along the right anterior and left anterior frontal calvarium with remaining calvarium intact. Paranasal sinuses and mastoid air cells clear. There is no hemorrhage or infarct. No mass, mass effect or midline shift. No hydrocephalus. IMPRESSION: 1. Postoperative changes similar to previous imaging with DRILLER AND REAMER shunt unchanged. No hydrocephalus. 2. No acute hemorrhage or infarct. CT CERVICAL SPINE: There is normal height and alignment of the vertebral bodies. No fracture or subluxation appreciated. There is slight straightening of the curvature, likely positional or due to muscle spasm. Lung apices clear. Prevertebral soft tissues unremarkable. IMPRESSION: No acute process in the cervical spine. Dictated by: Dictated on workstation # [id number]
[2022-06-09 00:11] VITALS: BP 110/72
== END 2022-06-09 00:12 | disposition home or self-care (01) ==
LOC: EDUNIT# 19:18 → ER 19:19
DX: R56.9 Unspecified convulsions (principal)
CPT/HCPCS: 51702; 70450; 70490; 80053; 80306; 81000; 82550; 83605; 83735; 83874; 84443; 84703; 85025; 87077; 87088; 96361; 96365; 96375; 99284; G0480; 36415; 80320

== ENCOUNTER 2022-08-03 11:02 | Emergency (ER) | payer BC, MEDICARE ==
[~2022-08-03] VITALS: Ht 165 cm; Wt 97.0 kg
[2022-08-03] MEDS ORDERED: NS IV 1000 ML 1,000 ML IV STA (11:22)
--- NOTE | 2022-08-03 11:26 | ED Back Pain ---
General Chief Complaint: Back Problems Stated Complaint: BACK PAIN Source of Information: Patient Exam Limitations: No Limitations History of Present Illness Date Seen by Provider: Aug 03, 2022 Time Seen by Provider: 11:23 Initial Comments Patient is a 42-year-old female with a history of epilepsy, frequent urinary tract infections presents ED for not feeling well and urinary symptoms. Patient states over the past 8 days she has not felt well. Chills body aches fatigue decreased appetite. She states she has not been eating over the past 8 days. She reports frequent urination without any burning. She started helping left flank pain today pain on palpation. She also reports developing suprapubic discomfort. She was discharged from [facility] 2 weeks ago for evaluation for her epilepsy. Currently on medication for epilepsy. She denies of any recent seizures. She states she feels nauseous without vomiting or diarrhea. Denies cough, runny nose, sore throat, ear pain, chest pain, headache, visual changes, unilateral muscle weakness or sensory changes. Patient Was seen at the clinic and sent over for concern for pyelonephritis. Patient has been taken Pyridium, Tylenol and hydrocodone for her pain. She reports a temperature 102 at home before arrival. Afebrile on arrival. Allergies and Home Medications Allergies Coded Allergies: promethazine (Verified Allergy, Mild, 01/28/16) NSAIDS (Non-Steroidal Anti-Inflamma (Verified Allergy, Unknown, 11/06/19) HAD GASTRIC BYPASS prednisone (Verified Allergy, Unknown, 11/06/19) HAD GASTRIC BYPASS Uncoded Allergies: CALCIUM CHANNEL BLOCKERS (Adverse Reaction, Unknown, weight gain, 10/21/18) Patient Home Medication List Home Medication List Reviewed: Yes Acetaminophen (Tylenol Extra Strength) 500 Mg Tablet, 1,000 MG PO Q6H, (Reported) Entered as Reported by: BHAVIK TORRES on 08/23/19 1129 Cyclobenzaprine HCl (Cyclobenzaprine HCl) 10 Mg Tablet, 10 MG PO TID Prescribed by: LYLE GALVAN on 08/03/22 1320 Diphenhydramine HCl (Benadryl) 25 Mg Capsule, 25-50 MG PO Q4H, (Reported) Entered as Reported by: BHAVIK TORRES on 08/23/19 1129 Divalproex Sodium (Depakote) 500 Mg Tablet.dr, 500 MG PO DAILY, (Reported) Entered as Reported by: BHAVIK TORRES on 08/23/19 1129 Duloxetine HCl (Cymbalta) 30 Mg Capsule.dr, 90 MG PO DAILY, (Reported) Entered as Reported by: BHAVIK TORRES on 08/23/19 112 Levofloxacin (Levofloxacin) 750 Mg Tablet, 750 MG PO DAILY Prescribed by: LYLE GALVAN on 08/03/22 1320 Ondansetron (Ondansetron Odt) 4 Mg Tab.rapdis, 4 MG PO Q6H, (Reported) Entered as Reported by: BHAVIK TORRES on 08/23/19 112 Oxycodone HCl/Acetaminophen (Percocet 10-325 mg Tablet) 1 Each Tablet, 1 TAB PO [id number] PRN for PAIN-MODERATE, (Reported) Entered as Reported by: BHAVIK TORRES on 08/23/19 1129 Oxycodone HCl/Acetaminophen (Percocet 5-325 mg Tablet) 1 Each Tablet, 1 TAB PO Q6H Prescribed by: SARA DIAZ on 01/23/202100 Propranolol HCl (Propranolol HCl) 80 Mg Tablet, 80 MG PO TID, (Reported) Entered as Reported by: JOSS LYLES on 03/08/16 1052 [lidoderm 5% patch] , 1 PATCH TD DAILY Prescribed by: SARA DIAZ on 01/23/202100 Review of Systems Constitutional: fever, malaise, weakness EENTM: No mouth pain, No mouth swelling, No throat pain, No throat swelling Respiratory: No cough, No dyspnea on exertion, No short of breath Gastrointestinal: abdominal pain; No diarrhea; nausea; No vomiting Genitourinary: No decreased output, No discharge, No dysuria; frequency Musculoskeletal: back pain; No joint pain Skin: No change in color, No change in hair/nails All Other Systems Reviewed Negative Unless Noted: Yes Past Acdhaqj-Qbzlyu-Dipzle Hx Immunizations Up To Date Tetanus Booster (TDap): Less than 5yrs PED Vaccines UTD: No First/Initial COVID19 Vaccinat: 10/05 Second COVID19 Vaccination Richi: 10/05 Third COVID19 Vaccination Date: 10/05 Seasonal Allergies Seasonal Allergies: No Past Medical History Surgery/Hospitalization HX: SEIZURE DISORDERS, HTNGASTRIC BYPASS, SITE INSPECTOR SHUNT Surgeries: Yes (GASTRIC BYPASS, SITE INSPECTOR Shunt) Abdominal, Bladder Surgery, Brain Shunt, Gallbladder, Hysterectomy, Neurological, Oophorectomy Respiratory: Yes Asthma, Pneumonia, Chronic Bronchitis Cardiac: Yes Hypertension Neurological: Yes (IDIOPATHIC INTRACRANIAL HYPERTENSION;PSEUDOTUMOR CEREBRI) Headaches /Migraines, Meningitis, Seizure Disorder Reproductive Disorders: 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 Genitourinary: No Gastrointestinal: Yes (GASTRIC BYPASS) Gastroesophageal Reflux, Esophagitis Musculoskeletal: No Endocrine: Yes (MORBID OBESITY) HEENT: No Cancer: No Psychosocial: Yes Anxiety Integumentary: Yes (ABSCESSES; SURGICAL WOUND INFECTION) Blood Disorders: No Adverse Reaction/Blood Tranf: No Family Medical History Abdominal aortic aneurysm 03 FATHER Family history: Allergy 03 FATHER Family history: Arthritis 03 MOTHER 09 SISTER Family history: Hypertension 03 FATHER No Pertinent Family Hx PT HAD BOTH MODERNA COVID-19 VACCINES -SECOND ONE 08/2020 PT HAD COVID--SYMPTOMS BEGAN ON 01/21/21, TESTED + ON 10/24/20, HAD BAM INFUSION 01/25/21 DAUGHTER ALSO TESTED + FOR COVID AROUND THAT SAME TIME, AND DAUGHTER ALSO HAD BAM INFUSION Physical Exam Vital Signs Vital Signs - First Documented 08/03/22 11:24 Temp 36.8 Pulse 69 Resp 20 B/P (MAP) 137/104 (115) Pulse Ox 94 O2 Delivery Room Air Capillary Refill : Height, Weight, BMI Height: 5'5.00" Weight: 295lbs. 0.0oz. [id number]; 37.00 BMI Method:Stated General Appearance: No Apparent Distress, WD/WN HEENT: PERRL/EOMI, TMs Normal, Normal ENT Inspection, Pharynx Normal Neck: Full Range of Motion, Normal Inspection, Non Tender, Supple Cardiovascular: Regular Rate, Rhythm, No Edema, No Gallop, No JVD Respiratory: Chest Non Tender, Lungs Clear, Normal Breath Sounds Gastrointestinal: Normal Bowel Sounds, No Organomegaly, No Pulsatile Mass, Non Tender, Soft Back: Normal Inspection, CVA Tenderness (L) Extremity: Normal Capillary Refill, Normal Inspection, Normal Range of Motion, Non Tender Neurologic/Psychiatric: Alert, Oriented x3, No Motor/Sensory Deficits, Normal Mood/Affect, cullet washer II-XII Norm as Tested Progress/Results/Core Measures Results/Orders Lab Results Laboratory Tests Test 08/03/22 11:08/03/22 11:37 Range/Units Urine Color ORANGE Urine Clarity CLEAR Urine pH 5.0 5-9 Urine Specific Clarita <=1.005 1.016-1.022 Urine Protein 2+ H NEGATIVE Urine Glucose (UA) 1+ H NEGATIVE Urine Ketones TRACE H NEGATIVE Urine Nitrite POSITIVE H NEGATIVE Urine Bilirubin NEGATIVE NEGATIVE Urine Urobilinogen >=8.0 < = 1.0 MG/DL Urine Leukocyte Esterase TRACE H NEGATIVE Urine RBC (Auto) NEGATIVE NEGATIVE Urine RBC NONE /HPF Urine WBC 0-2 /HPF Urine Squamous Epithelial Cells 2-5 /HPF Urine Crystals NONE /LPF Urine Bacteria NEGATIVE /HPF Urine Casts NONE /LPF Urine Mucus NEGATIVE /LPF Urine Culture Indicated NO White Blood Count 9.4 4.3-11.0 10^3/uL Red Blood Count 4.41 3.80-5.11 10^6/uL Hemoglobin 13.7 11.5-16.0 g/dL Hematocrit 42 35-52 % Mean Corpuscular Volume 95 80-99 fL Mean Corpuscular Hemoglobin 31 25-34 pg Mean Corpuscular Hemoglobin Concent 33 32-36 g/dL Red Cell Distribution Width 14.0 10.0-14.5 % Platelet Count 289 130-400 10^3/uL Mean Platelet Volume 10.0 9.0-12.2 fL Immature Granulocyte % (Auto) 0 % Neutrophils (%) (Auto) 65 42-75 % Lymphocytes (%) (Auto) 25 12-44 % Monocytes (%) (Auto) 7 0-12 % Eosinophils (%) (Auto) 2 0-10 % Basophils (%) (Auto) 1 0-10 % Neutrophils # (Auto) 6.2 1.8-7.8 10^3/uL Lymphocytes # (Auto) 2.3 1.0-4.0 10^3/uL Monocytes # (Auto) 0.7 0.0-1.0 10^3/uL Eosinophils # (Auto) 0.1 0.0-0.3 10^3/uL Basophils # (Auto) 0.1 0.0-0.1 10^3/uL Immature Granulocyte # (Auto) 0.0 0.0-0.1 10^3/uL Sodium Level 142 135-145 MMOL/L Potassium Level 4.4 3.6-5.0 MMOL/L Chloride Level 106 98-107 MMOL/L Carbon Dioxide Level 22 21-32 MMOL/L Anion Gap 14 5-14 MMOL/L Blood Urea Nitrogen 12 7-18 MG/DL Creatinine 0.87 0.60-1.30 MG/DL Estimat Glomerular Filtration Rate 84 BUN/Creatinine Ratio 14 Glucose Level 102 70-105 MG/DL Calcium Level 9.7 8.5-10.1 MG/DL Corrected Calcium 8.5-10.1 MG/DL Total Bilirubin 0.6 0.1-1.0 MG/DL Aspartate Amino Transf (AST/SGOT) 33 5-34 U/L Alanine Aminotransferase (ALT/SGPT) 69 H 0-55 U/L Alkaline Phosphatase 120 40-136 U/L C-Reactive Protein High Sensitivity 0.08 0.00-0.50 MG/DL Total Protein 7.7 6.4-8.2 GM/DL Albumin 5.0 H 3.2-4.5 GM/DL My Orders Orders - KIMBERLY CLARK Cbc With Automated Diff (08/03/22 11:22) Comprehensive Metabolic Panel (08/03/22 11:22) Hs C Reactive Protein (08/03/22 11:22) Ns Iv 1000 Ml (Sodium Chloride 0.9%) (08/03/22 11:22) Ua Culture If Indicated (08/03/22 11:22) Ceftriaxone 1 Gm Pre-Mix (Rocephin 1 Gm (08/03/22 11:31) Ct Abd/Pelvis Wo(Kidney Stone) (08/03/22 11:40) Fentanyl Inj (Sublimaze Injection) (08/03/22 11:41) Vital Signs/I&O 08/03/22 08/03/22 08/03/22 11:24 11:46 13:31 Temp 36.8 36.8 36.8 Pulse 69 71 Resp 20 20 B/P (MAP) 137/104 (115) 112/76 Pulse Ox 94 93 O2 Delivery Room Air Room Air Departure Communication (PCP) Reviewed previous ER visits, H&P, lab testing. Patient with urinary symptoms, left flank pain, body aches, chills weakness with fever. Patient was sent to the ER for further evaluation concerning for pyelonephritis. She was found to have a urinary tract infection. Was discharged from [facility] 2 weeks ago for evaluation of her epilepsy. She does have a SITE INSPECTOR shunt. She has no hea dache, dizziness, visual changes, chest pain or cough. She does have some pain to her left flank and suprapubic. She was not tachycardic or febrile suggesting concern for sepsis. CBC, CMP, urinalysis was ordered. Urinalysis positive for nitrites, leukocyte suggesting UTI. CBC showed normal white blood count. Chemistry normal. CT abdomen and pelvis with bilateral nonobstructing kidney stones. There is some mild dilatation of the right renal collecting system and right ureter but no obstructing calculus is seen. No urterolithiasis, obstruction. No perinephric stranding suggesting kidney infection at this time. Suspect urinary tract infection. She states she has a history of urinary tract infections that is only improved with "Levaquin"'. She was on Macrobid prophylactically for 2 years. She has been on Levaquin in the past by [facility] with improvement of urinary tract infection. She is requesting this medication. Discussed potential side effects and black box warning of the medication such as tendon rupture, muscle damage, QT prolongation. She acknowledges. She reports spasm in the lower back at this time. Will discharge with Flexeril. Recommend reevaluation with her primary care physician in 4 to 5 days with urinalysis. Follow-up your PCP for further evaluation. Patient Was given a liter of fluid. Stable vital signs. She does not appear septic. Pain improved after dose of pain medication Fentanyl. She does have hydrocodone at home. Return precaution were discussed Impression Primary Impression: UTI (urinary tract infection) Disposition: 01 HOME, SELF-CARE Condition: Stable Departure-Patient Inst. Decision time for Depature: 13:14 Referrals: [facility] (PCP) Primary Care Physician BERYL HICKMAN APRN (Family) Primary Care Physician Patient Instructions: Urinary Tract Infection, Adult (DC) Scripts Cyclobenzaprine HCl (Cyclobenzaprine HCl) 10 Mg Tablet 10 MG PO TID for Muscle Spasms, #14 TAB Prov: KIMBERLY CLARK 08/03/22 Levofloxacin (Levofloxacin) 750 Mg Tablet 750 MG PO DAILY for 7 Days, #7 TAB Prov: KIMBERLY CLARK 08/03/22 KIMBERLY CLARK Aug 03, 2022 11:26
[2022-08-03] MEDS ORDERED: cefTRIAXone 1 GM PRE-MIX 50 ML IV STA (11:31)
[2022-08-03 11:40] LABS: BILIRUBIN,URINE NEGATIVE (NEGATIVE); CLARITY,URINE CLEAR; COLOR,URINE ORANGE; GLUCOSE, URINE (UA) 1+ (NEGATIVE); KETONES,URINE TRACE (NEGATIVE); LEUKOCYTE ESTERASE ,URINE TRACE (NEGATIVE); NITRITE,URINE POSITIVE (NEGATIVE); PROTEIN,URINE 2+ (NEGATIVE)
[2022-08-03] MEDS ORDERED: fentaNYL INJ 100 MCG/2 ML AMP IVP STA (11:41)
[2022-08-03 11:43] LABS: BASOPHILS # (AUTO) 0.1 10^3/uL (0.0-0.1); BASOPHILS % (AUTO) 1 % (0-10); EOSINOPHILS # (AUTO) 0.1 10^3/uL (0.0-0.3); EOSINOPHILS % (AUTO) 2 % (0-10); HEMATOCRIT 42 % (35-52); HEMOGLOBIN 13.7 g/dL (11.5-16.0); LYMPHOCYTES # (AUTO) 2.3 10^3/uL (1.0-4.0); LYMPHOCYTES % (AUTO) 25 % (12-44); MEAN CORPUSCULAR HEMOGLOBIN 31 pg (25-34); MEAN CORPUSCULAR HGB CONC 33 g/dL (32-36); MEAN CORPUSCULAR VOLUME 95 fL (80-99); MONOCYTES # (AUTO) 0.7 10^3/uL (0.0-1.0); MONOCYTES % (AUTO) 7 % (0-12); NEUTROPHILS # (AUTO) 6.2 10^3/uL (1.8-7.8); NEUTROPHILS % (AUTO) 65 % (42-75); PLATELET COUNT 289 10^3/uL (130-400); WHITE BLOOD COUNT 9.4 10^3/uL (4.3-11.0)
[2022-08-03 11:52] LABS: BACTERIA,URINE NEGATIVE /HPF; WBC,URINE 0-2 /HPF
[2022-08-03 11:56] LABS: CHLORIDE 106 MMOL/L (98-107); POTASSIUM 4.4 MMOL/L (3.6-5.0); SODIUM 142 MMOL/L (135-145)
[2022-08-03 11:57] LABS: CALCIUM 9.7 MG/DL (8.5-10.1)
[2022-08-03 11:58] LABS: GLUCOSE 102 MG/DL (70-105); TOTAL PROTEIN 7.7 GM/DL (6.4-8.2)
[2022-08-03 11:59] LABS: CARBON DIOXIDE 22 MMOL/L (21-32)
[2022-08-03 12:00] LABS: BILIRUBIN,TOTAL 0.6 MG/DL (0.1-1.0)
[2022-08-03 12:01] LABS: ALKALINE PHOSPHATASE 120 U/L (40-136)
[2022-08-03 12:02] LABS: CREATININE SERUM 0.87 MG/DL (0.60-1.30); GFR ESTIMATED 84
[2022-08-03 12:03] LABS: BUN/CREATININE RATIO 14
[2022-08-03 12:05] LABS: ALANINE AMINOTRANSFERASE 69 U/L (0-55)
--- NOTE | 2022-08-03 12:47 | Diagnostic Imaging Report ---
PROCEDURE: CT urinary tract, rule out kidney stone. TECHNIQUE: Multiple contiguous axial images were obtained through the abdomen and pelvis without the use of intravenous contrast. Auto Exposure Controls were utilized during the CT exam to meet ALARA standards for radiation dose reduction. INDICATION: Low back pain. COMPARISON: Correlation is made to prior CT from 05/06/2022. FINDINGS: The lung bases are clear. Liver is unremarkable. Gallbladder is surgically absent. There is no biliary ductal dilatation. Pancreas and spleen are unremarkable. There are postop changes of gastric bypass surgery. No adrenal mass is identified. There are punctate nonobstructing renal calculi bilaterally. No definite ureteral or bladder calculi are identified. The right renal collecting system and right ureter are mildly prominent. This could be owing to recent passage of calculus. 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 Aorta is nonaneurysmal. Bowel loops are nonobstructed. Trace free fluid in the pelvis is noted. Uterus appears to be surgically absent. IMPRESSION: 1. Bilateral nonobstructing nephrolithiasis. There is some mild dilatation of the right renal collecting system and right ureter but no obstructing calculus is seen. Findings could be owing to recent passage of a calculus. The study is otherwise unremarkable. Dictated by: Dictated on workstation # [id number]
[2022-08-03] MEDS ORDERED: CYCL10TA25 PO (13:20)
[2022-08-03] MEDS ORDERED: LEVO750T PO (13:20)
[2022-08-03 13:31] VITALS: BP 112/76
== END 2022-08-03 13:30 | disposition home or self-care (01) ==
LOC: EDUNIT# 11:02 → ER 11:03
DX: N39.0 Urinary tract infection, site not specified (principal); N20.0 Calculus of kidney; G40.909 Epilepsy, unspecified, not intractable, without status epilepticus; E66.01 Morbid (severe) obesity due to excess calories; Z68.35 Body mass index [BMI] 35.0-35.9, adult; Z79.899 Other long term (current) drug therapy
CPT/HCPCS: 36415; 74176; 80053; 81000; 85025; 86141

== ENCOUNTER 2022-10-20 18:08 | Emergency (ER) | payer BC, MEDICARE ==
[~2022-10-20] VITALS: Ht 167 cm; Wt 95.0 kg
[~2022-10-20 18:08] MED LIST changes: +CYCL10TA25 PO; +LEVO750T PO
[2022-10-20] MEDS ORDERED: NS IV 1000 ML 1,000 ML ONE (18:25)
[2022-10-20] MEDS ORDERED: NS IV 1000 ML 1,000 ML IV SCH (18:30)
--- NOTE | 2022-10-20 18:31 | ED General ---
General Chief Complaint: General Problems/Pain Stated Complaint: SLURRED SPEECH,CAN'T WALK Nursing Triage Note: Patient has been brought to ER by family with cc of patient being unable to talk and difficulty walking. Per the patient had a seizure a week ago was seen [facility] a week ago for the seizure. Today reports that she was normal at 1100 today and since that time she has "gone down hill". She has trouble talking and walking. reports that she has these spells and is seen at for her condition. states that they really don't have a diagnosis for why she is doing this. Source of Information: Patient, Spouse History of Present Illness Date Seen by Provider: Oct 20, 2022 Time Seen by Provider: 18:09 Initial Comments 42-year-old female presenting by private vehicle from home with her spouse. She is alert and answering questions but has slow speech and is sluggish to respond to questions and movements are sluggish as well. She does not have a history of seizures as well as pseudotumor cerebri and BOILER OUT shunt. She denies any fall or injury. She has not been running a fever or having vomiting or diarrhea. Per the she has episodes like this frequently and follows with neurology out of [facility]. She states that she tried to call them but they did not understand what the patient was saying and told her to be seen in a local ER if she was having problems. She lives in [facility] and usually goes to [facility] or [facility] in [place] however the brought her here to the stand-alone emergency department in [place] today. He states that she did have a seizure last Thursday and he was out of town so that her children had taken her to [facility]. He reports that she got some IV fluids and testing done and was released back home. Patient denies missing any doses of medications. Timing/Duration: 4-6 Hours Severity: Moderate Associated Systoms: No Chest Pain, No Cough, No Diaphoresis, No Fever/Chills, No Headaches, No Loss of Appetite, No Malaise, No Nausea/Vomiting, No Rash; Seizure (1 week ago for the last seizure); No Shortness of Air, No Syncope Allergies and Home Medications Allergies Coded Allergies: promethazine (Verified Allergy, Mild, 01/28/16) NSAIDS (Non-Steroidal Anti-Inflamma (Verified Allergy, Unknown, 11/06/19) HAD GASTRIC BYPASS prednisone (Verified Allergy, Unknown, 11/06/19) HAD GASTRIC BYPASS Uncoded Allergies: CALCIUM CHANNEL BLOCKERS (Adverse Reaction, Unknown, weight gain, 10/21/18) Patient Home Medication List Home Medication List Reviewed: Yes Acetaminophen (Tylenol Extra Strength) 500 Mg Tablet, 1,000 MG PO Q6H, (Reported) Entered as Reported by: BHAVIK TORRES on 08/23/19 1129 Cyclobenzaprine HCl (Cyclobenzaprine HCl) 10 Mg Tablet, 10 MG PO TID Prescribed by: LYLE GALVAN on 08/03/22 1320 Diphenhydramine HCl (Benadryl) 25 Mg Capsule, 25-50 MG PO Q4H, (Reported) Entered as Reported by: BHAVIK TORRES on 08/23/19 1129 Divalproex Sodium (Depakote) 500 Mg Tablet.dr, 500 MG PO DAILY, (Reported) Entered as Reported by: BHAVIK TORRES on 08/23/19 1129 Duloxetine HCl (Cymbalta) 30 Mg Capsule.dr, 90 MG PO DAILY, (Reported) Entered as Reported by: BHAVIK TORRES on 08/23/19 1125 Levofloxacin (Levofloxacin) 750 Mg Tablet, 750 MG PO DAILY Prescribed by: LYLE GALVAN on 08/03/22 1320 Ondansetron (Ondansetron Odt) 4 Mg Tab.rapdis, 4 MG PO Q6H, (Reported) Entered as Reported by: BHAVIK TORRES on 08/23/19 1125 Oxycodone HCl/Acetaminophen (Percocet 10-325 mg Tablet) 1 Each Tablet, 1 TAB PO [id number] PRN for PAIN-MODERATE, (Reported) Entered as Reported by: BHAVIK TORRES on 08/23/19 1129 Oxycodone HCl/Acetaminophen (Percocet 5-325 mg Tablet) 1 Each Tablet, 1 TAB PO Q6H Prescribed by: SARA DIAZ on 01/23/20 2101 Propranolol HCl (Propranolol HCl) 80 Mg Tablet, 80 MG PO TID, (Reported) Entered as Reported by: JOSS LYLES on 03/08/16 1052 [lidoderm 5% patch] , 1 PATCH TD DAILY Prescribed by: SARA DIAZ on 01/23/202100 Review of Systems Review of Systems Constitutional: No chills, No fever EENTM: no symptoms reported Respiratory: no symptoms reported Cardiovascular: no symptoms reported Gastrointestinal: no symptoms reported Genitourinary: no symptoms reported Musculoskeletal: no symptoms reported Skin: no symptoms reported Psychiatric/Neurological: See HPI Past [id number] Hx Patient Social History Tobacco Use?: No Use of E-Cig and/or Vaping dev: No Substance use?: No Alcohol Use?: No Immunizations Up To Date Tetanus Booster (TDap): Less than 5yrs PED Vaccines UTD: No First/Initial COVID19 Vaccinat: 10/05 moderna x 2 Second COVID19 Vaccination Richi: 10/05 Third COVID19 Vaccination Date: 10/05 Seasonal Allergies Seasonal Allergies: No Past Medical History Surgery/Hospitalization HX: SEIZURE DISORDERS, HTN, GASTRIC BYPASS, BOILER OUT SHUNT, Pseudotumor cerebri, Hysterectomy, Cholecystectomy, Oopherectomy, Asthma, Migraine headaches, GERD, Anxiety Surgeries: Yes (GASTRIC BYPASS, BOILER OUT Shunt) Abdominal, Bladder Surgery, Brain Shunt, Gallbladder, Hysterectomy, Neurological, Oophorectomy Respiratory: Yes Asthma, Pneumonia, Chronic Bronchitis Cardiac: Yes Hypertension Neurological: Yes (IDIOPATHIC INTRACRANIAL HYPERTENSION;PSEUDOTUMOR CEREBRI) Headaches /Migraines, Meningitis, Seizure Disorder Reproductive Disorders: 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 Genitourinary: No Gastrointestinal: Yes (GASTRIC BYPASS) Gastroesophageal Reflux, Esophagitis Musculoskeletal: No Endocrine: Yes (MORBID OBESITY) HEENT: No Cancer: No Psychosocial: Yes Anxiety Integumentary: Yes (ABSCESSES; SURGICAL WOUND INFECTION) Blood Disorders: No Adverse Reaction/Blood Tranf: No Family Medical History Abdominal aortic aneurysm 03 FATHER Family history: Allergy 03 FATHER Family history: Arthritis 03 MOTHER 09 SISTER Family history: Hypertension 03 FATHER No Pertinent Family Hx PT HAD BOTH MODERNA COVID-19 VACCINES -SECOND ONE 08/2020 PT HAD COVID--SYMPTOMS BEGAN ON 01/21/21, TESTED + ON 10/24/20, HAD BAM INFUSION 01/25/21 DAUGHTER ALSO TESTED + FOR COVID AROUND THAT SAME TIME, AND DAUGHTER ALSO HAD BAM INFUSION Physical Exam Vital Signs Vital Signs - First Documented 10/20/22 18:20 Temp 36.0 Pulse 57 Resp 14 B/P (MAP) 136/92 (107) Pulse Ox 100 O2 Delivery Room Air Capillary Refill : Height, Weight, BMI Height: 5'5.00" Weight: 295lbs. 0.0oz. [id number]; 34.00 BMI Method:Stated General Appearance: No Apparent Distress, WD/WN, Obese, Other Eyes: Bilateral Eye Normal Inspection, Bilateral Eye PERRL, Bilateral Eye EOMI HEENT: PERRL/EOMI, Pharynx Normal, Moist Mucous Membranes Neck: Full Range of Motion, Normal Inspection, Non Tender, Supple Respiratory: Chest Non Tender, Lungs Clear, Normal Breath Sounds Cardiovascular: Regular Rate, Rhythm, Normal Peripheral Pulses Gastrointestinal: Normal Bowel Sounds, No Pulsatile Mass, Non Tender, Soft Rectal: Deferred Extremity: Normal Capillary Refill, Normal Inspection, No Pedal Edema Neurologic/Psychiatric: Alert, Oriented x3, No Motor/Sensory Deficits, er tech II- XII Norm as Tested, Other (DTR 2+ symmetrical biceps, patellar, achilles) Skin: Normal Color, Warm/Dry Focused Exam Lactate Level 10/20/22 18:25: Lactic Acid Level 0.61 Lactic Acid Level Laboratory Tests Test 10/20/22 18:25 Lactic Acid Level 0.61 MMOL/L (0.50-2.00) Progress/Results/Core Measures Suspected Sepsis SIRS Temperature: Pulse: 57 Respiratory Rate: 14 Laboratory Tests 10/20/22 18:17: White Blood Count 5.5 Blood Pressure 136 /92 Mean: 107 10/20/22 18:25: Lactic Acid Level 0.61 Laboratory Tests 10/20/22 18:17: Creatinine 0.83, INR Comment 0.9, Platelet Count 217, Total Bilirubin 0.2 Results/Orders Lab Results Laboratory Tests Test 10/20/22 18:17 10/20/22 18:25 10/20/22 18:30 Range/Units White Blood Count 5.5 4.3-11.0 10^3/uL Red Blood Count 3.79 L 3.80-5.11 10^6/uL Hemoglobin 11.7 11.5-16.0 g/dL Hematocrit 36 35-52 % Mean Corpuscular Volume 94 80-99 fL Mean Corpuscular Hemoglobin 31 25-34 pg Mean Corpuscular Hemoglobin Concent 33 32-36 g/dL Red Cell Distribution Width 13.3 10.0-14.5 % Platelet Count 217 130-400 10^3/uL Mean Platelet Volume 10.5 9.0-12.2 fL Immature Granulocyte % (Auto) 0 % Neutrophils (%) (Auto) 34 L 42-75 % Lymphocytes (%) (Auto) 56 H 12-44 % Monocytes (%) (Auto) 8 0-12 % Eosinophils (%) (Auto) 2 0-10 % Basophils (%) (Auto) 1 0-10 % Neutrophils # (Auto) 1.8 1.8-7.8 10^3/uL Lymphocytes # (Auto) 3.1 1.0-4.0 10^3/uL Monocytes # (Auto) 0.4 0.0-1.0 10^3/uL Eosinophils # (Auto) 0.1 0.0-0.3 10^3/uL Basophils # (Auto) 0.0 0.0-0.1 10^3/uL Immature Granulocyte # (Auto) 0.0 0.0-0.1 10^3/uL Prothrombin Time 12.5 12.2-14.7 SEC INR Comment 0.9 0.8-1.4 Activated Partial Thromboplast Time 29 24-35 SEC Sodium Level 143 135-145 MMOL/L Potassium Level 4.2 3.6-5.0 MMOL/L Chloride Level 109 H 98-107 MMOL/L Carbon Dioxide Level 23 21-32 MMOL/L Anion Gap 11 5-14 MMOL/L Blood Urea Nitrogen 15 7-18 MG/DL Creatinine 0.83 0.60-1.30 MG/DL Estimat Glomerular Filtration Rate 89 BUN/Creatinine Ratio 18 Glucose Level 88 70-105 MG/DL Calcium Level 9.2 8.5-10.1 MG/DL Corrected Calcium 8.9 8.5-10.1 MG/DL Total Bilirubin 0.2 0.1-1.0 MG/DL Aspartate Amino Transf (AST/SGOT) 16 5-34 U/L Alanine Aminotransferase (ALT/SGPT) 21 0-55 U/L Alkaline Phosphatase 112 40-136 U/L Troponin I < 0.30 <0.30 NG/ML Total Protein 6.5 6.4-8.2 GM/DL Albumin 4.4 3.2-4.5 GM/DL Salicylates Level < 0.3 L 5.0-20.0 MG/DL Acetaminophen Level 11 10-30 UG/ML Serum Alcohol < 10 <10 MG/DL Lactic Acid Level 0.61 0.50-2.00 MMOL/L Urine Color YELLOW Urine Clarity CLEAR Urine pH 6.0 5-9 Urine Specific Brilliant 1.015 L 1.016-1.022 Urine Protein NEGATIVE NEGATIVE Urine Glucose (UA) NEGATIVE NEGATIVE Urine Ketones NEGATIVE NEGATIVE Urine Nitrite NEGATIVE NEGATIVE Urine Bilirubin NEGATIVE NEGATIVE Urine Urobilinogen 0.2 < = 1.0 MG/DL Urine Leukocyte Esterase NEGATIVE NEGATIVE Urine RBC (Auto) NEGATIVE NEGATIVE Urine RBC NONE /HPF Urine WBC NONE /HPF Urine Squamous Epithelial Cells RARE /HPF Urine Crystals NONE /LPF Urine Bacteria NEGATIVE /HPF Urine Casts NONE /LPF Urine Mucus NEGATIVE /LPF Urine Culture Indicated NO Urine Opiates Screen NEGATIVE NEGATIVE Urine Oxycodone Screen NEGATIVE NEGATIVE Urine Methadone Screen NEGATIVE NEGATIVE Urine Propoxyphene Screen NEGATIVE NEGATIVE Urine Barbiturates Screen POSITIVE H NEGATIVE Ur Tricyclic Antidepressants Screen NEGATIVE NEGATIVE Urine Phencyclidine Screen NEGATIVE NEGATIVE Urine Amphetamines Screen NEGATIVE NEGATIVE Urine Methamphetamines Screen NEGATIVE NEGATIVE Urine Benzodiazepines Screen NEGATIVE NEGATIVE Urine Cocaine Screen NEGATIVE NEGATIVE Urine Cannabinoids Screen NEGATIVE NEGATIVE My Orders Orders - SHEKHAR VICTOR MD Ua Culture If Indicated (10/20/22 18:21) Cbc With Automated Diff (10/20/22 18:21) Comprehensive Metabolic Panel (10/20/22 18:21) Alcohol (10/20/22 18:21) Drug Screen Stat (Urine) (10/20/22 18:21) Acetaminophen (10/20/22 18:21) Salicylate (10/20/22 18:21) Ekg Tracing (10/20/22 18:21) Ed Iv/Invasive Line Start (10/20/22 18:21) Monitor-Rhythm Ecg Trace Only (10/20/22 18:21) Ns Iv 1000 Ml (Sodium Chloride 0.9%) (10/20/22 18:30) Straight Cath For Spec.-Adult (10/20/22 18:21) Protime With Inr (10/20/22 18:21) Partial Thromboplastin Time (10/20/22 18:21) Lactic Acid Analyzer (10/20/22 18:21) Ct Head Wo (10/20/22 18:21) Troponin I Fs (10/20/22 18:21) Ns Iv 1000 Ml (Sodium Chloride 0.9%) (10/20/22 18:25) Ketorolac Injection (Toradol Injection) (10/20/22 19:22) Ns Iv 1000 Ml (Sodium Chloride 0.9%) (10/20/22 19:22) Vital Signs/I&O 10/20/22 10/20/22 18:20 20:19 Temp 36.0 Pulse 57 73 Resp 14 16 B/P (MAP) 136/92 (107) 102/46 Pulse Ox 100 93 O2 Delivery Room Air Capillary Refill : Blood Pressure Mean: 107 Progress Note #1: Progress Note Potential diagnosis of seizure, complex migraine, atypical migraine, electrolyte imbalance, substance abuse, urinary tract infection, conversion disorder. Place patient in bed with seizure precautions and pads on the rails. Placed on cardiac color television console monitor and on my initial interpretation her heart rate is 60 and appears sinus. She is afebrile and her blood pressure was 139/62. Oxygen saturation is 98 to 100% on room air. She is answering questions but is slow and sluggish to respond. Initially she had said no when I asked if she had pain anywhere but she did tell the nurses that she had a headache and took a Fioricet for a migraine earlier this afternoon. Establish peripheral IV access and send labs for complete blood count, comprehensive metabolic profile, coagulation factors, alcohol, acetaminophen, salicylate levels, urinalysis, urine drug screen, lactic acid. Administer normal saline 1 L IV fluid bolus for hydration. Progress Note #2: Time: 19:01 Progress Note On my personal interpretation and review I did not appreciate any acute process in the CT scan of her head without contrast. Her complete blood count had a normal white blood cell count of 5.5 and she had anemia with a hemoglobin of 11.7. Her urinalysis was not showing any signs of infection as her specific gravity was 1.015 and she had negative nitrites, leukocyte esterase, white blood cells, bacteria. Her urine drug screen did show the barbiturates that she takes with Fioricet. Her lactic acid was negative at 0.61 which helps point away from an acute tonic-clonic seizure. Her chemistry profile did not show any acute significant electrolyte abnormality to account for her symptoms. She was not in renal failure as her creatinine was 0.83. Her sugar was okay at 88. Troponin was less than 0.3. Her liver enzymes were not elevated. Again this may be more of a complex or atypical migraine headache. She is receiving IV fluids for hydration however she reports an allergy to NSA IDs. We will have to clarify with the patient as this may just be due to her history of gastric bypass rather than a true allergy. 190 I reviewed the radiologist report on the CT scan of the head without contrast. They also did not see any acute process and felt that appeared similar to imaging from June 08, 2022. On review of her allergies listed in the computer it does show NSAIDs and steroids or on her allergy list due to her having a history of gastric bypass. She does not have a true allergic reaction to these medications. Of note the reported allergy for calcium channel blockers is due to weight gain, again not a true allergic reaction. Will review findings and test results with patient and and see how she is feeling now. If not improving with fluids here could add in treatment with Toradol and additional IVF for possible Complex or atypical migraine headache. If she is worsening or still not improving would contact Neurology to get input as a consult and see if they would want her transferred for admit or any additional treatment recommendations. Progress Note #3: Time: 19:24 Progress Note After speaking with the patient and spouse I advised them that I was going to give another liter of fluid and a dose of Toradol 15 mg IV to try and treat for possible complex migraine. Patient voiced that she had seen her neurologist Dr. Verma this last week about her weakness and seizure activity. She states that she has been having progressive weakness and difficulty with her speech since her seizure on October 13. She was agreeable to the treatment for possible migraine headache but she did voice that in the past when she has gotten weak like this the neurology doctors at have had to admit her for medication adjustment and rehabilitation and physical therapy for her strength and gait. I placed a call to the transfer center for a neurology consult and possible transfer depending on what they wanted to do after reviewing the information. I spoke with RAMONE Reilly, at the transfer center and gave her the information and test results that I had so far. She will reach out to neurology and call me back after getting their input. Progress Note #4: Time: 20:[address] Everett Newton, on-call neurologist for [facility], did call me back to discuss the patient and her case. He was able to review notes from Dr. Verma about the patient. With her not having any acute significant changes or finding s on her labs and tests as well as having bilateral leg weakness and unsteady gait it was felt that inpatient admission and transfer would not have anything to offer for assistance. He was agreeable with therapy but felt that outpatient physical therapy could be ordered and arranged for the patient to help with her weakness. He did not feel that any medicine adjustment would make a difference at this point. He did voice that there was some concern that some of the symptoms of the patient could be psychogenic or of a conversion disorder in nature. From reviewing the notes of Dr. Verma he noted that there was some concern for that and suspected that the patient would be referred to psychotherapy for treatment as well. At this point he was recommending elsie del real to home and continue on her current medicine regimen. Call the clinic tomorrow to see about having them arrange outpatient physical therapy. Will careers counsellor the patient to also check back with her primary care provider as they may be able to help arrange that as well. ECG Initial ECG Impression Date: Oct 20, 2022 Initial ECG Impression Time: 18:27 Initial ECG Rate: 57 Initial ECG Rhythm: Normal Sinus Initial ECG Comparisson: Unchanged (05/06/2023) Comment On my personal interpretation and review the electrocardiogram shows sinus rhythm with a heart rate of 57 bpm. NV interval [address] elevation. QT interval 409 ms with a QTc interval 404 ms. Overall appears similar to tracing from May 06, 2022. Diagnostic Imaging Diagonstic Imaging: CT Plain Films/CT/US/NM/MRI: head Comments NAME: [facility] REC#: [id number] PT STATUS: REG ER : 1980 PHYSICIAN: SHEKHAR VICTOR MD ADMIT DATE: 10/20/22/ER FS Signed Date of Exam:10/20/22 CT HEAD WO PROCEDURE: CT head without contrast. TECHNIQUE: Multiple contiguous axial images were obtained through the brain without the use of intravenous contrast. Auto Exposure Controls were utilized during the CT exam to meet ALARA standards for radiation dose reduction. DATE: October 20, 2022. COMPARISON: CT head and neck June 08, 2022. INDICATION: 42-year-old female, altered mental status, slurred speech, difficulty walking. FINDINGS: There is a right-sided BOILER OUT shunt catheter. The catheter tubing appears intact. The catheter tip approximates the lateral ventricles. The lateral ventricles are slitlike in appearance. This is largely similar in appearance to the prior exam. There is no identified abnormal extra-axial fluid collection. There is no evidence of acute intracranial hemorrhage. There is no mass effect or midline shift. The visualized portions of the paranasal sinuses, mastoid air cells, and middle ears are well-aerated. IMPRESSION: 1. Intact visualized BOILER OUT shunt catheter tubing. 2. The lateral ventricles are slitlike. This is similar to June 08, 2022. 3. No otherwise identified acute intracranial abnormality. Dictated by: Dictated on workstation # [id number] Dict: 10/20/22 185 Trans: 10/20/221904 [facility] [id number] Interpreted by: ROJELIO PAYAN MD Electronically signed by: ROJELIO PAYAN MD 10/20/221904 Reviewed: Reviewed by Me (I reviewed the radiologist report at 1906. They did not see any acute process and felt that it appeared similar to imaging from June 08, 2022) Departure Impression Primary Impression: Slow rate of speech Additional Impressions: Difficulty walking Unsteady gait when walking Disposition: 01 HOME, SELF-CARE Condition: Stable Departure-Patient Inst. Decision time for Depature: 20:17 Referrals: [facility] (PCP) Primary Care Physician BERYL HICKMAN APRN (Family) Primary Care Physician Patient Instructions: Preventing falls in adults, Weakness ED Add. Discharge Instructions: I spoke with Dr. Newton with Neurology and he was able to review the notes from your neurologist. He recommended you go home and continue on your current medicines. Call the neurology clinic in the morning to have them help arrange outpatient physical therapy. You could also try checking with Nurse Practitioner Beryl Hickman about setting up physical therapy and strengthening for you. Follow up with your regular neurologist for continued care and management. All discharge instructions reviewed with patient and/or family. Voiced understanding. SHEKHAR VICTOR MD Oct 20, 2022 18:31
[2022-10-20 18:36] LABS: BASOPHILS % (AUTO) 1 % (0-10); EOSINOPHILS # (AUTO) 0.1 10^3/uL (0.0-0.3); EOSINOPHILS % (AUTO) 2 % (0-10); HEMATOCRIT 36 % (35-52); HEMOGLOBIN 11.7 g/dL (11.5-16.0); LYMPHOCYTES # (AUTO) 3.1 10^3/uL (1.0-4.0); LYMPHOCYTES % (AUTO) 56 % (12-44); MEAN CORPUSCULAR HEMOGLOBIN 31 pg (25-34); MEAN CORPUSCULAR HGB CONC 33 g/dL (32-36); MEAN CORPUSCULAR VOLUME 94 fL (80-99); MEAN PLATELET VOLUME 10.5 fL (9.0-12.2); MONOCYTES # (AUTO) 0.4 10^3/uL (0.0-1.0); MONOCYTES % (AUTO) 8 % (0-12); NEUTROPHILS # (AUTO) 1.8 10^3/uL (1.8-7.8); NEUTROPHILS % (AUTO) 34 % (42-75); PLATELET COUNT 217 10^3/uL (130-400); WHITE BLOOD COUNT 5.5 10^3/uL (4.3-11.0)
[2022-10-20 18:38] LABS: BILIRUBIN,URINE NEGATIVE (NEGATIVE); CLARITY,URINE CLEAR; COLOR,URINE YELLOW; GLUCOSE, URINE (UA) NEGATIVE (NEGATIVE); KETONES,URINE NEGATIVE (NEGATIVE); LEUKOCYTE ESTERASE ,URINE NEGATIVE (NEGATIVE); NITRITE,URINE NEGATIVE (NEGATIVE); PROTEIN,URINE NEGATIVE (NEGATIVE)
[2022-10-20 18:50] LABS: BACTERIA,URINE NEGATIVE /HPF; SQUAMOUS EPITHELIAL CELL,UR RARE /HPF
[2022-10-20 18:52] LABS: SODIUM 143 MMOL/L (135-145)
[2022-10-20 18:52] LABS: AMPHETAMINE SCREEN, URINE NEGATIVE (NEGATIVE); BARBITURATE SCREEN URINE POSITIVE (NEGATIVE); BENZODIAZEPINES SCREEN URINE NEGATIVE (NEGATIVE); CANNABINOID SCREEN, URINE NEGATIVE (NEGATIVE); COCAINE SCREEN URINE NEGATIVE (NEGATIVE); METHADONE STAT NEGATIVE (NEGATIVE); OPIATE SCREEN URINE NEGATIVE (NEGATIVE); OXYCODONE STAT NEGATIVE (NEGATIVE); PROPOXYPHENE STAT NEGATIVE (NEGATIVE); TRICYCLIC ANTIDEPRESSANTS SCRE NEGATIVE (NEGATIVE)
[2022-10-20 18:53] LABS: ACETAMINOPHEN 11 UG/ML (10-30); ALANINE AMINOTRANSFERASE 21 U/L (0-55); ALBUMIN 4.4 GM/DL (3.2-4.5); ALKALINE PHOSPHATASE 112 U/L (40-136); BILIRUBIN,TOTAL 0.2 MG/DL (0.1-1.0); BUN/CREATININE RATIO 18; CALCIUM 9.2 MG/DL (8.5-10.1); CARBON DIOXIDE 23 MMOL/L (21-32); CHLORIDE 109 MMOL/L (98-107); CREATININE SERUM 0.83 MG/DL (0.60-1.30); GFR ESTIMATED 89; GLUCOSE 88 MG/DL (70-105); POTASSIUM 4.2 MMOL/L (3.6-5.0); SALICYLATE < 0.3 MG/DL (5.0-20.0); TOTAL PROTEIN 6.5 GM/DL (6.4-8.2)
[2022-10-20 18:54] LABS: INR 0.9 (0.8-1.4); PROTHROMBIN TIME PATIENT 12.5 SEC (12.2-14.7)
--- NOTE | 2022-10-20 19:05 | Diagnostic Imaging Report ---
PROCEDURE: CT head without contrast. TECHNIQUE: Multiple contiguous axial images were obtained through the brain without the use of intravenous contrast. Auto Exposure Controls were utilized during the CT exam to meet ALARA standards for radiation dose reduction. DATE: October 20, 2022. COMPARISON: CT head and neck June 08, 2022. INDICATION: 42-year-old female, altered mental status, slurred speech, difficulty walking. 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 The catheter tubing appears intact. The catheter tip approximates the lateral ventricles. The lateral ventricles are slitlike in appearance. This is largely similar in appearance to the prior exam. There is no identified abnormal extra-axial fluid collection. There is no evidence of acute intracranial hemorrhage. There is no mass effect or midline shift. The visualized portions of the paranasal sinuses, mastoid air cells, and middle ears are well-aerated. IMPRESSION: 1. Intact visualized FITNESS SUPERVISOR shunt catheter tubing. 2. The lateral ventricles are slitlike. This is similar to June 08, 2022. 3. No otherwise identified acute intracranial abnormality. Dictated by: Dictated on workstation # [id number]
[2022-10-20] MEDS ORDERED: NS IV 1000 ML 1,000 ML IV STA (19:22)
[2022-10-20] MEDS ORDERED: KETOROLAC 15 MG/ML VIAL IVP STA (19:22)
[2022-10-20 20:19] VITALS: BP 102/46
== END 2022-10-20 20:38 | disposition home or self-care (01) ==
LOC: EDUNIT# 18:08 → ER FS 18:10
DX: R47.81 Slurred speech (principal); R26.81 Unsteadiness on feet; D64.9 Anemia, unspecified; E66.01 Morbid (severe) obesity due to excess calories; Z68.34 Body mass index [BMI] 34.0-34.9, adult
CPT/HCPCS: 36415; 51701; 70450; 80053; 80306; 81000; 83605; 84484; 85025; 85610; 85730; 93005; 93041; 99284; G0480 ×3; 80320; 80329

== ENCOUNTER 2022-11-04 16:11 | Emergency (ER) | payer BC, MEDICARE ==
[~2022-11-04] VITALS: Ht 165.1 cm; Wt 102.0 kg
[2022-11-04] MEDS ORDERED: NS IV 1000 ML 1,000 ML IV STA ×2 (17:07→19:14)
--- NOTE | 2022-11-04 17:11 | ED Headache ---
General Chief Complaint: Head/Cervical Problems Stated Complaint: PRESSURE IN HEAD Nursing Triage Note: Patient reports she has had a headache since Thursday afternoon. She states she has a [employer] shunt and called today and was told to go the ED and that she may need a spinal tap. She states she took hydrocodone at 8 am this morning. Source: patient History of Present Illness Date Seen by Provider: Nov 04, 2022 Time Seen by Provider: 17:04 Initial Comments 42-year-old female presenting with complaints of headache since Thursday. She states that she does have a [employer] shunt and feels like this is a spinal type headache. She reports that if the pressure with her shunt gets over 10 she starts having problems. She states that she feels better when the intracranial pressure is around 6. She has not really been getting out of bed the last 2 days because of the headache and not feeling well. She took a hydrocodone at 8 AM this morning for her headache. She states that her daughter had called up to and spoke with the neurologist and the had advised her to come to the emergency department to be evaluated and check in with them if she needed transfer to . She states that they mention she might need a lumbar puncture to evaluate the intracranial pressure and patient states that she always has to have that done under IR by the radiologist. She denies having fever or chills. She has had some mild nausea and not wanting to eat much in the last 2 days. Timing/Duration: other (2 days) Severity/Quality: severe, constant Location: global Prior Headaches/Recent Trauma: frequent headaches Modifying Factors: worse with movement (activity makes the headache worse) Associated Symptoms: No confusion; fatigue; No facial pain, No fever/chills, No flushing, No loss of consciousness; nausea/vomiting (nausea but no emesis); No nasal congestion, No nasal drainage, No numbness in legs/feet, No rash, No seizures, No sinus infection, No stiff neck, No vision changes Allergies and Home Medications Allergies Coded Allergies: promethazine (Verified Allergy, Mild, 01/28/16) NSAIDS (Non-Steroidal Anti-Inflamma (Verified Allergy, Unknown, 11/06/19) HAD GASTRIC BYPASS prednisone (Verified Allergy, Unknown, 11/06/19) HAD GASTRIC BYPASS Uncoded Allergies: CALCIUM CHANNEL BLOCKERS (Adverse Reaction, Unknown, weight gain, 10/21/18) Patient Home Medication List Home Medication List Reviewed: Yes Acetaminophen (Tylenol Extra Strength) 500 Mg Tablet, 1,000 MG PO Q6H, (Reported) Entered as Reported by: BHAVIK TORRES on 08/23/19 112 Cyclobenzaprine HCl (Cyclobenzaprine HCl) 10 Mg Tablet, 10 MG PO TID Prescribed by: LYLE GALVAN on 08/03/22 1320 Diphenhydramine HCl (Benadryl) 25 Mg Capsule, 25-50 MG PO Q4H, (Reported) Entered as Reported by: BHAVIK TORRES on 08/23/19 1129 Divalproex Sodium (Depakote) 500 Mg Tablet.dr, 500 MG PO DAILY, (Reported) Entered as Reported by: BHAVIK TORRES on 08/23/19 112 Duloxetine HCl (Cymbalta) 30 Mg Capsule.dr, 90 MG PO DAILY, (Reported) Entered as Reported by: BHAVIK TORRES on 08/23/19 112 Levofloxacin (Levofloxacin) 750 Mg Tablet, 750 MG PO DAILY Prescribed by: LYLE GALVAN on 08/03/22 1320 Ondansetron (Ondansetron Odt) 4 Mg Tab.rapdis, 4 MG PO Q6H, (Reported) Entered as Reported by: BHAVIK TORRES on 08/23/19 1125 Oxycodone HCl/Acetaminophen (Percocet 10-325 mg Tablet) 1 Each Tablet, 1 TAB PO [id number] PRN for PAIN-MODERATE, (Reported) Entered as Reported by: BHAVIK TORRES on 08/23/19 1129 Oxycodone HCl/Acetaminophen (Percocet 5-325 mg Tablet) 1 Each Tablet, 1 TAB PO Q6H Prescribed by: SARA DIAZ on 01/23/202100 Propranolol HCl (Propranolol HCl) 80 Mg Tablet, 80 MG PO TID, (Reported) Entered as Reported by: JOSS LYLES on 03/08/16 1052 [lidoderm 5% patch] , 1 PATCH TD DAILY Prescribed by: SARA DIAZ on 01/23/202100 Review of Systems Review of Systems Constitutional: No chills, No fever Eyes: Denies Blurred Vision, Denies Photophobia Ears, Nose, Mouth, Throat: denies ear pain, denies ear discharge, denies nose pain, denies nose discharge, denies epistaxis Respiratory: No cough, No dyspnea on exertion, No hemoptysis, No orthopnea, No phlegm, No short of breath Cardiovascular: No chest pain, No edema, No palpitations Gastrointestinal: see HPI; No abdominal pain; loss of appetite, nausea; No vomiting Genitourinary: No dysuria Musculoskeletal: no symptoms reported Skin: No rash Psychiatric/Neurological: See HPI, Headache Past [id number]-[id number] Hx Patient Social History Tobacco Use?: No Substance use?: No Alcohol Use?: No Pt feels they are or have been: No Immunizations Up To Date Tetanus Booster (TDap): Less than 5yrs PED Vaccines UTD: No First/Initial COVID19 Vaccinat: 10/05 moderna x 2 Second COVID19 Vaccination Richi: 10/05 Third COVID19 Vaccination Date: 10/05 Seasonal Allergies Seasonal Allergies: No Past Medical History Surgery/Hospitalization HX: SEIZURE DISORDERS, HTN, GASTRIC BYPASS, [employer] SHUNT, Pseudotumor cerebri, Hysterectomy, Cholecystectomy, Oopherectomy, Asthma, Migraine headaches, GERD, Anxiety Surgeries: Yes (GASTRIC BYPASS, [employer] Shunt) Abdominal, Bladder Surgery, Brain Shunt, Gallbladder, Hysterectomy, Neurological , Oophorectomy Respiratory: Yes Asthma, Pneumonia, Chronic Bronchitis Cardiac: Yes Hypertension Neurological: Yes (IDIOPATHIC INTRACRANIAL HYPERTENSION;PSEUDOTUMOR CEREBRI) Headaches /Migraines, Meningitis, Seizure Disorder Reproductive Disorders: 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 Genitourinary: No Gastrointestinal: Yes (GASTRIC BYPASS) Gastroesophageal Reflux, Esophagitis Musculoskeletal: No Endocrine: Yes (MORBID OBESITY) HEENT: No Cancer: No Psychosocial: Yes Anxiety Integumentary: Yes (ABSCESSES; SURGICAL WOUND INFECTION) Blood Disorders: No Adverse Reaction/Blood Tranf: No Family Medical History Abdominal aortic aneurysm 03 FATHER Family history: Allergy 03 FATHER Family history: Arthritis 03 MOTHER 09 SISTER Family history: Hypertension 03 FATHER No Pertinent Family Hx PT HAD BOTH MODERNA COVID-19 VACCINES -SECOND ONE 08/2020 PT HAD COVID--SYMPTOMS BEGAN ON 01/21/21, TESTED + ON 10/24/20, HAD BAM INFUSION 01/25/21 DAUGHTER ALSO TESTED + FOR COVID AROUND THAT SAME TIME, AND DAUGHTER ALSO HAD BAM INFUSION Physical Exam Vital Signs Vital Signs - First Documented 11/04/22 16:45 Temp 37.2 Pulse 69 Resp 16 B/P (MAP) 137/86 (103) Pulse Ox 98 O2 Delivery Room Air Capillary Refill : Less Than 3 Seconds Height, Weight, BMI Height: 5'5.00" Weight: 295lbs. 0.0oz. [id number]; 37.00 BMI Method:Stated General Appearance: WD/WN, no apparent distress, obese HEENT: PERRL/EOMI, pharynx normal Neck: non-tender, full range of motion, supple, normal inspection Cardiovascular: normal peripheral pulses, regular rate, rhythm Respiratory: chest non-tender, lungs clear, normal breath sounds, no respiratory distress, no accessory muscle use Gastrointestinal: normal bowel sounds, non tender, soft, no pulsatile mass Back: no CVA tenderness Extremities: normal range of motion, non-tender, normal capillary refill Psychiatric: alert, oriented x 3 Crainal Nerves: normal hearing; No normal speech (slow speech); PERRL Coordination/Gait: normal gait Motor/Sensory: no motor deficit, no sensory deficit Skin: normal color, warm/dry; No rash Progress/Results/Core Measures Results/Orders Lab Results Laboratory Tests Test 11/04/22 17:20 11/04/22 17:30 Range/Units White Blood Count 6.1 4.3-11.0 10^3/uL Red Blood Count 4.00 3.80-5.11 10^6/uL Hemoglobin 12.2 11.5-16.0 g/dL Hematocrit 37 35-52 % Mean Corpuscular Volume 93 80-99 fL Mean Corpuscular Hemoglobin 31 25-34 pg Mean Corpuscular Hemoglobin Concent 33 32-36 g/dL Red Cell Distribution Width 13.5 10.0-14.5 % Platelet Count 238 130-400 10^3/uL Mean Platelet Volume 9.4 9.0-12.2 fL Immature Granulocyte % (Auto) 0 % Neutrophils (%) (Auto) 62 42-75 % Lymphocytes (%) (Auto) 30 12-44 % Monocytes (%) (Auto) 7 0-12 % Eosinophils (%) (Auto) 1 0-10 % Basophils (%) (Auto) 1 0-10 % Neutrophils # (Auto) 3.8 1.8-7.8 10^3/uL Lymphocytes # (Auto) 1.8 1.0-4.0 10^3/uL Monocytes # (Auto) 0.4 0.0-1.0 10^3/uL Eosinophils # (Auto) 0.0 0.0-0.3 10^3/uL Basophils # (Auto) 0.0 0.0-0.1 10^3/uL Immature Granulocyte # (Auto) 0.0 0.0-0.1 10^3/uL Sodium Level 140 135-145 MMOL/L Potassium Level 4.6 3.6-5.0 MMOL/L Chloride Level 104 98-107 MMOL/L Carbon Dioxide Level 25 21-32 MMOL/L Anion Gap 11 5-14 MMOL/L Blood Urea Nitrogen 14 7-18 MG/DL Creatinine 0.74 0.60-1.30 MG/DL Estimat Glomerular Filtration Rate 102 BUN/Creatinine Ratio 19 Glucose Level 98 70-105 MG/DL Calcium Level 9.3 8.5-10.1 MG/DL Corrected Calcium 8.5-10.1 MG/DL Total Bilirubin 0.3 0.1-1.0 MG/DL Aspartate Amino Transf (AST/SGOT) 23 5-34 U/L Alanine Aminotransferase (ALT/SGPT) 34 0-55 U/L Alkaline Phosphatase 112 40-136 U/L C-Reactive Protein < 0.30 <0.50 MG/DL Total Protein 6.8 6.4-8.2 GM/DL Albumin 4.6 H 3.2-4.5 GM/DL Urine Color DARK YELLOW Urine Clarity CLEAR Urine pH 6.5 5-9 Urine Specific [place] >=1.030 1.016-1.022 Urine Protein TRACE H NEGATIVE Urine Glucose (UA) NEGATIVE NEGATIVE Urine Ketones TRACE H NEGATIVE Urine Nitrite NEGATIVE NEGATIVE Urine Bilirubin 1+ H NEGATIVE Urine Urobilinogen 0.2 < = 1.0 MG/DL Urine Leukocyte Esterase NEGATIVE NEGATIVE Urine RBC (Auto) NEGATIVE NEGATIVE Urine RBC NONE /HPF Urine WBC 0-2 /HPF Urine Squamous Epithelial Cells RARE /HPF Urine Crystals NONE /LPF Urine Bacteria NEGATIVE /HPF Urine Casts NONE /LPF Urine Mucus LARGE H /LPF Urine Culture Indicated NO My Orders Orders - SHEKHAR VICTOR MD Comprehensive Metabolic Panel (11/04/22 17:07) Ua Culture If Indicated (11/04/22 17:07) Ed Iv/Invasive Line Start (11/04/22 17:07) Cbc With Automated Diff (11/04/22 17:07) Crp Fs (11/04/22 17:07) Ns Iv 1000 Ml (Sodium Chloride 0.9%) (11/04/22 17:07) Ketorolac Injection (Toradol Injection) (11/04/22 17:22) Ns Iv 1000 Ml (Sodium Chloride 0.9%) (11/04/22 19:14) Magnesium 1 Gm/100 Ml Ivpb (Magnesium Ray (11/04/22 19:14) Ondansetron Injection (Zofran Injectio (11/04/22 20:29) Diphenhydramine Injection (Benadryl Inje (11/04/22 20:43) Vital Signs/I&O 11/04/22 16:45 Temp 37.2 Pulse 69 Resp 16 B/P (MAP) 137/86 (103) Pulse Ox 98 O2 Delivery Room Air Blood Pressure Mean: 103 Progress Progress Note #1: Progress Note Potential diagnosis of increased intracranial pressure, migraine headache, atypical migraine headache, electrolyte imbalance, renal failure, hepatic failure, medication side effect, psychosomatic symptoms, conversion disorder. Will obtain peripheral IV access and check complete blood count, comprehensive m etabolic profile, CRP, urinalysis. CT scan of the head to evaluate for increased intracranial pressure or acute process compared to previous CT. Administer normal saline 1 L IV fluid bolus with Toradol 15 mg IV for possible migraine variant or atypical migraine. Once the tests are back and I can check with neurology at to see if this is something wanted transferred to try and have interventional radiology to spinal tap to check her pressure or what they recommend for treatment and further evaluation. Progress Note #2: Time: 18:00 Progress Note Complete blood count was normal with white blood cell count of 6.1, hemoglobin of 12.2, platelets of 238. This is similar to prior testing on previous visits. Her comprehensive metabolic profile did not show acute significant electrolyte abnormality as her sodium was normal at 140, potassium 4.6, BUN 14, creatinine of 0.74. Glucose was normal at 98. Her urinalysis had specific gravity greater than 1.030 to go along with some dehydration and she had trace ketones consistent with her not eating and drinking well in the last couple of days. There were no white blood cells, nitrites, leukocyte esterase to indicate a UTI. Progress Note #3: Time: 18:09 Progress Note Patient had gone to CT to try and obtain a CT scan of the head however while she was on the table with the machine stopped working and they were unable to obtain the images. The product development technician has tried reviewing the CT scanner with no effect and is having to place a service call for maintenance. At this point I will not have access for a CT scan of her head. We will check in with the neurologist at and see again what they would recommend and want to do. 1830 I spoke with nurse at transfer center to check about the patient and try to get in touch with neurology to see what they recommend for the patient. I gave some basic information and lab results as well as that my CT scanner is down so unable to obtain imaging currently. Will wait for a return call to speak with neurology and see what they recommend for next step on the patient. Progress Note #4: Time: 18:49 Progress Note I spoke with Dr. Torres the on-call neurologist for . She recommended trying additional treatment for migraine headache before deciding if the patient would need transfer to . She recommended IV Depakote and IV magnesium. Patient had already received Toradol 15 mg IV in addition to a liter of normal saline and had no improvement in her headache and pain. Unfortunately I do not have IV Depakote but I ordered IV magnesium in addition to another liter of fluid. We will check back with the patient after the medicines infused and if she is still having the headache or not having improvement will call Dr. Torres and [facility] back to see if they would want the patient transferred. Progress Note #5: Time: 20:22 Progress Note After medications and additional fluid infused patient denied any improvement in her headache and actually said that she felt like it might be a little worse. Given dose of Benadryl 25 mg IV in addition to the IV fluid and magnesium and Toradol she has already had. Given Zofran 8 mg IV for nausea as well. Call placed back to the [facility] transfer center and I spoke with RAMONE Stewart. She we will get back in touch with neurology and call back to discuss further plans. 2100 Pat with [facility] transfer center called back and connected me with the internal medicine attending Dr. Busch. She accepted the patient for transfer as neurology service was capped with patient's. I advised her that the patient was not feeling any better and if anything felt a little worse after the additional medications to try and treat for headache. With the CT scanner being down and patient having a history of increased intracranial pressure will transfer her to [facility] for further evaluation and treatment. They will call back once the room is available for the patient. Diagnostic Imaging Diagonstic Imaging: CT Plain Films/CT/US/NM/MRI: head Comments Unable to obtain due to mechanical difficulty with machine Reviewed: Reviewed by Me Departure Impression Primary Impression: Headache behind the eyes Additional Impression: Slow rate of speech Disposition: 02 XFER SHT-TRM HOSP Condition: Stable Transfer Transfer Reason: Exceeds level of care (Needs neurology and possible interventional radiology) Time Spoke to Accepting Phy: 21:00 Transfer Progress Notes 2100 Pat with [facility] transfer center called back and connected me with the internal medicine attending Dr. Busch. She accepted the patient for transfer as neurology service was capped with patient's. I advised her that the patient was not feeling any better and if anything felt a little worse after the additional medications to try and treat for headache. With the CT scanner being down and patient having a history of increased intracranial pressure will transfer her to [facility] for further evaluation and treatment. They will call back once the room is available for the patient. Transfer Facility: [facility] Method of Transfer: EMS Departure-Patient Inst. Referrals: [facility] (PCP) Primary Care Physician BERYL HICKMAN APRN (Family) Primary Care Physician SHEKHAR VICTOR MD Nov 04, 2022 17:11
[2022-11-04] MEDS ORDERED: KETOROLAC 15 MG/ML VIAL IVP STA (17:22)
[2022-11-04 17:29] LABS: BASOPHILS % (AUTO) 1 % (0-10); EOSINOPHILS % (AUTO) 1 % (0-10); HEMATOCRIT 37 % (35-52); HEMOGLOBIN 12.2 g/dL (11.5-16.0); LYMPHOCYTES # (AUTO) 1.8 10^3/uL (1.0-4.0); LYMPHOCYTES % (AUTO) 30 % (12-44); MEAN CORPUSCULAR HEMOGLOBIN 31 pg (25-34); MEAN CORPUSCULAR HGB CONC 33 g/dL (32-36); MEAN CORPUSCULAR VOLUME 93 fL (80-99); MEAN PLATELET VOLUME 9.4 fL (9.0-12.2); MONOCYTES # (AUTO) 0.4 10^3/uL (0.0-1.0); MONOCYTES % (AUTO) 7 % (0-12); NEUTROPHILS # (AUTO) 3.8 10^3/uL (1.8-7.8); NEUTROPHILS % (AUTO) 62 % (42-75); PLATELET COUNT 238 10^3/uL (130-400); WHITE BLOOD COUNT 6.1 10^3/uL (4.3-11.0)
[2022-11-04 17:36] LABS: CLARITY,URINE CLEAR; GLUCOSE, URINE (UA) NEGATIVE (NEGATIVE); KETONES,URINE TRACE (NEGATIVE); LEUKOCYTE ESTERASE ,URINE NEGATIVE (NEGATIVE); NITRITE,URINE NEGATIVE (NEGATIVE); PH,URINE 6.5 (5-9); PROTEIN,URINE TRACE (NEGATIVE)
[2022-11-04 17:44] LABS: COLOR,URINE DARK YELLOW
[2022-11-04 17:45] LABS: BACTERIA,URINE NEGATIVE /HPF; BILIRUBIN,URINE 1+ (NEGATIVE); SQUAMOUS EPITHELIAL CELL,UR RARE /HPF; WBC,URINE 0-2 /HPF
[2022-11-04 17:46] LABS: CHLORIDE 104 MMOL/L (98-107); POTASSIUM 4.6 MMOL/L (3.6-5.0); SODIUM 140 MMOL/L (135-145)
[2022-11-04 17:47] LABS: ALANINE AMINOTRANSFERASE 34 U/L (0-55); ALBUMIN 4.6 GM/DL (3.2-4.5); ALKALINE PHOSPHATASE 112 U/L (40-136); BILIRUBIN,TOTAL 0.3 MG/DL (0.1-1.0); BUN/CREATININE RATIO 19; CALCIUM 9.3 MG/DL (8.5-10.1); CARBON DIOXIDE 25 MMOL/L (21-32); CREATININE SERUM 0.74 MG/DL (0.60-1.30); GFR ESTIMATED 102; GLUCOSE 98 MG/DL (70-105); TOTAL PROTEIN 6.8 GM/DL (6.4-8.2)
[2022-11-04] MEDS ORDERED: MAGNESIUM 1 GM/100 ML IVPB 100 ML IV STA (19:14)
[2022-11-04] MEDS ORDERED: ONDANSETRON 4 MG/2 ML (SDV) Z0FRAN IVP STA (20:29)
[2022-11-04] MEDS ORDERED: diphenhydrAMINE 50 MG/ML INJ (BENADRYL) IVP STA (20:43)
[2022-11-04 22:32] VITALS: BP 132/81
== END 2022-11-04 23:19 | disposition short-term general hospital (02) ==
LOC: EDUNIT# 16:11 → ER FS 16:12
DX: R51.9 Headache, unspecified (principal); R47.89 Other speech disturbances; R11.0 Nausea; E66.01 Morbid (severe) obesity due to excess calories; Z68.37 Body mass index [BMI] 37.0-37.9, adult; Z88.6 Allergy status to analgesic agent
CPT/HCPCS: 36415; 80053; 81000; 85025; 86141

== ENCOUNTER 2022-11-27 19:12 | Emergency (ER) | payer BC, MEDICARE ==
[~2022-11-27] VITALS: Ht 165.1 cm; Wt 102.1 kg
[2022-11-27 20:17] LABS: BASOPHILS % (AUTO) 1 % (0-10); EOSINOPHILS # (AUTO) 0.1 10^3/uL (0.0-0.3); EOSINOPHILS % (AUTO) 2 % (0-10); HEMATOCRIT 37 % (35-52); HEMOGLOBIN 12.4 g/dL (11.5-16.0); LYMPHOCYTES # (AUTO) 1.9 10^3/uL (1.0-4.0); LYMPHOCYTES % (AUTO) 46 % (12-44); MEAN CORPUSCULAR HEMOGLOBIN 31 pg (25-34); MEAN CORPUSCULAR HGB CONC 33 g/dL (32-36); MEAN CORPUSCULAR VOLUME 94 fL (80-99); MEAN PLATELET VOLUME 10.5 fL (9.0-12.2); MONOCYTES # (AUTO) 0.3 10^3/uL (0.0-1.0); MONOCYTES % (AUTO) 7 % (0-12); NEUTROPHILS # (AUTO) 1.9 10^3/uL (1.8-7.8); NEUTROPHILS % (AUTO) 44 % (42-75); PLATELET COUNT 224 10^3/uL (130-400); WHITE BLOOD COUNT 4.2 10^3/uL (4.3-11.0)
[2022-11-27 20:25] LABS: INR 0.9 (0.8-1.4); PROTHROMBIN TIME PATIENT 12.8 SEC (12.2-14.7)
--- NOTE | 2022-11-27 20:25 | Diagnostic Imaging Report ---
INDICATION: Slurred speech Frontal chest obtained at 8:11 p.m. and compared to 03/23/2022. Heart and mediastinal silhouette are normal in appearance. The lungs are clear. There is no pneumothorax or pleural fluid. Shunt catheter seen over the right chest wall with no discontinuity. IMPRESSION: Negative chest. Dictated by: Dictated on workstation # [id number]
--- NOTE | 2022-11-27 20:31 | Diagnostic Imaging Report ---
INDICATION: Left-sided weakness and slurred speech. TECHNIQUE: Multiple contiguous axial images were obtained through the brain without the use of intravenous contrast. Auto Exposure Controls were utilized during the CT exam to meet ALARA standards for radiation dose reduction. Comparison made to 10/21/2022. Shunt catheter remains in place from a right frontal approach with tip passing through the right frontal horn. The ventricular size is stable compared to the prior study, without dilatation. There is no subdural or epidural collection. There is no acute intracranial hemorrhage. There is no overt acute territorial ischemia. Calvarial windows show no acute finding. IMPRESSION: Stable shunt catheter with no ventricular dilatation. No acute abnormality is detected. If symptoms persist, MRI may be of benefit. Dictated by: Dictated on workstation # [id number]
[2022-11-27 20:35] LABS: BILIRUBIN,URINE NEGATIVE (NEGATIVE); CLARITY,URINE CLEAR; COLOR,URINE YELLOW; GLUCOSE, URINE (UA) NEGATIVE (NEGATIVE); KETONES,URINE NEGATIVE (NEGATIVE); LEUKOCYTE ESTERASE ,URINE NEGATIVE (NEGATIVE); NITRITE,URINE NEGATIVE (NEGATIVE); PROTEIN,URINE NEGATIVE (NEGATIVE)
--- NOTE | 2022-11-27 20:38 | ED Neurological Problem ---
General Chief Complaint: Neurological Problems Stated Complaint: SLURRED SPEECH,TROUBLE WALKING Nursing Triage Note: PT AMB TO FS 03 W C/O BLURRY VISION, SLURRED SPEECH, HEAD PAIN THAT STARTS BEHIND L EAR AND RADIATES TO NECK, CONCERNED FOR STROKE. PT A&OX4, SYMPTOMS SX 1500 TODAY. History of Present Illness Date Seen by Provider: Nov 27, 2022 Time Seen by Provider: 19:22 Initial Comments 42 yr F with PMH of SUPERINTENDENT METERS shunt/ SZD on Keppra/ is here with c/o left-sided weakness and slurred speech which began at 3:00PM today. Pt also c/o headacheson the left side. Pt had two seizures the day before and yesterday. Pt takes Keppra and is compliant with her medications. Pt is on Buprenorphine, and pt states she was put on it for her headaches. Denies fever and chills, chest pain, dizziness, nausea, vomiting, LOC. Allergies and Home Medications Allergies Coded Allergies: promethazine (Verified Allergy, Mild, 01/28/16) NSAIDS (Non-Steroidal Anti-Inflamma (Verified Allergy, Unknown, 11/06/19) HAD GASTRIC BYPASS prednisone (Verified Allergy, Unknown, 11/06/19) HAD GASTRIC BYPASS Uncoded Allergies: CALCIUM CHANNEL BLOCKERS (Adverse Reaction, Unknown, weight gain, 10/21/18) Patient Home Medication List Home Medication List Reviewed: Yes Acetaminophen (Tylenol Extra Strength) 500 Mg Tablet, 1,000 MG PO Q6H, (Reported) Entered as Reported by: BHAVIK TORRES on 08/23/19 1129 Cyclobenzaprine HCl (Cyclobenzaprine HCl) 10 Mg Tablet, 10 MG PO TID Prescribed by: LYLE GALVAN on 08/03/22 1320 Diphenhydramine HCl (Benadryl) 25 Mg Capsule, 25-50 MG PO Q4H, (Reported) Entered as Reported by: BHAVIK TORRES on 08/23/19 1129 Divalproex Sodium (Depakote) 500 Mg Tablet.dr, 500 MG PO DAILY, (Reported) Entered as Reported by: BAHVIK TORRES on 08/23/19 1129 Duloxetine HCl (Cymbalta) 30 Mg Capsule.dr, 90 MG PO DAILY, (Reported) Entered as Reported by: BHAVIK TORRES on 08/23/19 1125 Levofloxacin (Levofloxacin) 750 Mg Tablet, 750 MG PO DAILY Prescribed by: LYLE GALVAN on 08/03/22 1320 Ondansetron (Ondansetron Odt) 4 Mg Tab.rapdis, 4 MG PO Q6H, (Reported) Entered as Reported by: BHAVIK TORRES on 08/23/19 1125 Oxycodone HCl/Acetaminophen (Percocet 10-325 mg Tablet) 1 Each Tablet, 1 TAB PO [id number] PRN for PAIN-MODERATE, (Reported) Entered as Reported by: BHAVIK TORRES on 08/23/19 1129 Oxycodone HCl/Acetaminophen (Percocet 5-325 mg Tablet) 1 Each Tablet, 1 TAB PO Q6H Prescribed by: SARA DIAZ on 01/23/202100 Propranolol HCl (Propranolol HCl) 80 Mg Tablet, 80 MG PO TID, (Reported) Entered as Reported by: JOSS LYLES on 03/08/16 1052 [lidoderm 5% patch] , 1 PATCH TD DAILY Prescribed by: SARA DIAZ on 01/23/202100 Review of Systems Review of Systems Constitutional: no symptoms reported, see HPI Psychiatric/Neurological: See HPI, Headache, Tingling, Unable to Move Lower Ext, Unable to Move Upper Ext, Weakness Past [id number] Hx Patient Social History Tobacco Use?: No Use of E-Cig and/or Vaping dev: No Substance use?: No Alcohol Use?: No Immunizations Up To Date Tetanus Booster (TDap): Less than 5yrs PED Vaccines UTD: No First/Initial COVID19 Vaccinat: 10/05 moderna x 2 Second COVID19 Vaccination Richi: 10/05 Third COVID19 Vaccination Date: 10/05 Seasonal Allergies Seasonal Allergies: No Past Medical History Surgery/Hospitalization HX: SEIZURE DISORDERS, HTN, GASTRIC BYPASS, SUPERINTENDENT METERS SHUNT, Pseudotumor cerebri,Hysterectomy, Cholecystectomy, Oopherectomy, Asthma, Migraine headaches,GERD, Anxiety Surgeries: Yes (GASTRIC BYPASS, SUPERINTENDENT METERS Shunt) Abdominal, Bladder Surgery, Brain Shunt, Gallbladder, Hysterectomy, Neurologi yaron, Oophorectomy Respiratory: Yes Asthma, Pneumonia, Chronic Bronchitis Cardiac: Yes Hypertension Neurological: Yes (IDIOPATHIC INTRACRANIAL HYPERTENSION;PSEUDOTUMOR CEREBRI) Headaches /Migraines, Meningitis, Seizure Disorder Reproductive Disorders: No [employer] History: Hysterectomy Genitourinary: No Gastrointestinal: Yes (GASTRIC BYPASS) Gastroesophageal Reflux, Esophagitis Musculoskeletal: No Endocrine: Yes (MORBID OBESITY) HEENT: No Cancer: No Psychosocial: Yes Anxiety Integumentary: Yes (ABSCESSES; SURGICAL WOUND INFECTION) Blood Disorders: No Adverse Reaction/Blood Tranf: No Family Medical History Abdominal aortic aneurysm 03 FATHER Family history: Allergy 03 FATHER Family history: Arthritis 03 MOTHER 09 SISTER Family history: Hypertension 03 FATHER No Pertinent Family Hx PT HAD BOTH MODERNA COVID-19 VACCINES -SECOND ONE 08/2020 PT HAD COVID--SYMPTOMS BEGAN ON 01/21/21, TESTED + ON 10/24/20, HAD BAM INFUSION 01/25/21 DAUGHTER ALSO TESTED + FOR COVID AROUND THAT SAME TIME, AND DAUGHTER ALSO HAD BAM INFUSION Physical Exam Vital Signs Vital Signs - First Documented 11/27/22 19:24 Temp 36.9 Pulse 55 Resp 18 B/P (MAP) 113/64 (80) Pulse Ox 98 O2 Delivery Room Air Capillary Refill : Less Than 3 Seconds Height, Weight, BMI Height: 5'5.00" Weight: 295lbs. 0.0oz. [id number]; 37.00 BMI Method:Stated General Appearance: WD/WN, mild distress HEENT: PERRL/EOMI Neck: non-tender, full range of motion, supple, normal inspection Respiratory: chest non-tender, lungs clear, normal breath sounds, no respiratory distress Cardiovascular: normal peripheral pulses, regular rate, rhythm, no edema Gastrointestinal: normal bowel sounds, non tender, soft Back: normal inspection, no vertebral tenderness Extremities: normal range of motion, normal inspection Neurologic/Psychiatric: alert, normal mood/affect, oriented x 3, abnormal gait (Ataxic gait on left), motor weakness (Left-sided upper extremity and lower extremity is 4/4 strength), sensory deficit (Left upper lower extremity sensation is less than the right), other (Dysarthria present creatinine levels show no evidence of renal dysfunction. Mild, able to understand what patient is saying.) Crainal Nerves: normal hearing, PERRL, other (Dysarthria present. No tongue deviation or facial weakness) Coordination/Gait: normal finger to nose, negative Romberg's sign, abnormal gait Motor/Sensory: no pronator drift, negative Babinski's sign, weak motor strength LUE, weak motor strength LLE Reflexes: 4+ Knee (R); 3+ Knee (L) Skin: normal color Lymphatic: no adenopathy Stroke NIH Stroke Scale Assessment Level of Consciousness: 0=Alert (0), Level of Consciousness-Questions: 0=Answers both month/age (0), LOC Commands: 0=Performs both tasks (0), Gaze: Normal (0), Visual Chao: 0=No visual loss (0), Facial Movement (Facial Paresis): 0=Normal symmetrical mnt (0), Motor Function-Arms Right: 0=No drift (0), Motor Function-Arms Left: 0=No drift (0), Motor Function-Legs Right: 0=No drift (0), Motor Function-Legs Left: 0=No drift (0), Limb Ataxia: 1=Present in one limb (1), Sensory: 1=Mild to Moderate loss (1), Best Language: 0=No aphasia (0), Dysarthria: 1=Mild to moderate loss (1), Extinction & Inattention: 0=No abnormality (0), Total: 3 Stroke Thrombolytic Exclusion Age 18 or Over: Yes Acute intenal hemorrhage: No History of CVA: No Uncontrolled Coagulation Defec: No Intracranial Hemorrhage: No Severe Hypertension: No GI or Bleed: No Progress/Results/Core Measures Results/Orders Lab Results Laboratory Tests Test 11/27/22 19:30 11/27/22 19:35 11/27/22 20:24 Range/Units White Blood Count 4.2 L 4.3-11.0 10^3/uL Red Blood Count 3.98 3.80-5.11 10^6/uL Hemoglobin 12.4 11.5-16.0 g/dL Hematocrit 37 35-52 % Mean Corpuscular Volume 94 80-99 fL Mean Corpuscular Hemoglobin 31 25-34 pg Mean Corpuscular Hemoglobin Concent 33 32-36 g/dL Red Cell Distribution Width 13.2 10.0-14.5 % Platelet Count 224 130-400 10^3/uL Mean Platelet Volume 10.5 9.0-12.2 fL Immature Granulocyte % (Auto) 0 % Neutrophils (%) (Auto) 44 42-75 % Lymphocytes (%) (Auto) 46 H 12-44 % Monocytes (%) (Auto) 7 0-12 % Eosinophils (%) (Auto) 2 0-10 % Basophils (%) (Auto) 1 0-10 % Neutrophils # (Auto) 1.9 1.8-7.8 10^3/uL Lymphocytes # (Auto) 1.9 1.0-4.0 10^3/uL Monocytes # (Auto) 0.3 0.0-1.0 10^3/uL Eosinophils # (Auto) 0.1 0.0-0.3 10^3/uL Basophils # (Auto) 0.0 0.0-0.1 10^3/uL Immature Granulocyte # (Auto) 0.0 0.0-0.1 10^3/uL Prothrombin Time 12.8 12.2-14.7 SEC INR Comment 0.9 0.8-1.4 Activated Partial Thromboplast Time 31 24-35 SEC Sodium Level 144 135-145 MMOL/L Potassium Level 4.0 3.6-5.0 MMOL/L Chloride Level 108 H 98-107 MMOL/L Carbon Dioxide Level 25 21-32 MMOL/L Anion Gap 11 5-14 MMOL/L Blood Urea Nitrogen 8 7-18 MG/DL Creatinine 0.74 0.60-1.30 MG/DL Estimat Glomerular Filtration Rate 102 BUN/Creatinine Ratio 11 Glucose Level 113 H 70-105 MG/DL Calcium Level 9.1 8.5-10.1 MG/DL Corrected Calcium 8.9 8.5-10.1 MG/DL Magnesium Level 2.2 1.6-2.4 MG/DL Total Bilirubin 0.2 0.1-1.0 MG/DL Aspartate Amino Transf (AST/SGOT) 14 5-34 U/L Alanine Aminotransferase (ALT/SGPT) 17 0-55 U/L Alkaline Phosphatase 114 40-136 U/L Troponin I < 0.30 <0.30 NG/ML Total Protein 6.4 6.4-8.2 GM/DL Albumin 4.2 3.2-4.5 GM/DL Serum Alcohol < 10 <10 MG/DL Glucometer 103 70-110 MG/DL Urine Color YELLOW Urine Clarity CLEAR Urine pH 6.0 5-9 Urine Specific [place] 1.020 1.016-1.022 Urine Protein NEGATIVE NEGATIVE Urine Glucose (UA) NEGATIVE NEGATIVE Urine Ketones NEGATIVE NEGATIVE Urine Nitrite NEGATIVE NEGATIVE Urine Bilirubin NEGATIVE NEGATIVE Urine Urobilinogen 0.2 < = 1.0 MG/DL Urine Leukocyte Esterase NEGATIVE NEGATIVE Urine RBC (Auto) NEGATIVE NEGATIVE Urine RBC RARE /HPF Urine WBC 2-5 /HPF Urine Squamous Epithelial Cells 2-5 /HPF Urine Crystals NONE /LPF Urine Bacteria NEGATIVE /HPF Urine Casts NONE /LPF Urine Mucus SMALL H /LPF Urine Culture Indicated NO Urine Test NEGATIVE NEGATIVE Urine Opiates Screen NEGATIVE NEGATIVE Urine Oxycodone Screen NEGATIVE NEGATIVE Urine Methadone Screen NEGATIVE NEGATIVE Urine Propoxyphene Screen NEGATIVE NEGATIVE Urine Barbiturates Screen POSITIVE H NEGATIVE Ur Tricyclic Antidepressants Screen NEGATIVE NEGATIVE Urine Phencyclidine Screen NEGATIVE NEGATIVE Urine Amphetamines Screen NEGATIVE NEGATIVE Urine Methamphetamines Screen NEGATIVE NEGATIVE Urine Benzodiazepines Screen NEGATIVE NEGATIVE Urine Cocaine Screen NEGATIVE NEGATIVE Urine Cannabinoids Screen NEGATIVE NEGATIVE My Orders Orders - SAMRA TOPETE MD Drug Screen Stat (Urine) (11/27/22 19:40) Hcg,Qualitative Urine (11/27/22 19:40) Ua Culture If Indicated (11/27/22 19:40) Ct Head Wo-R/O Stroke (11/27/22 20:06) Chest 1 View Ap/Pa Only (11/27/22 20:07) Alcohol (11/27/22 20:07) Cbc With Automated Diff (11/27/22 20:07) Comprehensive Metabolic Panel (11/27/22 20:07) Magnesium (11/27/22 20:07) Protime With Inr (11/27/22 20:07) Partial Thromboplastin Time (11/27/22 20:07) Troponin I Fs (11/27/22 20:07) Continuous Ekg Monitoring (11/27/22 20:08) Ekg Tracing (11/27/22 20:08) Vital Signs/I&O 11/27/22 19:24 Temp 36.9 Pulse 55 Resp 18 B/P (MAP) 113/64 (80) Pulse Ox 98 O2 Delivery Room Air Blood Pressure Mean: 80 FSBG Bedside Testing Finger Stick Blood Glucose: 103 Progress Progress Note : Progress Note 1. STROKE RULE OUT: LEFT SIDED WEAKNESS DUE to POST-ICTAL NEURO DEFICITS - CT HEAD: no acute findings. Intact SUPERINTENDENT METERS shunt - CXR: negative - CBC/ CMP/ UA: negative - Troponin/ EKG: non-ischemic - NIHHS score: 5 - Discussed first with [facility] Neurologist, Dr. Rey , who thought the pt was having post-ictal neurological symptoms, and recommended MRI. [facility] was unable to accept the pt after discussing with their hospitalist, because they were at capacity and did not have any beds. Advised there is no need for Keppra loading since she did not have active seizures today and she tooke her regualr medication for it already. She also recommended that MRI is what is needed due to the SUPERINTENDENT METERS shunt, NOT a CTA head and neck. - We do not have MRI available during the night and [facility] does not havce Neurology. Pending sale to [facility] accepted pt for admission for MRI and neuro consult. Accepting physician: Dr. Cbob [facility] Diagonstic Imaging: Xray, CT Plain Films/CT/US/NM/MRI: chest, head Comments [facility] [place], [place] NAME: JOEY PARSONS [employer] REC#: [id number] PT STATUS: REG ER : 1980 PHYSICIAN: SAMRA TOPETE MD ADMIT DATE: 11/27/22/ER FS Draft Date of Exam:11/27/22 CHEST 1 VIEW AP/PA ONLY INDICATION: Slurred speech Frontal chest obtained at 8:11 p.m. and compared to 03/23/2022. Heart and mediastinal silhouette are normal in appearance. The lungs are clear. There is no pneumothorax or pleural fluid. Shunt catheter seen over the right chest wall with no discontinuity. IMPRESSION: Negative chest. Dictated on workstation # [id number] Dict: 11/27/222023 Trans: 11/27/222024 [facility] [id number] Interpreted by: GENI BARRERA MD Electronically signed by: [facility] [place], [place] NAME: JOEY PARSONS [employer] REC#: [id number] PT STATUS: REG ER : 1980 PHYSICIAN: SAMRA TOPETE MD ADMIT DATE: 11/27/22/ER FS Draft Date of Exam:11/27/22 CT HEAD WO-R/O STROKE INDICATION: Left-sided weakness and slurred speech. TECHNIQUE: Multiple contiguous axial images were obtained through the brain without the use of intravenous contrast. Auto Exposure Controls were utilized during the CT exam to meet ALARA standards for radiation dose reduction. Comparison made to 10/21/2022. Shunt catheter remains in place from a right frontal approach with tip passing through the right frontal horn. The ventricular size is stable compared to the prior study, without dilatation. There is no subdural or epidural collection. There is no acute intracranial hemorrhage. There is no overt acute territorial ischemia. Calvarial windows show no acute finding. IMPRESSION: Stable shunt catheter with no ventricular dilatation. No acute abnormality is detected. If symptoms persist, MRI may be of benefit. Dictated on workstation # [id number] Dict: 11/27/222027 Trans: 11/27/222030 [facility] [id number] Interpreted by: GENI BARRERA MD Electronically signed by: Departure Impression Primary Impression: Weakness of left side of body Additional Impression: Post-ictal hemiplegia Disposition: XFER SHT-TRM HOSP Condition: Stable Admissions Decision to Admit/Date: Nov 27, 2022 Time/Decision to Admit Time: 21:20 Transfer Transfer Reason: Exceeds level of care Time Spoke to Accepting Phy: 22:50 Transfer Progress Notes Discussed with hospitalist at Pending sale to [facility], Transfer Facility: Pending sale to [facility] Method of Transfer: EMS Departure-Patient Inst. Referrals: [facility] (PCP) Primary Care Physician BERYL HICKMAN APRN (Family) Primary Care Physician SAMRA TOPETE MD Nov 27, 2022 20:38
[2022-11-27 20:43] LABS: ALANINE AMINOTRANSFERASE 17 U/L (0-55); ALBUMIN 4.2 GM/DL (3.2-4.5); ALKALINE PHOSPHATASE 114 U/L (40-136); BILIRUBIN,TOTAL 0.2 MG/DL (0.1-1.0); BUN/CREATININE RATIO 11; CALCIUM 9.1 MG/DL (8.5-10.1); CARBON DIOXIDE 25 MMOL/L (21-32); CHLORIDE 108 MMOL/L (98-107); CREATININE SERUM 0.74 MG/DL (0.60-1.30); GFR ESTIMATED 102; GLUCOSE 113 MG/DL (70-105); MAGNESIUM 2.2 MG/DL (1.6-2.4); SODIUM 144 MMOL/L (135-145); TOTAL PROTEIN 6.4 GM/DL (6.4-8.2)
[2022-11-27 20:44] LABS: BACTERIA,URINE NEGATIVE /HPF; RBC,URINE RARE /HPF
[2022-11-27 20:47] LABS: AMPHETAMINE SCREEN, URINE NEGATIVE (NEGATIVE); BARBITURATE SCREEN URINE POSITIVE (NEGATIVE); BENZODIAZEPINES SCREEN URINE NEGATIVE (NEGATIVE); CANNABINOID SCREEN, URINE NEGATIVE (NEGATIVE); COCAINE SCREEN URINE NEGATIVE (NEGATIVE); HCG,QUALITATIVE URINE NEGATIVE (NEGATIVE); METHADONE STAT NEGATIVE (NEGATIVE); OPIATE SCREEN URINE NEGATIVE (NEGATIVE); OXYCODONE STAT NEGATIVE (NEGATIVE); PROPOXYPHENE STAT NEGATIVE (NEGATIVE); TRICYCLIC ANTIDEPRESSANTS SCRE NEGATIVE (NEGATIVE)
[2022-11-27] MEDS ORDERED: fentaNYL INJ 100 MCG/2 ML AMP ONE (23:37)
[2022-11-27] MEDS ORDERED: fentaNYL INJ 100 MCG/2 ML AMP IVP ONE (23:45)
[2022-11-28 00:01] VITALS: BP 131/80
== END 2022-11-28 00:01 | disposition short-term general hospital (02) ==
LOC: EDUNIT# 19:12 → ER FS 19:13
DX: G81.94 Hemiplegia, unspecified affecting left nondominant side (principal); G40.909 Epilepsy, unspecified, not intractable, without status epilepticus; E66.01 Morbid (severe) obesity due to excess calories; Z79.899 Other long term (current) drug therapy; Z68.37 Body mass index [BMI] 37.0-37.9, adult
CPT/HCPCS: 36415; 70450; 71045; 80053; 80306; 81000; 82947; 83735; 84484; 84703; 85025; 85610; 85730; 93005; 99284; G0480; 80320

== ENCOUNTER → 2023-01-02 | Outpatient (CLI) | payer BC, MEDICARE ==
--- NOTE | 2023-01-02 11:24 | Diagnostic Imaging Report ---
PROCEDURE: MR imaging of the brain without contrast. TECHNIQUE: Multiplanar, multisequence MR imaging of the brain was performed without contrast. INDICATION: History of Chiari malformation. History of QUALITY RN shunt. Spontaneous subdural hematoma from over shunting. Follow-up. COMPARISON: CT head on 11/27/2022. FINDINGS: No acute ischemia, mass, or hemorrhage. Stable configuration of a right frontal-approach QUALITY RN shunt. The ventricles are decompressed. The cortical sulci and basilar cisterns are symmetric and unremarkable. The sellar and suprasellar regions have a normal appearance. There is caudal ectopia of the cerebellar tonsils extending approximately 5 mm below the foramen magnum. The paranasal sinuses and mastoid air cells demonstrate normal signal characteristics. The globes and orbits are symmetric and unremarkable. The scalp and calvarium have a normal appearance. IMPRESSION: 1. No acute ischemia, mass, or hemorrhage. 2. Stable configuration of the right frontal-approach QUALITY RN shunt. The ventricles are decompressed. 3. Caudal ectopia of the cerebellar tonsils, consistent with patient history of Chiari malformation. Dictated by: Dictated on workstation # [id number]
== END ==
LOC: RAD 08:47
PROVIDERS: ATTEND Nurse Practitioner Family
DX: G93.89 Other specified disorders of brain (principal); G43.719 Chronic migraine without aura, intractable, without status migrainosus
CPT/HCPCS: 70551

== ENCOUNTER → 2023-02-02 | Outpatient (CLI) | payer BC, MEDICARE ==
--- NOTE | 2023-02-02 13:48 | Diagnostic Imaging Report ---
CLINICAL INDICATION: Patient has history of shunt placement. Intracranial hypertension. EXAM: MRV of the head performed without IV contrast. Sagittal 3D source imaging is obtained. Rotating 3D MIP images were created. COMPARISON: MRI of the brain without contrast dated 01/02/2023. FINDINGS: There is no evidence of deep venous thrombosis. Arachnoid granulations are seen involving the right distal transverse dural venous sinus and superior sagittal sinus regions. There is slightly diminished signal within the vein of [place] and straight sinus regions which are patent. There are areas of laminar-like low signal within the distal straight sinus and bilateral IJ regions which may be related to flow artifact. IMPRESSION: There is no evidence of dural venous sinus thrombosis. Dictated by: Dictated on workstation # [id number]
== END ==
LOC: RAD 11:52
PROVIDERS: ATTEND Nurse Practitioner Family
DX: G93.2 Benign intracranial hypertension (principal); Z98.2 Presence of cerebrospinal fluid drainage device
CPT/HCPCS: 70544

== ENCOUNTER 2023-04-07 18:54 | Emergency (ER) | payer BC, MEDICARE ==
[~2023-04-07] VITALS: Ht 172 cm; Wt 102.1 kg
--- NOTE | 2023-04-07 19:14 | ED Abdominal Pain ---
General Chief Complaint: Abdominal/GI Problems Stated Complaint: LEFT FLANK PAIN, POSS KIDNEY INFECTION, HX Source of Information: Patient Exam Limitations: No Limitations History of Present Illness Date Seen by Provider: Apr 07, 2023 Time Seen by Provider: 19:14 Initial Comments Patient is a 43yo with a long involved PMH (per review of her records on [facility]) presents today with abdominal cramping/bladder spasms. She states she has "recurrent kidney infections" and is on daily pyridium - states she ran out last night and the spasms started today. SHe tells me for the last day or 2 her urine has been "brown" and she has only voided once yesterday and twice today. She denies dysuria, urgency or frequency. She is not aving any diarrhea. No fevers, chills. No black or bloody stools. S/p RNY gastric bypass as annmarie mcfarlane and HALIMA CARMONA. 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 No urinary surgeries.) SHe is quite upset on arrival, speaking with stuttered speech, gasping. I asked her if she had interstitial cystitis and she told me no. She states she follows with a Urologist at . I was able to review her records from - h/o IIH s/p HAT BRUSHER MACHINE shunt; psychogenic nonepileptic seizure d/o (she tells me she is on keppra - cannot find a record of this as a current medication), interstitial cystitis, pelvic floor dysfunct ion, HTN, high cholersterol, chronic iron deficiency. I could find no record in [facility] for of Bridgett following with a Urologist at . Only a note that mentioned to "follow with your local urologist for urinary frequency". 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 Location: Suprapubic Radiation: Back Modifying Factors: Worsens With Movement Associated Symptoms: Back Pain Allergies and Home Medications Allergies Coded Allergies: promethazine (Verified Allergy, Mild, 01/28/16) NSAIDS (Non-Steroidal Anti-Inflamma (Verified Allergy, Unknown, 11/06/19) HAD GASTRIC BYPASS prednisone (Verified Allergy, Unknown, 11/06/19) HAD GASTRIC BYPASS Uncoded Allergies: CALCIUM CHANNEL BLOCKERS (Adverse Reaction, Unknown, weight gain, 10/21/18) Patient Home Medication List Home Medication List Reviewed: Yes Acetaminophen (Tylenol Extra Strength) 500 Mg Tablet, 1,000 MG PO Q6H, (Reported) Entered as Reported by: BHAVIK TORRES on 08/23/19 1129 Cyclobenzaprine HCl (Cyclobenzaprine HCl) 10 Mg Tablet, 10 MG PO TID Prescribed by: LYLE GALVAN on 08/03/22 1320 Diphenhydramine HCl (Benadryl) 25 Mg Capsule, 25-50 MG PO Q4H, (Reported) Entered as Reported by: BHAVIK TORRES on 08/23/19 1129 Divalproex Sodium (Depakote) 500 Mg Tablet.dr, 500 MG PO DAILY, (Reported) Entered as Reported by: BHAVIK TORRES on 08/23/19 1129 Duloxetine HCl (Cymbalta) 30 Mg Capsule.dr, 90 MG PO DAILY, (Reported) Entered as Reported by: BHAVIK TORRES on 08/23/19 1125 Levofloxacin (Levofloxacin) 750 Mg Tablet, 750 MG PO DAILY Prescribed by: LYLE GALVAN on 08/03/22 1320 Ondansetron (Ondansetron Odt) 4 Mg Tab.rapdis, 4 MG PO Q6H, (Reported) Entered as Reported by: BHAVIK TORRES on 08/23/19 1125 Oxycodone HCl/Acetaminophen (Percocet 10-325 mg Tablet) 1 Each Tablet, 1 TAB PO [id number] PRN for PAIN-MODERATE, (Reported) Entered as Reported by: BHAVIK TORRES on 08/23/19 1129 Oxycodone HCl/Acetaminophen (Percocet 5-325 mg Tablet) 1 Each Tablet, 1 TAB PO Q6H Prescribed by: SARA DIAZ on 01/23/202100 Propranolol HCl (Propranolol HCl) 80 Mg Tablet, 80 MG PO TID, (Reported) Entered as Reported by: JOSS LYLES on 03/08/16 105 Sulfamethoxazole/Trimethoprim (Bactrim Ds Tablet) 1 Each Tablet, 1 EACH PO BID Prescribed by: FABIO BELLA on 04/07/232116 [lidoderm 5% patch] , 1 PATCH TD DAILY Prescribed by: SARA DIAZ on 01/23/202100 Review of Systems Review of Systems Constitutional: see HPI Respiratory: No Symptoms Reported Cardiovascular: No Symptoms Reported Gastrointestinal: Abdominal Pain Genitourinary: No Symptoms Reported Musculoskeletal: back pain Skin: no symptoms reported Psychiatric/Neurological: Anxiety, Emotional Problems Past Gqksoxr-Qgavfn-Zqwtln Hx Immunizations Up To Date Tetanus Booster (TDap): Less than 5yrs PED Vaccines UTD: No First/Initial COVID19 Vaccinat: 10/05 moderna x 2 Second COVID19 Vaccination Richi: 10/05 Third COVID19 Vaccination Date: 10/05 Seasonal Allergies Seasonal Allergies: No Past Medical History Surgery/Hospitalization HX: SEIZURE DISORDERS, HTN, GASTRIC BYPASS, HAT BRUSHER MACHINE SHUNT, Pseudotumor cerebri,Hysterectomy, Cholecystectomy, Oopherectomy, Asthma, Migraine headaches,GERD, Anxiety Surgeries: Yes (GASTRIC BYPASS, HAT BRUSHER MACHINE Shunt) Abdominal, Bladder Surgery, Brain Shunt, Gallbladder, Hysterectomy, Neurological, Oophorectomy Respiratory: Yes Asthma, Pneumonia, Chronic Bronchitis Cardiac: Yes Hypertension Neurological: Yes (IDIOPATHIC INTRACRANIAL HYPERTENSION;PSEUDOTUMOR CEREBRI) Headaches /Migraines, Meningitis, Seizure Disorder Reproductive 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 Genitourinary: No Gastrointestinal: Yes (GASTRIC BYPASS) Gastroesophageal Reflux, Esophagitis Musculoskeletal: No Endocrine: Yes (MORBID OBESITY) HEENT: No Cancer: No Psychosocial: Yes Anxiety Integumentary: Yes (ABSCESSES; SURGICAL WOUND INFECTION) Blood Disorders: No Adverse Reaction/Blood Tranf: No Family Medical History Abdominal aortic aneurysm 03 FATHER Family history: Allergy 03 FATHER Family history: Arthritis 03 MOTHER 09 SISTER Family history: Hypertension 03 FATHER No Pertinent Family Hx PT HAD BOTH MODERNA COVID-19 VACCINES -SECOND ONE 08/2020 PT HAD COVID--SYMPTOMS BEGAN ON 01/21/21, TESTED + ON 10/24/20, HAD BAM INFUSION 01/25/21 DAUGHTER ALSO TESTED + FOR COVID AROUND THAT SAME TIME, AND DAUGHTER ALSO HAD BAM INFUSION Physical Exam Vital Signs Vital Signs - First Documented 04/07/23 19:13 Temp 36.8 Pulse 70 Resp 22 B/P (MAP) 138/75 (96) Pulse Ox 97 O2 Delivery Room Air Capillary Refill : Height/Weight/BMI Height: 5'5.00" Weight: 295lbs. 0.0oz. 133.885161xa; 37.00 BMI Method:Stated General Appearance: WD/WN, mild distress HEENT: PERRL/EOMI Neck: normal inspection Respiratory: lungs clear, normal breath sounds, no respiratory distress, no accessory muscle use Cardiovascular: regular rate, rhythm Gastrointestinal: soft, tenderness (suprapubic region; no rebound or involuntary guarding) Extremities: normal range of motion, normal inspection Back: no CVA tenderness Neurologic/Psychiatric: alert, oriented x 3, depressed affect (tearful/anxious) Skin: normal color, warm/dry Progress/Results/Core Measures Results/Orders Lab Results Laboratory Tests Test 04/07/23 19:15 04/07/23 19:45 Range/Units Urine Color ORANGE Urine Clarity CLEAR Urine pH 5.0 5-9 Urine Specific [place] 1.020 1.016-1.022 Urine Protein 2+ H NEGATIVE Urine Glucose (UA) TRACE H NEGATIVE Urine Ketones 1+ H NEGATIVE Urine Nitrite POSITIVE H NEGATIVE Urine Bilirubin 1+ H NEGATIVE Urine Urobilinogen 1.0 < = 1.0 MG/DL Urine Leukocyte Esterase TRACE H NEGATIVE Urine RBC (Auto) TRACE H NEGATIVE Urine RBC 10-25 H /HPF Urine WBC 10-25 H /HPF Urine Squamous Epithelial Cells RARE /HPF Urine Crystals NONE /LPF Urine Bacteria FEW H /HPF Urine Casts NONE /LPF Urine Mucus NEGATIVE /LPF Urine Culture Indicated YES White Blood Count 4.5 4.3-11.0 10^3/uL Red Blood Count 3.41 L 3.80-5.11 10^6/uL Hemoglobin 11.0 L 11.5-16.0 g/dL Hematocrit 34 L 35-52 % Mean Corpuscular Volume 99 80-99 fL Mean Corpuscular Hemoglobin 32 25-34 pg Mean Corpuscular Hemoglobin Concent 33 32-36 g/dL Red Cell Distribution Width 13.2 10.0-14.5 % Platelet Count 201 130-400 10^3/uL Mean Platelet Volume 10.0 9.0-12.2 fL Immature Granulocyte % (Auto) 0 % Neutrophils (%) (Auto) 50 42-75 % Lymphocytes (%) (Auto) 39 12-44 % Monocytes (%) (Auto) 8 0-12 % Eosinophils (%) (Auto) 2 0-10 % Basophils (%) (Auto) 1 0-10 % Neutrophils # (Auto) 2.2 1.8-7.8 10^3/uL Lymphocytes # (Auto) 1.7 1.0-4.0 10^3/uL Monocytes # (Auto) 0.4 0.0-1.0 10^3/uL Eosinophils # (Auto) 0.1 0.0-0.3 10^3/uL Basophils # (Auto) 0.0 0.0-0.1 10^3/uL Immature Granulocyte # (Auto) 0.0 0.0-0.1 10^3/uL Sodium Level 141 135-145 MMOL/L Potassium Level 4.0 3.6-5.0 MMOL/L Chloride Level 111 H 98-107 MMOL/L Carbon Dioxide Level 20 L 21-32 MMOL/L Anion Gap 10 5-14 MMOL/L Blood Urea Nitrogen 12 7-18 MG/DL Creatinine 0.80 0.60-1.30 MG/DL Estimat Glomerular Filtration Rate 93 BUN/Creatinine Ratio 15 Glucose Level 97 70-105 MG/DL Calcium Level 8.7 8.5-10.1 MG/DL My Orders Orders - FABIO BELLA MD Ed Iv/Invasive Line Start (04/07/23 19:47) Cbc And Automated Diff (04/07/23 19:47) Basic Metabolic Panel (04/07/23 19:47) Ua Culture If Indicated (04/07/23 19:47) Ns Iv 1000 Ml (Ns Iv 1000 Ml) (04/07/23 19:47) Phenazopyridine Tablet (Phenazopyridine (04/07/23 20:00) Ondansetron Injection (Ondansetron Inj (04/07/23 20:00) Urine Culture (04/07/23 19:15) Sulfamethoxazole/Tmp Ds Tablet (Sulfamet (04/07/23 21:15) Ketorolac Injection (Ketorolac Injection (04/07/23 21:15) Medications Given in ED Current Medications Medications Dose Ordered Sig/Kelly Route Start Time Stop Time Status Last Admin Dose Admin Ketorolac Tromethamine 15 mg ONCE ONCE IVP 04/07/23 21:15 04/07/23 21:16 DC 04/07/23 21:27 15 MG Ondansetron HCl 4 mg ONCE ONCE IVP 04/07/23 20:00 04/07/23 20:01 DC 04/07/23 19:57 4 MG Trimethoprim/ Sulfamethoxazole 1 ea ONCE ONCE PO 04/07/23 21:15 04/07/23 21:16 DC 04/07/23 21:19 1 EA Vital Signs/I&O 04/07/23 04/07/23 19:13 21:54 Temp 36.8 36.8 Pulse 70 67 Resp 22 16 B/P (MAP) 138/75 (96) 128/68 Pulse Ox 97 98 O2 Delivery Room Air Room Air 04/07/23 23:59 Intake Total 1000 ml Balance 1000 ml Progress Progress Note : Time: 21:00 Progress Note Patient seen and evaluated by me. Evaluation today includes physical history and physical exam with CBC, basic metabolic panel and urinalysis. Pertinent physical exam findings well-developed well-nourished obese female in mild to moderate distress, tearful, anxious with stuttering speech. Oral mucosa is moist. Heart is regular, not tachycardic. She is afebrile with a good blood pressure. She is not hypoxic. Lungs are clear. Abdomen is soft and tender in the suprapubic region without any involuntary guarding or rebound. She has no lower extremity edema or calf tenderness. No focal neurologic deficits. She appears extremely anxious. Differential diagnosis includes urinary tract infection, pyelonephritis, diverticulitis Patient's labs independently reviewed and interpreted by me. Her CBC shows a normal white count with hemoglobin and hematocrit slightly below normal range at 11 and 34. Normal platelets. Her basic metabolic panel is within normal limits except for a mildly decreased CO2 at 20. Normal renal function. Her urinalysis shows normal concentrated urine with 2+ protein, trace glucose, 1+ ketones. It is nitrite positive with also 1+ bilirubinemia. 10-25 red blood cells and 10-25 white blood cells per high-powered field. Few bacteria noted. Patient is treated in the emergency department with 15 mg of Toradol IV. I chose Toradol for pain relieving properties and it is not a narcotic. She is several years out of her Charmaine-en-Y gastric bypass and I am not giving oral NSAIDs. She had high radium prior to arrival. I discussed with her findings of her urinalysis and normal renal function. I did extensive review of her medical records from and found out that she does not fact have history of interstitial cystitis. We talked about triggers for the pain of interstitial cystitis including carbonated beverages, tea and acidic foods. The only positive urine culture I could find in our system was from 2017 at which point she grew out a staph that was sensitive to Bactrim. We will go ahead and start her on that she was given a dose here this evening prior to discharge. Plan on a 5-day course as this appears to be a simple urinary tract infection. It could however be just an exacerbation of her interstitial cystitis. I recommended close follow-up with her primary care physician as well as what ever urologist she is currently seeing. Return precautions provided in both verbal and written format. No concerning findings for any other acute intra-abdominal pathology at this time, she is not having diarrhea, bloody stool, low likelihood of associated diverticulitis. All questions were sought and answered. Patient is stable for discharge. Departure Impression Primary Impression: UTI (urinary tract infection) Qualified Codes: N39.0 - Urinary tract infection, site not specified; R31.9 - Hematuria, unspecified Additional Impression: Pain due to interstitial cystitis Disposition: HOME, SELF-CARE Condition: Stable Departure-Patient Inst. Decision time for Depature: 21:15 Referrals: [facility]/ (PCP) Primary Care Physician BERYL HICKMAN APRN (Family) Primary Care Physician Patient Instructions: Bladder Pain Syndrome (Interstitial Cystitis) ED Add. Discharge Instructions: You do have some evidence of possibly mild bladder infection today. You have b een given a dose of Bactrim. You will need to take 1 twice a day for 5 days. Your urinalysis will culture, these results will be available in 2 to 3 days and if we need to change her antibiotics we will contact you. Be sure and increase your daily intake of water. Try and avoid carbonated beverages, acidic foods as this can sometimes worsen interstitial cystitis. Continue your hyoscyamine as well as Pyridium as needed. If after a couple of days of antibiotics you develop burning with urination, fever or nausea please return to the emergency department for reevaluation or follow-up with your primary care provider. Scripts Sulfamethoxazole/Trimethoprim (Bactrim Ds Tablet) 1 Each Tablet 1 EACH PO BID for 5 Days, #10 TAB Prov: FABIO BELLA MD 04/07/23 Copy Copies To 1: TONEY BARBA KATHRYN M MD Apr 07, 2023 19:14
[2023-04-07] MEDS: NS IV 1000 ML 1,000 ML IV STA (19:57)
[2023-04-07] MEDS: ONDANSETRON INJECTION 4 MG/2 ML (SDV) IVP ONE (19:57)
[2023-04-07] MEDS: PHENAZOPYRIDINE 100 MG TABLET PO ONE (20:03)
[2023-04-07 20:05] LABS: BASOPHILS % (AUTO) 1 % (0-10); EOSINOPHILS # (AUTO) 0.1 10^3/uL (0.0-0.3); EOSINOPHILS % (AUTO) 2 % (0-10); HEMATOCRIT 34 % (35-52); LYMPHOCYTES # (AUTO) 1.7 10^3/uL (1.0-4.0); LYMPHOCYTES % (AUTO) 39 % (12-44); MEAN CORPUSCULAR HEMOGLOBIN 32 pg (25-34); MEAN CORPUSCULAR HGB CONC 33 g/dL (32-36); MEAN CORPUSCULAR VOLUME 99 fL (80-99); MONOCYTES # (AUTO) 0.4 10^3/uL (0.0-1.0); MONOCYTES % (AUTO) 8 % (0-12); NEUTROPHILS # (AUTO) 2.2 10^3/uL (1.8-7.8); NEUTROPHILS % (AUTO) 50 % (42-75); PLATELET COUNT 201 10^3/uL (130-400); WHITE BLOOD COUNT 4.5 10^3/uL (4.3-11.0)
[2023-04-07 20:16] LABS: CALCIUM 8.7 MG/DL (8.5-10.1); CREATININE SERUM 0.8 MG/DL (0.60-1.30)
[2023-04-07 20:29] LABS: COLOR,URINE ORANGE
[2023-04-07 20:30] LABS: BACTERIA,URINE FEW /HPF; BILIRUBIN,URINE 1+ (NEGATIVE); CLARITY,URINE CLEAR; GLUCOSE, URINE (UA) TRACE (NEGATIVE); KETONES,URINE 1+ (NEGATIVE); LEUKOCYTE ESTERASE ,URINE TRACE (NEGATIVE); NITRITE,URINE POSITIVE (NEGATIVE); PROTEIN,URINE 2+ (NEGATIVE); SQUAMOUS EPITHELIAL CELL,UR RARE /HPF
[2023-04-07] MEDS ORDERED: SULF1TAB38 PO (21:17)
[2023-04-07] MEDS: Sulfamethoxazole/Trimethoprim DS TABLET PO ONE (21:19)
[2023-04-07] MEDS: KETOROLAC INJ 15 MG/ML VIAL IVP ONE (21:27)
[2023-04-07 21:54] VITALS: BP 128/68
== END 2023-04-07 21:54 | disposition home or self-care (01) ==
LOC: EDUNIT# 18:54 → ER 18:57
DX: N30.10 Interstitial cystitis (chronic) without hematuria (principal); E66.01 Morbid (severe) obesity due to excess calories; Z68.37 Body mass index [BMI] 37.0-37.9, adult
CPT/HCPCS: 36415; 80048; 81000; 85025; 87088

== ENCOUNTER → 2023-04-15 | Outpatient (CLI) | payer BC, MEDICARE ==
[~2023-04-15] VITALS: Ht 162 cm; Wt 104.0 kg
[~2023-04-15] MED LIST changes: +ACETAMINOPHEN 325 MG TABLET PO PRN; +EPINEPHrine INJECTION 1 MG/ML AMP IM PRN; +NS (IVPB) 250 ML 250 ML IV PRN; +SODIUM CHLORIDE IV ONE; +[UNRECOGNIZED DRUG - OTHER] IV ONE; +diphenhydrAMINE INJ 50 MG/ML VIAL IVP PRN
[2023-04-15 11:38] VITALS: BP 136/80
== END ==
LOC: SDC 10:56
PROVIDERS: ATTEND Psychiatry & Neurology Neurology
DX: G43.701 Chronic migraine without aura, not intractable, with status migrainosus (principal)
CPT/HCPCS: 96365

== ENCOUNTER 2023-04-28 15:10 | Emergency (ER) | payer BC, MEDICARE ==
[~2023-04-28] VITALS: Ht 165.1 cm; Wt 104.0 kg
[~2023-04-28 15:10] MED LIST changes: -ACETAMINOPHEN 325 MG TABLET PO PRN; -EPINEPHrine INJECTION 1 MG/ML AMP IM PRN; -NS (IVPB) 250 ML 250 ML IV PRN; -SODIUM CHLORIDE IV ONE; -[UNRECOGNIZED DRUG - OTHER] IV ONE; -diphenhydrAMINE INJ 50 MG/ML VIAL IVP PRN
[2023-04-28 15:38] LABS: BASOPHILS % (AUTO) 1 % (0-10); EOSINOPHILS # (AUTO) 0.1 10^3/uL (0.0-0.3); EOSINOPHILS % (AUTO) 2 % (0-10); HEMATOCRIT 36 % (35-52); HEMOGLOBIN 11.5 g/dL (11.5-16.0); LYMPHOCYTES # (AUTO) 2.2 10^3/uL (1.0-4.0); LYMPHOCYTES % (AUTO) 26 % (12-44); MEAN CORPUSCULAR HEMOGLOBIN 33 pg (25-34); MEAN CORPUSCULAR HGB CONC 32 g/dL (32-36); MEAN CORPUSCULAR VOLUME 104 fL (80-99); MEAN PLATELET VOLUME 9.8 fL (9.0-12.2); MONOCYTES # (AUTO) 0.7 10^3/uL (0.0-1.0); MONOCYTES % (AUTO) 8 % (0-12); NEUTROPHILS # (AUTO) 5.2 10^3/uL (1.8-7.8); NEUTROPHILS % (AUTO) 63 % (42-75); PLATELET COUNT 243 10^3/uL (130-400); WHITE BLOOD COUNT 8.2 10^3/uL (4.3-11.0)
--- NOTE | 2023-04-28 15:44 | Diagnostic Imaging Report ---
PROCEDURE: CT head without contrast. TECHNIQUE: Multiple contiguous axial images were obtained through the brain without the use of intravenous contrast. Auto Exposure Controls were utilized during the CT exam to meet ALARA standards for radiation dose reduction. INDICATION: Altered mental status. History of pseudotumor cerebri. COMPARISON: 11/27/2022 FINDINGS: Indwelling ventriculoperitoneal shunt catheter is identified entering via a right frontal approach. Tip terminates just above the level of the third ventricle. Ventricles remain slit like, similar compared to prior exam. There is no mass effect or midline shift. There is no loss of normal de [place] vega-white matter junction differentiation to suggest evolving acute territorial infarct. No intra- or extra-axial intracranial hemorrhage is seen. No other extra-axial masses or fluid collections are identified. Kenneth hole is also noted on the left. Otherwise, bony calvarium is intact. Visualized portions of the paranasal sinuses and mastoid air cells are clear. IMPRESSION: 1. Redemonstration of indwelling ventriculoperitoneal shunt catheter. Ventricles remain decompressed and slit like. 2. No evidence of acute hemorrhage, mass, or infarct. Dictated by: Dictated on workstation # [id number]
[2023-04-28 15:45] LABS: SMEAR SCAN COMMENT YES
[2023-04-28 15:56] LABS: ALBUMIN 4.2 GM/DL (3.2-4.5); BILIRUBIN,TOTAL 0.3 MG/DL (0.1-1.0); CALCIUM 8.6 MG/DL (8.5-10.1); CREATININE SERUM 0.79 MG/DL (0.60-1.30); MAGNESIUM 2.1 MG/DL (1.6-2.4); POTASSIUM 4.5 MMOL/L (3.6-5.0); TOTAL PROTEIN 6.2 GM/DL (6.4-8.2)
--- NOTE | 2023-04-28 16:45 | ED Neurological Problem ---
General Chief Complaint: Neurological Problems Stated Complaint: SLURRED SPEACH, NO BALANCE, VISION BLURRY Source: patient Exam Limitations: no limitations History of Present Illness Date Seen by Provider: Apr 28, 2023 Allergies and Home Medications Allergies Coded Allergies: promethazine (Verified Allergy, Mild, 04/28/23) NSAIDS (Non-Steroidal Anti-Inflamma (Verified Allergy, Unknown, 04/28/23) HAD GASTRIC BYPASS prednisone (Verified Allergy, Unknown, 04/28/23) HAD GASTRIC BYPASS Uncoded Allergies: CALCIUM CHANNEL BLOCKERS (Adverse Reaction, Unknown, weight gain, 10/21/18) Patient Home Medication List Acetaminophen (Tylenol Extra Strength) 500 Mg Tablet, 1,000 MG PO Q6H, (Reported) Entered as Reported by: BHAVIK TORRES on 08/23/19 1129 Cyclobenzaprine HCl (Cyclobenzaprine HCl) 10 Mg Tablet, 10 MG PO TID Prescribed by: LYLE GALVAN on 08/03/22 1320 Diphenhydramine HCl (Benadryl) 25 Mg Capsule, 25-50 MG PO Q4H, (Reported) Entered as Reported by: BHAVIK TORRES on 08/23/19 1129 Divalproex Sodium (Depakote) 500 Mg Tablet.dr, 500 MG PO DAILY, (Reported) Entered as Reported by: BHAVIK TORRES on 08/23/19 1129 Duloxetine HCl (Cymbalta) 30 Mg Capsule.dr, 90 MG PO DAILY, (Reported) Entered as Reported by: BHAVIK TORRES on 08/23/19 1125 Levofloxacin (Levofloxacin) 750 Mg Tablet, 750 MG PO DAILY Prescribed by: LYLE GALVAN on 08/03/22 1320 Ondansetron (Ondansetron Odt) 4 Mg Tab.rapdis, 4 MG PO Q6H, (Reported) Entered as Reported by: BHAVIK TORRES on 08/23/19 1125 Oxycodone HCl/Acetaminophen (Percocet 10-325 mg Tablet) 1 Each Tablet, 1 TAB PO [id number] PRN for PAIN-MODERATE, (Reported) Entered as Reported by: BHAVIK TORRES on 08/23/19 1129 Oxycodone HCl/Acetaminophen (Percocet 5-325 mg Tablet) 1 Each Tablet, 1 TAB PO Q6H Prescribed by: SARA DIAZ on 01/23/202100 Propranolol HCl (Propranolol HCl) 80 Mg Tablet, 80 MG PO TID, (Reported) Entered as Reported by: JOSS LYLES on 03/08/16 1052 Sulfamethoxazole/Trimethoprim (Bactrim Ds Tablet) 1 Each Tablet, 1 EACH PO BID Prescribed by: FABIO BELLA on 04/07/232116 [lidoderm 5% patch] , 1 PATCH TD DAILY Prescribed by: SARA DIAZ on 01/23/202100 Past Oerfllw-Tffaco-Funsry Hx Patient Social History Tobacco Use?: No Use of E-Cig and/or Vaping dev: No Substance use?: No Alcohol Use?: No Pt feels they are or have been: No Immunizations Up To Date Tetanus Booster (TDap): Less than 5yrs PED Vaccines UTD: No Influenza Vaccine Up-to-Date: No; Not Current First/Initial COVID19 Vaccinat: 3 shots Second COVID19 Vaccination Richi: 10/05 Third COVID19 Vaccination Date: 10/05 Seasonal Allergies Seasonal Allergies: No Past Medical History Surgery/Hospitalization HX: SEIZURE DISORDERS, HTN, GASTRIC BYPASS, 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, Pseudotumor cerebri,Hysterectomy, Cholecystectomy, Oopherectomy, Asthma, Migraine headaches,GERD, Anxiety Surgeries: Yes (GASTRIC BYPASS, 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) Abdominal, Bladder Surgery, Brain Shunt, Gallbladder, Hysterectomy, Neurological, Oophorectomy Respiratory: Yes Asthma, Pneumonia, Chronic Bronchitis Cardiac: Yes Hypertension Neurological: Yes (IDIOPATHIC INTRACRANIAL HYPERTENSION;PSEUDOTUMOR CEREBRI) Headaches /Migraines, Meningitis, Seizure Disorder 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 Genitourinary: No Gastrointestinal: Yes (GASTRIC BYPASS) Gastroesophageal Reflux, Esophagitis Musculoskeletal: No Endocrine: Yes (MORBID OBESITY) HEENT: No Cancer: No Psychosocial: Yes Anxiety Integumentary: Yes (ABSCESSES; SURGICAL WOUND INFECTION) Blood Disorders: No Adverse Reaction/Blood Tranf: No Family Medical History Abdominal aortic aneurysm 03 FATHER Family history: Allergy 03 FATHER Family history: Arthritis 03 MOTHER 09 SISTER Family history: Hypertension 03 FATHER No Pertinent Family Hx PT HAD BOTH MODERNA COVID-19 VACCINES -SECOND ONE 08/2020 PT HAD COVID--SYMPTOMS BEGAN ON 01/21/21, TESTED + ON 10/24/20, HAD BAM INFUSION 01/25/21 DAUGHTER ALSO TESTED + FOR COVID AROUND THAT SAME TIME, AND DAUGHTER ALSO HAD BAM INFUSION Physical Exam Vital Signs Vital Signs - First Documented 04/28/23 15:15 Temp 37.0 Pulse 57 Resp 18 B/P (MAP) 122/60 (80) Pulse Ox 93 O2 Delivery Room Air Capillary Refill : Height, Weight, BMI Height: 5'5.00" Weight: 295lbs. 0.0oz. 133.647616wg; 34.00 BMI Method:Stated Stroke NIH Stroke Scale Assessment Gaze: Normal (0), Total: Stroke Thrombolytic Exclusion Age 18 or Over: Yes Acute intenal hemorrhage: No History of CVA: No Uncontrolled Coagulation Defec: No Intracranial Hemorrhage: No Severe Hypertension: No GI or Bleed: No Progress/Results/Core Measures Results/Orders Lab Results Laboratory Tests Test 04/28/23 14:25 04/28/23 15:20 04/28/23 17:11 Range/Units White Blood Count 8.2 4.3-11.0 10^3/uL Red Blood Count 3.44 L 3.80-5.11 10^6/uL Hemoglobin 11.5 11.5-16.0 g/dL Hematocrit 36 35-52 % Mean Corpuscular Volume 104 H 80-99 fL Mean Corpuscular Hemoglobin 33 25-34 pg Mean Corpuscular Hemoglobin Concent 32 32-36 g/dL Red Cell Distribution Width 12.3 10.0-14.5 % Platelet Count 243 130-400 10^3/uL Mean Platelet Volume 9.8 9.0-12.2 fL Immature Granulocyte % (Auto) 0 % Neutrophils (%) (Auto) 63 42-75 % Lymphocytes (%) (Auto) 26 12-44 % Monocytes (%) (Auto) 8 0-12 % Eosinophils (%) (Auto) 2 0-10 % Basophils (%) (Auto) 1 0-10 % Neutrophils # (Auto) 5.2 1.8-7.8 10^3/uL Lymphocytes # (Auto) 2.2 1.0-4.0 10^3/uL Monocytes # (Auto) 0.7 0.0-1.0 10^3/uL Eosinophils # (Auto) 0.1 0.0-0.3 10^3/uL Basophils # (Auto) 0.0 0.0-0.1 10^3/uL Immature Granulocyte # (Auto) 0.0 0.0-0.1 10^3/uL Sodium Level 138 135-145 MMOL/L Potassium Level 4.5 3.6-5.0 MMOL/L Chloride Level 107 98-107 MMOL/L Carbon Dioxide Level 28 21-32 MMOL/L Anion Gap 3 L 5-14 MMOL/L Blood Urea Nitrogen 11 7-18 MG/DL Creatinine 0.79 0.60-1.30 MG/DL Estimat Glomerular Filtration Rate 94 BUN/Creatinine Ratio 14 Glucose Level 92 70-105 MG/DL Calcium Level 8.6 8.5-10.1 MG/DL Corrected Calcium 8.4 L 8.5-10.1 MG/DL Magnesium Level 2.1 1.6-2.4 MG/DL Total Bilirubin 0.3 0.1-1.0 MG/DL Aspartate Amino Transf (AST/SGOT) 81 H 5-34 U/L Alanine Aminotransferase (ALT/SGPT) 93 H 0-55 U/L Alkaline Phosphatase 110 40-136 U/L Total Protein 6.2 L 6.4-8.2 GM/DL Albumin 4.2 3.2-4.5 GM/DL Smear Scan YES Glucometer 102 70-110 MG/DL Urine Color YELLOW Urine Clarity CLEAR Urine pH 5.5 5-9 Urine Specific [place] 1.020 1.016-1.022 Urine Protein NEGATIVE NEGATIVE Urine Glucose (UA) NEGATIVE NEGATIVE Urine Ketones NEGATIVE NEGATIVE Urine Nitrite NEGATIVE NEGATIVE Urine Bilirubin NEGATIVE NEGATIVE Urine Urobilinogen 0.2 < = 1.0 MG/DL Urine Leukocyte Esterase NEGATIVE NEGATIVE Urine RBC (Auto) NEGATIVE NEGATIVE Urine RBC NONE /HPF Urine WBC NONE /HPF Urine Squamous Epithelial Cells 5-10 /HPF Urine Crystals NONE /LPF Urine Bacteria TRACE /HPF Urine Casts NONE /LPF Urine Mucus NEGATIVE /LPF Urine Culture Indicated NO My Orders Orders - MARVIN MEYER MD Cbc And Automated Diff (04/28/23 15:21) Comprehensive Metabolic Panel (04/28/23 15:21) Magnesium (04/28/23 15:21) Ua Culture If Indicated (04/28/23 15:21) Ed Iv/Invasive Line Start (04/28/23 15:21) Ct Head Wo (04/28/23 15:21) Accucheck Stat ONCE (04/28/23 15:21) Vital Signs/I&O 04/28/23 15:15 Temp 37.0 Pulse 57 Resp 18 B/P (MAP) 122/60 (80) Pulse Ox 93 O2 Delivery Room Air FSBG Bedside Testing Finger Stick Blood Glucose: 102 Departure Impression Primary Impression: Pseudotumor cerebri Disposition: HOME, SELF-CARE Condition: Stable Departure-Patient Inst. Decision time for Depature: 18:10 Referrals: [facility] (PCP) Primary Care Physician BERYL HICKMAN APRN (Family) Primary Care Physician Patient Instructions: Idiopathic Intracranial Hypertension (DC) Add. Discharge Instructions: Increase your Diamox therapy to 500 mg twice a day. Continue at this dose until you are able to receive further feedback from your neurosurgical team that we will be performing surgery. Please call that team tomorrow. You may continue taking your other medications as previously directed. If increasing Diamox back to 500 mg twice a day does not improve your symptoms, it may be beneficial for you to present directly to the emergency room at [facility] to expedite a therapeutic lumbar puncture with IR services. Return to the emergency room if there are any other problems or concerns of an urgent nature. All discharge instructions reviewed with patient and/or family. Voiced understanding. MARVIN MEYER MD Apr 28, 2023 16:45
[2023-04-28 17:36] LABS: BACTERIA,URINE TRACE /HPF; BILIRUBIN,URINE NEGATIVE (NEGATIVE); CLARITY,URINE CLEAR; COLOR,URINE YELLOW; GLUCOSE, URINE (UA) NEGATIVE (NEGATIVE); KETONES,URINE NEGATIVE (NEGATIVE); LEUKOCYTE ESTERASE ,URINE NEGATIVE (NEGATIVE); NITRITE,URINE NEGATIVE (NEGATIVE); PH,URINE 5.5 (5-9); PROTEIN,URINE NEGATIVE (NEGATIVE)
[2023-04-28 18:27] VITALS: BP 122/79
== END 2023-04-28 18:26 | disposition home or self-care (01) ==
LOC: EDUNIT# 15:11 → ER 15:14
DX: G93.2 Benign intracranial hypertension (principal); E66.01 Morbid (severe) obesity due to excess calories; Z68.34 Body mass index [BMI] 34.0-34.9, adult
CPT/HCPCS: 36415; 70450; 80053; 81000; 82947; 83735; 85025